=== PATIENT | female | born 1955 | race Caucasian/White ===

== ENCOUNTER 2017-01-31 17:52 | Observation (INO) | payer MEDICARE ==
[2017-01-31 18:57] LABS: #Eosinphils 0.3 thou/uL (0.0-0.7); #Monocytes 0.4 thou/uL (0.11-0.59); #Neutrophils 5.3 thou/uL (1.40-6.50); %Basophils 0.6 % (0.0-1.0); %Eosinophils 4.3 % (0.0-10.0); %Lymphocytes 14.5 % (21.0-51.0); %Monocytes 5.2 % (0.0-10.0); Hematocrit 44.4 % (36.0-47.0); Mean Platelet Volume 8.3 fL (7.4-10.4); Red Blood Cell (RBC) Count 5.09 mill/uL (4.20-5.40)
[2017-01-31 19:26] LABS: ALT (SGPT) 9 U/L (8-55); AST (SGOT) 22 U/L (5-34); Alkaline Phosphatase 181 U/L (40-150); Anion Gap 13 mmol/L (10-20); BUN (Urea Nitrogen) 16 mg/dL (9.8-20.1); Bilirubin, Total 0.7 mg/dL (0.2-1.2); Calc. Creatinine Clearance 0 mL/min (70-130); Calcium 9.6 mg/dL (7.8-10.44); Carbon Dioxide 25 mmol/L (23-31); Chloride 109 mmol/L (98-107); Estimated GFR-MDRD 80; Globulin 3.3 g/dL (2.4-3.5); Protein, Total 6.9 g/dL (6.0-8.3)
--- NOTE | 2017-01-31 20:18 | RAD ---
TWO VIEWS RIGHT FEMUR: Date: 01-31-17 History: Follow up fracture. Weakness. Comparison: Intraoperative fluoroscopic images, 12-26-16. FINDINGS: A lateral plate and multiple screws transfix the comminuted fracture or the distal right femoral met adiaphysis. Alignment is similar to intraoperative fluoroscopic images. Post-surgical change related to right total knee prosthesis are also again seen. No hardware complication is seen. There is no a cute fracture or dislocation identified. IMPRESSION: Internal fixation of comminuted fracture distal right femoral metadiaphysis. POS: NGA
[2017-01-31] MEDS ORDERED: Naproxen 500 MG TAB ONE (20:31)
[2017-01-31 21:19] LABS: Bilirubin Negative (Negative); Blood, Urine Negative (Negative); Glucose, Urine (Dipstick) Negative (Negative); Ketone, Urine Negative (Negative); Nitrite Negative (Negative); Protein, Urine (Dipstick) 100 mg/dL (Neg-Trace)
[2017-01-31 21:21] LABS: Bacteria/HPF None Seen HPF (None Seen); Hyaline Casts/LPF 0-3 HYALINE CAST LPF (0-3 Hyaline); Squamous Epithelial 0-3 HPF (0-3)
[2017-01-31] MEDS ORDERED: Ketorolac Tromethamine 30 MG/ML VIAL ONE (22:58)
[2017-02-01] MEDS ORDERED: Ondansetron HCl/PF 4 MG/2 ML Vial IVP PRN (01:26)
[2017-02-01] MEDS ORDERED: Acetaminophen 325 MG TAB PO PRN (01:26)
[2017-02-01] MEDS ORDERED: Ondansetron ODT 4 MG TAB SL PRN (01:26)
[2017-02-01] MEDS ORDERED: Naproxen 500 MG TAB PO PRN (01:28)
[2017-02-01] MEDS ORDERED: HYDROcodone/Acetaminophen 5/325 mg Tablet PO PRN (01:42)
[2017-02-01] MEDS: HYDROcodone/Acetaminophen 5/325 mg Tablet PO PRN ×2 (01:49→06:17)
[2017-02-01] MEDS: Ketorolac Tromethamine 30 MG/ML VIAL IM SCH ×2 (06:19→16:27)
[2017-02-01] MEDS ORDERED: FLU VACC QS2017-18 36 mo. & older 0.5 ML SYRINGE IM ONE (09:00)
[2017-02-01] MEDS ORDERED: oxyCODONE 5 MG TAB PO PRN (10:10)
[2017-02-01] MEDS: Enoxaparin Sodium 40 MG/0.4 ML SYRINGE SC SCH (10:31)
[2017-02-01] MEDS: oxyCODONE 5 MG TAB PO PRN ×3 (10:34→22:43)
--- NOTE | 2017-02-01 12:33 | HP ---
DATE OF ADMISSION: 02/01/2017 TIME OF VISIT: 07. CHIEF COMPLAINT: Generalized weakness. HISTORY OF PRESENT ILLNESS: Ms. Adrian is a 61-year-old female who has had multiple recent admission s. She was initially admitted 12/20/2016 for chest pain, rule out ME. She was discharged home on 0 12/23/2016 status post stress test and negative biomarkers. She was subsequently readmitted from 12/26/2016 to 12/31/2016 after falling and fracturing her dista l right femur. She was discharged to [facility] for 21 days for rehabilitation and was subsequentl y discharged home with [facility] for continuing physical therapy. Per the patient, physical therapy, still has not come and finally called her the last couple of days to schedule an admission time this coming up , 2 days from now. The patient was unable to complete her act ivities of daily living, so decided to come to the emergency department for evaluation. Last night during her evaluation, we contacted [facility] who informed the ER physician that she on ly had 3 days of benefits left and thus, for some unforeseen reason admitted to our service for furt her disposition and workup. She denies any chest pain or shortness of breath, no nausea or vomiting, diarrhea, constipation. Sh e is nonweightbearing to her right leg, status post open reduction internal fixation. She has a lef t AKA with prosthetic leg that she uses to get around. She denies using any alcohol prior to this visit. She denies any other current complaints. PAST MEDICAL HISTORY: 1. Hypertension. 2. Hyperlipidemia. 3. Osteoarthritis. 4. Chronic low back pain. 5. Left BKA. 6. History of chronic alcohol abuse. 7. Hypothyroidism. 8. COPD. PAST SURGICAL HISTORY: 1. Total hip arthroplasty. 2. Lumbar laminectomy in the past. 3. Right shoulder repair. 4. Left shoulder repair in need of revision. 5. Left BKA. 6. Right distal femur ORIF in 12/[address] Dunbar. HOME MEDICATIONS: 1. Trazodone 100 mg p.o. at bedtime. 2. Thiamine 100 mg daily. 3. Senna plus b.i.d. 4. MiraLax 17 grams p.o. daily. 5. Protonix 40 mg daily. 6. Zofran ODT 4 mg p.o. q.6 h. p.r.n. 7. Ativan 0.5 mg p.o. q.8 h. p.r.n. anxiety. 8. Levothyroxine 75 mcg daily. 9. DuoNeb q.4 hours p.r.n. 10. She is on oxycodone 5-10 mg every 6 hours as needed for moderate to severe pain. 11. Iron sulfate 325 mg p.o. b.i.d. 12. Lexapro 10 mg daily. ALLERGIES: ASPIRIN, CEFEPIME, IBUPROFEN/NSAIDs and PENICILLIN. FAMILY HISTORY: Negative for clotting or bleeding disorder, no immune dysfunction. SOCIAL HISTORY: Significant for past alcohol abuse for many years. She has been dry for some time, but states she did have a relapse about 2 months ago when her divorce was final. She does have a h istory of opioid abuse and sees pain management, Dr. East in [place]. She denies using any tobacco except when she drinks. REVIEW OF SYSTEMS: A 10-point review of systems was performed and negative for all other systems ex cept as per HPI. PHYSICAL EXAMINATION: VITAL SIGNS: Temperature 99.9, pulse 80, blood pressure 146/58, respiratory rate 20, O2 sat 97% on 2 liters nasal cannula. GENERAL: She is awake. She is alert. She is oriented x3. She is a well-developed, well-nourished white female who appears to be in no distress. HEENT: Normocephalic, atraumatic. Pupils equal, reactive bilaterally, mucosa moist, with no visibl e lesions and no thrush. CHEST: Lungs are clear. She has a symmetric chest movement and good air exchange. She has no whee zes, rales or rhonchi. CARDIOVASCULAR: Normal S1, S2, no S3 or S4. No audible murmurs. ABDOMEN: Soft, nontender, nondistended, no mass or organomegaly. EXTREMITIES: She had no cyanosis of upper extremities. She has a left BKA, stump is intact. Her l eft leg, knee brace was not removed. She has no edema of the right lower extremity. 1+ peripheral pulse, dorsalis pedis and posterior tibial. SKIN: Otherwise warm, moist and well perfused. She has no other identified rashes or lesions. MUSCULOSKELETAL: Shows shoulders and hips to be uninflamed without any palpable effusions. Right k nee is in a brace. Left knee appears to be intact. Stump is without erythema. NEUROLOGIC: Cranial nerves II-XII are grossly intact. No focal neurologic deficits. LABORATORY DATA: CMP is completely within normal limits. Urinalysis showed no bacteria, but 7-10 w raul blood cells. CBC is normal with a white count of 7, hemoglobin 13.6, and platelets 231,000. Femur x-ray showed distal right femur fracture, status post open reduction internal fixation with britton rdware in good alignment. No evidence of fracture or dislocation. ASSESSMENT AND PLAN: 1. Generalized weakness. The patient was placed in observation status. I am seeing the patient th is morning. We will wait caseworker protective services to see her and work on placement either home with home health care versus back at [facility]. The patient is refusing retirement facility. 2. Essential hypertension. The patient is current not on any medications. We will watch. 3. Hyperlipidemia: Not on medications. 4. Gastroesophageal reflux disease, on Protonix. We will continue. 5. Chronic pain. We will continue her home dose of oxycodone. 6. Hypothyroidism on levothyroxine. We will continue. 7. History of chronic obstructive pulmonary disease on DuoNebs p.r.n. We will continue.
[2017-02-01] MEDS: Famotidine 20 MG TAB PO SCH (20:44)
[2017-02-01] MEDS ORDERED: traZODone HCl 50 MG TAB PO SCH (21:00)
[2017-02-02] MEDS: oxyCODONE 5 MG TAB PO PRN ×3 (06:27→16:56)
[2017-02-02] MEDS: Famotidine 20 MG TAB PO SCH (08:12)
[2017-02-02] MEDS: Enoxaparin Sodium 40 MG/0.4 ML SYRINGE SC SCH (08:13)
[2017-02-02] MEDS ORDERED: traMADol HCl 50 MG TAB PO PRN ×2 (10:36)
[2017-02-02] MEDS ORDERED: Acetaminophen/Codeine 30-300mg Tablet PO PRN ×2 (10:37)
--- NOTE | 2017-02-02 11:44 | DIS ---
PRIMARY CARE PHYSICIAN: None. ORTHOPEDIST: Dr. Jose Dunbar DATE OF ADMISSION: 02/01/2017 DATE OF DISCHARGE: 02/02/2017 DISCHARGE DIAGNOSES: 1. Physical deconditioning. 2. Status post recent open reduction and internal fixation of left distal femur fracture. 3. Fall from same level without injury. 4. Hypertension. 5. Hyperlipidemia. 6. Gastroesophageal reflux disease. 7. Hypothyroidism. 8. History of chronic pain syndrome. 9. History of chronic obstructive pulmonary disease without acute exacerbation. CONSULTATIONS: Orthopedics, Dr. Dunbar and his team. PROCEDURES: None. HISTORY OF PRESENT ILLNESS: Ms. Adrian is a 59-year-old female status post a fall with right distal femur fracture about 5 weeks ago. She subsequently was admitted, had her distal femur fracture fixe d and is currently nonweightbearing for 6-8 weeks. She was discharged from the hospital to [facility] for rehabilitation. She was there for about 3 weeks and discharged home with home health care. Apparently home health care never started services. She became weaker and weaker and finally prese nted in the emergency department for treatment for admission for further placement. HOSPITAL COURSE: The patient was admitted plumbing engineer, I saw her later that morning on the floor. She had no acute complaints. No events. Orthopedics came by and saw her and noted that she had no further evidence of acute fracture on her repaired site. email manager was consulted for placement. The patient had difficulty on 02/01/2017 selecting a care plan, she refused to go to longterm facility and had no days left at [facility]. She subsequently was deciding on home health care wi th or without secondary home care acute service. She was watched overnight 02/01/2017 to 02/02/2017, and this morning she had decided on [facility] t o provide care at home on a private pay basis. Arrangements were made and a choice letter for regul ar services to [facility] was sent and the patient was discharged home for further rehabilitation. PHYSICAL EXAMINATION: The patient was seen on the day of discharge. Discharged plan and dispositio n were discussed with the patient face to face at the bedside. DISCHARGE MEDICATIONS: 1. Tylenol #3 300/30 one to two q.4 hours p.r.n. per Orthopedics. 2. Amlodipine 5 mg daily. 3. Biotin 2500 mcg p.o. daily. 4. Lexapro 10 mg daily. Prescription sent for 30 tablets with no refills. 5. Levothyroxine 75 mcg daily. 6. Ativan 0.5 mg p.o. q.8 h, no refill prescription was given. 7. Oxycodone 10-20 mg p.o. q.4 h. p.r.n., per patient history, refill was not given. 8. Tramadol 50-100 mg p.o. q.4 h. p.r.n. Prescription given by Orthopedics. 9. Trazodone 100 mg p.o. at bedtime., a prescription for 30 days given with no refill. DISPOSITION: 1. The patient will be discharged home with [facility] and [facility]. Followup appointment is with Dr Dunbar as previously scheduled. 2. She is to establish with a PCP here locally. 3. Follow up with the pain management doctor who is currently in [place] or settle with a new one he re locally. DISCHARGE CONDITION: Stable.
[2017-02-02 16:10] VITALS: BP 134/51; TEMP 97.8
== END 2017-02-02 17:20 | disposition home health service (06) ==
LOC: ERS 17:52 → SURG B 02-01 00:27
PROVIDERS: ADMIT Internal Medicine; ATTEND Internal Medicine
DX: R53.81 Other malaise (principal); I10 Essential (primary) hypertension; E78.5 Hyperlipidemia, unspecified; K21.9 Gastro-esophageal reflux disease without esophagitis; E03.9 Hypothyroidism, unspecified; G89.4 Chronic pain syndrome; J44.9 Chronic obstructive pulmonary disease, unspecified; S72.401A Unspecified fracture of lower end of right femur, initial encounter for closed fracture; M19.90 Unspecified osteoarthritis, unspecified site; F17.200 Nicotine dependence, unspecified, uncomplicated; Z79.899 Other long term (current) drug therapy; Z88.6 Allergy status to analgesic agent; Z88.1 Allergy status to other antibiotic agents; Z88.0 Allergy status to penicillin; Z97.14 Presence of artificial left leg (complete) (partial); Z96.649 Presence of unspecified artificial hip joint; Z89.512 Acquired absence of left leg below knee; Z98.890 Other specified postprocedural states; Z91.81 History of falling; Z86.59 Personal history of other mental and behavioral disorders
CPT/HCPCS: 73552; 80053; 85025; 90732; 96372 ×3; 99285; G0009; G0378; 36415; 81003; 81015; 90471; J1650; J1885

== ENCOUNTER 2017-04-11 13:51 | Outpatient (CLI) | payer MEDICARE ==
--- NOTE | 2017-04-11 17:19 | ULT ---
RIGHT LOWER EXTREMITY VENOUS ULTRASOUND: Date: 04/11/17 HISTORY: Pain. Swelling. Fracture. COMPARISON: 01/10/17. TECHNIQUE: Villarreal scale, color flow, Doppler imaging, and spectral waveform analysis performed of the right lower extremity deep venous system. FINDINGS: There is compressibility, presence of flow, and augmentation in the common femoral, femoral vein, and popliteal vein. There is flow in the greater saphenous vein, profunda vein, and posterior tibial vei n. IMPRESSION: No evidence of thrombus in right lower extremity deep venous system. POS: NGA
== END 2017-04-11 13:52 | disposition home or self-care (01) ==
LOC: ULT 13:51
PROVIDERS: ATTEND Orthopaedic Surgery
DX: M79.89 Other specified soft tissue disorders (principal); M79.661 Pain in right lower leg

== ENCOUNTER 2017-05-09 11:50 | Emergency (ER) | payer MEDICARE ==
[2017-05-09] MEDS ORDERED: traMADol HCl 50 MG TAB ONE (13:16)
== END 2017-05-09 14:09 | disposition home or self-care (01) ==
LOC: ERS 11:50
DX: M25.561 Pain in right knee (principal); E78.5 Hyperlipidemia, unspecified; F41.9 Anxiety disorder, unspecified; F17.210 Nicotine dependence, cigarettes, uncomplicated; I10 Essential (primary) hypertension; M19.90 Unspecified osteoarthritis, unspecified site
CPT/HCPCS: 99406

== ENCOUNTER 2017-05-12 10:37 | Outpatient (CLI) | payer MEDICARE ==
--- NOTE | 2017-05-12 15:34 | NM ---
THREE PHASE BONE SCAN: HISTORY: Evaluate for loosening of the femoral component of the knee arthroplasty. COMPARISON: Knee radiographs 01/31/17. TECHNIQUE: Immediate blood pool and delayed images were obtained of the right knee after the intravenous adminis tration of 30.6 mCi Technetium 99m MDP. FINDINGS: Increased blood flow, blood pool, and delayed activity of the distal femur at the callus healing frac ture. No abnormal uptake at the femoral portion of the knee arthroplasty. No abnormal tibial uptake . IMPRESSION: Healing fracture. No evidence of loosening of hardware. POS: NGA
== END 2017-05-12 10:38 | disposition home or self-care (01) ==
LOC: NM 10:37
PROVIDERS: ATTEND Orthopaedic Surgery
DX: M97.11XD Periprosthetic fracture around internal prosthetic right knee joint, subsequent encounter (principal)
CPT/HCPCS: 78315; A9503

== ENCOUNTER 2017-07-05 00:11 | Emergency (ER) | payer MEDICARE ==
--- NOTE | 2017-07-05 08:07 | RAD ---
AP CHEST: History: 61-year-old female with dyspnea. Date: 07-05-17 Comparison: 12-26-16 FINDINGS: AP chest demonstrates a left shoulder arthroplasty again seen. Mild cardiomegaly is seen. Pulmonary vascular congestion is seen. There is blunting of the right costophrenic angle compatible with small right sided pleural effusion. No other significant interval changes or abnormalities seen. IMPRESSION: Blunting of the right costophrenic angle compatible with small right sided pleural effusion. This is slightly more prominent than on the previous comparison exam. POS: NGA
--- NOTE | 2017-08-18 15:03 | EKG ---
Test Reason : Blood Pressure : / mmHG Vent. Rate : 070 BPM Atrial Rate : 070 BPM P-R Int : 182 ms QRS Dur : 098 ms QT Int : 458 ms P-R-T Axes : 046 042 035 degrees QTc Int : 494 ms Sinus rhythm with Premature atrial complexes Prolonged QT Abnormal ECG Confirmed by GUILLERMO OJEDA ([id number]), visual effects editor EAV RUELAS ([id number]) on 08/18/2017 3:03:20 PM Referred By: Confirmed By:GUILLERMO OJEDA
== END 2017-07-05 06:05 | disposition home or self-care (01) ==
LOC: ERS 00:11
DX: F10.129 Alcohol abuse with intoxication, unspecified (principal); E78.5 Hyperlipidemia, unspecified; I10 Essential (primary) hypertension; M19.90 Unspecified osteoarthritis, unspecified site; K74.60 Unspecified cirrhosis of liver; F41.9 Anxiety disorder, unspecified; F17.210 Nicotine dependence, cigarettes, uncomplicated; E78.1 Pure hyperglyceridemia; F41.0 Panic disorder [episodic paroxysmal anxiety]; Z79.01 Long term (current) use of anticoagulants; Z79.899 Other long term (current) drug therapy; Y90.7 Blood alcohol level of 200-239 mg/100 ml
CPT/HCPCS: 36415; 71045; 80307; 93005; 99406

== ENCOUNTER 2017-07-10 10:32 | Emergency (ER) | payer MEDICARE ==
[2017-07-10] MEDS ORDERED: Promethazine HCl 25 MG/ML VIAL ONE ×2 (11:43→15:24)
[2017-07-10] MEDS ORDERED: Lidocaine Viscous Sol 2% 15 ml UD Cup ONE (11:43)
[2017-07-10] MEDS ORDERED: Mag-Al 1200 mg/1200 mg/30 ML UDCUP ONE (11:43)
[2017-07-10 11:46] LABS: Band 1 % (5-11); Eosinophils 1 % (0-10); Hemoglobin 13.1 g/dL (12.0-16.0); Lymphocytes 25 % (21-51); MDiff Complete? YES; Mean Corpuscular HGB CONC 31.5 g/dL (32.0-36.0); Mean Corpuscular Hemoglobin 25.8 pg (27.0-31.0); Mean Platelet Volume 8.2 fL (7.4-10.4); Monocytes 1 % (0-10); Neutrophil 70 % (42-75); Platelet Count 219 thou/uL (130-400); RBC Distribution Width 14.6 % (11.5-14.5); Red Blood Cell (RBC) Count 5.09 mill/uL (4.20-5.40); White Blood Cell (WBC) Count 4.3 thou/uL (4.8-10.8)
[2017-07-10 11:49] LABS: ALT (SGPT) 25 U/L (8-55); AST (SGOT) 44 U/L (5-34); Albumin 3.6 g/dL (3.4-4.8); Alkaline Phosphatase 200 U/L (40-150); Anion Gap 15 mmol/L (10-20); BUN (Urea Nitrogen) 8 mg/dL (9.8-20.1); Calc. Creatinine Clearance 0 mL/min (70-130); Carbon Dioxide 20 mmol/L (23-31); Chloride 109 mmol/L (98-107); Estimated GFR-MDRD 86; Globulin 2.9 g/dL (2.4-3.5); Glucose 112 mg/dL (80-115); Lipase 52 U/L (8-78); Potassium 3.4 mmol/L (3.5-5.1); Protein, Total 6.5 g/dL (6.0-8.3); Sodium 141 mmol/L (136-145)
[2017-07-10] MEDS ORDERED: Morphine 4 MG/ML VIAL ONE ×2 (13:20→15:55)
[2017-07-10] MEDS ORDERED: Acetaminophen 500 MG TAB ONE (13:20)
[2017-07-10 14:50] LABS: Base Excess-Venous -0.7 mmol/L (0 (+/- 2.5)); Bicarbonate (HCO3v) 21.3 mmol/L (1.0-85.0); CO2 Tension (PvCO2) 26.6 mmHg (41.0-51.0); Calcium, Ionized 0.88 mmol/L (1.12-1.32); Hemoglobin - Calc 11.1 g/dL (12.0-18.0); O2 Tension (PvO2) 197.8 mmHg (35.0-45.0); Potassium 3.6 mmol/L (3.4-4.7); T. Carbon Dioxide 22.1 mmol/L (1.0-85.0); pH (Venous) 7.511 (7.35-7.45); vO2 Saturation-calc 99.8 % (94-98)
[2017-07-10 15:00] LABS: Lactate 1.51 mmol/L (0.50-2.20)
--- NOTE | 2017-07-10 15:15 | CT ---
ABDOMEN AND PELVIS CT WITH IV CONTRAST: History: 61-year-old female with history of fever, nausea, and vomiting and diarrhea. FINDINGS: Post contrast CT examination of the abdomen and pelvis was performed. There is some minimal pleural thickening changes and some pleural based linear and parenchymal change s in both lung bases, worse on the right side, having the appearance of chronic change. Patient appea rs to be status post TIPS procedure. Within the spleen, up to 0.8 cm. Multiple small bilateral renal cysts are noted. No evidence of gallstones. Mild dilatation of the pancreatic duct and common bile du ct. No bowel obstruction. No abscess, adenopathy or abnormal fluid collection within the abdomen or p summer. Normal appearing appendix. No renal calculus or acute obstruction. Minimally dilated spleni c vein as well as some varices in the perigastric region and portahepatis region. No significant asci ejss. Muscle volume loss involving the left gluteal muscles. IMPRESSION: Some chronic pleural and parenchymal changes, primarily in the right lung base. Status post TIPS proc edure, with some associated perigastric and portahepatis varices. Multiple low attenuation foci, nons pecific, in the spleen, measuring up to approximately 0.8 cm. Multiple bilateral renal cysts without renal calculus or obstruction. Unremarkable appearing gallbladder. Mildly dilated common bile duct and pancreatic duct but no significant intrahepatic ductal dilatation. Normal appearing appendix. No significant ascites. Other findings as above. POS: [facility]
== END 2017-07-10 16:36 | disposition home or self-care (01) ==
LOC: ERS 10:32
DX: R11.2 Nausea with vomiting, unspecified (principal); E78.1 Pure hyperglyceridemia; I10 Essential (primary) hypertension; M19.90 Unspecified osteoarthritis, unspecified site; K74.60 Unspecified cirrhosis of liver; F41.0 Panic disorder [episodic paroxysmal anxiety]; F17.210 Nicotine dependence, cigarettes, uncomplicated
CPT/HCPCS: 36415; 74177; 80053; 82330; 82803; 83605; 83690; 85025; 87804; 96361; 96372; 96374; 96375; 96376; J2270; J2550

== ENCOUNTER 2017-07-12 12:38 | Emergency (ER) | payer MEDICARE ==
[2017-07-12 15:40] LABS: Bilirubin Negative (Negative); Blood, Urine Negative (Negative); Clarity CLEAR (Clear); Glucose, Urine (Dipstick) Negative (Negative); Leukocyte Negative (Negative); Nitrite Negative (Negative); Protein, Urine (Dipstick) 100 mg/dL (Neg-Trace); pH, Urine 7.5 (5.0-9.0)
[2017-07-12 15:45] LABS: Bacteria/HPF None Seen HPF (None Seen); Hyaline Casts/LPF 0-3 HYALINE CAST LPF (0-3 Hyaline); Pathc Cast-AUWi Flag 0.13 (0-2.49); RBC/HPF 0-3 HPF (0-3); Squamous Epithelial 0-3 HPF (0-3); WBC/HPF 0-3 HPF (0-3)
[2017-07-12 16:30] LABS: #Basophils 0.1 thou/uL (0.0-0.2); #Eosinphils 0.2 thou/uL (0.0-0.7); #Lymphocytes 1.4 thou/uL (1.20-3.40); #Monocytes 0.4 thou/uL (0.11-0.59); #Neutrophils 4.4 thou/uL (1.40-6.50); %Eosinophils 2.8 % (0.0-10.0); %Lymphocytes 21.6 % (21.0-51.0); %Monocytes 6.7 % (0.0-10.0); %Neutrophils 67.9 % (42.0-75.0); Hemoglobin 11.2 g/dL (12.0-16.0); Mean Corpuscular HGB CONC 31.6 g/dL (32.0-36.0); Mean Corpuscular Hemoglobin 26.2 pg (27.0-31.0); Mean Corpuscular Volume 82.9 fl (81.0-99.0); Mean Platelet Volume 8.1 fL (7.4-10.4); Platelet Count 210 thou/uL (130-400); RBC Distribution Width 15.4 % (11.5-14.5); Red Blood Cell (RBC) Count 4.26 mill/uL (4.20-5.40); White Blood Cell (WBC) Count 6.4 thou/uL (4.8-10.8)
[2017-07-12 16:48] LABS: BHCG - Serum Negative (NEGATIVE); Pregs Control Background? CLEAR/WHITE (CLR/WHITE); Pregs Control Bar Appear? YES (CONTROL BAR)
[2017-07-12 16:52] LABS: ALT (SGPT) 18 U/L (8-55); AST (SGOT) 26 U/L (5-34); Albumin 3.2 g/dL (3.4-4.8); Alkaline Phosphatase 163 U/L (40-150); Anion Gap 12 mmol/L (10-20); BUN (Urea Nitrogen) 10 mg/dL (9.8-20.1); Bilirubin, Total 0.8 mg/dL (0.2-1.2); Calc. Creatinine Clearance 0 mL/min (70-130); Calcium 8.5 mg/dL (7.8-10.44); Carbon Dioxide 21 mmol/L (23-31); Chloride 115 mmol/L (98-107); Estimated GFR-MDRD Greater than 90; Globulin 2.4 g/dL (2.4-3.5); Glucose 86 mg/dL (80-115); Potassium 3.5 mmol/L (3.5-5.1); Protein, Total 5.6 g/dL (6.0-8.3); Sodium 144 mmol/L (136-145)
[2017-07-12] MEDS ORDERED: traMADol HCl 50 MG TAB ONE (18:09)
[2017-07-12] MEDS ORDERED: Promethazine 25 MG TAB ONE (18:53)
[2017-07-12] MEDS ORDERED: Gabapentin 300 MG CAP PO SCH (19:00)
== END 2017-07-12 22:36 ==
LOC: ERS 12:38
DX: R19.7 Diarrhea, unspecified (principal); R11.2 Nausea with vomiting, unspecified; E78.2 Mixed hyperlipidemia; I10 Essential (primary) hypertension; M19.90 Unspecified osteoarthritis, unspecified site; K74.60 Unspecified cirrhosis of liver; F41.9 Anxiety disorder, unspecified; F17.210 Nicotine dependence, cigarettes, uncomplicated; Z89.612 Acquired absence of left leg above knee; Z71.6 Tobacco abuse counseling
CPT/HCPCS: 36415; 51701; 80053; 81003; 81015; 84703; 85025; 99406; A4353

== ENCOUNTER 2017-11-26 07:29 | Inpatient (IN) | payer MEDICARE ==
[2017-11-26 09:14] LABS: #Basophils 0.1 thou/uL (0.0-0.2); #Eosinphils 0.1 thou/uL (0.0-0.7); #Lymphocytes 1.2 thou/uL (1.20-3.40); #Monocytes 0.3 thou/uL (0.11-0.59); %Basophils 0.9 % (0.0-1.0); %Eosinophils 1.8 % (0.0-10.0); %Lymphocytes 17.8 % (21.0-51.0); %Monocytes 3.8 % (0.0-10.0); %Neutrophils 75.7 % (42.0-75.0); Hemoglobin 12.2 g/dL (12.0-16.0); Mean Corpuscular HGB CONC 32.4 g/dL (32.0-36.0); Mean Corpuscular Hemoglobin 26.2 pg (27.0-31.0); Mean Corpuscular Volume 80.9 fL (78.0-98.0); Mean Platelet Volume 9.5 fL (7.4-10.4); Platelet Count 170 thou/uL (130-400); RBC Distribution Width 18.4 % (11.5-14.5); Red Blood Cell (RBC) Count 4.66 mill/uL (4.20-5.40); White Blood Cell (WBC) Count 6.6 thou/uL (4.8-10.8)
[2017-11-26 09:43] LABS: ALT (SGPT) 9 U/L (8-55); AST (SGOT) 28 U/L (5-34); Albumin 3.7 g/dL (3.4-4.8); Alkaline Phosphatase 166 U/L (40-150); Anion Gap 21 mmol/L (10-20); BUN (Urea Nitrogen) 7 mg/dL (9.8-20.1); Bilirubin, Total 0.8 mg/dL (0.2-1.2); CK (CPK) 134 U/L (29-168); Calc. Creatinine Clearance 0 mL/min (70-130); Calcium 8.7 mg/dL (7.8-10.44); Carbon Dioxide 15 mmol/L (23-31); Chloride 116 mmol/L (98-107); Estimated GFR-MDRD 85; Globulin 2.8 g/dL (2.4-3.5); Glucose 109 mg/dL (80-115); Potassium 3.5 mmol/L (3.5-5.1); Protein, Total 6.5 g/dL (6.0-8.3); Sodium 148 mmol/L (136-145)
[2017-11-26 09:45] LABS: Troponin I 0.022 ng/mL (< 0.028)
[2017-11-26 09:57] LABS: Bilirubin Negative (Negative); Blood, Urine Small (Negative); Clarity CLEAR (Clear); Glucose, Urine (Dipstick) Negative (Negative); Leukocyte Negative (Negative); Nitrite Negative (Negative); Protein, Urine (Dipstick) 300 mg/dL (Neg-Trace); Specific Gravity, Urine 1.004 (1.002-1.036); Urobilinogen 0.2 mg/dL (0.2-1.0); pH, Urine 6.5 (5.0-9.0)
[2017-11-26 09:59] LABS: Pathc Cast-AUWi Flag 0.14 (0-2.49)
[2017-11-26 10:07] LABS: Bacteria/HPF None Seen HPF (None Seen); RBC/HPF 0-3 HPF (0-3); Squamous Epithelial 0-3 HPF (0-3); WBC/HPF None Seen HPF (0-3)
[2017-11-26 10:08] LABS: Hyaline Casts/LPF NONE SEEN LPF (0-3 Hyaline)
--- NOTE | 2017-11-26 10:45 | CT ---
CT BRAIN WITHOUT CONTRAST: Date: 11/26/17 HISTORY: Trauma. Left arm numbness. COMPARISON: CT brain dated 12/26/16. FINDINGS: No hemorrhage or infarct. No midline shift or mass effect. Ventricular size and extra-axial CSF space s are normal for age. Globes are normal. Calvarium is intact. Paranasal sinuses and mastoids are maritza r. IMPRESSION: No acute intracranial abnormality. POS: [facility]
--- NOTE | 2017-11-26 11:04 | CT ---
CT CERVICAL SPINE WITHOUT CONTRAST: Date: 11/26/17 HISTORY: Trauma. Fall. COMPARISON: CT cervical spine from 2017. FINDINGS: The odontoid process is intact. The occipital condyles are intact. Severe degenerative disease of the C1-2 articulation. There is fusion of the C2 and C3 posterior elements bilaterally. Severe facet art hrosis C3-4 and C4-5 on the left, and moderate on the right. There is osseous fusion of the posterior elements bilaterally at C6-7. Osseous fusion of C6-7 vertebral bodies. Severe degenerative disease at C7-T1 with large circumferent ial disc osteophyte complex. Previous laminectomy change at C3 and C4. Visualized ribs are unremarkable. Layering right pleural effusion with apical capping. Thyroid appears to be unremarkable. No paraspinal muscle hematoma. IMPRESSION: Severe degenerative changes. No acute fracture or malalignment. POS: [facility]
[2017-11-26 12:40] LABS: Amphetamine Not Detected (NotDetected); Barbiturates Screen Not Detected (NotDetected); Benzodiazepine Screen Not Detected (NotDetected); Cocaine Metabolite Screen Not Detected (NotDetected); Medtox Control Line Valid? VALID (VALID); Medtox Reader # READER 4; Methadone Not Detected (NotDetected); Methamphetamine Not Detected (NotDetected); Opiate Screen Detected (NotDetected); Oxycodone Screen Not Detected (NotDetected); Phencyclidine (PCP) Not Detected (NotDetected); THC/Cannabinoid Screen Not Detected (NotDetected); Tricyclic Screen Not Detected (NotDetected)
[2017-11-26 12:44] LABS: Acetaminophen Less than 6.0 mcg/mL (10.0-30.0); Alcohol 307 mg/dL (Less than 10); Salicylate Less than 8.0 mg/dL (15.0-30.0)
[2017-11-26] MEDS ORDERED: Lorazepam 2 MG/ML VIAL ONE (15:41)
[2017-11-26] MEDS ORDERED: Senokot 8.6 MG TAB PO PRN (15:56)
[2017-11-26] MEDS ORDERED: Nitroglycerin 0.4 MG TAB (25 Tab Bottle) SL PRN (15:56)
[2017-11-26] MEDS ORDERED: Mag-Al 1200 mg/1200 mg/30 ML UDCUP PO PRN (15:56)
[2017-11-26] MEDS ORDERED: Acetaminophen 325 MG TAB PO PRN (15:56)
[2017-11-26] MEDS ORDERED: Ondansetron PF 4 MG/2 ML Vial IVP PRN (15:56)
[2017-11-26] MEDS ORDERED: Benzonatate 100 MG CAP PO PRN (15:56)
[2017-11-26] MEDS ORDERED: hydrALAZINE 20 MG/ML VIAL SLOW IVP PRN (15:56)
[2017-11-26] MEDS ORDERED: Bisacodyl 5 MG TAB PO PRN (15:56)
[2017-11-26] MEDS ORDERED: Calcium Carbonate 500 MG ChewTAB PO PRN (15:56)
[2017-11-26] MEDS ORDERED: Diabetic Tussin 200 MG/10 ML UDCUP PO PRN (15:56)
[2017-11-26] MEDS ORDERED: traMADol HCl 50 MG TAB PO PRN (15:56)
--- NOTE | 2017-11-26 17:50 | HP ---
DATE OF ADMISSION: 11/26/2017 PRIMARY CARE PHYSICIAN: Zulay. CHIEF COMPLAINT: Left shoulder pain. HISTORY OF PRESENT ILLNESS: Ms. Adrian is a 62-year-old female with known history of drug and alcohol abuse as well as dyslipidemia, chronic pain, hypertension, and multiple admissions in the past rehab because of chronic pain and inability to take care of herself, who presented to the ER with the abov e-mentioned complaint. History is mainly obtained by the patient herself who is a rather poor histor rehan as she is acutely intoxicated with alcohol at this time. [facility] and electronic medical records have been reviewed. It seems like that the patient was admitted to rehabilitation at [facility] in June of this year with failure to perf orm ADLs and IADLs. She is still living alone and some of the reason for this admission is placement . Ms. Adrian presented to the ER with complaints of left-sided shoulder pain and all over pain. She is status post BKA on the left side and complains of pain in the right leg and left shoulder. She repor ts that she fell 5 days ago. Other than that, not much history is obtainable from her. In the emerg ency room, she underwent a CT scan of the brain as well as a CT scan of the cervical spine, which was unremarkable. The most exciting finding in her labs today is an alcohol level of 293-307. She was found to be acutely intoxicated. I was called to admit this patient for possible placement as well a s for withdrawal symptoms and acute alcoholic intoxication. The nursing staff in the emergency room updated me that they have been talking with family including her son, Segundo, and her brother Aftab forrest o also wanted the patient to be placed either in a rehab or skilled rehab or a correction as she britton s multiple hospitalizations and rehab stays and is not able to take care of herself at home and lives alone. PAST MEDICAL HISTORY: 1. History of narcotic abuse. 2. History of chronic pain and hypertension. 3. Dyslipidemia. 4. Osteoarthritis. 5. Left BKA. 6. Chronic alcohol abuse. 7. Hypothyroidism. 8. Chronic obstructive pulmonary disease. PAST SURGICAL HISTORY: 1. Total hip arthroplasty. 2. Lumbar laminectomy in the past. 3. Right shoulder repair. 4. Left shoulder repair. 5. Left BKA. 6. Right distal femur ORIF in 12/2016. ALLERGIES: ASPIRIN, CEFEPIME, IBUPROFEN, PENICILLIN. FAMILY HISTORY: No bleeding or clotting disorder. No premature coronary artery disease. HOME MEDICATIONS: Needs to be updated. As per the ER record, she takes amlodipine 5 mg daily, levot hyroxine 75 mcg daily, trazodone 100 mg daily, Lexapro 10 mg daily, [place] as needed. SOCIAL HISTORY: She reports that she has been sober for the last 3 months or so, but she has been dr inking nonstop for last 3 days. Her family reports that she has been drinking almost on a daily basi s. She used to be addicted to pain medications and was able to get off of it, but recently she went to either an urgent care or some place or Orthopedics [facility] and she was put on some pain medications for her shoulder or leg pain or something and since then she is hooked again. She has used 120 pill s of [place] in about a week or so. REVIEW OF SYSTEMS: Difficult to obtain as the patient is exhibiting very tangential thinking due to acute alcoholic intoxication. She just continues to complain about various aches and pains in almost every joint. LABORATORY DATA AND IMAGING DATA: CBC unremarkable. Serum chemistry shows sodium of 148, chloride 1 16, bicarbonate 15, anion gap 21. Renal function normal. Alkaline phosphatase is elevated to 166. Cardiac enzymes normal. TSH normal. Urinalysis shows some protein and blood. Urine drug screen pos itive for opioids. Alcohol level 307. CT scan of the brain by my review has no evidence to suggest hemorrhage or acute infarction. CT scan of the cervical spine unremarkable without any fractures. PHYSICAL EXAMINATION: VITAL SIGNS: Blood pressure 161/60, pulse of 79, respirations 16, saturating 94% on room air, temper ature 98.4. GENERAL: No acute distress, awake, alert, oriented x3. She appears very disheveled, distracted and pale, in no acute distress. She follows simple commands. HEENT: Mucous membrane is dry and she does have some redness to her tongue. No oropharyngeal exudat e or erythema. Head is normocephalic and atraumatic. Pupils are equal, reactive to light and accomm odation. She has some bruises and scabs on her forehead. NECK: Supple without any lymphadenopathy, JVD or bruit. CHEST: Clear to auscultation without any wheezing, rales or rhonchi. Rate and rhythm is regular. S he has a loud 2/6 systolic murmur best heard at the second intercostal space. ABDOMEN: Soft, nontender, nondistended, positive bowel sounds. EXTREMITIES: Free of any cyanosis, clubbing, or edema. NEUROLOGIC: No focal deficits found. She does appear to exhibit some tangential thinking, but follo w simple commands and is awake, alert, oriented x3. SKIN: Free of any rashes or bruises. Feel warm and dry to touch. EXTREMITIES: Free of any cyanosis, clubbing, or edema. PSYCHIATRIC: Normal affect. IMPRESSION AND PLAN: 1. Acute alcoholic intoxication. The patient will be admitted to telemetry unit to monitor for alco hol withdrawal symptoms. We will start on ASE protocol and Librium t.i.d. to combat the withdrawal s ymptoms. 2. Hypernatremia, likely secondary to dehydration. We will start her on D5 half normal saline. Rep eat the levels in the morning. 3. Multiple falls and failure to thrive. The patient will be evaluated by rehab or correction facility based on the availability by her insurance. 4. Fall and aspiration precautions. 5. Hypertension. Restart her home medications once confirmed. 6. Code status: FULL CODE. Discussed with the patient. 7. Alcohol and drug abuse. The patient has failed rehab multiple times. She will be best served by putting in a correction, but I am not sure how her insurance would cover for it or not. 8. Deep venous thrombosis and gastrointestinal prophylaxis. 9. P.r.n. medication order. DISPOSITION: Ms. Adrian is going to be admitted under observation status for acute alcoholic intoxica tion and possible withdrawal symptoms as well as need for placement for failure to thrive and failure to perform ADLs and IADLs. Further management will depend upon her clinical course.
[2017-11-26] MEDS: Dextrose 5 %-0.45 % NaCl 1,000 ML IV SCH (18:20)
[2017-11-26] MEDS: Famotidine 20 MG TAB PO SCH (21:55)
[2017-11-26] MEDS: chlordiazePOXIDE HCl 25 MG CAP PO SCH (21:55)
[2017-11-26 22:09] VITALS: BMI 20.3
[2017-11-27] MEDS: Lorazepam 2 MG/ML VIAL SLOW IVP PRN (03:47)
[2017-11-27 05:48] LABS: #Eosinphils 0.1 thou/uL (0.0-0.7); #Lymphocytes 1.5 thou/uL (1.20-3.40); #Monocytes 0.4 thou/uL (0.11-0.59); #Neutrophils 4.4 thou/uL (1.40-6.50); %Basophils 0.6 % (0.0-1.0); %Eosinophils 1.5 % (0.0-10.0); %Lymphocytes 23.3 % (21.0-51.0); %Neutrophils 68.6 % (42.0-75.0); Mean Corpuscular HGB CONC 32.7 g/dL (32.0-36.0); Mean Corpuscular Volume 82.6 fL (78.0-98.0); Mean Platelet Volume 8.7 fL (7.4-10.4); Platelet Count 160 thou/uL (130-400); RBC Distribution Width 18.1 % (11.5-14.5); Red Blood Cell (RBC) Count 4.43 mill/uL (4.20-5.40); White Blood Cell (WBC) Count 6.5 thou/uL (4.8-10.8)
[2017-11-27] MEDS: Dextrose 5 %-0.45 % NaCl 1,000 ML IV SCH ×2 (06:09→15:11)
[2017-11-27 06:19] LABS: Anion Gap 14 mmol/L (10-20); BUN (Urea Nitrogen) 7 mg/dL (9.8-20.1); Calc. Creatinine Clearance 80 mL/min (70-130); Calcium 8.2 mg/dL (7.8-10.44); Carbon Dioxide 17 mmol/L (23-31); Chloride 116 mmol/L (98-107); Estimated GFR-MDRD Greater than 90; Glucose 95 mg/dL (80-115); Potassium 3.4 mmol/L (3.5-5.1); Sodium 144 mmol/L (136-145)
[2017-11-27] MEDS: Escitalopram Oxalate 10 mg Tablet PO SCH (08:28)
[2017-11-27] MEDS: Amlodipine 5 MG TAB PO SCH (08:28)
[2017-11-27] MEDS: Enoxaparin Sodium 40 MG/0.4 ML SYRINGE SC SCH (08:29)
[2017-11-27] MEDS: chlordiazePOXIDE HCl 25 MG CAP PO SCH (08:29)
[2017-11-27] MEDS: Famotidine 20 MG TAB PO SCH ×2 (08:29→21:29)
[2017-11-27] MEDS ORDERED: Potassium Chloride 20 MEQ TAB PO SCH (08:45)
[2017-11-27] MEDS ORDERED: Levothyroxine Sodium 75 MCG TAB PO SCH (09:00)
[2017-11-27] MEDS ORDERED: BIOTIN 2500 MCG PO SCH (09:00)
[2017-11-27] MEDS: Lorazepam 1 MG TAB PO PRN ×3 (09:44→21:30)
[2017-11-27] MEDS: HYDROcodone/Acetaminophen 10/325 mg Tablet PO PRN ×3 (11:21→22:41)
[2017-11-27] MEDS ORDERED: Pregabalin 25 MG CAP PO SCH (11:30)
--- NOTE | 2017-11-27 13:45 | PDOC.PN ---
- Subjective Encounter Start Date: 11/27/17 Encounter Start Time: 13:43 Subjective: feels better but wants Mclean for Shoulder pain -: no SOB/CP/palpitations - Objective Resuscitation Status: Resuscitation Status FULL:Full Resuscitation MAR Reviewed: Yes Vital Signs & Weight: Vital Signs (12 hours) Temp Pulse Resp BP BP Pulse Ox 11/27/17 11:00 100.6 F H 105 H 19 178/79 H 178/79 H 96 11/27/17 08:28 100 199/88 H 11/27/17 07:30 99.7 F H 100 17 199/88 H 199/88 H 100 11/27/17 03:40 99.2 F 94 18 93 L Weight Weight 126 lb Result Diagrams: 11/27/17 05:33 11/27/17 05:33 Additional Labs: Laboratory Tests 11/26/17 11/26/17 09:01 09:01 Troponin I 0.022 TSH 3rd Generation 0.9434 labs reviewed Phys Exam - Physical Examination Constitutional: NAD HEENT: PERRLA, moist MMs, sclera anicteric, oral pharynx no lesions Neck: no nodes, no JVD, supple, full ROM Respiratory: no wheezing, no rales, no rhonchi, wheezing present, clear to auscultation bilateral Cardiovascular: RRR, no significant murmur, no rub, irregular Gastrointestinal: soft, non-tender, no distention, positive bowel sounds Musculoskeletal: no edema, pulses present L BKA Neurological: non-focal, normal sensation, moves all 4 limbs Psychiatric: normal affect, A&O x 3 Skin: no rash Dx/Plan (1) Alcohol withdrawal Code(s): F10.239 - ALCOHOL DEPENDENCE WITH WITHDRAWAL, UNSPECIFIED Status: Acute (2) Alcohol withdrawal delirium Code(s): F10.231 - ALCOHOL DEPENDENCE WITH WITHDRAWAL DELIRIUM Status: Acute (3) Hypernatremia Code(s): E87.0 - HYPEROSMOLALITY AND HYPERNATREMIA Status: Acute (4) Hypokalemia Code(s): E87.6 - HYPOKALEMIA Status: Acute (5) Metabolic acidosis Code(s): E87.2 - ACIDOSIS Status: Acute (6) Chronic pain Code(s): G89.29 - OTHER CHRONIC PAIN Status: Chronic (7) Narcotic dependence, episodic use Code(s): F11.20 - OPIOID DEPENDENCE, UNCOMPLICATED Status: Chronic - Plan PT/OT, DVT proph w/SCDs add Lyrica for phantom limb pain.DC Librium -: Rehab eval -: low grade fever today-likley d/t ETOH withdrawl w tachycardia & HTN -: restart amlodipine as BP high.monitor -: am labs. * . replace and recheck Potassium cont D5 1/2 NS for high sodium.better today.monitor Review of Systems - Review of Systems Constitutional: weakness, malaise. negative: fever, chills, sweats, other ENT: negative: Ear Pain, Ear Discharge, Nose Pain, Nose Discharge, Nose Congestion, Mouth Pain, Mouth Swelling, Throat Pain, Throat Swelling, Other Respiratory: negative: Cough, Dry, Shortness of Breath, Hemoptysis, SOB with Excertion, Pleuritic Pain, Sputum, Wheezing Cardiovascular: negative: chest pain, palpitations, orthopnea, paroxysmal nocturnal dyspnea, edema, light headedness, other Gastrointestinal: negative: Nausea, Vomiting, Abdominal Pain, Diarrhea, Constipation, Melena, Hematochezia, Other Genitourinary: negative: Dysuria, Frequency, Incontinence, Hematuria, Retention , Other Musculoskeletal: Shoulder Pain. negative: Neck Pain, Arm Pain, Back Pain, Hand Pain, Leg Pain, Foot Pain, Other Skin: negative: Rash, Lesions, Chapo, Bruising, Other Neurological: negative: Weakness, Numbness, Incoordination, Change in Speech, Confusion, Seizures, Other - Medications/Allergies Allergies/Adverse Reactions: Allergies Allergy/AdvReac Type Severity Reaction Status Date / Time aspirin Allergy Severe Verified 11/26/17 22:19 cefepime Allergy Severe Rash Verified 11/26/17 22:19 ibuprofen Allergy Severe Verified 11/26/17 22:19 NSAIDS (Non-Steroidal Allergy Severe Verified 11/26/17 22:19 Anti-Inflamma Penicillins Allergy Unknown Verified 11/26/17 22:19 Medications: Current Medications Acetaminophen (Tylenol) 650 mg PO Q4H PRN PRN Reason: Headache/Fever or Pain Last Admin: 11/27/17 08:28 Dose: 650 mg Hydrocodone Bitart/Acetaminophen ([place] 10/325) 2 tab PO Q4HR PRN PRN Reason: Severe Pain (7-10) Last Admin: 08/05/18 11:21 Dose: 2 tab Al Hydroxide/Mg Hydroxide (Maalox) 30 ml PO Q6H PRN PRN Reason: Heartburn or Indigestion Amlodipine Besylate (Norvasc) 5 mg PO DAILY [facility] Last Admin: 11/27/17 08:28 Dose: 5 mg Benzonatate (Tessalon) 100 mg PO Q4H PRN PRN Reason: Cough Bisacodyl (Dulcolax) 10 mg PO DAILYPRN PRN PRN Reason: Constipation Calcium Carbonate (Tums) 1,000 mg PO Q4H PRN PRN Reason: Heartburn or Indigestion Clonidine (Catapres) 0.1 mg PO Q4H PRN PRN Reason: Systolic BP > 160 Enoxaparin Sodium (Lovenox) 40 mg SC 0900 [facility] Last Admin: 11/27/17 08:29 Dose: 40 mg Escitalopram Oxalate (Lexapro) 10 mg PO DAILY [facility] Last Admin: 11/27/17 08:28 Dose: 10 mg Famotidine (Pepcid) 20 mg PO BID [facility] Last Admin: 11/27/17 08:29 Dose: 20 mg Guaifenesin (Robitussin Sf) 200 mg PO Q4H PRN PRN Reason: Cough Hydralazine HCl (Apresoline) 10 mg SLOW IVP Q4H PRN PRN Reason: Systolic BP > 170 Dextrose/Sodium Chloride (D5 1/2 Ns) 1,000 mls @ 75 mls/hr IV .[id number] [facility] Last Admin: 11/27/17 06:09 Dose: 1,000 mls Lactulose (Lactulose) 20 gm PO DAILYPRN PRN PRN Reason: Constipation Levothyroxine Sodium (Synthroid) 75 mcg PO 0600 [facility] Lorazepam (Ativan) 1 mg SLOW IVP Q2H PRN PRN Reason: Anxiety/Agitation Last Admin: 11/27/17 03:47 Dose: 1 mg Lorazepam (Ativan) 1 mg PO Q4H PRN PRN Reason: Anxiety/Agitation Last Admin: 11/27/17 09:44 Dose: 1 mg Nitroglycerin (Nitrostat) 0.4 mg SL Q5MIN PRN PRN Reason: Chest Pain Ondansetron HCl (Zofran) 4 mg IVP Q6H PRN PRN Reason: Nausea/Vomiting Biotin [Hard Nails] (2,500 Mcg) 0 each PO DAILY [facility] Pregabalin (Lyrica) 25 mg PO BID [facility] Senna (Senokot) 2 tab PO HSPRN PRN PRN Reason: Constipation Tramadol HCl (Ultram) 50 mg PO Q4H PRN PRN Reason: Moderate Pain (4-6) Trazodone HCl (Desyrel) 100 mg PO HS PRN PRN Reason: Restlessness
--- NOTE | 2017-11-27 14:34 | RAD ---
RADIOGRAPH CHEST 1 VIEW: Date: 11/27/17 Time: 1354 hours HISTORY: 62-year-old female status post aspiration. COMPARISON: 07/05/17. FINDINGS: Blunting of the right lateral costophrenic angle, and mild haziness of the adjacent right lung base, has a similar appearance to the previous study. Indistinctness of right hemidiaphragm. Left lateral c ostophrenic angle is sharp. Borderline cardiomegaly without pulmonary venous engorgement. No pulmonar y edema. Right upper lobe and all visualized portions of left lung are clear. No pneumothorax. Metall ic left humeral head prosthesis. No interval change overall. IMPRESSION: 1. Small right pleural effusion versus pleural thickening. 2. No consolidation. 3. Borderline cardiomegaly without congestive heart failure. 4. No significant interval change compared to 07/05/17. NAVDEEP [] POS: NGA
[2017-11-27] MEDS: cloNIDine 0.1 MG TAB PO PRN (15:11)
[2017-11-27] MEDS: Pregabalin 25 MG CAP PO SCH (21:29)
[2017-11-28] MEDS: HYDROcodone/Acetaminophen 10/325 mg Tablet PO PRN ×4 (06:22→20:02)
[2017-11-28] MEDS: Lorazepam 1 MG TAB PO PRN (06:22)
[2017-11-28] MEDS: Levothyroxine Sodium 75 MCG TAB PO SCH (06:22)
[2017-11-28] MEDS: Famotidine 20 MG TAB PO SCH ×2 (08:36→20:02)
[2017-11-28] MEDS: Amlodipine 5 MG TAB PO SCH (08:36)
[2017-11-28] MEDS: Escitalopram Oxalate 10 mg Tablet PO SCH (08:36)
[2017-11-28] MEDS: Enoxaparin Sodium 40 MG/0.4 ML SYRINGE SC SCH (08:38)
[2017-11-28 08:45] LABS: Anion Gap 13 mmol/L (10-20); BUN (Urea Nitrogen) 9 mg/dL (9.8-20.1); Calc. Creatinine Clearance 80 mL/min (70-130); Calcium 7.7 mg/dL (7.8-10.44); Carbon Dioxide 19 mmol/L (23-31); Chloride 111 mmol/L (98-107); Estimated GFR-MDRD Greater than 90; Glucose 70 mg/dL (80-115); Potassium 3.6 mmol/L (3.5-5.1); Sodium 139 mmol/L (136-145)
[2017-11-28 08:57] LABS: #Eosinphils 0.3 thou/uL (0.0-0.7); #Lymphocytes 1.4 thou/uL (1.20-3.40); #Monocytes 0.3 thou/uL (0.11-0.59); #Neutrophils 1.7 thou/uL (1.40-6.50); %Basophils 0.6 % (0.0-1.0); %Lymphocytes 38.2 % (21.0-51.0); %Monocytes 7.3 % (0.0-10.0); %Neutrophils 45.9 % (42.0-75.0); Elliptocytes SLIGHT = 2-5 cells (100X) (0-1/hpf); Hemoglobin 10.6 g/dL (12.0-16.0); Hypochromia SLIGHT = 6-15 cells (100X) (0-5/hpf); MDiff Complete? YES; Mean Corpuscular HGB CONC 31.1 g/dL (32.0-36.0); Mean Corpuscular Hemoglobin 26.2 pg (27.0-31.0); Mean Corpuscular Volume 84.3 fL (78.0-98.0); Mean Platelet Volume 9.8 fL (7.4-10.4); PLT Morphology Comment Appears Decreased; Platelet Count 118 thou/uL (130-400); Polychromasia SLIGHT = 2-3 cells (100X) (0-2/hpf); RBC Distribution Width 17.7 % (11.5-14.5); Red Blood Cell (RBC) Count 4.05 mill/uL (4.20-5.40); White Blood Cell (WBC) Count 3.6 thou/uL (4.8-10.8)
[2017-11-28] MEDS: Pregabalin 25 MG CAP PO SCH ×2 (09:57→20:00)
[2017-11-28] MEDS: Dextrose 5 %-0.45 % NaCl 1,000 ML IV SCH ×2 (09:58→23:41)
[2017-11-28] MEDS: Lorazepam 2 MG/ML VIAL SLOW IVP PRN ×2 (13:13→20:03)
[2017-11-28] MEDS ORDERED: Promethazine HCl 25 MG/ML VIAL IM/IV PRN (18:38)
--- NOTE | 2017-11-28 18:39 | PDOC.PN ---
- Subjective Encounter Start Date: 11/28/17 Encounter Start Time: 10:20 Pt seen for followup re: alcohol withdrawal. Denies chest pain, shortness of breath, fevers or chills. c/o L shoulder pain. - Objective MAR Reviewed: Yes Vital Signs & Weight: Vital Signs (12 hours) Temp Pulse Pulse Pulse Resp BP BP 11/28/17 12:00 97.1 F L 68 18 168/68 H 11/28/17 10:02 65 67 154/66 H 11/28/17 08:36 65 144/64 H 11/28/17 08:00 97.1 F L 68 18 144/64 H BP BP Pulse Ox 11/28/17 12:00 126/58 L 11/28/17 10:02 160/100 H 11/28/17 08:36 11/28/17 08:00 97 Weight Admit Weight 126 lb Weight 126 lb I&O: 11/27/17 11/28/17 11/29/17 06:59 06:59 06:59 Intake Total 1860 Balance 1860 Result Diagrams: 11/28/17 08:14 11/29/17 04:30 EKG Reviewed by me: Yes (Tele: NSR) Phys Exam - Physical Examination Constitutional: NAD HEENT: moist MMs, sclera anicteric, oral pharynx no lesions, 2+ tonsils Neck: no nodes, no JVD, supple, full ROM Respiratory: no wheezing, no rales, no rhonchi, clear to auscultation bilateral Cardiovascular: RRR, no rub S1, S2 Gastrointestinal: soft, non-tender, no distention, positive bowel sounds Neurological: moves all 4 limbs Psychiatric: normal affect, A&O x 3 Dx/Plan (1) Alcohol withdrawal Code(s): F10.239 - ALCOHOL DEPENDENCE WITH WITHDRAWAL, UNSPECIFIED Status: Acute Comment: continue ASE protocol (2) Nausea Code(s): R11.0 - NAUSEA Status: Acute Comment: start low-dose phenergan, has worked in past, monitor on telemetry (3) Chronic pain Code(s): G89.29 - OTHER CHRONIC PAIN Status: Chronic Comment: continue pain medications (4) Hypernatremia Code(s): E87.0 - HYPEROSMOLALITY AND HYPERNATREMIA Status: Resolved - Plan * . Review of Systems - Review of Systems Constitutional: negative: fever, chills, sweats, weakness, malaise Respiratory: negative: Cough, Shortness of Breath, SOB with Excertion, Pleuritic Pain, Sputum, Wheezing Cardiovascular: negative: chest pain, palpitations, orthopnea, paroxysmal nocturnal dyspnea, edema, light headedness Gastrointestinal: Nausea. negative: Vomiting, Abdominal Pain, Diarrhea, Constipation, Melena, Hematochezia Genitourinary: negative: Dysuria, Frequency, Incontinence, Hematuria, Retention Musculoskeletal: Shoulder Pain. negative: Neck Pain, Arm Pain, Back Pain, Hand Pain, Leg Pain, Foot Pain - Medications/Allergies Allergies/Adverse Reactions: Allergies Allergy/AdvReac Type Severity Reaction Status Date / Time aspirin Allergy Severe Verified 11/26/17 22:19 cefepime Allergy Severe Rash Verified 11/26/17 22:19 ibuprofen Allergy Severe Verified 11/26/17 22:19 NSAIDS (Non-Steroidal Allergy Severe Verified 11/26/17 22:19 Anti-Inflamma Penicillins Allergy Unknown Verified 11/26/17 22:19 Medications: Current Medications Acetaminophen (Tylenol) 650 mg PO Q4H PRN PRN Reason: Headache/Fever or Pain Last Admin: 11/27/17 08:28 Dose: 650 mg Hydrocodone Bitart/Acetaminophen ([place] 10/325) 2 tab PO Q4HR PRN PRN Reason: Severe Pain (7-10) Last Admin: 11/28/17 15:29 Dose: 2 tab Al Hydroxide/Mg Hydroxide (Maalox) 30 ml PO Q6H PRN PRN Reason: Heartburn or Indigestion Amlodipine Besylate (Norvasc) 5 mg PO DAILY [facility] Last Admin: 11/28/17 08:36 Dose: 5 mg Benzonatate (Tessalon) 100 mg PO Q4H PRN PRN Reason: Cough Bisacodyl (Dulcolax) 10 mg PO DAILYPRN PRN PRN Reason: Constipation Calcium Carbonate (Tums) 1,000 mg PO Q4H PRN PRN Reason: Heartburn or Indigestion Clonidine (Catapres) 0.1 mg PO Q4H PRN PRN Reason: Systolic BP > 160 Last Admin: 11/27/17 15:11 Dose: 0.1 mg Enoxaparin Sodium (Lovenox) 40 mg SC 0900 [facility] Last Admin: 11/28/17 08:38 Dose: 40 mg Escitalopram Oxalate (Lexapro) 10 mg PO DAILY [facility] Last Admin: 11/28/17 08:36 Dose: 10 mg Famotidine (Pepcid) 20 mg PO BID [facility] Last Admin: 11/28/17 08:36 Dose: 20 mg Guaifenesin (Robitussin Sf) 200 mg PO Q4H PRN PRN Reason: Cough Hydralazine HCl (Apresoline) 10 mg SLOW IVP Q4H PRN PRN Reason: Systolic BP > 170 Dextrose/Sodium Chloride (D5 1/2 Ns) 1,000 mls @ 75 mls/hr IV .[id number] [facility] Last Admin: 11/28/17 09:58 Dose: 1,000 mls Lactulose (Lactulose) 20 gm PO DAILYPRN PRN PRN Reason: Constipation Levothyroxine Sodium (Synthroid) 75 mcg PO 0600 [facility] Last Admin: 11/28/17 06:22 Dose: 75 mcg Lorazepam (Ativan) 1 mg SLOW IVP Q2H PRN PRN Reason: Anxiety/Agitation Last Admin: 11/28/17 13:13 Dose: 1 mg Lorazepam (Ativan) 1 mg PO Q4H PRN PRN Reason: Anxiety/Agitation Last Admin: 11/28/17 06:22 Dose: 1 mg Nitroglycerin (Nitrostat) 0.4 mg SL Q5MIN PRN PRN Reason: Chest Pain Ondansetron HCl (Zofran) 4 mg IVP Q6H PRN PRN Reason: Nausea/Vomiting Pregabalin (Lyrica) 25 mg PO BID [facility] Last Admin: 11/28/17 09:57 Dose: 25 mg Promethazine HCl (Phenergan) 12.5 mg IM/IV Q6H PRN PRN Reason: Nausea/Vomiting Senna (Senokot) 2 tab PO HSPRN PRN PRN Reason: Constipation Tramadol HCl (Ultram) 50 mg PO Q4H PRN PRN Reason: Moderate Pain (4-6) Trazodone HCl (Desyrel) 100 mg PO HS PRN PRN Reason: Restlessness
[2017-11-29] MEDS: HYDROcodone/Acetaminophen 10/325 mg Tablet PO PRN ×5 (00:48→20:52)
[2017-11-29] MEDS: Lorazepam 2 MG/ML VIAL SLOW IVP PRN (03:51)
[2017-11-29] MEDS: Levothyroxine Sodium 75 MCG TAB PO SCH (05:08)
[2017-11-29 05:25] LABS: Anion Gap 13 mmol/L (10-20); BUN (Urea Nitrogen) 9 mg/dL (9.8-20.1); Calc. Creatinine Clearance 81 mL/min (70-130); Calcium 8.3 mg/dL (7.8-10.44); Carbon Dioxide 20 mmol/L (23-31); Chloride 109 mmol/L (98-107); Estimated GFR-MDRD Greater than 90; Glucose 86 mg/dL (80-115); Potassium 4.2 mmol/L (3.5-5.1); Sodium 138 mmol/L (136-145)
[2017-11-29] MEDS: Enoxaparin Sodium 40 MG/0.4 ML SYRINGE SC SCH (08:37)
[2017-11-29] MEDS: Amlodipine 5 MG TAB PO SCH (08:38)
[2017-11-29] MEDS: Escitalopram Oxalate 10 mg Tablet PO SCH (08:38)
[2017-11-29] MEDS: Famotidine 20 MG TAB PO SCH ×2 (08:38→20:51)
[2017-11-29] MEDS: Pregabalin 25 MG CAP PO SCH ×2 (09:08→20:50)
[2017-11-29] MEDS: Dextrose 5 %-0.45 % NaCl 1,000 ML IV SCH ×2 (11:44→23:30)
--- NOTE | 2017-11-29 13:47 | PDOC.PN ---
- Subjective Encounter Start Date: 11/29/17 Encounter Start Time: 08:20 Pt seen for followup re: alcohol withdrawal. Feels better, still has left shoulder pain. - Objective MAR Reviewed: Yes Vital Signs & Weight: Vital Signs (12 hours) Temp Pulse Resp BP BP BP Pulse Ox 11/29/17 12:00 98.7 F 84 16 186/74 H 93 L 11/29/17 08:38 70 11/29/17 08:00 99.2 F 70 18 167/68 H 96 11/29/17 04:05 98.7 F 69 20 160/71 H 160/71 H 97 Weight Admit Weight 126 lb Weight 130 lb 8 oz I&O: 11/28/17 11/29/17 11/30/17 06:59 06:59 06:59 Intake Total 1860 1808 Output Total 5 Balance 1860 1803 Result Diagrams: 11/28/17 08:14 11/29/17 04:30 EKG Reviewed by me: Yes (Tele: NSR) Phys Exam - Physical Examination Constitutional: NAD HEENT: moist MMs Neck: supple Respiratory: clear to auscultation bilateral Cardiovascular: RRR Gastrointestinal: soft Decreased ROM L shoulder Neurological: moves all 4 limbs Psychiatric: normal affect Dx/Plan (1) Alcohol withdrawal Code(s): F10.239 - ALCOHOL DEPENDENCE WITH WITHDRAWAL, UNSPECIFIED Status: Acute Comment: on ASE protocol (2) Nausea Code(s): R11.0 - NAUSEA Status: Acute Comment: improved, on low-dose phenergan (3) Chronic pain Code(s): G89.29 - OTHER CHRONIC PAIN Status: Chronic Comment: continue pain medications (4) Shoulder pain Code(s): M25.519 - PAIN IN UNSPECIFIED SHOULDER Status: Chronic Comment: chest x-rays - Plan * . Review of Systems - Review of Systems Cardiovascular: negative: chest pain, palpitations, orthopnea, paroxysmal nocturnal dyspnea, edema, light headedness Musculoskeletal: Shoulder Pain. negative: Neck Pain, Arm Pain, Back Pain, Hand Pain, Leg Pain, Foot Pain - Medications/Allergies Allergies/Adverse Reactions: Allergies Allergy/AdvReac Type Severity Reaction Status Date / Time aspirin Allergy Severe Verified 11/26/17 22:19 cefepime Allergy Severe Rash Verified 11/26/17 22:19 ibuprofen Allergy Severe Verified 11/26/17 22:19 NSAIDS (Non-Steroidal Allergy Severe Verified 11/26/17 22:19 Anti-Inflamma Penicillins Allergy Unknown Verified 11/26/17 22:19 Medications: Current Medications Acetaminophen (Tylenol) 650 mg PO Q4H PRN PRN Reason: Headache/Fever or Pain Last Admin: 11/27/17 08:28 Dose: 650 mg Hydrocodone Bitart/Acetaminophen ([place] 10/325) 2 tab PO Q4HR PRN PRN Reason: Severe Pain (7-10) Last Admin: 11/29/17 11:07 Dose: 2 tab Al Hydroxide/Mg Hydroxide (Maalox) 30 ml PO Q6H PRN PRN Reason: Heartburn or Indigestion Amlodipine Besylate (Norvasc) 5 mg PO DAILY [facility] Last Admin: 11/29/17 08:38 Dose: 5 mg Benzonatate (Tessalon) 100 mg PO Q4H PRN PRN Reason: Cough Bisacodyl (Dulcolax) 10 mg PO DAILYPRN PRN PRN Reason: Constipation Calcium Carbonate (Tums) 1,000 mg PO Q4H PRN PRN Reason: Heartburn or Indigestion Clonidine (Catapres) 0.1 mg PO Q4H PRN PRN Reason: Systolic BP > 160 Last Admin: 11/27/17 15:11 Dose: 0.1 mg Enoxaparin Sodium (Lovenox) 40 mg SC 0900 [facility] Last Admin: 11/29/17 08:37 Dose: 40 mg Escitalopram Oxalate (Lexapro) 10 mg PO DAILY [facility] Last Admin: 11/29/17 08:38 Dose: 10 mg Famotidine (Pepcid) 20 mg PO BID [facility] Last Admin: 11/29/17 08:38 Dose: 20 mg Guaifenesin (Robitussin Sf) 200 mg PO Q4H PRN PRN Reason: Cough Hydralazine HCl (Apresoline) 10 mg SLOW IVP Q4H PRN PRN Reason: Systolic BP > 170 Dextrose/Sodium Chloride (D5 1/2 Ns) 1,000 mls @ 75 mls/hr IV .[id number] [facility] Last Admin: 11/29/17 11:44 Dose: 1,000 mls Lactulose (Lactulose) 20 gm PO DAILYPRN PRN PRN Reason: Constipation Levothyroxine Sodium (Synthroid) 75 mcg PO 0600 [facility] Last Admin: 11/29/17 05:08 Dose: 75 mcg Lorazepam (Ativan) 1 mg SLOW IVP Q2H PRN PRN Reason: Anxiety/Agitation Last Admin: 11/29/17 03:51 Dose: 1 mg Lorazepam (Ativan) 1 mg PO Q4H PRN PRN Reason: Anxiety/Agitation Last Admin: 11/28/17 06:22 Dose: 1 mg Nitroglycerin (Nitrostat) 0.4 mg SL Q5MIN PRN PRN Reason: Chest Pain Ondansetron HCl (Zofran) 4 mg IVP Q6H PRN PRN Reason: Nausea/Vomiting Pregabalin (Lyrica) 25 mg PO BID [facility] Last Admin: 11/29/17 09:08 Dose: 25 mg Promethazine HCl (Phenergan) 12.5 mg IM/IV Q6H PRN PRN Reason: Nausea/Vomiting Senna (Senokot) 2 tab PO HSPRN PRN PRN Reason: Constipation Tramadol HCl (Ultram) 50 mg PO Q4H PRN PRN Reason: Moderate Pain (4-6) Trazodone HCl (Desyrel) 100 mg PO HS PRN PRN Reason: Restlessness
[2017-11-29] MEDS: cloNIDine 0.1 MG TAB PO PRN (17:11)
[2017-11-29] MEDS: traZODone HCl 50 MG TAB PO PRN (23:30)
[2017-11-30] MEDS: HYDROcodone/Acetaminophen 10/325 mg Tablet PO PRN ×4 (05:25→22:42)
[2017-11-30] MEDS: Levothyroxine Sodium 75 MCG TAB PO SCH (05:25)
[2017-11-30] MEDS: Amlodipine 5 MG TAB PO SCH (08:54)
[2017-11-30] MEDS: Famotidine 20 MG TAB PO SCH ×2 (08:55→20:54)
[2017-11-30] MEDS: Escitalopram Oxalate 10 mg Tablet PO SCH (08:55)
[2017-11-30] MEDS: Pregabalin 25 MG CAP PO SCH ×2 (08:55→20:55)
[2017-11-30] MEDS: Enoxaparin Sodium 40 MG/0.4 ML SYRINGE SC SCH (08:59)
--- NOTE | 2017-11-30 09:36 | PQF ---
CLINICAL DOCUMENTATION IMPROVEMENT CLARIFICATION FORM: ICD-10 Updated PLEASE DO AN ADDENDUM TO THE PROGRESS NOTE WITH ANY DOCUMENTATION UPDATES OR ADDITIONS AND CARRY THROUGH TO DC SUMMARY. THANK YOU. Date: 11/30 ATTN: DR. ADILENE GUTHRIE Please exercise your independent, professional judgment in responding to the clarification form. Clinical indicators are provided on the bottom of this form for your review. Please check appropriate box(s): [ ] Protein Calorie Malnutrition: [ ] Mild [ ] Moderate [ ] Severe [ ] Other Malnutrition (please specify) __ [ ] Underweight without malnutrition [ ] Cachexia [ ] Other diagnosis [ ] Unable to determine CLINICAL INDICATORS - SIGNS / SYMPTOMS / LABS BMI: 20.8 PHYSICIAN H&P 11/26: ASSESSMENT/PLAN: 3) MULTIPLE FALLS & FAILURE TO THRIVE; DISPOSITION: PT MAY NEED PLACEMENT FOR FAILURE TO THRIVE NUTRITION ASSESSMENT FOR ALCOHOL ABUSE & FTT 11/28: PT STATES SHE HAS NOT BEEN EATING WELL FOR THE LAST 2 DAYS D/T NAUSEA & THEN STATES IT HAS ACTUALLY BEEN GOING ON FOR 5 MONTHS. HAS EXPERIENCED 3% WEIGHT LOSS FROM UBW OF 130 LBS RISK FACTORS: ALCOHOL ABUSE W/ACUTE ALCOHOL INTOXICATION (H&P 11/26) ON-GOING NAUSEA WITH 3% WEIGHT LOSS (NUTRITION ASSESSMENT 11/28) TREATMENT: LASER/ELECTRO OPTICS TECHNICIAN ASSESSMENT (11/28) NUTRITION SUPPLEMENT (ENSURE ENLIVE BID 11/28 -PRESENT) Moderate Malnutrition (in acute illness) Energy Intake: <75% of estimated energy requirement for > 7 days Weight Loss: 1-2%/1 week; 5%/ 1 month; 7.5%/3 months Other: mild body fat loss; mild muscle mass loss; mild fluid accumulation; Severe Malnutrition (in acute illness) Energy Intake: < 50% of estimated energy requirement for > 5 days Weight Loss: >1-2%/1 week; >5%/1 month; >7.5%/3 months Other: moderate body fat loss; moderate muscle mass loss; moderate- severe fluid accumulation; measurably reduced apprentice plant attendant strength Moderate Malnutrition (in chronic illness) Energy Intake: <75% of estimated energy requirement for >1 month Weight Loss: 5%/1 month; 7.5%/3 months; 10%/6 months; 20%/1 year Other: mild body fat loss; mild muscle mass loss; mild fluid accumulation Severe Malnutrition (in chronic illness) Energy Intake: <75% of estimated energy requirement for >1 month Weight Loss: >5%/1 month; >7.5%/3 months; >10%/6 months; >20%/1 year Other: severe body fat loss; severe muscle mass loss; severe fluid accumulation; measurably reduced apprentice plant attendant strength THANK YOU! Gabriela (This form is maintained as a part of the permanent medical record) 2014 [employer]. All Rights Reserved Gabriela Mace RN, BSN [email or web address] Office: [phone] [facility] H[facility]PITALRenee
--- NOTE | 2017-11-30 11:12 | RAD ---
LEFT SHOULDER TWO VIEWS: HISTORY: Shoulder pain. FINDINGS: These two views have the shoulder in internal rotation. A humeral prosthesis is in place, which, on these views, appears to be in fairly good position. I do not see any signs of loosening of the prost hesis. IMPRESSION: Left humeral prosthesis in place. POS: TPC
--- NOTE | 2017-11-30 15:28 | PDOC.PN ---
- Subjective Encounter Start Date: 11/30/17 Encounter Start Time: 09:00 Pt seen for followup re: alcohol withdrawal. Denies chest pain, reports ongoing left shoulder pain. - Objective Resuscitation Status: Resuscitation Status FULL:Full Resuscitation MAR Reviewed: Yes Vital Signs & Weight: Vital Signs (12 hours) Temp Pulse Resp BP BP Pulse Ox 11/30/17 12:00 98.4 F 64 18 165/66 H 94 L 11/30/17 08:00 98 F 58 L 18 145/63 H 93 L 11/30/17 04:00 98.4 F 62 18 157/71 H 95 Weight Admit Weight 126 lb Weight 128 lb 12.8 oz I&O: 11/29/17 11/30/17 12/01/17 06:59 06:59 06:59 Intake Total 1808 3137 Output Total 5 Balance 1803 3137 Result Diagrams: 11/28/17 08:14 11/29/17 04:30 EKG Reviewed by me: Yes (Tele: NSR) Phys Exam - Physical Examination Constitutional: NAD HEENT: moist MMs Neck: supple Respiratory: clear to auscultation bilateral Cardiovascular: RRR Gastrointestinal: soft Decreased ROM L shoulder Psychiatric: normal affect Dx/Plan (1) Alcohol withdrawal Code(s): F10.239 - ALCOHOL DEPENDENCE WITH WITHDRAWAL, UNSPECIFIED Status: Acute Comment: continue ASE protocol (2) Nausea Code(s): R11.0 - NAUSEA Status: Acute Comment: improved (3) Chronic pain Code(s): G89.29 - OTHER CHRONIC PAIN Status: Chronic Comment: continue pain medications (4) Shoulder pain Code(s): M25.519 - PAIN IN UNSPECIFIED SHOULDER Status: Chronic Comment: pt refused x-rays yesterday, reports she had them at [facility] prior to admission, will consult orthopedics (5) Moderate protein-calorie malnutrition Code(s): E44.0 - MODERATE PROTEIN-CALORIE MALNUTRITION Status: Chronic Comment: appreciate dietitian input - Plan * . Review of Systems - Review of Systems Cardiovascular: negative: chest pain, palpitations, orthopnea, paroxysmal nocturnal dyspnea, edema, light headedness Musculoskeletal: Shoulder Pain. negative: Neck Pain, Arm Pain, Back Pain, Hand Pain, Leg Pain, Foot Pain Skin: negative: Rash, Lesions, Chapo, Bruising - Medications/Allergies Allergies/Adverse Reactions: Allergies Allergy/AdvReac Type Severity Reaction Status Date / Time aspirin Allergy Severe Verified 11/26/17 22:19 cefepime Allergy Severe Rash Verified 11/26/17 22:19 ibuprofen Allergy Severe Verified 11/26/17 22:19 NSAIDS (Non-Steroidal Allergy Severe Verified 11/26/17 22:19 Anti-Inflamma Penicillins Allergy Unknown Verified 11/26/17 22:19 Medications: Current Medications Acetaminophen (Tylenol) 650 mg PO Q4H PRN PRN Reason: Headache/Fever or Pain Last Admin: 11/27/17 08:28 Dose: 650 mg Hydrocodone Bitart/Acetaminophen ([place] 10/325) 2 tab PO Q4HR PRN PRN Reason: Severe Pain (7-10) Last Admin: 11/30/17 12:14 Dose: 2 tab Al Hydroxide/Mg Hydroxide (Maalox) 30 ml PO Q6H PRN PRN Reason: Heartburn or Indigestion Amlodipine Besylate (Norvasc) 5 mg PO DAILY [facility] Last Admin: 11/30/17 08:54 Dose: 5 mg Benzonatate (Tessalon) 100 mg PO Q4H PRN PRN Reason: Cough Bisacodyl (Dulcolax) 10 mg PO DAILYPRN PRN PRN Reason: Constipation Calcium Carbonate (Tums) 1,000 mg PO Q4H PRN PRN Reason: Heartburn or Indigestion Clonidine (Catapres) 0.1 mg PO Q4H PRN PRN Reason: Systolic BP > 160 Last Admin: 11/29/17 17:11 Dose: 0.1 mg Enoxaparin Sodium (Lovenox) 40 mg SC 0900 [facility] Last Admin: 11/30/17 08:59 Dose: 40 mg Escitalopram Oxalate (Lexapro) 10 mg PO DAILY [facility] Last Admin: 11/30/17 08:55 Dose: 10 mg Famotidine (Pepcid) 20 mg PO BID [facility] Last Admin: 11/30/17 08:55 Dose: 20 mg Guaifenesin (Robitussin Sf) 200 mg PO Q4H PRN PRN Reason: Cough Hydralazine HCl (Apresoline) 10 mg SLOW IVP Q4H PRN PRN Reason: Systolic BP > 170 Dextrose/Sodium Chloride (D5 1/2 Ns) 1,000 mls @ 75 mls/hr IV .[id number] [facility] Last Admin: 11/29/17 23:30 Dose: 1,000 mls Lactulose (Lactulose) 20 gm PO DAILYPRN PRN PRN Reason: Constipation Levothyroxine Sodium (Synthroid) 75 mcg PO 0600 [facility] Last Admin: 11/30/17 05:25 Dose: 75 mcg Lorazepam (Ativan) 1 mg SLOW IVP Q2H PRN PRN Reason: Anxiety/Agitation Last Admin: 11/29/17 03:51 Dose: 1 mg Lorazepam (Ativan) 1 mg PO Q4H PRN PRN Reason: Anxiety/Agitation Last Admin: 11/28/17 06:22 Dose: 1 mg Nitroglycerin (Nitrostat) 0.4 mg SL Q5MIN PRN PRN Reason: Chest Pain Ondansetron HCl (Zofran) 4 mg IVP Q6H PRN PRN Reason: Nausea/Vomiting Pregabalin (Lyrica) 25 mg PO BID [facility] Last Admin: 11/30/17 08:55 Dose: 25 mg Promethazine HCl (Phenergan) 12.5 mg IM/IV Q6H PRN PRN Reason: Nausea/Vomiting Senna (Senokot) 2 tab PO HSPRN PRN PRN Reason: Constipation Tramadol HCl (Ultram) 50 mg PO Q4H PRN PRN Reason: Moderate Pain (4-6) Trazodone HCl (Desyrel) 100 mg PO HS PRN PRN Reason: Restlessness Last Admin: 11/29/17 23:30 Dose: 100 mg
[2017-11-30] MEDS: Dextrose 5 %-0.45 % NaCl 1,000 ML IV SCH (15:39)
[2017-11-30] MEDS: traZODone HCl 50 MG TAB PO PRN (20:59)
[2017-12-01] MEDS: HYDROcodone/Acetaminophen 10/325 mg Tablet PO PRN ×2 (03:56→08:17)
[2017-12-01] MEDS: Levothyroxine Sodium 75 MCG TAB PO SCH (05:17)
[2017-12-01] MEDS: Famotidine 20 MG TAB PO SCH (08:16)
[2017-12-01] MEDS: Amlodipine 5 MG TAB PO SCH (08:16)
[2017-12-01] MEDS: Escitalopram Oxalate 10 mg Tablet PO SCH (08:16)
[2017-12-01] MEDS: Enoxaparin Sodium 40 MG/0.4 ML SYRINGE SC SCH (08:17)
[2017-12-01] MEDS: Pregabalin 25 MG CAP PO SCH (08:34)
[2017-12-01 09:06] LABS: #Eosinphils 0.3 thou/uL (0.0-0.7); #Lymphocytes 1.1 thou/uL (1.20-3.40); #Monocytes 0.3 thou/uL (0.11-0.59); #Neutrophils 1.5 thou/uL (1.40-6.50); %Basophils 0.4 % (0.0-1.0); %Lymphocytes 33.2 % (21.0-51.0); %Monocytes 8.9 % (0.0-10.0); %Neutrophils 47.5 % (42.0-75.0); Hemoglobin 11.7 g/dL (12.0-16.0); Mean Corpuscular HGB CONC 30.6 g/dL (32.0-36.0); Mean Corpuscular Hemoglobin 25.9 pg (27.0-31.0); Mean Corpuscular Volume 84.4 fL (78.0-98.0); Mean Platelet Volume 9.3 fL (7.4-10.4); Platelet Count 131 thou/uL (130-400); RBC Distribution Width 18.2 % (11.5-14.5); Red Blood Cell (RBC) Count 4.53 mill/uL (4.20-5.40); White Blood Cell (WBC) Count 3.3 thou/uL (4.8-10.8)
[2017-12-01 09:45] LABS: Anion Gap 16 mmol/L (10-20); Calcium 8.7 mg/dL (7.8-10.44); Carbon Dioxide 19 mmol/L (23-31); Chloride 109 mmol/L (98-107); Sodium 140 mmol/L (136-145)
[2017-12-01 10:27] LABS: Glucose 124 mg/dL (80-115)
[2017-12-01 10:31] LABS: BUN (Urea Nitrogen) 14 mg/dL (9.8-20.1); Calc. Creatinine Clearance 75 mL/min (70-130); Estimated GFR-MDRD 81
[2017-12-01] MEDS ORDERED: Acetaminophen/Codeine 30-300mg Tablet PO PRN (10:33)
--- NOTE | 2017-12-01 12:35 | CON ---
DATE OF CONSULTATION: 11/30/2017 ORTHOPEDIC CONSULTATION NOTE PRINCIPAL DIAGNOSIS: Chronic left shoulder pain. BRIEF HISTORY OF PRESENT ILLNESS: Ms. Adrian 62-year-old lady with a known history of both drug and a lcohol abuse as well as chronic pain and hypertension. Patient now admitted for acute alcohol intoxi cation. During the course of her admission, patient was complaining of left shoulder pain and as suc h, orthopedic consultation requested. The patient is now examined with her in her hospital bed at [facility] in [place]. Patient does have a history of left shoulder pain and is status post hem iarthroplasty of the left shoulder some years ago in [place]. She now complains of inability to forw jessica, elevate or abduct the shoulder, inability to perform activities of normal daily living with this arm. PAST MEDICAL HISTORY: Remarkable for history of narcotic abuse, history of alcohol abuse, chronic pa in, hypothyroidism, COPD, history of left below knee amputation. PAST SURGICAL HISTORY: Includes total hip arthroplasty, lumbar laminectomy, previous left shoulder h emiarthroplasty, right shoulder surgery and a distal femur fracture on the right side treated in 12/25 017. ALLERGIES: ASPIRIN, CEFEPIME, IBUPROFEN, PENICILLIN HOME MEDICATION LIST: Refer to the history and physical. FAMILY HISTORY: Noncontributory. SOCIAL HISTORY: Denies recent fevers, chills or sweats. REVIEW OF SYSTEMS: She does have a history of chronic chest pain. At this time, does not have short ness of breath. PHYSICAL EXAMINATION: GENERAL: Patient is found to be afebrile with stable vital signs. She is examined in her hospital b ed. HEENT: Atraumatic, normocephalic. HEART: Shows regular rate and rhythm. LUNGS: Clear to auscultation bilaterally. EXTREMITIES: Remarkable for a left upper extremity with well healed deltopectoral skin incision from prior hemiarthroplasty. Today, she is unable to forward elevate the shoulder beyond 45 degrees or a bduct beyond 30 degrees. With this motion, she does complain of pain at the anterior shoulder. Pass ively, I am able to forward elevate to approximately 110 degrees, but with pain over this entire rang e of motion, I am able to abduct her to about 90 degrees again with pain. She has intact sensation i n the radial, median, and ulnar distributions distally. She has significant muscle atrophy of both i nfraspinatus and supraspinatus fossa as well as the deltoid. IMAGING DATA: Two-view shoulder x-ray obtained earlier on the day of examination is remarkable for h emiarthroplasty with acceptable alignment. I do not have a true AP view of the shoulder to really co mment on the glenohumeral articulation. ASSESSMENT: Patient with history of left shoulder pain, now status post hemiarthroplasty with probab le deficiency of rotator cuff. PLAN: Today, I had a discussion with patient regarding treatment options. I do not feel that we can really proceed with any treatment option while here in the hospital. However, I have given her the name for referral to one of my partners to discuss whether perhaps conversion to reverse shoulder art hroplasty to provide more function. She appears comfortable with this discussion and plan and we mio l sign off for now and then put on her name to my partner for further evaluation.
[2017-12-01 13:26] VITALS: TEMP 98.2
--- NOTE | 2017-12-01 14:13 | DIS ---
DATE OF ADMISSION: 11/27/2017 DATE OF DISCHARGE: 12/01/2017 PRIMARY CARE PROVIDER: Dr. Iqra Little. DISCHARGE DIAGNOSES: 1. Alcohol withdrawal. 2. Nausea and vomiting. 3. Left shoulder pain. 4. Moderate protein calorie malnutrition. CONDITION OF PATIENT ON THE DAY OF DISCHARGE: Stable. I assessed Ms. Adrian on the day of discharge. She reports that the left shoulder pain is better. Vital signs are stable. S1 and S2 are heard, r egular. Lungs are clear to auscultation bilaterally. DISCHARGE MEDICATIONS: I am giving her a prescription for Tylenol #3 one tablet 3 times a day as nee ded, prescription for 10 doses. Her Brookesmith has been discontinued. Otherwise, her home medications re main the same as dictated by Dr. Salas on history and physical note dated 11/26/2017. CONSULTATIONS DURING THIS HOSPITALIZATION: Orthopedics, Dr. Dunbar. HOSPITAL COURSE: Ms. Adrian is a pleasant 62-year-old lady who was admitted to [facility] on 11/26/2017 for acute alcohol intoxication, hypernatremia, dehydration, and multiple fa lls. Please refer to Dr. Salas's history and physical note dated 11/26/2017 for further details. She was monitored for alcohol withdrawal. She was also seen by Orthopedic Surgery service for left s houlder pain. She is advised to follow up with Dr. Chase in 1-2 week time. She continued to progressively improve and is being discharged home with home health for physical the rapy. On the day of discharge, white count is 3300, hemoglobin 11.7, platelet count 131,000, normal sodium, normal potassium, and normal creatinine. Her TSH during this hospitalization was normal. She had shoulder x-rays on 11/30/2017, which showed left humeral prosthesis in place. Many thanks for allowing me to participate in your patient's care. Please feel free to contact me wi th any questions or concerns. DISCHARGE DESTINATION: Home. TOTAL AMOUNT OF TIME SPENT COORDINATING THIS DISCHARGE: 33 minutes.
[2017-12-01] MEDS: cloNIDine 0.1 MG TAB PO PRN (16:37)
[2017-12-01 17:11] VITALS: BP 180/70
--- NOTE | 2017-12-10 12:02 | EKG ---
Test Reason : Blood Pressure : / mmHG Vent. Rate : 081 BPM Atrial Rate : 081 BPM P-R Int : 178 ms QRS Dur : 100 ms QT Int : 442 ms P-R-T Axes : 067 021 026 degrees QTc Int : 513 ms Normal sinus rhythm Possible Lateral infarct , age undetermined Prolonged QT Abnormal ECG Confirmed by SHAVON PEREZ ([id number]), web content editor AYAD POWER ([id number]) on 12/10/2017 12:02:22 PM Referred By: Confirmed By:SHAVON PEREZ
== END 2017-12-01 17:11 | disposition home or self-care (01) | DRG 897 ==
LOC: ERS 07:29 → 2NO 15:56 → OBSVTOIN 11-27 13:43
PROVIDERS: ADMIT Internal Medicine; ATTEND Internal Medicine
DX: F10.229 Alcohol dependence with intoxication, unspecified (principal); E87.0 Hyperosmolality and hypernatremia; E44.0 Moderate protein-calorie malnutrition; F10.239 Alcohol dependence with withdrawal, unspecified; E78.5 Hyperlipidemia, unspecified; G89.29 Other chronic pain; I10 Essential (primary) hypertension; E03.9 Hypothyroidism, unspecified; J44.9 Chronic obstructive pulmonary disease, unspecified; E86.0 Dehydration; R62.7 Adult failure to thrive; F19.10 Other psychoactive substance abuse, uncomplicated; Z68.21 Body mass index [BMI] 21.0-21.9, adult; Z88.6 Allergy status to analgesic agent; Z88.0 Allergy status to penicillin; Z88.8 Allergy status to other drugs, medicaments and biological substances; Z91.81 History of falling; Z96.649 Presence of unspecified artificial hip joint; Z89.512 Acquired absence of left leg below knee
CPT/HCPCS: 36415; 51701; 70450; 71045; 72125; 80048; 80053; 80306; 80307; 81003; 81015; 82550; 82553; 84443; 84484; 85025; 87086; 93005; 96361; 96374; A4353; G8978-GP-CL; G8979-GP-CJ; G8987-GO-CL; G8988-GO-CJ; J1650; J2060; J2405; J7042

== ENCOUNTER 2017-12-03 15:16 | Inpatient (IN) | payer MEDICARE ==
[2017-12-03] MEDS ORDERED: Pantoprazole 40 MG VIAL ONE (15:55)
[2017-12-03 16:07] LABS: #Lymphocytes 0.8 thou/uL (1.20-3.40); #Monocytes 0.4 thou/uL (0.11-0.59); #Neutrophils 4.7 thou/uL (1.40-6.50); %Basophils 0.1 % (0.0-1.0); %Eosinophils 0.1 % (0.0-10.0); %Lymphocytes 13.1 % (21.0-51.0); %Monocytes 6.6 % (0.0-10.0); %Neutrophils 80.1 % (42.0-75.0); Hemoglobin 11.4 g/dL (12.0-16.0); Mean Corpuscular HGB CONC 33.3 g/dL (32.0-36.0); Mean Corpuscular Hemoglobin 27.7 pg (27.0-31.0); Mean Corpuscular Volume 83.3 fL (78.0-98.0); Mean Platelet Volume 8.6 fL (7.4-10.4); Platelet Count 173 thou/uL (130-400); RBC Distribution Width 18.2 % (11.5-14.5); Red Blood Cell (RBC) Count 4.12 mill/uL (4.20-5.40); White Blood Cell (WBC) Count 5.9 thou/uL (4.8-10.8)
[2017-12-03 16:29] LABS: ALT (SGPT) 12 U/L (8-55); AST (SGOT) 41 U/L (5-34); Albumin 3.7 g/dL (3.4-4.8); Alkaline Phosphatase 149 U/L (40-150); Anion Gap 14 mmol/L (10-20); BUN (Urea Nitrogen) 18 mg/dL (9.8-20.1); Bilirubin, Total 1.1 mg/dL (0.2-1.2); Calc. Creatinine Clearance 0 mL/min (70-130); Carbon Dioxide 26 mmol/L (23-31); Chloride 103 mmol/L (98-107); Estimated GFR-MDRD 82; Globulin 2.9 g/dL (2.4-3.5); Glucose 131 mg/dL (80-115); Lipase 44 U/L (8-78); Potassium 3.7 mmol/L (3.5-5.1); Protein, Total 6.6 g/dL (6.0-8.3); Sodium 139 mmol/L (136-145)
[2017-12-03] MEDS ORDERED: Morphine 4 MG/ML VIAL ONE (16:52)
[2017-12-03] MEDS ORDERED: Octreotide Acetate 1,250 MCG in Sodium Chloride 0.9% 250 ML 250 ML IVPB SCH ×2 (17:15→19:05)
[2017-12-03 18:35] LABS: Bilirubin Negative (Negative); Blood, Urine Moderate (Negative); Clarity CLEAR (Clear); Glucose, Urine (Dipstick) Negative (Negative); Leukocyte Negative (Negative); Nitrite Negative (Negative); Protein, Urine (Dipstick) > or equal to 300 mg/dL (Neg-Trace); Specific Gravity, Urine 1.018 (1.002-1.036); Urobilinogen 0.2 mg/dL (0.2-1.0); pH, Urine 6.5 (5.0-9.0)
[2017-12-03 18:36] LABS: Bacteria/HPF None Seen HPF (None Seen); Hyaline Casts/LPF 0-3 HYALINE CAST LPF (0-3 Hyaline); Pathc Cast-AUWi Flag 0.29 (0-2.49); Squamous Epithelial 0-3 HPF (0-3); WBC/HPF 0-3 HPF (0-3)
[2017-12-03 19:02] VITALS: BMI 22.2
[2017-12-03] MEDS ORDERED: Lorazepam 2 MG/ML VIAL SLOW IVP PRN (19:05)
[2017-12-03] MEDS ORDERED: hydrALAZINE 20 MG/ML VIAL SLOW IVP PRN (19:05)
[2017-12-03 20:12] LABS: Hemoglobin 10.3 g/dL (12.0-16.0); Platelet Count 139 thou/uL (130-400)
[2017-12-03] MEDS: Pantoprazole 80 MG, Admixture Fee 1 EACH in Sodium Chloride 0.9% 100 ML IVP SCH (20:20)
[2017-12-03 20:31] LABS: Lactic Acid 1.1 mmol/L (0.5-2.2)
--- NOTE | 2017-12-03 20:47 | HP ---
PRIMARY CARE PHYSICIAN: Dr. Iqra Little. CHIEF COMPLAINT: Abdominal pain and vomiting blood. HISTORY OF PRESENT ILLNESS: Ms. Adrian is a pleasant 62-year-old female who has a history of chronic pain, alcohol abuse, narcotic abuse, hypertension and hypothyroidism. She was in her usual state of health until a couple of days ago. She says that she has not been able to eat anything because every time she eats she will throw up and then on midnight the night before admission, she began vomiting blood. She was also having some dark stools. She says that it was maroon colored blood as well and this morning she started having the gradual onset of abdominal pain until it got extremely bad, start ing around 6:00 a.m. in the morning. She says it feels like labor pains. It is band-like across her abdomen. It comes and goes, but does not radiate anywhere. She was also feeling extremely weak and as a result of the symptoms, she came to the ER for evaluation. In the ER, she was found to have gu aiac positive stools and she is slightly anemic and she is being admitted for further evaluation and treatment. The patient says she has had peptic ulcer disease before with bleeding and ulcer requirin g surgery and says it feels somewhat like that. She also has a history of esophageal varices, but sh bren says this was 30 years ago and she is not sure whether or not she has cirrhosis. She says that she used to drink heavily, but quit, but then restarted drinking in the last year or so. REVIEW OF SYSTEMS: All systems were reviewed and negative except for that mentioned in the history o f present illness. PAST MEDICAL HISTORY: Significant for narcotic abuse, chronic pain, peptic ulcer disease, hypertensi on, hyperlipidemia, osteoarthritis, alcohol abuse, hypothyroidism, COPD, esophageal varices, question able cirrhosis. PAST SURGICAL HISTORY: She had a left total hip replacement, lumbar laminectomy, right shoulder surg uriah, left shoulder repair, left [id number] amputation. This was a result of an infected prosthet ic knee joint and right distal femur fracture. ALLERGIES: CEFEPIME, ASPIRIN, IBUPROFEN and PENICILLIN. SOCIAL HISTORY: She is . She has 4 children. She drinks alcohol, but she is very vague on her drinking history. She lives alone. FAMILY HISTORY: Significant for her father of a heart attack. Sister, brother and son have hyp ertension. CURRENT MEDICATIONS: Include amlodipine 5 mg daily, levothyroxine 75 mcg daily, trazodone, and Lexap ro 10 mg daily. PHYSICAL EXAMINATION: GENERAL: She is alert and oriented. She appears to be in no acute distress. She is well-developed and well-nourished. VITAL SIGNS: Blood pressure was 154/70, heart rate 114, respiratory rate of 18, temperature was 99.1 . HEENT: Pupils are equal, round, and reactive. Extraocular muscles are intact. Her sclerae are anic teric. Throat, the mucous membranes are slightly dry. NECK: There is no adenopathy, no bruits. LUNGS: Clear to auscultation. There is no wheezing or rales. CARDIOVASCULAR: She has a normal S1, S2. She has a fairly loud grade 3/6 systolic murmur heard thro ughout the entire precordium. ABDOMEN: Obese, it is soft. She has got some diffuse mid abdominal tenderness. There is no rebound , no guarding. EXTREMITIES: There is mild nonpitting edema. She does have some mild discoloration of her legs and chronic venous stasis changes. NEUROLOGIC: The exam is nonfocal. LABORATORY DATA: White blood cell count 5.9, hemoglobin 11.4, hematocrit is 34.3, platelet count is 173. Sodium 139, potassium 3.7, chloride is 103, CO2 is 26, BUN of 18, creatinine 0.72, glucose is 1 31. ASSESSMENT AND PLAN: 1. This is a pleasant 62-year-old female who presents to the emergency room with hematemesis as well as hematochezia with a history of peptic ulcer disease as well as history of alcohol abuse. She mio l be admitted to the [facility]. She will be placed on a Protonix drip as well as a Sandostatin drip. We will leave her n.p.o. and consult Gastroenterology. We will also monitor her H&Hs, place her on some fluid resuscitation. We will also have IV Ativan available given her history of alcohol abuse in event that she suffers symptoms consistent for DTs. Also, have DuoNebs available given her history of chronic obstructive pulmonary disease. 2. Hypertension. Since she will be n.p.o., we will place her on IV medications for hypertension. 3. Hypothyroidism. She is on Synthroid. This can be held for now unless she is n.p.o. for an exten ded period of time, then this can be given IV at 2/3 of the usual dose.
[2017-12-03] MEDS: Acetaminophen 325 MG TAB PO PRN (21:51)
[2017-12-04] MEDS: Ondansetron HCl/PF 4 MG/2 ML Vial IVP PRN ×2 (00:35→08:43)
[2017-12-04 00:52] LABS: Hemoglobin 9.8 g/dL (12.0-16.0); Platelet Count 148 thou/uL (130-400)
[2017-12-04 01:40] LABS: Anion Gap 18 mmol/L (10-20); BUN (Urea Nitrogen) 19 mg/dL (9.8-20.1); Calc. Creatinine Clearance 85 mL/min (70-130); Calcium 8.4 mg/dL (7.8-10.44); Carbon Dioxide 21 mmol/L (23-31); Chloride 105 mmol/L (98-107); Estimated GFR-MDRD 89; Glucose 115 mg/dL (80-115); Potassium 3.9 mmol/L (3.5-5.1); Sodium 140 mmol/L (136-145)
[2017-12-04 04:52] LABS: #Eosinphils 0.1 thou/uL (0.0-0.7); #Lymphocytes 1.7 thou/uL (1.20-3.40); #Monocytes 0.6 thou/uL (0.11-0.59); #Neutrophils 2.4 thou/uL (1.40-6.50); %Basophils 0.2 % (0.0-1.0); %Eosinophils 2.7 % (0.0-10.0); %Lymphocytes 35.8 % (21.0-51.0); %Monocytes 12.1 % (0.0-10.0); %Neutrophils 49.2 % (42.0-75.0); Hemoglobin 9.6 g/dL (12.0-16.0); Mean Corpuscular HGB CONC 32.6 g/dL (32.0-36.0); Mean Corpuscular Hemoglobin 27.4 pg (27.0-31.0); Mean Corpuscular Volume 83.9 fL (78.0-98.0); Mean Platelet Volume 8.2 fL (7.4-10.4); Platelet Count 149 thou/uL (130-400); RBC Distribution Width 18.1 % (11.5-14.5); White Blood Cell (WBC) Count 4.8 thou/uL (4.8-10.8)
[2017-12-04] MEDS: Pantoprazole 80 MG, Admixture Fee 1 EACH in Sodium Chloride 0.9% 100 ML IVP SCH ×2 (07:00→18:00)
--- NOTE | 2017-12-04 13:01 | CON ---
DATE OF SERVICE: 12/04/2017 GI INPATIENT CONSULTATION NOTE REQUESTING PHYSICIAN: Dr. Pennington. REASON FOR CONSULTATION: Abdominal pain and hematemesis. HISTORY OF PRESENT ILLNESS: Massiel Adrian is a 62-year-old woman who was admitted to the [facility] with complaints of abdominal pain, hematemesis and melena. 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 She says that about 30 years ago at [facility] in [place], she had bleeding from esophageal varices. She is unsure what treatment she underwen t there. When asked about TIPS procedure, she said maybe so. I asked that she was diagnosed with ci rrhosis and she was not sure. She had been drinking heavily at that time. At any rate, she does not really carry a diagnosis of cirrhosis and has had no manifestations of liver disease since that time . She will have long periods of abstinence from alcohol and then relapse into drinking. She has bee n drinking this amount of alcohol recently, but she does not characterize it as a lot. She did drink some this past week. The night before last, she said she was feeling in her normal state of health, but then suddenly became acutely nauseated. She says she vomited up a large amount of dark red bloo d. She then started having bowel movements that were very dark and reddish. This happened several t imes and continued throughout the day yesterday. She started having a lot of epigastric abdominal pa in which comes and goes. She did not experience any presyncope. She says this feels like what refugio campa 1-2 years ago when she was evidently hospitalized in [place] with peptic ulcer disease. She says that she had to have emergency surgery for peptic ulcer disease at that time. She is not on any acid suppression though. She denies any NSAID use. She will take Tylenol sparingly as needed. She has been hemodynamically stable since admission. She was put on Protonix and octreotide drips. Her hemo globin did decline from 11.4-9.6 with some hydration. Note, her BUN is only 19. REVIEW OF SYSTEMS: Full review of systems including constitutional, head, eyes, ears, nose, throat, GI, , cardiovascular, respiratory, musculoskeletal, and neurologic systems is negative except as no myrna in the HPI. PAST MEDICAL HISTORY: 1. Questionable cirrhosis, probable TIPS procedure, she says 30 years ago at [facility]. 2. Reported history of esophageal varices 30 years ago. 3. Reported history of peptic ulcer disease with surgery in [place] 1-2 years ago. 4. Narcotic abuse. 5. Chronic pain. 6. Hypertension. 7. Hyperlipidemia. 8. Osteoarthritis. 9. Alcohol abuse. 10. Hypothyroidism. 11. COPD. PAST SURGICAL HISTORY: Left total hip replacement, lumbar laminectomy, right shoulder surgery, left shoulder repair, left [id number] amputation. ALLERGIES: CEFEPIME, ASPIRIN, IBUPROFEN, PENICILLIN. SOCIAL HISTORY: She is . She drinks alcohol, but says has not been very heavy recently. FAMILY HISTORY: Father of a heart attack. OUTPATIENT MEDICATIONS: Amlodipine, levothyroxine, trazodone, Lexapro. INPATIENT MEDICATIONS: Octreotide drip, Protonix drip, Tylenol p.r.n., morphine p.r.n., Ativan p.r.n . PHYSICAL EXAMINATION: VITAL SIGNS: Temperature 97.0, though note temperature overnight we got up to 100.4, blood pressure is 121/49, pulse 77, 99% oxygen saturation on room air. GENERAL: A 62-year-old woman lying in bed comfortably, appearing nontoxic. MENTAL: She is alert and oriented. She is able to answer questions appropriately, but is very vague on her history. SKIN: No jaundice, no rash visible or palpable. EYES: No scleral icterus. Extraocular movements intact. ENT: Mucous membranes moist, no oral lesions. LYMPH: No submandibular, supraclavicular lymphadenopathy. THYROID: Nontender to palpation. HEART: Regular rate and rhythm. LUNGS: Clear to auscultation bilaterally. ABDOMEN: Nondistended. Bowel sounds present, soft, tender to palpation in the epigastrium. No guar ding, rebound tenderness. EXTREMITIES: No peripheral edema. VESSELS: Radial pulses 2+ bilaterally. NEUROLOGICAL: Cranial nerves II-XII intact bilaterally, no asterixis. LABORATORY STUDIES: Initial hemoglobin was 11.4, this trended down to 9.6. Platelets are normal at 149. WBC normal at 4.8. Sodium 140, potassium 3.9, BUN 19, creatinine 0.67, calcium 8.4. Lactic ac id was initially 2.8, trended down to 1.1. Total bilirubin 1.1, alkaline phosphatase 149, AST 41, AL T 12, lipase 44. IMAGING STUDIES: No imaging done so far this admission. I do see she had a CT of the abdomen and pe lvis in 06/2017 and this indeed demonstrated what appeared to be TIPS within the liver. There were s ome perigastric varices, also mention of mild dilation of the common bile duct and pancreatic duct. ASSESSMENT AND PLAN: 1. Hematemesis. 2. Melena. 3. Upper abdominal pain. 4. Reported history of peptic ulcer disease with surgery 1-2 years ago. 5. Reported history of esophageal varices, with a TIPS placement reported about 30 years ago. The patient does appear to have a compelling history of both esophageal varices and severe peptic ulc er disease and is not taking any acid suppression. Note that if her TIPS is functioning properly, phil correia really should not have any further bleeding from esophageal varices. Clinically, this does not stephanie ear to be a variceal bleed given her hemodynamic stability. However, further investigation is certai nly warranted. We will plan for EGD later today. I agree with the Protonix and octreotide drips for now. Further recommendations following endoscopy. Thank you for the consultation. Please call any time with questions or concerns.
[2017-12-04] MEDS ORDERED: Lidocaine 1% PF 5 ML VIAL ONE (13:32)
[2017-12-04] MEDS ORDERED: PROPOFOL 200 MG/20 ML VIAL ONE (13:32)
--- NOTE | 2017-12-04 15:21 | OP ---
DATE OF PROCEDURE: 12/04/2017 GI ENDOSCOPY NOTE SURGEON: Shane Ly M.D. MIXING TUMBLER OPERATOR SURGEON: None. PROCEDURE: Esophagogastroduodenoscopy with biopsies. INDICATION: 1. Hematemesis. 2. Melena. 3. Upper abdominal pain. 4. History of peptic ulcer disease with reported surgery for this in the recent past. 5. Probable history of cirrhosis, with reported history of esophageal varices and TIPS placement in the past. MEDICATIONS: See Anesthesia record. FINDINGS: After discussion of the risks, benefits and alternatives of the procedure, informed consen t was obtained and witnessed. Pre-endoscopic cardiopulmonary examination was satisfactory. Timeout was performed before sedation was achieved. Sedation was achieved with Anesthesia assistance in the endoscopy unit. A Pentax adult upper endoscope was placed into the oropharynx and passed through the cricopharyngeus under direct visualization. The esophageal mucosa appeared normal in the proximal, mid and distal esophagus, but at the GE junction, there is LA grade C erosive esophagitis with a few shallow erosions near circumferential in this area. There is no evidence of any esophageal varices. There is no active bleeding from this. The endoscope was advanced forward into the stomach. Forwar d and retroflexed views of the entire gastric mucosa were obtained. There is some diffuse erythema t hroughout the gastric antrum, body and fundus, particularly in the gastric fundus. There is no evide nce of any old blood or active bleeding in the stomach. There appears to be a network of small gastr ic varices along the lesser curvature of the stomach, but on close inspection of this area, there rose s not appear to be any stigmata of bleeding or recent bleeding. I did obtain biopsies from the gastr ic antrum and body to rule out H. pylori infection. The endoscope was advanced through the pylorus. There is a single small pyloric channel ulcer. This is friable, but there is no active bleeding fro m this site. The endoscope was advanced into the first and second portions of the duodenum. Around the duodenal sweep, there is some suture material consistent with a reported history of surgery for p rior peptic ulcer disease. I do not see any old blood or active bleeding in this area. I do not see any new ulcer, though the area is somewhat friable. The upper endoscope was completely withdrawn an d the patient allowed to recover. The patient tolerated the procedure well. There were no immediate post-procedure complications. IMPRESSION: 1. Erosive esophagitis at the gastroesophageal junction. 2. Small gastric varices in the gastric fundus, but with no stigmata of bleeding. 3. No esophageal varices. 4. Diffuse gastritis, biopsied to rule out Helicobacter pylori. 5. Pyloric channel ulcer with no bleeding. 6. Postoperative deformity and suture material at the apex of the duodenal bulb, consistent with ansley or surgery. RECOMMENDATIONS: 1. The patient needs to be on twice daily PPI. 2. Octreotide can be discontinued. 3. Follow up results of the gastric biopsies. 4. The patient will need outpatient followup in the GI/liver clinic for further workup of what appea rs to be chronic liver disease. Note that LFTs are essentially normal as well as normal platelets, n ormal albumin. 5. Advance diet as tolerated. 6. The patient needs to avoid all alcohol.
--- NOTE | 2017-12-04 15:57 | PDOC.PN ---
- Subjective Encounter Start Date: 12/04/17 Encounter Start Time: 15:56 Subjective: Sleepy after EGD - Objective Resuscitation Status: Resuscitation Status FULL:Full Resuscitation MAR Reviewed: Yes Vital Signs & Weight: Vital Signs (12 hours) Temp Pulse Resp BP Pulse Ox 12/04/17 15:46 98.0 F 79 13 139/61 100 12/04/17 12:01 97.9 F 75 18 132/75 100 12/04/17 07:39 97.0 F L 77 15 99 12/04/17 07:34 97.0 F L 77 15 121/49 L 99 Weight Weight 137 lb 11.2 oz I&O: 12/03/17 12/04/17 12/05/17 06:59 06:59 06:59 Intake Total 340 288 Balance 340 288 Result Diagrams: 12/04/17 04:04 12/04/17 00:44 Phys Exam - Physical Examination HEENT: PERRLA, moist MMs, sclera anicteric, TM's clear, oral pharynx no lesions , 2+ tonsils Neck: no nodes, no JVD, supple, full ROM Respiratory: no wheezing, no rales, no rhonchi, wheezing present, clear to auscultation bilateral Cardiovascular: RRR, no significant murmur, no rub, gallop, irregular Gastrointestinal: soft, non-tender, no distention, positive bowel sounds Musculoskeletal: no edema, pulses present, edema present Neurological: non-focal, normal sensation, moves all 4 limbs Psychiatric: normal affect, A&O x 3 Skin: no rash, normal turgor, cap refill <2 seconds Dx/Plan (1) Hematemesis Code(s): K92.0 - HEMATEMESIS Status: Acute (2) Abnormal LFTs Code(s): R79.89 - OTHER SPECIFIED ABNORMAL FINDINGS OF BLOOD CHEMISTRY Status : Acute (3) Cirrhosis Code(s): K74.60 - UNSPECIFIED CIRRHOSIS OF LIVER Status: Acute (4) Acute blood loss anemia Code(s): D62 - ACUTE POSTHEMORRHAGIC ANEMIA Status: Acute (5) Hematochezia Code(s): K92.1 - MELENA Status: Acute - Plan GI Bleed History of PUD: S/P EGD today: showing esophagitis, gastritis, ulcer, no source of bleeding. Stop octreotide, continue PPI bid, follow up with Hb levels Acute blood loss anemia Slight drop in Hb. Strat iromn supplements Elevated LFT, History of cirrhosis: Follow up with liver clinic Alcohol abuse: Advised to stop alcohol * .
[2017-12-04] MEDS ORDERED: HYDROcodone/Acetaminophen 5/325 mg Tablet PO PRN ×2 (17:42→19:48)
[2017-12-04] MEDS: Pregabalin 75 MG CAP PO PRN (20:19)
[2017-12-04] MEDS: traZODone HCl 50 MG TAB PO SCH (20:20)
[2017-12-04] MEDS: Acetaminophen 325 MG TAB PO PRN (20:29)
[2017-12-04] MEDS: HYDROcodone/Acetaminophen 5/325 mg Tablet PO PRN (23:52)
[2017-12-05 04:09] LABS: #Eosinphils 0.2 thou/uL (0.0-0.7); #Monocytes 0.3 thou/uL (0.11-0.59); #Neutrophils 2.1 thou/uL (1.40-6.50); %Basophils 1.3 % (0.0-1.0); %Eosinophils 6.4 % (0.0-10.0); %Lymphocytes 27.2 % (21.0-51.0); %Monocytes 8.2 % (0.0-10.0); Hemoglobin 9.8 g/dL (12.0-16.0); Mean Corpuscular HGB CONC 32.8 g/dL (32.0-36.0); Mean Corpuscular Hemoglobin 27.9 pg (27.0-31.0); Mean Corpuscular Volume 85.1 fL (78.0-98.0); Mean Platelet Volume 8.3 fL (7.4-10.4); Platelet Count 126 thou/uL (130-400); RBC Distribution Width 17.4 % (11.5-14.5); Red Blood Cell (RBC) Count 3.51 mill/uL (4.20-5.40); White Blood Cell (WBC) Count 3.7 thou/uL (4.8-10.8)
[2017-12-05] MEDS: HYDROcodone/Acetaminophen 5/325 mg Tablet PO PRN ×3 (07:06→19:13)
[2017-12-05] MEDS: Pantoprazole 80 MG, Admixture Fee 1 EACH in Sodium Chloride 0.9% 100 ML IVP SCH (07:07)
--- NOTE | 2017-12-05 09:01 | PRG ---
DATE OF SERVICE: 12/05/2017 GI INPATIENT DAILY PROGRESS NOTE SUBJECTIVE: Mrs. Adrian has had no further melena, no vomiting. She does complain of ongoing epigast mario pain. She is trying to slowly advance her diet. She says she feels weak. Hemoglobin is stable. PHYSICAL EXAMINATION: VITAL SIGNS: Temperature 98.7, pulse 62, blood pressure 146/47, 100% oxygen saturation on room air. GENERAL: No acute distress. HEART: Regular rate and rhythm. LUNGS: Clear to auscultation bilaterally. ABDOMEN: Soft, bowel sounds present. Tender to palpation in the epigastrium. EXTREMITIES: No peripheral edema. LABORATORY STUDIES: Hemoglobin stable at 9.8, WBC 3.7 and platelets 126. ASSESSMENT AND PLAN: 1. Pyloric channel ulcer. 2. Gastritis. 3. Erosive esophagitis. 4. Upper gastrointestinal bleeding, resolved. 5. Epigastric pain, likely multifactorial secondary to gastritis, peptic ulcer disease and decreased pain tolerance. ASSESSMENT AND PLAN: 1. Objectively, the patient seems to be doing well. There is no further evidence of overt gastroint estinal bleeding. She should be at low risk for rebleeding with appropriate therapy. Recommend Prot jose to be continued twice daily dosing for the next 2 months. Switched to oral upon hospital discha rge. We will plan to see her back in the GI Clinic in a few weeks. 2. Portal hypertension, with remote history of TIPS. We discussed it is a bit unusual for patient t o have TIPS placed so long ago and yet have apparently no significant progression of chronic liver di sease since that time. She certainly needs to avoid all alcohol.
[2017-12-05] MEDS: Pregabalin 75 MG CAP PO PRN (09:10)
[2017-12-05] MEDS: Ondansetron HCl/PF 4 MG/2 ML Vial IVP PRN ×3 (09:10→20:55)
--- NOTE | 2017-12-05 09:30 | PDOC.PN ---
- Subjective Encounter Start Date: 12/05/17 (f/u GI bleed) Encounter Start Time: 09:28 Subjective: Pt c/o chronic pain - was seeing pain management until 6 months ago -: stopped norco at that time. 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 -: taking po, denies any new complaints - Objective Resuscitation Status: Resuscitation Status FULL:Full Resuscitation Vital Signs & Weight: Vital Signs (12 hours) Temp Pulse Resp BP Pulse Ox 12/05/17 07:52 98.7 F 62 14 100 12/05/17 07:30 98.4 F 72 14 146/47 H 93 L 12/05/17 03:52 94 L 12/05/17 03:45 98.7 F 62 14 109/44 L 92 L 12/05/17 00:12 99.0 F 73 17 126/42 L 98 Weight Weight 137 lb 11.2 oz I&O: 12/04/17 12/05/17 12/06/17 06:59 06:59 06:59 Intake Total 340 1626.4 Balance 340 1626.4 Result Diagrams: 12/05/17 03:48 12/04/17 00:44 EKG Reviewed by me: Yes (tele sinus 60-70's) Phys Exam - Physical Examination Constitutional: NAD Respiratory: no wheezing, no rales, no rhonchi decreased breath sounds on right side Cardiovascular: 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) Gastrointestinal: soft, non-tender, no distention, positive bowel sounds Musculoskeletal: no edema, pulses present Neurological: non-focal Psychiatric: normal affect Deviation from normal: tearful with discussing relationship with one son Skin: no rash Dx/Plan (1) Acute blood loss anemia Code(s): D62 - ACUTE POSTHEMORRHAGIC ANEMIA Status: Acute (2) GI bleed Code(s): K92.2 - GASTROINTESTINAL HEMORRHAGE, UNSPECIFIED Status: Acute Qualifiers: GI bleed type/associated pathology: unspecified peptic ulcer Qualified Code (s): K27.4 - Chronic or unspecified peptic ulcer, site unspecified, with hemorrhage (3) Hypertension Code(s): I10 - ESSENTIAL (PRIMARY) HYPERTENSION Status: Chronic Qualifiers: Hypertension type: essential hypertension Qualified Code(s): I10 - Essential (primary) hypertension (4) Dyslipidemia Code(s): E78.5 - HYPERLIPIDEMIA, UNSPECIFIED Status: Chronic (5) Hypothyroid Code(s): E03.9 - HYPOTHYROIDISM, UNSPECIFIED Status: Chronic Qualifiers: Hypothyroidism type: unspecified Qualified Code(s): E03.9 - Hypothyroidism , unspecified (6) Chronic pain Code(s): G89.29 - OTHER CHRONIC PAIN Status: Chronic Qualifiers: Chronic pain type: other chronic pain Qualified Code(s): G89.29 - Other chronic pain - Plan * change PPI to bid PO * schedule lyrica per home routine * resume levothyroxine and lexapro * pt/ot consults for weakness * pt c/o pain - discussed with her that we need to use what she will have access to at home. She does not have a pain specialist and she reports PCP does not prescribe pain meds - recommend she contact PCP for referral to pain specialist. Pt advised that will treat with norco here, but will only be able to prescribe pain meds at discharge for 1-2 days at most. So there needs to be a plan in place to manage chronic pain. * hold home amlodipine as bp's normal * * dvt prophy - scd's * code status full * reviewed plan of care with patient, no questions or further needs at end of eval.
[2017-12-05] MEDS: traZODone HCl 50 MG TAB PO SCH (20:54)
[2017-12-05] MEDS: Pregabalin 75 MG CAP PO SCH (20:54)
[2017-12-06] MEDS: HYDROcodone/Acetaminophen 5/325 mg Tablet PO PRN ×4 (01:14→22:59)
[2017-12-06 04:52] LABS: #Eosinphils 0.2 thou/uL (0.0-0.7); #Lymphocytes 0.8 thou/uL (1.20-3.40); #Monocytes 0.4 thou/uL (0.11-0.59); #Neutrophils 1.3 thou/uL (1.40-6.50); %Basophils 0.6 % (0.0-1.0); %Eosinophils 8.9 % (0.0-10.0); %Lymphocytes 28.3 % (21.0-51.0); %Monocytes 13.8 % (0.0-10.0); %Neutrophils 48.3 % (42.0-75.0); Hemoglobin 9.5 g/dL (12.0-16.0); Mean Corpuscular HGB CONC 32.7 g/dL (32.0-36.0); Mean Corpuscular Hemoglobin 27.9 pg (27.0-31.0); Mean Corpuscular Volume 85.4 fL (78.0-98.0); Mean Platelet Volume 8.8 fL (7.4-10.4); Platelet Count 111 thou/uL (130-400); RBC Distribution Width 17.5 % (11.5-14.5); Red Blood Cell (RBC) Count 3.39 mill/uL (4.20-5.40); White Blood Cell (WBC) Count 2.7 thou/uL (4.8-10.8)
[2017-12-06 04:53] LABS: Anion Gap 7 mmol/L (10-20); BUN (Urea Nitrogen) 17 mg/dL (9.8-20.1); Calc. Creatinine Clearance 69 mL/min (70-130); Calcium 7.9 mg/dL (7.8-10.44); Carbon Dioxide 29 mmol/L (23-31); Chloride 108 mmol/L (98-107); Estimated GFR-MDRD 70; Glucose 127 mg/dL (80-115); Potassium 3.4 mmol/L (3.5-5.1); Sodium 141 mmol/L (136-145)
[2017-12-06] MEDS: Ondansetron HCl/PF 4 MG/2 ML Vial IVP PRN ×2 (06:09→12:56)
[2017-12-06] MEDS: Pregabalin 75 MG CAP PO SCH ×2 (08:28→20:10)
[2017-12-06] MEDS: Escitalopram Oxalate 10 mg Tablet PO SCH (08:28)
[2017-12-06] MEDS: Levothyroxine Sodium 75 MCG TAB PO SCH (08:28)
[2017-12-06] MEDS ORDERED: Potassium Chloride 20 MEQ TAB PO SCH (12:45)
--- NOTE | 2017-12-06 12:45 | PDOC.PN ---
- Subjective Encounter Start Date: 12/06/17 (f/u weakness) Encounter Start Time: 12:43 Subjective: pt c/o persistent pain - thinks it is better but requiring zofran -: and norco every 6 hours. Is willing/desires rehab. Able to stand -: briefly today with PT and transfer. - Objective Resuscitation Status: Resuscitation Status FULL:Full Resuscitation Vital Signs & Weight: Vital Signs (12 hours) Temp Pulse Resp BP BP Pulse Ox 12/06/17 08:00 98.5 F 77 16 127/55 L 97 12/06/17 04:00 98.3 F 63 20 116/47 L 92 L Weight Weight 137 lb 11.2 oz I&O: 12/05/17 12/06/17 12/07/17 06:59 06:59 06:59 Intake Total 1626.4 970 180 Balance 1626.4 970 180 Result Diagrams: 12/06/17 04:25 12/06/17 04:25 Phys Exam - Physical Examination Constitutional: NAD Respiratory: no wheezing, no rales, no rhonchi, clear to auscultation bilateral Cardiovascular: RRR, no significant murmur Gastrointestinal: soft, no distention, positive bowel sounds ttp throughout, no rebound or guarding Musculoskeletal: no edema left AKA Neurological: non-focal Psychiatric: normal affect Skin: no rash Dx/Plan (1) Acute blood loss anemia Code(s): D62 - ACUTE POSTHEMORRHAGIC ANEMIA Status: Acute (2) GI bleed Code(s): K92.2 - GASTROINTESTINAL HEMORRHAGE, UNSPECIFIED Status: Resolved Qualifiers: GI bleed type/associated pathology: unspecified peptic ulcer Qualified Code (s): K27.4 - Chronic or unspecified peptic ulcer, site unspecified, with hemorrhage (3) Hypertension Code(s): I10 - ESSENTIAL (PRIMARY) HYPERTENSION Status: Chronic Qualifiers: Hypertension type: essential hypertension Qualified Code(s): I10 - Essential (primary) hypertension (4) Dyslipidemia Code(s): E78.5 - HYPERLIPIDEMIA, UNSPECIFIED Status: Chronic (5) Hypothyroid Code(s): E03.9 - HYPOTHYROIDISM, UNSPECIFIED Status: Chronic Qualifiers: Hypothyroidism type: unspecified Qualified Code(s): E03.9 - Hypothyroidism , unspecified (6) Chronic pain Code(s): G89.29 - OTHER CHRONIC PAIN Status: Chronic Qualifiers: Chronic pain type: other chronic pain Qualified Code(s): G89.29 - Other chronic pain - Plan * * continue PPI BID - reviewed Dr. Ly's note from yesterday with instructions. CBC stable * * pancytopenia new - uncertain etiology, hx of liver dysfunction. Check in AM, consider Hematology consult for eval. * * continue all home pain medications * * pt/ot consults for weakness - rehab screening and case management consult * * persistent pain with benign abd exam and chronic pain - no change to this plan outlined yesterday. Discussed with her that we need to use what she will have access to at home. She does not have a pain specialist and she reports PCP does not prescribe pain meds - recommend she contact PCP for referral to pain specialist. Pt advised that will treat with norco here, but will only be able to prescribe pain meds at discharge for 1-2 days at most. So there needs to be a plan in place to manage chronic pain. * replace potassium * * * dvt prophy - scd's * code status full * reviewed plan of care with patient, no questions or further needs at end of eval. * disposition pending plan for SNF or rehab
[2017-12-06] MEDS: traZODone HCl 50 MG TAB PO SCH (21:09)
[2017-12-07] MEDS: HYDROcodone/Acetaminophen 5/325 mg Tablet PO PRN ×3 (05:21→18:21)
[2017-12-07] MEDS: Ondansetron HCl/PF 4 MG/2 ML Vial IVP PRN ×3 (05:23→18:21)
[2017-12-07 05:52] LABS: Anion Gap 10 mmol/L (10-20); BUN (Urea Nitrogen) 15 mg/dL (9.8-20.1); Calc. Creatinine Clearance 74 mL/min (70-130); Calcium 7.9 mg/dL (7.8-10.44); Carbon Dioxide 25 mmol/L (23-31); Chloride 109 mmol/L (98-107); Estimated GFR-MDRD 76; Glucose 79 mg/dL (80-115); Potassium 4.3 mmol/L (3.5-5.1); Sodium 140 mmol/L (136-145)
[2017-12-07 06:08] LABS: Eosinophils 9 % (0-10); Hemoglobin 9.6 g/dL (12.0-16.0); Lymphocytes 44 % (21-51); MDiff Complete? YES; Mean Corpuscular HGB CONC 32.4 g/dL (32.0-36.0); Mean Corpuscular Volume 86.4 fL (78.0-98.0); Mean Platelet Volume 8.9 fL (7.4-10.4); Monocytes 9 % (0-10); Neutrophil 38 % (42-75); PLT Morphology Comment Appears Decreased; Platelet Count 119 thou/uL (130-400); RBC Distribution Width 17.8 % (11.5-14.5); Red Blood Cell (RBC) Count 3.42 mill/uL (4.20-5.40); White Blood Cell (WBC) Count 2.6 thou/uL (4.8-10.8)
[2017-12-07] MEDS: Levothyroxine Sodium 75 MCG TAB PO SCH (07:43)
[2017-12-07] MEDS: Escitalopram Oxalate 10 mg Tablet PO SCH (08:38)
[2017-12-07] MEDS: Pregabalin 75 MG CAP PO SCH ×2 (08:39→20:19)
[2017-12-07] MEDS: Lorazepam 0.5 MG TAB PO PRN (08:45)
[2017-12-07] MEDS: traZODone HCl 50 MG TAB PO SCH (20:19)
--- NOTE | 2017-12-07 22:24 | PDOC.PN ---
- Objective Resuscitation Status: Resuscitation Status FULL:Full Resuscitation Vital Signs & Weight: Vital Signs (12 hours) Temp Pulse Resp BP Pulse Ox 12/07/17 20:00 98.8 F 73 20 135/58 L 99 12/07/17 19:37 98.4 F 73 20 Weight Weight 137 lb 11.2 oz I&O: 12/06/17 12/07/17 12/08/17 06:59 06:59 06:59 Intake Total 970 1460 1240 Output Total 600 Balance 970 1460 640 Result Diagrams: 12/07/17 04:26 12/07/17 04:26 Dx/Plan - Plan * .
[2017-12-08] MEDS: HYDROcodone/Acetaminophen 5/325 mg Tablet PO PRN ×3 (08:26→21:00)
[2017-12-08] MEDS: Escitalopram Oxalate 10 mg Tablet PO SCH (08:27)
[2017-12-08] MEDS: Levothyroxine Sodium 75 MCG TAB PO SCH (08:27)
[2017-12-08] MEDS: Pregabalin 75 MG CAP PO SCH ×2 (08:27→20:58)
[2017-12-08] MEDS: Lorazepam 0.5 MG TAB PO PRN (11:52)
[2017-12-08] MEDS: traZODone HCl 50 MG TAB PO SCH (20:59)
[2017-12-09] MEDS: Pregabalin 75 MG CAP PO SCH (09:37)
[2017-12-09] MEDS: Levothyroxine Sodium 75 MCG TAB PO SCH (09:37)
[2017-12-09] MEDS: Escitalopram Oxalate 10 mg Tablet PO SCH (09:37)
[2017-12-09] MEDS: HYDROcodone/Acetaminophen 5/325 mg Tablet PO PRN (09:38)
[2017-12-09 17:33] VITALS: BP 172/63; TEMP 99.1
== END 2017-12-09 16:24 | disposition home or self-care (01) | DRG 378 ==
LOC: ERS 15:16 → IMCU/EMU 18:44 → T4-B 12-05 14:40
PROVIDERS: ADMIT Internal Medicine; ATTEND Internal Medicine
PROC: 0DB68ZX Excision of Stomach, Via Natural or Artificial Opening Endoscopic, Diagnostic (ICD-10-PCS; principal; 2017-12-03)
DX: K25.4 Chronic or unspecified gastric ulcer with hemorrhage (principal); D62 Acute posthemorrhagic anemia; K76.6 Portal hypertension; D61.818 Other pancytopenia; K29.51 Unspecified chronic gastritis with bleeding; K20.8 Other esophagitis; I86.4 Gastric varices; Z98.890 Other specified postprocedural states; G89.29 Other chronic pain; I10 Essential (primary) hypertension; R79.89 Other specified abnormal findings of blood chemistry; E03.9 Hypothyroidism, unspecified; F10.10 Alcohol abuse, uncomplicated; E78.5 Hyperlipidemia, unspecified; M19.90 Unspecified osteoarthritis, unspecified site; J44.9 Chronic obstructive pulmonary disease, unspecified; Z88.0 Allergy status to penicillin; Z88.8 Allergy status to other drugs, medicaments and biological substances
CPT/HCPCS: 36415; 51701; 80048; 80053; 81003; 81015; 83605; 83690; 85014; 85018; 85025; 85049; 86900; 86901; 88305; 88312; 88342; 93005; 93010; 96365; 96374; 96375; A4216; A4353; C9113; G8978-GP-CK; G8979-GP-CI; G8987-GO-CJ; G8988-GO-CI; J2001; J2270; J2354; J2405; J2704; J7050

== ENCOUNTER 2017-12-22 12:04 | Inpatient (IN) | payer MEDICARE ==
--- NOTE | 2017-12-22 12:56 | RAD ---
PORTABLE CHEST: History: Fever and cough. Comparison: 11-27-17 FINDINGS: Heart size is enlarged. There has been increase in the opacification of the right base which appears to be related to moderate effusion with associated atelectasis versus infiltrate. IMPRESSION: 1. Cardiomegaly. 2. Development of moderate right sided pleural effusion with associated atelectatic type change. POS: [facility]
[2017-12-22 14:02] LABS: #Eosinphils 0.1 thou/uL (0.0-0.7); #Lymphocytes 0.8 thou/uL (1.20-3.40); #Monocytes 0.2 thou/uL (0.11-0.59); #Neutrophils 2.3 thou/uL (1.40-6.50); %Basophils 0.8 % (0.0-1.0); %Eosinophils 2.7 % (0.0-10.0); %Lymphocytes 22.1 % (21.0-51.0); %Monocytes 6.9 % (0.0-10.0); %Neutrophils 67.5 % (42.0-75.0); Hemoglobin 8.6 g/dL (12.0-16.0); Mean Corpuscular HGB CONC 32.4 g/dL (32.0-36.0); Mean Corpuscular Hemoglobin 26.5 pg (27.0-31.0); Mean Corpuscular Volume 81.7 fL (78.0-98.0); Mean Platelet Volume 9.3 fL (7.4-10.4); Platelet Count 154 thou/uL (130-400); RBC Distribution Width 17.2 % (11.5-14.5); Red Blood Cell (RBC) Count 3.24 mill/uL (4.20-5.40); White Blood Cell (WBC) Count 3.4 thou/uL (4.8-10.8)
[2017-12-22 14:12] LABS: ALT (SGPT) 7 U/L (8-55); AST (SGOT) 14 U/L (5-34); Albumin 2.9 g/dL (3.4-4.8); Alkaline Phosphatase 125 U/L (40-150); Anion Gap 9 mmol/L (10-20); BUN (Urea Nitrogen) 12 mg/dL (9.8-20.1); Bilirubin, Total 0.8 mg/dL (0.2-1.2); Calc. Creatinine Clearance 0 mL/min (70-130); Calcium 8.2 mg/dL (7.8-10.44); Carbon Dioxide 22 mmol/L (23-31); Chloride 117 mmol/L (98-107); Estimated GFR-MDRD 72; Globulin 2.5 g/dL (2.4-3.5); Glucose 99 mg/dL (80-115); Potassium 3.8 mmol/L (3.5-5.1); Protein, Total 5.4 g/dL (6.0-8.3); Sodium 144 mmol/L (136-145)
[2017-12-22 15:32] LABS: Bilirubin Negative (Negative); Blood, Urine Negative (Negative); Clarity CLEAR (Clear); Glucose, Urine (Dipstick) Negative (Negative); Leukocyte Small (Negative); Nitrite Negative (Negative); Protein, Urine (Dipstick) 30 mg/dL (Neg-Trace); Specific Gravity, Urine 1.026 (1.002-1.036); pH, Urine 7.5 (5.0-9.0)
[2017-12-22 15:38] LABS: Bacteria/HPF None Seen HPF (None Seen); Hyaline Casts/LPF 0-3 HYALINE CAST LPF (0-3 Hyaline); Pathc Cast-AUWi Flag 0.29 (0-2.49); Squamous Epithelial 0-3 HPF (0-3)
[2017-12-22 15:53] LABS: Renal Epithelial None Seen HPF (0-3); Transitional Epithelial NONE SEEN HPF (0-3)
[2017-12-22] MEDS ORDERED: hydrALAZINE 20 MG/ML VIAL SLOW IVP PRN (17:16)
[2017-12-22] MEDS ORDERED: Acetaminophen 325 MG TAB PO PRN (17:18)
[2017-12-22] MEDS ORDERED: Senokot 8.6 MG TAB PO PRN (17:18)
[2017-12-22] MEDS ORDERED: Calcium Carbonate 500 MG ChewTAB PO PRN (17:18)
[2017-12-22 17:28] VITALS: BMI 19.2
[2017-12-22] MEDS ORDERED: Sodium Chloride 0.9% 1,000 ML IV SCH (17:30)
[2017-12-22] MEDS: HYDROcodone/Acetaminophen 5/325 mg Tablet PO PRN ×2 (17:57→21:49)
[2017-12-22] MEDS: Lidocaine 5% Patch TD PRN (18:05)
[2017-12-22] MEDS: traZODone HCl 50 MG TAB PO SCH (20:16)
[2017-12-22] MEDS: Doxycycline 100 MG CAP PO SCH (20:16)
[2017-12-22] MEDS: Pregabalin 75 MG CAP PO SCH (20:17)
[2017-12-22] MEDS: Nystatin Powder 15 GM BOT TOP SCH (20:19)
[2017-12-22] MEDS ORDERED: Heparin 5,000 UNITS/ML VIAL SC SCH (21:00)
--- NOTE | 2017-12-22 22:02 | HP ---
DATE OF ADMISSION: 12/22/2017 PRIMARY CARE PHYSICIAN: Dr. Iqra Little. REASON FOR COMPLAINT: Generalized weakness with cough, shortness of breath, and fever of 1-week duration. HISTORY OF PRESENT ILLNESS: Patient is a 62-year-old female with chronic pain syndrome with recent GI bleeding presented to the emergency room with above complaints. Over the last 1 week or so, the patient developed gradual worsening cough that was productive of thick-whitish phlegm. She was short of breath on [id number] exertion. She also had fever with a maximum temperature of 100.6. She denies any sick contacts. No chest pain, shortness of breath, palpitations reported. She has been feeling generally weak and fatigued. She has a history of chronic pain syndrome and is followed by a physician in [place]. She was unable to see her physician this month. She is out of hydrocodone for approximately 10 days. She denies any swallowing difficulty. PAST MEDICAL HISTORY: 1. Recent GI bleeding secondary to peptic ulcer disease. 2. Chronic pain syndrome. 3. Anxiety. 4. Hypertension. 5. Hyperlipidemia. 6. History of alcohol abuse. 7. Hypothyroidism. 8. Chronic obstructive pulmonary disease. 9. Alcoholic Cirrhosis. PAST SURGICAL HISTORY: 1. Recent EGD. 2. Left total hip replacement. 3. Lumbar laminectomy. 4. Right shoulder surgery. 5. Left shoulder rotator cuff repair. 6. 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 7. TIPs procedure. ALLERGIES: Patient is allergic to CEFEPIME, PENICILLIN, ASPIRIN, and IBUPROFEN. CURRENT HOME MEDICATIONS: Patient is unable to recall all of her medications. Family to get the accurate list of medication. SOCIAL HISTORY: She is . She has 4 children. She quit drinking. She currently lives alone. Has home health care. FAMILY HISTORY: Positive for heart disease. Brother with hypertension. REVIEW OF SYSTEMS: The following complete review of systems was negative, unless otherwise mentioned in the HPI or below: Constitutional: Weight loss or gain, ability to conduct usual activities. Skin: Rash, itching. Eyes: Double vision, pain. ENT/Mouth: Nose bleeding, neck stiffness, pain, tenderness. Cardiovascular: Palpitations, dyspnea on exertion, orthopnea. Respiratory: Shortness of breath, wheezing, cough, hemoptysis, fever, or night sweats. Gastrointestinal: Poor appetite, abdominal pain, heartburn, nausea, vomiting, constipation, or diarrhea. Genitourinary: Urgency, frequency, dysuria, nocturia. Musculoskeletal: Pain, swelling. Neurologic/Psychiatric: Anxiety, depression. Allergy/Immunologic: Skin rash, bleeding tendency. PHYSICAL EXAMINATION: VITAL SIGNS: Temperature 99.6, respiration 18, pulse rate of 71, blood pressure 146/51 with O2 saturation 95% on room air. GENERAL: A 62-year-old female, ill appearing with generalized weakness. HEENT: Atraumatic, normocephalic. Sclerae anicteric. Dry mucous membrane, no oral lesion. NECK: Supple, no JVD appreciated. No carotid bruit. LUNGS: Showed diminished air entry at right base with right basilar rales. Lungs are symmetrical. There was scattered rhonchi on the right. No wheezing appreciated. HEART: S1, S2 present. Regular rate and rhythm. No rubs or gallops appreciated. ABDOMEN: Soft, nontender, bowel sounds present. EXTREMITIES: No edema or calf tenderness. Patient has left AKA. NEUROLOGIC: Grossly nonfocal, moves all four extremities. PSYCHIATRY: Alert, awake, oriented x3. SKIN: Warm and dry. LYMPH NODES: No palpable lymph nodes in the neck. PERIPHERAL VASCULAR: Radial pulses palpable bilaterally. MUSCULOSKELETAL: No joint swelling or tenderness. LABORATORY FINDINGS: CBC showed WBC 3.4 with hemoglobin 8.6, hematocrit 26.4, platelet 154. Chemistry showed sodium 144, potassium 3.8, chloride 117, bicarbonate 22, BUN 12, creatinine 0.8. Urinalysis showed 4-6 wbc's without any bacteria. Alcohol level was negative. Telemetry monitoring by my review showed sinus rhythm. Chest x-ray by my review showed moderate right-sided pleural effusion with questionable infiltrate. IMPRESSION: 1. Sepsis secondary to healthcare-associated pneumonia, rule out aspiration. 2. Chronic pain syndrome. Patient is out of [place] for last 10 days. Patient used to take 10/325 [place] every 4-6 hourly. 3. Hypertension. 4. Hypothyroidism. 5. Recent gastrointestinal bleeding secondary to peptic ulcer disease, status post 1 unit transfusion. 6. Chronic kidney disease, stage 2. 7. Chronic anemia. 8. Anxiety. PLAN: Patient will be monitored on the medical floor. She will require 2-3 days for stabilization. We will start her on Levaquin with doxycycline. Please note, patient is allergic to PENICILLIN and CEFEPIME. We will consult Dr. Sorenson in a.m. for pleural effusion. We will get chest x-ray PA and lateral in a.m. We will repeat labs in a.m. We will confirm her home medications and start accordingly. Vital signs q.4 hourly. Resume inhibitors. Plan of care was discussed with the patient. She stated understanding. MTDD
[2017-12-22] MEDS: Ondansetron HCl/PF 4 MG/2 ML Vial IVP PRN (22:19)
[2017-12-23] MEDS: HYDROcodone/Acetaminophen 5/325 mg Tablet PO PRN ×5 (03:50→22:02)
[2017-12-23] MEDS: Levothyroxine Sodium 75 MCG TAB PO SCH (03:51)
[2017-12-23 05:22] LABS: #Eosinphils 0.3 thou/uL (0.0-0.7); #Lymphocytes 1.3 thou/uL (1.20-3.40); #Monocytes 0.3 thou/uL (0.11-0.59); #Neutrophils 2.1 thou/uL (1.40-6.50); %Basophils 0.4 % (0.0-1.0); %Eosinophils 6.8 % (0.0-10.0); %Lymphocytes 31.9 % (21.0-51.0); %Monocytes 7.9 % (0.0-10.0); Hemoglobin 7.8 g/dL (12.0-16.0); Mean Corpuscular HGB CONC 32.1 g/dL (32.0-36.0); Mean Corpuscular Hemoglobin 26.4 pg (27.0-31.0); Mean Corpuscular Volume 82.2 fL (78.0-98.0); Mean Platelet Volume 9.7 fL (7.4-10.4); Platelet Count 133 thou/uL (130-400); RBC Distribution Width 17.3 % (11.5-14.5); Red Blood Cell (RBC) Count 2.94 mill/uL (4.20-5.40)
[2017-12-23 05:36] LABS: Anion Gap 8 mmol/L (10-20); BUN (Urea Nitrogen) 12 mg/dL (9.8-20.1); Calc. Creatinine Clearance 70 mL/min (70-130); Calcium 7.7 mg/dL (7.8-10.44); Carbon Dioxide 21 mmol/L (23-31); Chloride 117 mmol/L (98-107); Estimated GFR-MDRD 76; Glucose 83 mg/dL (80-115); Magnesium 1.5 mg/dL (1.6-2.6); Potassium 3.8 mmol/L (3.5-5.1); Sodium 142 mmol/L (136-145)
[2017-12-23] MEDS: Doxycycline 100 MG CAP PO SCH ×2 (08:10→20:09)
[2017-12-23] MEDS: Nystatin Powder 15 GM BOT TOP SCH ×2 (08:10→20:12)
[2017-12-23] MEDS: Pregabalin 75 MG CAP PO SCH ×2 (08:10→20:08)
[2017-12-23] MEDS: Escitalopram Oxalate 10 mg Tablet PO SCH (08:11)
[2017-12-23] MEDS ORDERED: Amlodipine 5 MG TAB PO SCH (09:00)
[2017-12-23] MEDS ORDERED: Magnesium 2 GM/NS 0.9% 100 ML 2 GM in Premix Bag 1 BAG IVPB SCH (09:30)
--- NOTE | 2017-12-23 10:00 | RAD ---
PA AND LATERAL CHEST: Date: 12/23/17 INDICATION: Shortness of breath and pneumonia. COMPARISON: Prior study dated 12/22/08. FINDINGS: Moderate right pleural effusion. Cardiomegaly persists. There is a tiny left pleural effusion. Pulmon evangelina vascular congestion is similar appearing. Hazy air space opacity involving the right lung which m ay reflect left segmental volume loss. Pneumonia within the right lung cannot be excluded. Left total shoulder replacement unchanged. No pneumothorax is evident. IMPRESSION: Cardiomegaly, pulmonary vascular congestion, and bilateral pleural effusions, suspicious for CHF. Haz y opacity within the right lower lobe may reflect atelectasis or pneumonia. Recommend correlation and continued follow-up. POS: [facility]
[2017-12-23] MEDS: Furosemide 20 MG/2 ML VIAL SLOW IVP SCH (11:52)
[2017-12-23] MEDS: Lorazepam 0.5 MG TAB PO PRN ×2 (11:59→17:44)
[2017-12-23 12:27] LABS: Reticulocyte Count 2.8 % (0.5-1.5)
[2017-12-23 12:44] LABS: Iron 18 ug/dL (50-170); Iron Binding Capacity, Total 325 mcg/dL (265-497)
[2017-12-23] MEDS ORDERED: Iron Sucrose Complex 200 MG in Sodium Chloride 0.9% 250 ML 250 ML IVPB SCH (13:15)
--- NOTE | 2017-12-23 13:40 | CON ---
DATE OF CONSULTATION: 12/23/2017 HISTORY OF PRESENT ILLNESS: Ms. Adrian is a pleasant 62-year-old female with history of alcoholic liver disease. She has had a TIPS procedure in the past. She recently was admitted twice in November with gastrointestinal bleeding. She underwent endoscopy. The first admission was 11/27/2017 to 12/01/2017. She had alcohol withdrawal that admission. She came back with GI bleeding 2 days later and underwent endoscopy. No varices were seen. Erosive esophagitis, small gastric varices and diffuse gastritis was seen. Pyloric channel ulcer was also seen. She is now admitted with weakness. She says she wanted to go into rehab last admission because she needs at least 3 hours of exercise a day. Apparently she was discharged home and says she just stayed on the couch watching TV the whole time and became progressively weaker. She says she had a fever of 101 at home, called her nurse practitioner who thought she might have pneumonia. She has had only a mild cough. She has had no recurrent fever since she has been here. She did not require blood when she was in the hospital, but did receive IV fluids. Unfortunately, looking back through records, there is really no intake and output record. In reviewing weights find that the weights have to be inaccurate based on the wide swings from day to day of her weights. I was consulted because of a right effusion. PAST MEDICAL HISTORY: 1. Remarkable for alcoholic liver disease with cirrhosis. 2. Status post TIPS procedure in the past. 3. History of narcotic abuse for "pain". 4. History of hypertension. 5. Lipid disorder. 6. Reported history of obstructive lung disease. 7. Chronic hypothyroidism. 8. History of total hip replacement. 9. History of a laminectomy in her low back. 10. History of right shoulder and left shoulder surgery. 11. History of a left pttuz-zsa-[id number] amputation after she developed septic arthritis after a knee replacement. SOCIAL HISTORY: She apparently has 4 children. She is still a drinker, as mentioned recently had alcohol withdrawal. ALLERGIES: She reports for CEFEPIME, ASPIRIN, IBUPROFEN and PENICILLIN intolerance. FAMILY HISTORY: Positive for vascular disease and hypertension. REVIEW OF SYSTEMS: Ten point system review completed; otherwise negative. She says other than feeling weak she feels fine now. She denies shortness of breath , orthopnea, paroxysmal nocturnal dyspnea or chest pain. PHYSICAL EXAMINATION: GENERAL: She is afebrile since admission. VITALS: heart rate 61, respiratory rate is 18, oximetry is 94%, blood pressure 102/56. HEENT: Pupils are equal. Sclerae is anicteric. She appears older than her age. NECK: Supple. LUNGS: Remarkable for decreased breath sounds at her right base. HEART: Regular rhythm, no S3. ABDOMEN: Soft and nontender. EXTREMITIES: Without clubbing, cyanosis, or edema. LABORATORY DATA: White count 4, hemoglobin 7.8, platelets 133,000. Sodium 142, potassium 3.8, chloride 117, bicarbonate 21, BUN 12, creatinine 0.7. IMPRESSION: Fever, once. I am not convinced she has pneumonia. I have recommended a CT without contrast of her chest. Given that she had 2 admissions associated with alcohol withdrawal and GI bleeding that were treated with IV hydration, her effusion simply could be an effusion associated with her liver disease and low oncotic pressure. I will be happy to follow with the other physicians caring for her. This is a 50 minute consult with greater than 50% of the time was spent coordinating care on the unit. CARROLL
[2017-12-23] MEDS: Sodium Ferric Gluconate 250 MG in Sodium Chloride 0.9% 100 ML IVPB SCH (14:16)
[2017-12-23] MEDS: Ondansetron ODT 4 MG TAB PO PRN (14:23)
--- NOTE | 2017-12-23 15:34 | CT ---
CT CHEST WITHOUT CONTRAST: Date: 12/23/17 HISTORY: Pneumonia versus hepatic related effusion. COMPARISON: Chest radiograph same date. FINDINGS: Large right-sided layering pleural effusion. TIPS catheter is in place. No significant left-sided effusion. Round atelectasis left lung base. No evidence for pneumonia. No p neumothorax. Moderate vascular calcification of aorta. Pulmonary arteries and main pulmonary trunk is mildly dilat ed. Small pericardial effusion. Spleen mildly enlarged. The hepatic contour is nodular. No acute displaced rib fracture. IMPRESSION: Large right and small left pleural effusion without evidence of pneumonia. POS: [facility]
[2017-12-23] MEDS: Ondansetron HCl/PF 4 MG/2 ML Vial IVP PRN (20:09)
[2017-12-23] MEDS: traZODone HCl 50 MG TAB PO SCH ×2 (20:13→23:28)
--- NOTE | 2017-12-23 21:02 | PDOC.PN ---
- Subjective Encounter Start Date: 12/23/17 Encounter Start Time: 12:00 Patient seen and examined for Sepsis. Feels gen weak. Had Panic attacks - takes Ativan at home. No new complaints. No overnight events - Objective Resuscitation Status: Resuscitation Status FULL:Full Resuscitation MAR Reviewed: Yes Vital Signs & Weight: Vital Signs (12 hours) Temp Pulse Pulse Resp BP BP Pulse Ox 12/23/17 20:00 98.1 F 66 16 107/57 L 94 L 12/23/17 16:13 98.5 F 60 18 102/60 94 L 12/23/17 11:13 98.2 F 61 18 106/60 94 L 12/23/17 09:40 62 102/56 L Pulse Ox 12/23/17 20:00 12/23/17 16:13 12/23/17 11:13 12/23/17 09:40 93 L Weight Weight 130 lb I&O: 12/22/17 12/23/17 12/24/17 06:59 06:59 06:59 Intake Total 2100 Balance 2100 Result Diagrams: 12/23/17 03:43 12/23/17 03:43 Radiology Reviewed by me: Yes (CXR - Pleural eff ?Pneumonia) Phys Exam - Physical Examination Constitutional: NAD Respiratory: no wheezing, no rhonchi Dec AE at bases with scat rales, No accessory muscle use Cardiovascular: RRR, no rub No heaves/pulsations Gastrointestinal: soft, non-tender, no distention, positive bowel sounds Musculoskeletal: no edema, pulses present Neurological: non-focal, moves all 4 limbs Psychiatric: normal affect, A&O x 3 Dx/Plan - Plan DVT proph w/SCDs IMPRESSION: 1. Sepsis secondary to healthcare-associated pneumonia 2. Rt Pleural effusion 2. Chronic pain syndrome. 3. Hypertension. 4. Hypothyroidism. 5. Recent gastrointestinal bleeding secondary to peptic ulcer disease, status post 1 unit transfusion. 6. Chronic kidney disease, stage 2. 7. Chronic anemia/Anxiety/Cirrhosis / Normal EF 2016 PLAN: Cont Levaquin Check iron profile/ stool of occult blood / reti count / BNP AM labs Add Ativan for Anxiety (takes at home) Await blood cultures Cont to monitor Review of Systems - Review of Systems Constitutional: negative: fever, chills, sweats, weakness, malaise, other Gastrointestinal: negative: Nausea, Vomiting, Abdominal Pain, Diarrhea, Constipation, Melena, Hematochezia, Other - Medications/Allergies Allergies/Adverse Reactions: Allergies Allergy/AdvReac Type Severity Reaction Status Date / Time aspirin Allergy Severe Verified 12/22/17 17:26 cefepime Allergy Severe Rash Verified 12/22/17 17:26 ibuprofen Allergy Severe Verified 12/22/17 17:26 NSAIDS (Non-Steroidal Allergy Severe Verified 12/22/17 17:26 Anti-Inflamma Penicillins Allergy Unknown Verified 12/22/17 17:26 Medications: Current Medications Acetaminophen (Tylenol) 650 mg PO Q4H PRN PRN Reason: Headache/Fever or Pain Hydrocodone Bitart/Acetaminophen ([place] 5/325) 1 tab PO Q4H PRN PRN Reason: Moderate Pain (4-6) Last Admin: 12/23/17 16:12 Dose: 1 tab Amlodipine Besylate (Norvasc) 2.5 mg PO DAILY [facility] Calcium Carbonate (Tums) 1,000 mg PO Q4H PRN PRN Reason: Heartburn or Indigestion Escitalopram Oxalate (Lexapro) 10 mg PO DAILY [facility] Last Admin: 12/23/17 08:11 Dose: 10 mg Hydralazine HCl (Apresoline) 10 mg SLOW IVP Q4H PRN PRN Reason: SBP Greater Than 180 Levofloxacin 750 mg/ Device 150 mls @ 100 mls/hr IVPB Q24HR [facility] Last Admin: 12/23/17 17:44 Dose: 150 mls Ferric Sodium Gluconate Complex 250 mg/ Sodium Chloride 120 mls @ 60 mls/hr IVPB Q24HR@1400 [facility] Stop: 12/24/17 15:59 Last Admin: 12/23/17 14:16 Dose: 120 mls Levothyroxine Sodium (Synthroid) 75 mcg PO 0600 [facility] Last Admin: 12/23/17 03:51 Dose: 75 mcg Lidocaine (Lidoderm 5% Patch) 1 patch TD DAILY PRN PRN Reason: pain Last Admin: 12/22/17 18:05 Dose: 1 patch Lorazepam (Ativan) 0.5 mg PO Q6H PRN PRN Reason: Anxiety Last Admin: 12/23/17 17:44 Dose: 0.5 mg Nystatin (Mycostatin Powder) 0 gm TOP BID [facility] Last Admin: 12/23/17 20:12 Dose: 1 applic Ondansetron HCl (Zofran Odt) 4 mg PO Q6H PRN PRN Reason: Nausea/Vomiting Last Admin: 12/23/17 14:23 Dose: 4 mg Ondansetron HCl (Zofran) 4 mg IVP Q6H PRN PRN Reason: Nausea/Vomiting Last Admin: 12/23/17 20:09 Dose: 4 mg Pantoprazole Sodium (Protonix) 40 mg PO DAILY [facility] Last Admin: 12/23/17 08:12 Dose: 40 mg Pregabalin (Lyrica) 75 mg PO BID [facility] Last Admin: 12/23/17 20:08 Dose: 75 mg Senna (Senokot) 2 tab PO HSPRN PRN PRN Reason: Constipation Trazodone HCl (Desyrel) 100 mg PO [facility] Last Admin: 12/22/17 20:16 Dose: 100 mg
[2017-12-24] MEDS: Lorazepam 0.5 MG TAB PO PRN ×4 (00:41→22:13)
[2017-12-24] MEDS: HYDROcodone/Acetaminophen 5/325 mg Tablet PO PRN ×5 (04:10→20:01)
[2017-12-24 04:28] LABS: #Eosinphils 0.4 thou/uL (0.0-0.7); #Lymphocytes 0.8 thou/uL (1.20-3.40); #Monocytes 0.3 thou/uL (0.11-0.59); #Neutrophils 2.3 thou/uL (1.40-6.50); %Basophils 1.3 % (0.0-1.0); %Eosinophils 9.6 % (0.0-10.0); %Lymphocytes 21.5 % (21.0-51.0); %Monocytes 8.6 % (0.0-10.0); Hemoglobin 7.8 g/dL (12.0-16.0); Mean Corpuscular HGB CONC 32.2 g/dL (32.0-36.0); Mean Corpuscular Hemoglobin 26.6 pg (27.0-31.0); Mean Corpuscular Volume 82.7 fL (78.0-98.0); Mean Platelet Volume 9.9 fL (7.4-10.4); Platelet Count 120 thou/uL (130-400); RBC Distribution Width 17.4 % (11.5-14.5); Red Blood Cell (RBC) Count 2.95 mill/uL (4.20-5.40); White Blood Cell (WBC) Count 3.8 thou/uL (4.8-10.8)
[2017-12-24 04:47] LABS: Anion Gap 12 mmol/L (10-20); BUN (Urea Nitrogen) 14 mg/dL (9.8-20.1); Calc. Creatinine Clearance 64 mL/min (70-130); Carbon Dioxide 18 mmol/L (23-31); Chloride 114 mmol/L (98-107); Estimated GFR-MDRD 68; Glucose 105 mg/dL (80-115); Magnesium 1.6 mg/dL (1.6-2.6); Sodium 140 mmol/L (136-145)
[2017-12-24] MEDS: Levothyroxine Sodium 75 MCG TAB PO SCH (06:10)
[2017-12-24 07:55] LABS: INR-International Normal Ratio 1.2; PTT 34.3 SEC (22.9-36.1); Prothrombin Time 15.1 SEC (12.0-14.7)
[2017-12-24] MEDS: Pregabalin 75 MG CAP PO SCH ×2 (07:57→20:50)
[2017-12-24] MEDS: Escitalopram Oxalate 10 mg Tablet PO SCH (07:58)
[2017-12-24] MEDS: Amlodipine 5 MG TAB PO SCH (07:59)
[2017-12-24] MEDS: Nystatin Powder 15 GM BOT TOP SCH ×2 (08:01→20:03)
[2017-12-24] MEDS ORDERED: Furosemide 40 MG/4 ML VIAL SLOW IVP SCH (11:00)
[2017-12-24] MEDS: Vancomycin HCl 1 GM in Premix Bag 1 BAG IVPB SCH ×2 (11:30→23:24)
[2017-12-24] MEDS: Lidocaine 5% Patch TD PRN (14:11)
[2017-12-24] MEDS: Sodium Ferric Gluconate 250 MG in Sodium Chloride 0.9% 100 ML IVPB SCH (14:11)
[2017-12-24] MEDS: Ondansetron HCl/PF 4 MG/2 ML Vial IVP PRN ×2 (15:59→22:19)
[2017-12-24] MEDS: traZODone HCl 50 MG TAB PO SCH (20:02)
--- NOTE | 2017-12-24 22:48 | PDOC.PN ---
- Subjective Encounter Start Date: 12/24/17 Encounter Start Time: 12:00 Patient seen and examined for Pneumonia. SOB improving. No new complaints. No overnight events - Objective Resuscitation Status: Resuscitation Status FULL:Full Resuscitation MAR Reviewed: Yes Vital Signs & Weight: Vital Signs (12 hours) Temp Pulse Resp BP BP Pulse Ox 12/24/17 19:11 99.2 F 69 20 116/66 95 12/24/17 16:03 98.2 F 71 20 124/68 94 L 12/24/17 11:25 98 F 93 20 113/63 100 Weight Weight 130 lb I&O: 12/23/17 12/24/17 12/25/17 06:59 06:59 06:59 Intake Total 2100 900 Balance 2100 900 Result Diagrams: 12/24/17 03:53 12/24/17 03:53 Phys Exam - Physical Examination Constitutional: NAD Respiratory: no wheezing, no rhonchi Dec AE at Rt bases Cardiovascular: RRR, no rub Gastrointestinal: soft, non-tender Neurological: moves all 4 limbs Dx/Plan - Plan DVT proph w/SCDs IMPRESSION: 1. Sepsis secondary to healthcare-associated pneumonia 2. Rt Pleural effusion 2. Chronic pain syndrome. 3. Hypertension. 4. Iron def anemia s/p Venofer 5. Recent gastrointestinal bleeding secondary to peptic ulcer disease, status post 1 unit transfusion - on PPI 6. Chronic kidney disease, stage 2. 7. Hypothyroidism/Anxiety/Cirrhosis PLAN: Cont Levaquin Vancomycin started AM labs Cont to monitor Patient refusing heart health diet Awit Echo Microbiology 12/22/17 15:50 Venous blood - Neck Blood Culture - Preliminary Presumptive Enterococcus sp. 12/22/17 15:47 Venous blood - Right Hand Blood Culture - Preliminary Presumptiv Micrococcus/Kocuria Review of Systems - Review of Systems Constitutional: negative: fever, chills, sweats, weakness, malaise, other Cardiovascular: negative: chest pain, palpitations, orthopnea, paroxysmal nocturnal dyspnea, edema, light headedness, other - Medications/Allergies Allergies/Adverse Reactions: Allergies Allergy/AdvReac Type Severity Reaction Status Date / Time aspirin Allergy Severe Verified 12/22/17 17:26 cefepime Allergy Severe Rash Verified 12/22/17 17:26 ibuprofen Allergy Severe Verified 12/22/17 17:26 NSAIDS (Non-Steroidal Allergy Severe Verified 12/22/17 17:26 Anti-Inflamma Penicillins Allergy Unknown Verified 12/22/17 17:26 Medications: Current Medications Acetaminophen (Tylenol) 650 mg PO Q4H PRN PRN Reason: Headache/Fever or Pain Hydrocodone Bitart/Acetaminophen ([place] 5/325) 1 tab PO Q4H PRN PRN Reason: Moderate Pain (4-6) Last Admin: 12/24/17 20:01 Dose: 1 tab Amlodipine Besylate (Norvasc) 2.5 mg PO DAILY [facility] Last Admin: 12/24/17 07:59 Dose: 2.5 mg Calcium Carbonate (Tums) 1,000 mg PO Q4H PRN PRN Reason: Heartburn or Indigestion Escitalopram Oxalate (Lexapro) 10 mg PO DAILY [facility] Last Admin: 12/24/17 07:58 Dose: 10 mg Hydralazine HCl (Apresoline) 10 mg SLOW IVP Q4H PRN PRN Reason: SBP Greater Than 180 Vancomycin HCl 1 gm/ Device 200 mls @ 200 mls/hr IVPB 1200,2359 [facility] Last Admin: 12/24/17 11:30 Dose: 200 mls Levofloxacin (Levaquin) 500 mg PO 0600 [facility] Levothyroxine Sodium (Synthroid) 75 mcg PO 0600 [facility] Last Admin: 12/24/17 06:10 Dose: 75 mcg Lidocaine (Lidoderm 5% Patch) 1 patch TD DAILY PRN PRN Reason: pain Last Admin: 12/24/17 14:11 Dose: 1 patch Lorazepam (Ativan) 0.5 mg PO Q6H PRN PRN Reason: Anxiety Last Admin: 12/24/17 22:13 Dose: 0.5 mg Miscellaneous Medication (Pharmacy To Dose) 1 each IVPB PRN PRN PRN Reason: Pharmacy to dose Nystatin (Mycostatin Powder) 0 gm TOP BID [facility] Last Admin: 12/24/17 20:03 Dose: 1 applic Ondansetron HCl (Zofran Odt) 4 mg PO Q6H PRN PRN Reason: Nausea/Vomiting Last Admin: 12/23/17 14:23 Dose: 4 mg Ondansetron HCl (Zofran) 4 mg IVP Q6H PRN PRN Reason: Nausea/Vomiting Last Admin: 12/24/17 22:19 Dose: 4 mg Pantoprazole Sodium (Protonix) 40 mg PO DAILY [facility] Last Admin: 12/24/17 07:59 Dose: 40 mg Pregabalin (Lyrica) 75 mg PO BID [facility] Last Admin: 12/24/17 20:50 Dose: 75 mg Senna (Senokot) 2 tab PO HSPRN PRN PRN Reason: Constipation Trazodone HCl (Desyrel) 100 mg PO [facility] Last Admin: 12/24/17 20:02 Dose: 100 mg
--- NOTE | 2017-12-24 22:50 | PRG ---
DATE OF SERVICE: 12/24/2017 SUBJECTIVE: Massiel judd is in no distress. She denies dyspnea. She has gotten out of the bed muc h, she is quite weak. She really wants to go to rehabilitation at [facility] for 3 hours of physica l therapy today. OBJECTIVE: VITAL SIGNS: She is afebrile, heart rate 69, respiratory rate is 20, oximetry is 95, blood pressure 116/66. LUNGS: Remarkable for decreased breath sounds at the right base. HEART: Regular rate and rhythm. ABDOMEN: Soft. A 2100 mL in's yesterday. There is no output recorded. We will give her Lasix. She really needs to have intake and output recorded. She is fairly opposed to the idea of a thoracentesis at this time. I suspect this is all related to hypoalbuminemia. An echocardiogram has been ordered to sort through this. We will see if she will reconsider about thoracentesis in the morning. I doubt, she has an infected pleural space and it is extremely unlikely that she has a malignancy in there. likely related to volume resuscitation last admission combined with low oncotic pressure. We discussed her alcohol use. She had her TIPS procedure done 30 years ago and has had two slips rega rding several days of alcohol use and she moved to [place], but prior to that she had 30 years of sobri ety, which is pretty impressive. It is pretty impressive that she is 30 years out from a TIPS procedure. We will continue to follow w ith the other physicians caring for her. I saw nothing on her chest CT that would lead me to believe that she has pneumonia. She has Enterococcus growing from one blood culture and micrococcus groin for another blood culture, which would more likely to be a contaminant. We will wait for sensitivities. I will start her on vancomycin until we have the Enterococcus sensit ivities. Unfortunately, we do not have a urine culture. She did not have overly active urine sediment when e was admitted, 2 days ago.
[2017-12-25] MEDS: HYDROcodone/Acetaminophen 5/325 mg Tablet PO PRN ×6 (00:25→21:14)
[2017-12-25] MEDS: Levothyroxine Sodium 75 MCG TAB PO SCH (05:45)
[2017-12-25] MEDS: Lorazepam 0.5 MG TAB PO PRN ×4 (06:00→23:59)
[2017-12-25] MEDS: Nystatin Powder 15 GM BOT TOP SCH ×2 (08:16→20:25)
[2017-12-25] MEDS: Pregabalin 75 MG CAP PO SCH ×2 (08:16→20:24)
[2017-12-25] MEDS: Escitalopram Oxalate 10 mg Tablet PO SCH (08:16)
[2017-12-25] MEDS: Amlodipine 5 MG TAB PO SCH (08:17)
[2017-12-25] MEDS: Lidocaine 5% Patch TD PRN (08:17)
[2017-12-25] MEDS: Senokot S 8.6-50 MG TAB PO SCH ×2 (10:03→20:24)
[2017-12-25] MEDS: Polyethylene Glycol 3350 17 GM Packet PO SCH (10:04)
[2017-12-25] MEDS: Vancomycin HCl 1 GM in Premix Bag 1 BAG IVPB SCH ×2 (11:45→23:59)
--- NOTE | 2017-12-25 13:40 | PDOC.PN ---
- Subjective Encounter Start Date: 12/25/17 Encounter Start Time: 10:30 Patient seen and examined for Pleural eff. No new complaints. No overnight events - Objective Resuscitation Status: Resuscitation Status FULL:Full Resuscitation MAR Reviewed: Yes Vital Signs & Weight: Vital Signs (12 hours) Temp Pulse Resp BP BP BP Pulse Ox 12/25/17 08:17 70 157/63 H 12/25/17 08:00 98.1 F 70 16 12/25/17 07:33 98.1 F 70 16 157/63 H 100 12/25/17 04:00 98.0 F 65 20 127/54 L 96 Weight Weight 130 lb I&O: 12/24/17 12/25/17 12/26/17 06:59 06:59 06:59 Intake Total 2100 1850 240 Output Total 400 Balance 2100 1450 240 Result Diagrams: 12/24/17 03:53 12/24/17 03:53 Phys Exam - Physical Examination Constitutional: NAD Respiratory: no wheezing, no rhonchi Dec AE at Rt base Cardiovascular: RRR, no rub Gastrointestinal: soft, non-tender, positive bowel sounds Musculoskeletal: no edema Dx/Plan - Plan DVT proph w/heparin, DVT proph w/SCDs IMPRESSION: 1. Sepsis secondary to ?healthcare-associated pneumonia 2. Rt Pleural effusion 2. Chronic pain syndrome. 3. Hypertension. 4. Iron def anemia s/p Venofer 5. Recent gastrointestinal bleeding secondary to peptic ulcer disease, status post 1 unit transfusion - on PPI 6. Chronic kidney disease, stage 2. 7. Hypothyroidism/Anxiety/Cirrhosis PLAN: Cont Atbx Echo - normal EF with diastolic dys. No Heparin due to Anemia with recent GI bleed AM labs Cont current meds as below Cont Amlodipine Microbiology 12/22/17 15:47 Venous blood - Right Hand Blood Culture - Final Presumptiv Micrococcus/Kocuria 12/22/17 15:50 Venous blood - Neck Blood Culture - Preliminary Enterococcus casseliflavus Review of Systems - Review of Systems Constitutional: negative: fever, chills, sweats, weakness, malaise, other Respiratory: SOB with Excertion. negative: Cough, Dry, Shortness of Breath, Hemoptysis, Pleuritic Pain, Sputum, Wheezing Gastrointestinal: negative: Nausea, Vomiting, Abdominal Pain, Diarrhea, Constipation, Melena, Hematochezia, Other - Medications/Allergies Allergies/Adverse Reactions: Allergies Allergy/AdvReac Type Severity Reaction Status Date / Time aspirin Allergy Severe Verified 12/22/17 17:26 cefepime Allergy Severe Rash Verified 12/22/17 17:26 ibuprofen Allergy Severe Verified 12/22/17 17:26 NSAIDS (Non-Steroidal Allergy Severe Verified 12/22/17 17:26 Anti-Inflamma Penicillins Allergy Unknown Verified 12/22/17 17:26 Medications: Current Medications Acetaminophen (Tylenol) 650 mg PO Q4H PRN PRN Reason: Headache/Fever or Pain Hydrocodone Bitart/Acetaminophen ([place] 5/325) 1 tab PO Q4H PRN PRN Reason: Moderate Pain (4-6) Last Admin: 12/25/17 11:50 Dose: 1 tab Amlodipine Besylate (Norvasc) 2.5 mg PO DAILY [facility] Last Admin: 12/25/17 08:17 Dose: 2.5 mg Calcium Carbonate (Tums) 1,000 mg PO Q4H PRN PRN Reason: Heartburn or Indigestion Escitalopram Oxalate (Lexapro) 10 mg PO DAILY [facility] Last Admin: 12/25/17 08:16 Dose: 10 mg Hydralazine HCl (Apresoline) 10 mg SLOW IVP Q4H PRN PRN Reason: SBP Greater Than 180 Vancomycin HCl 1 gm/ Device 200 mls @ 200 mls/hr IVPB 1200,2359 [facility] Last Admin: 12/25/17 11:45 Dose: 200 mls Levofloxacin (Levaquin) 500 mg PO 0600 [facility] Last Admin: 12/25/17 05:45 Dose: 500 mg Levothyroxine Sodium (Synthroid) 75 mcg PO 0600 [facility] Last Admin: 12/25/17 05:45 Dose: 75 mcg Lidocaine (Lidoderm 5% Patch) 1 patch TD DAILY PRN PRN Reason: pain Last Admin: 12/25/17 08:17 Dose: 1 patch Lorazepam (Ativan) 0.5 mg PO Q6H PRN PRN Reason: Anxiety Last Admin: 12/25/17 11:45 Dose: 0.5 mg Miscellaneous Medication (Pharmacy To Dose) 1 each IVPB PRN PRN PRN Reason: Pharmacy to dose Nystatin (Mycostatin Powder) 0 gm TOP BID [facility] Last Admin: 12/25/17 08:16 Dose: 1 applic Ondansetron HCl (Zofran Odt) 4 mg PO Q6H PRN PRN Reason: Nausea/Vomiting Last Admin: 12/23/17 14:23 Dose: 4 mg Ondansetron HCl (Zofran) 4 mg IVP Q6H PRN PRN Reason: Nausea/Vomiting Last Admin: 12/24/17 22:19 Dose: 4 mg Pantoprazole Sodium (Protonix) 40 mg PO DAILY [facility] Last Admin: 12/25/17 08:16 Dose: 40 mg Polyethylene Glycol (Miralax) 17 gm PO DAILY [facility] Last Admin: 12/25/17 10:04 Dose: 17 gm Pregabalin (Lyrica) 75 mg PO BID [facility] Last Admin: 12/25/17 08:16 Dose: 75 mg Senna (Senokot) 2 tab PO HSPRN PRN PRN Reason: Constipation Senna/Docusate Sodium (Senokot S) 1 tab PO BID [facility] Last Admin: 12/25/17 10:03 Dose: 1 tab Trazodone HCl (Desyrel) 100 mg PO [facility] Last Admin: 12/24/17 20:02 Dose: 100 mg
--- NOTE | 2017-12-25 16:04 | PRG ---
DATE OF SERVICE: 12/25/2017 SUBJECTIVE: Ms. Adrian says she is feeling better. She is really anxious to get to rehabilitation. OBJECTIVE: GENERAL: She is in no distress. VITAL SIGNS: She has had no fever, has not been febrile since she has been here. Heart rate 70, blo od pressure 157/63. LUNGS: Remarkable for decreased breath sounds at her right base. HEART: Regular rhythm. ABDOMEN: Soft. She still declines thoracentesis unless I can completely sedate her. I have explained to her that is not an option. IMPRESSION AND PLAN: Right greater than left pleural effusion. Echocardiogram shows grade III/III diastolic dysfunction. I suspect her low oncotic pressure from he r cirrhosis and her volume resuscitation with a recent GI bleed combined with diastolic dysfunction h as led to these effusions. I doubt she has an infected pleural space. She does have an Enterococcus isolated from one blood culture and a micrococcus isolated from another blood culture. The significance of this is unclear. There are no vegetations on the valves on her echo. Infectious Disease input should be considered. There is no sensitivity back on the Enterococcus, so the vancomycin will be continued for now. I do not feel she has pneumonia. I do not feel she has an infected pleural space. She came in mainly because of weakness and wanting to get in to [facility]. Had 1 temperature at home, it was 100.5 by her report, which of could have been simply a temperature elevation associated with atelectasis or whatever the sources of the Enter ococcus. She did not have an exam finding suggestive of an abdominal process at this time. We will continue to follow.
[2017-12-25] MEDS: Ondansetron HCl/PF 4 MG/2 ML Vial IVP PRN (19:44)
[2017-12-25] MEDS: traZODone HCl 50 MG TAB PO SCH (20:25)
[2017-12-25 23:07] LABS: #Eosinphils 0.3 thou/uL (0.0-0.7); #Lymphocytes 0.9 thou/uL (1.20-3.40); #Monocytes 0.3 thou/uL (0.11-0.59); #Neutrophils 3.1 thou/uL (1.40-6.50); %Basophils 0.7 % (0.0-1.0); %Lymphocytes 18.2 % (21.0-51.0); %Monocytes 7.3 % (0.0-10.0); %Neutrophils 66.9 % (42.0-75.0); Hemoglobin 7.8 g/dL (12.0-16.0); Mean Corpuscular HGB CONC 31.9 g/dL (32.0-36.0); Mean Corpuscular Hemoglobin 26.5 pg (27.0-31.0); Mean Corpuscular Volume 82.9 fL (78.0-98.0); Mean Platelet Volume 10.4 fL (7.4-10.4); Platelet Count 104 thou/uL (130-400); RBC Distribution Width 17.4 % (11.5-14.5); Red Blood Cell (RBC) Count 2.96 mill/uL (4.20-5.40); White Blood Cell (WBC) Count 4.7 thou/uL (4.8-10.8)
[2017-12-25 23:19] LABS: Anion Gap 11 mmol/L (10-20); BUN (Urea Nitrogen) 16 mg/dL (9.8-20.1); Calc. Creatinine Clearance 65 mL/min (70-130); Carbon Dioxide 20 mmol/L (23-31); Chloride 112 mmol/L (98-107); Estimated GFR-MDRD 69; Glucose 107 mg/dL (80-115); Potassium 4.1 mmol/L (3.5-5.1); Sodium 139 mmol/L (136-145)
[2017-12-25 23:20] LABS: Vancomycin, Trough 18.5 ug/mL
[2017-12-26] MEDS: HYDROcodone/Acetaminophen 5/325 mg Tablet PO PRN ×5 (01:32→20:51)
[2017-12-26] MEDS: Levothyroxine Sodium 75 MCG TAB PO SCH (06:12)
[2017-12-26] MEDS: Lorazepam 0.5 MG TAB PO PRN ×4 (06:12→23:15)
[2017-12-26] MEDS: Polyethylene Glycol 3350 17 GM Packet PO SCH (08:07)
[2017-12-26] MEDS: Senokot S 8.6-50 MG TAB PO SCH ×2 (08:07→20:50)
[2017-12-26] MEDS: Escitalopram Oxalate 10 mg Tablet PO SCH (08:07)
[2017-12-26] MEDS: Amlodipine 5 MG TAB PO SCH (08:08)
[2017-12-26] MEDS: Nystatin Powder 15 GM BOT TOP SCH ×2 (08:08→20:50)
[2017-12-26] MEDS: Pregabalin 75 MG CAP PO SCH ×2 (08:08→20:49)
[2017-12-26] MEDS: Lidocaine 5% Patch TD PRN (08:14)
[2017-12-26] MEDS: Vancomycin HCl 1 GM in Premix Bag 1 BAG IVPB SCH (12:04)
[2017-12-26] MEDS: Ondansetron HCl/PF 4 MG/2 ML Vial IVP PRN (12:13)
--- NOTE | 2017-12-26 14:05 | CON ---
DATE OF CONSULTATION: 12/26/2017 REASON FOR CONSULTATION: Bacteremia. HISTORY OF PRESENT ILLNESS: A 62-year-old patient who has a history of alcoholism and liver disease with portal hypertension, esophageal varices with prior GI bleeds and portal systemic shunt procedure done in [facility] in [place] the , followed by a TIPS procedure there as well. The nadja ent had been in remission from her alcoholism, but after a divorce she resumed drinking a few years a go. She recently moved to town to be with her sons, she is living by herself in an apartment and has home health visits. She also has had a history of a prior AKA, left side following complications re lated to the left knee replacement. This time she developed what she describes as a sensation of gen eral weakness, malaise, chills, cough. She has started developing worsening dyspnea. She denied any headaches, no visual symptoms, sore throat, odynophagia or dysphagia, no nasal or ear pain. She has chronic low back pain which has not changed. She denied abdominal pain. She never had diagnosed asc ites of a significant nature, never had any requirement for drainage procedures done in the past. PAST MEDICAL HISTORY: Liver cirrhosis secondary to alcoholism. Prior GI bleeds from portal hyperten aiad, esophageal varices, portal systemic shunt done at [facility] in [place] in the , TIP S procedure done there as well in the late , COPD, hypothyroidism, hypertension. PAST SURGICAL HISTORY: Recent gastrointestinal bleed with esophagogastroduodenoscopy with gastric ul cers, a left total hip replacement, left knee replacement which led to an infection and eventually en ded up with an above knee amputation, left lower extremity, lumbar laminectomy. ALLERGIES: CEFEPIME, PENICILLIN, ASPIRIN and IBUPROFEN. MEDICATIONS: Currently, she is on [place], Norvasc, Tums, Lexapro, Apresoline, levofloxacin, Synthroid , Ativan, Mycostatin, vancomycin. They reported allergy to PENICILLIN was a rash when she was a child and has not taken PENICILLIN sinc e. It was mostly knowledge that she acquired from her mother. FAMILY HISTORY: Noncontributory. SOCIAL HISTORY: . History of alcoholism with previous relapse and then back into abstinence and a history of smoking as well. PHYSICAL EXAMINATION: VITAL SIGNS: Chronically ill appearing, but in no acute distress. She has been afebrile in the hosp ital stay. Blood pressure 118/53, pulse 61, respirations 18, O2 sat 93%. SKIN: With areas of onycholysis on the clinical dystrophy, right foot and some dried scabs with hype rkeratosis in the skin of the toes of right foot. The left AKA stump appears normal. She has an int ertriginous eruption in the groin area, perianal area. No lymphadenopathy. HEENT: Ocular movements conjugate. Oral cavity with absent lower teeth and upper plates are present . Oral cavity otherwise normal. NECK: Supple, no jugular vein distention. LUNGS: With diminished breath sounds in the right side up to 2/3 of the right hemithorax. No crackl es or wheezing. HEART: S1, S2 with a loud systolic, diastolic murmur at the aortic area. ABDOMEN: Not distended, soft, not tender. No ascites. No bladder distention noted. No organomegal y noted either. EXTREMITIES: Pulses are 1+ in popliteal and dorsalis pedis right side. NEUROLOGIC: Nonfocal. No evidence of asterixis. She is oriented, follows commands, pleasant. LABORATORY DATA: White cell count 3.4, now 4.7, hemoglobin 7.8, MCV 82, platelets 104,000. INR 1.2. Sodium 139, creatinine 0.83. Liver profile normal. Albumin 0.8. BNP 436, albumin 2.9. Urinalysi s with 4-6 WBC's. IMAGING STUDIES: There is an echocardiogram with EF 60-65%, diastolic dysfunction, concentric left v entricular hypertrophy, moderate mitral regurgitation, moderate aortic regurgitation, large pleural e ffusion. The patient had a CT of abdomen and pelvis in June this year which showed chronic pleural and parenchymal changes right lung base, the TIPS procedure perigastric and marco hepatis varices, lo w attenuation foci in the spleen, mildly dilated common bile duct and pancreatic duct. Chest CT this admission with a large right-sided layering pleural effusion, mild enlargement of spleen. ASSESSMENT: Alcoholism with liver cirrhosis, portal hypertension, previous episodes of upper GI blee d, eventual portal systemic shunt done at [facility] in the , followed by TIPS procedure and now wi th a large right pleural effusion associated with dyspnea and Enterococcus casseliflavus bacteremia, 1 out of 2 sets. DISCUSSION: Differential diagnosis includes hepatic hydrothorax associated with failure of TIPS proc edure versus superimposed infection of the hydrothorax by Enterococcus casseliflavus. The origin of the Enterococcus bacteremia is usually the gastrointestinal, biliary tract sometimes involved as well . Enterococcus casseliflavus is usually less pathogenic and is intrinsically vancomycin resistant an d should be treated with beta lactam agents. In her case, will switch her to penicillin based therap y since the history of allergy is poorly documented and past experience has shown that the vast major ity of those patient was doing well upon rechallenge. Regarding management of her hepatic hydrothora x, this is a difficult problem and typically associated with ascites, in her case it seems to be isol ated or maybe with a lesser ascitic component. This may be due to the higher absorptive properties o f the peritoneal membrane compared with pleural membranes. We will assess her abdomen and pelvis CT and ultrasound. Recheck the biliary tree and other intraabdominal inflammatory processes that might be associated with bacteremia.
--- NOTE | 2017-12-26 14:10 | PRG ---
DATE OF SERVICE: 12/26/2017 SUBJECTIVE: The patient complains of dyspnea at rest OBJECTIVE: VITAL SIGNS: On exam, temperature is 98.5, pulse 81, blood pressure 118/53, O2 sat 93% on 3 liters. HEENT: Unremarkable. NECK: No adenopathy or JVD. LUNGS: She has diminished breath sounds in both bases. CARDIAC: S1 and S2, regular, without murmur. ABDOMEN: Soft and protuberant. EXTREMITIES: No edema. IMAGING: A CT from 12/23/2017, she has got a hsdox-ry-hodaqtdh-sized effusion on the right, some com pression atelectasis, has a smaller effusion on the left. ASSESSMENT: 1. Bilateral effusions, likely leading to shortness of breath. 2. Enterococcal sepsis. RECOMMENDATIONS: The patient is currently on broad-spectrum IV antibiotics for the Enterococcus. At some point, she may have to have the effusion tapped. Currently, is stable on supplemental oxygen.
[2017-12-26] MEDS: Ampicillin 2 GM in Sodium Chloride 0.9% 100 ML IVPB SCH ×2 (17:26→23:15)
--- NOTE | 2017-12-26 18:54 | CT ---
CT ABDOMEN WITH CONTRAST CT PELVIS WITH CONTRAST: DATE: 12/26/2017 TIME: 6:10 p.m. HISTORY: A 62-year-old female with fever, nausea, emesis, and diarrhea. COMPARISON: 07/10/2017 TECHNIQUE: IV injection of iodinated contrast media: Isovue-370 85 mL. Oral contrast media: Readi-Cat. FINDINGS: There is a new moderate sized right pleural effusion with associated new atelectasis of the right low er lobe. There is a thin, plate-like region of subsegmental atelectasis abutting the left posterior lung base. Again noted are the metallic stents, in tandem, from the suprahepatic portion of the infe rior vena cava, through the entire main portal vein, with the inferior portion in the proximal portio n of the superior mesenteric vein. Nodular hepatic margins, consistent with cirrhosis. Mildly heter ogeneous attenuation of the liver. Dilated veins connecting the spleen to the left renal vein, repre senting a splenorenal shunt. Multiple hypodense lesions in the bilateral renal parenchyma, at least most of which represent numerous small renal cysts. No hydronephrosis. No abdominal aortic aneurysm . No splenomegaly. Oral contrast material is present throughout multiple nondilated small bowel loo ps and has reached the mid transverse colon. No evidence of overt colonic diverticulitis. No acute pancreatitis or pancreatic mass. Left total hip replacement metallic hardware causes severe streak a rtifact, obscuring large portions of the pelvic cavity. Visualized portions of the urinary bladder d emonstrate no thickening of the anterior wall. Diffuse anasarca in the superficial subcutaneous fat, circumferentially around the abdomen and pelvis. Mild amount of edema in the perirectal, presacral space. Cardiomegaly. Again noted are the multiple varices at the marco hepatis, along the gastrohep atic ligament, and posterior to the descending thoracic aorta and upper abdominal aorta. The gallbla dder is currently contracted. The appendix is normal. IMPRESSION: 1. Moderate sized right pleural effusion and underlying significant right lower lobe atelectasis. 2. Status post transjugular intrahepatic portosystemic shunt (TIPSS). 3. Cirrhosis. 4. Varices and splenorenal shunt. 5. Anasarca, worse than on previous CT. 6. Perirectal edema is slightly worse than on the previous CT, but there has been no other significa nt interval change in the intraabdominal and intrapelvic contents since the prior CT. 7. Cardiomegaly. NAVDEEP Pierre POS: NGA
[2017-12-26] MEDS: traZODone HCl 50 MG TAB PO SCH (20:50)
--- NOTE | 2017-12-26 22:50 | PDOC.PN ---
- Subjective Encounter Start Date: 12/26/17 Encounter Start Time: 10:30 Patient seen and examined for Pleural eff/bacteremia. No new complaints. No overnight events - Objective Resuscitation Status: Resuscitation Status FULL:Full Resuscitation MAR Reviewed: Yes Vital Signs & Weight: Vital Signs (12 hours) Temp Pulse Resp BP Pulse Ox Pulse Ox Pulse Ox 12/26/17 19:53 99.4 F 71 16 134/71 95 12/26/17 13:47 96 95 Weight Weight 130 lb I&O: 12/25/17 12/26/17 12/27/17 06:59 06:59 06:59 Intake Total 1850 2350 1560 Output Total 400 400 Balance 1450 1950 1560 Result Diagrams: 12/25/17 22:53 12/25/17 22:53 Phys Exam - Physical Examination Constitutional: NAD Respiratory: no wheezing, no rhonchi Dec AE at Rt bases Cardiovascular: RRR, no rub Gastrointestinal: soft, non-tender, positive bowel sounds Musculoskeletal: no edema Dx/Plan - Plan DVT proph w/SCDs IMPRESSION: 1. Sepsis secondary to ?healthcare-associated pneumonia 2. Rt Pleural effusion ? Hydrothorax 2. Chronic pain syndrome. 3. Hypertension. 4. Iron def anemia s/p Venofer 5. Recent gastrointestinal bleeding secondary to peptic ulcer disease, status post 1 unit transfusion - on PPI 6. Chronic kidney disease, stage 2. 7. Hypothyroidism/Anxiety/Cirrhosis with TIPS/Chronic diastolic heart failure PLAN: Cont Atbx Cont Amlodipine AM labs No Heparin due to Anemia with recent GI bleed Cont current meds as below Await ID input Review of Systems - Review of Systems Respiratory: negative: Cough, Dry, Shortness of Breath, Hemoptysis, SOB with Excertion, Pleuritic Pain, Sputum, Wheezing Cardiovascular: negative: chest pain, palpitations, orthopnea, paroxysmal nocturnal dyspnea, edema, light headedness, other - Medications/Allergies Allergies/Adverse Reactions: Allergies Allergy/AdvReac Type Severity Reaction Status Date / Time aspirin Allergy Severe Verified 12/22/17 17:26 cefepime Allergy Severe Rash Verified 12/22/17 17:26 ibuprofen Allergy Severe Verified 12/22/17 17:26 NSAIDS (Non-Steroidal Allergy Severe Verified 12/22/17 17:26 Anti-Inflamma Penicillins Allergy Unknown Verified 12/22/17 17:26 Medications: Current Medications Acetaminophen (Tylenol) 650 mg PO Q4H PRN PRN Reason: Headache/Fever or Pain Hydrocodone Bitart/Acetaminophen ([place] 5/325) 1 tab PO Q4H PRN PRN Reason: Moderate Pain (4-6) Last Admin: 12/26/17 20:51 Dose: 1 tab Amlodipine Besylate (Norvasc) 2.5 mg PO DAILY [facility] Last Admin: 12/26/17 08:08 Dose: 2.5 mg Calcium Carbonate (Tums) 1,000 mg PO Q4H PRN PRN Reason: Heartburn or Indigestion Escitalopram Oxalate (Lexapro) 10 mg PO DAILY [facility] Last Admin: 12/26/17 08:07 Dose: 10 mg Fluconazole (Diflucan) 100 mg PO DAILY [facility] Hydralazine HCl (Apresoline) 10 mg SLOW IVP Q4H PRN PRN Reason: SBP Greater Than 180 Ampicillin Sodium 2 gm/ Sodium (Chloride) 100 mls @ 200 mls/hr IVPB Q6HR [facility] Last Admin: 12/26/17 17:26 Dose: 100 mls Levofloxacin (Levaquin) 500 mg PO 0600 [facility] Last Admin: 12/26/17 06:12 Dose: 500 mg Levothyroxine Sodium (Synthroid) 75 mcg PO 0600 [facility] Last Admin: 12/26/17 06:12 Dose: 75 mcg Lidocaine (Lidoderm 5% Patch) 1 patch TD DAILY PRN PRN Reason: pain Last Admin: 12/26/17 08:14 Dose: 1 patch Lorazepam (Ativan) 0.5 mg PO Q6H PRN PRN Reason: Anxiety Last Admin: 12/26/17 17:29 Dose: 0.5 mg Miscellaneous Medication (Pharmacy To Dose) 1 each IVPB PRN PRN PRN Reason: Pharmacy to dose Nystatin (Mycostatin Powder) 0 gm TOP BID [facility] Last Admin: 12/26/17 20:50 Dose: 1 applic Ondansetron HCl (Zofran Odt) 4 mg PO Q6H PRN PRN Reason: Nausea/Vomiting Last Admin: 12/23/17 14:23 Dose: 4 mg Ondansetron HCl (Zofran) 4 mg IVP Q6H PRN PRN Reason: Nausea/Vomiting Last Admin: 12/26/17 12:13 Dose: 4 mg Pantoprazole Sodium (Protonix) 40 mg PO DAILY [facility] Last Admin: 12/26/17 08:07 Dose: 40 mg Polyethylene Glycol (Miralax) 17 gm PO DAILY [facility] Last Admin: 12/26/17 08:07 Dose: 17 gm Pregabalin (Lyrica) 75 mg PO BID [facility] Last Admin: 12/26/17 20:49 Dose: 75 mg Senna (Senokot) 2 tab PO HSPRN PRN PRN Reason: Constipation Senna/Docusate Sodium (Senokot S) 1 tab PO BID [facility] Last Admin: 12/26/17 20:50 Dose: Not Given Trazodone HCl (Desyrel) 100 mg PO HS [facility] Last Admin: 12/26/17 20:50 Dose: 100 mg
[2017-12-27] MEDS: HYDROcodone/Acetaminophen 5/325 mg Tablet PO PRN ×6 (01:07→22:28)
[2017-12-27 05:12] LABS: #Eosinphils 0.3 thou/uL (0.0-0.7); #Lymphocytes 0.9 thou/uL (1.20-3.40); #Monocytes 0.4 thou/uL (0.11-0.59); #Neutrophils 2.5 thou/uL (1.40-6.50); %Basophils 0.5 % (0.0-1.0); %Eosinophils 8.1 % (0.0-10.0); %Lymphocytes 20.6 % (21.0-51.0); %Monocytes 9.8 % (0.0-10.0); Mean Corpuscular HGB CONC 32.1 g/dL (32.0-36.0); Mean Corpuscular Hemoglobin 26.5 pg (27.0-31.0); Mean Corpuscular Volume 82.6 fL (78.0-98.0); Mean Platelet Volume 10.1 fL (7.4-10.4); Platelet Count 105 thou/uL (130-400); RBC Distribution Width 18.3 % (11.5-14.5); White Blood Cell (WBC) Count 4.2 thou/uL (4.8-10.8)
[2017-12-27] MEDS: Ampicillin 2 GM in Sodium Chloride 0.9% 100 ML IVPB SCH ×3 (05:15→18:15)
[2017-12-27] MEDS: Levothyroxine Sodium 75 MCG TAB PO SCH (05:16)
[2017-12-27 05:33] LABS: Anion Gap 11 mmol/L (10-20); BUN (Urea Nitrogen) 14 mg/dL (9.8-20.1); Calc. Creatinine Clearance 69 mL/min (70-130); Calcium 8.2 mg/dL (7.8-10.44); Carbon Dioxide 21 mmol/L (23-31); Chloride 112 mmol/L (98-107); Estimated GFR-MDRD 75; Glucose 90 mg/dL (80-115); Magnesium 1.7 mg/dL (1.6-2.6); Potassium 4.1 mmol/L (3.5-5.1); Sodium 140 mmol/L (136-145)
[2017-12-27] MEDS: Fluconazole 100 MG TAB PO SCH (08:05)
[2017-12-27] MEDS: Amlodipine 5 MG TAB PO SCH (08:05)
[2017-12-27] MEDS: Escitalopram Oxalate 10 mg Tablet PO SCH (08:05)
[2017-12-27] MEDS: Nystatin Powder 15 GM BOT TOP SCH ×2 (08:06→21:38)
[2017-12-27] MEDS: Polyethylene Glycol 3350 17 GM Packet PO SCH (08:07)
[2017-12-27] MEDS: Lorazepam 0.5 MG TAB PO PRN ×3 (08:07→21:38)
[2017-12-27] MEDS: Pregabalin 75 MG CAP PO SCH ×2 (08:07→21:37)
[2017-12-27] MEDS: Senokot S 8.6-50 MG TAB PO SCH ×2 (08:07→21:39)
[2017-12-27] MEDS: Lidocaine 5% Patch TD PRN (08:09)
[2017-12-27] MEDS ORDERED: Furosemide 100 MG/10 ML VIAL SLOW IVP SCH (15:00)
--- NOTE | 2017-12-27 17:04 | PRG ---
DATE OF SERVICE: 12/27/2017 SUBJECTIVE: Massiel Adrian has no new complaints. She wants to go to [facility] for rehabilitation. Apparently, they have declined or twice in the recent past. LABORATORY DATA: White count 4.2, hemoglobin is 8, platelets 105,000. Electrolytes are unremarkable . PHYSICAL EXAMINATION: Exam is unchanged. Still has decreased breath sounds at her right base. Unfortunately, she is taking in a tremendous amount of p.o. liquids. She really needs to be fluid restricted for now. The Enterococcus was resistant to vancomycin, but sensitive to ampicillin surprisingly. I do not feel she has an Enterococcus anaerobic empyema and she has declined thoracentesis unless I " knock her out." My index of suspicion is low enough or I am not going to push this issue at this poi nt. She does have severe diastolic dysfunction on top of cirrhosis. We would recommend fluid restri ction since she has taken in over 2 liters a day by mouth.
--- NOTE | 2017-12-27 17:41 | PRG ---
DATE OF SERVICE: 12/31/2017 SUBJECTIVE: The patient is about at her baseline. Subjectively, she has no specific concerns. Her primary concern right now is her ability to get into rehabilitation. She reports she continues to britton ve severe pain in her left shoulder chronically due to some rotator cuff injury and some pain in her right lower extremity and weakness following a prior femoral fracture. OBJECTIVE: VITAL SIGNS: Temperature is 98.1, pulse 74, BP 133/62, respirations 16, O2 sat 96% on 3 liters. GENERAL: Age appropriate female. She is in no distress, awake and alert. HEART: Regular with a rumbling 2/6 murmur heard best at the pulmonic position with the head being he jessica throughout the entire precordium. LUNGS: Have significantly diminished breath sounds at the right base with some rales at the left bas e. ABDOMEN: Soft, nontender. Possible small amount of fluid. EXTREMITIES: Warm and dry without significant edema. LABORATORY DATA: White count 4.2, hemoglobin 8.0, platelets 105. Chemistry is CO2 is 21. Blood cul ture is growing the Enterococcus casseliflavus with reported sensitivity to ampicillin with the growi ng presumptive micrococcus. IMPRESSION AND PLAN: 1. Sepsis secondary possible pneumonia. It is unclear whether the patient truly had sepsis at this point. She does have a positive blood culture, but appears to have more of an effusion at this time than a true significant infiltrate. I believed to be more of hydrothorax. This is likely related to her chronic liver disease. 2. Large right pleural effusion. The patient is receiving IV Lasix and being placed on fluid restri ction now. 3. Positive blood culture with Enterococcus casseliflavus. The patient is on ampicillin and Levaqui n and followed by ID. We will continue to await any further recommendations from there. 4. Chronic pain syndrome, stable. 5. History of iron deficiency anemia. Continue with iron supplementation. 6. Recent GI bleed with peptic ulcer disease requiring a unit of blood transfusion. Continue with P PI. 7. Chronic kidney disease stage II, stable. 8. History of cirrhosis, status post TIPS secondary to chronic alcohol use in remission. Stable lik li resulting in some of her pleural effusion. 9. History of hypothyroidism, stable. 10. History of anxiety, stable. 11. History of chronic diastolic heart failure. Again, the patient is receiving Lasix and fluid res triction now. DISPOSITION: The patient is in need of rehabilitation for sure. Discussing with case management.
--- NOTE | 2017-12-27 17:42 | PRG ---
DATE OF SERVICE: 12/27/2017 Ms. Adrian is still not feeling better, but think that what bothers her the most is dyspnea, started on diuretics. She denies any abdominal pain. No diarrhea. PHYSICAL EXAMINATION: VITAL SIGNS: T-max 98.9, blood pressure 130/60, pulse 74, respirations 16, O2 sat 96%. GENERAL: Awake, chronically ill appearing. LUNGS: With diminished breath sounds in the right side as noted before. HEART: S1, S2, regular rate. ABDOMEN: Soft, not distended. LABORATORY DATA: White cell count 4.2, hemoglobin, platelets 105, sodium 140, creatinine 0.78. Microbiology with Enterococcus casseliflavus. Abdomen and pelvis CT completed that showed moderate sized right pleural effusion with right lower lobe atelectases prior TIPS, cirrhosis, varices and splenorenal shunt, anasarca, perirectal edema, but no other changes of significance in intra-abdominal area. 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 The Enterococcus casseliflavus is unfortunately a sick pathogen in this kind of situation. We do not have a clear cut inflammatory process at this time. The right pleural fluid could potentially be infected by this bacteria, but it is more likely to just represent a hepatic hydrothorax. Continue current regimen. MTDD
[2017-12-27] MEDS: traZODone HCl 50 MG TAB PO SCH (21:39)
[2017-12-27] MEDS: Ondansetron HCl/PF 4 MG/2 ML Vial IVP PRN (21:47)
[2017-12-28] MEDS: Ampicillin 2 GM in Sodium Chloride 0.9% 100 ML IVPB SCH ×5 (00:23→23:56)
[2017-12-28] MEDS: Levothyroxine Sodium 75 MCG TAB PO SCH (05:02)
[2017-12-28] MEDS: HYDROcodone/Acetaminophen 5/325 mg Tablet PO PRN ×5 (05:06→22:12)
[2017-12-28 05:08] LABS: Anion Gap 10 mmol/L (10-20); BUN (Urea Nitrogen) 17 mg/dL (9.8-20.1); Calc. Creatinine Clearance 69 mL/min (70-130); Calcium 8.2 mg/dL (7.8-10.44); Carbon Dioxide 26 mmol/L (23-31); Chloride 111 mmol/L (98-107); Estimated GFR-MDRD 75; Glucose 93 mg/dL (80-115); Potassium 3.8 mmol/L (3.5-5.1); Sodium 143 mmol/L (136-145)
[2017-12-28] MEDS: Lorazepam 0.5 MG TAB PO PRN ×2 (05:08→13:53)
[2017-12-28 05:28] LABS: #Eosinphils 0.4 thou/uL (0.0-0.7); #Lymphocytes 0.8 thou/uL (1.20-3.40); #Monocytes 0.4 thou/uL (0.11-0.59); #Neutrophils 1.9 thou/uL (1.40-6.50); %Basophils 0.8 % (0.0-1.0); %Eosinophils 10.7 % (0.0-10.0); %Lymphocytes 23.2 % (21.0-51.0); %Monocytes 10.6 % (0.0-10.0); %Neutrophils 54.8 % (42.0-75.0); Hemoglobin 8.2 g/dL (12.0-16.0); Mean Corpuscular HGB CONC 31.3 g/dL (32.0-36.0); Mean Corpuscular Hemoglobin 26.6 pg (27.0-31.0); Mean Platelet Volume 11.5 fL (7.4-10.4); Platelet Count 114 thou/uL (130-400); RBC Distribution Width 19.1 % (11.5-14.5); Red Blood Cell (RBC) Count 3.07 mill/uL (4.20-5.40); White Blood Cell (WBC) Count 3.4 thou/uL (4.8-10.8)
[2017-12-28] MEDS: Pregabalin 75 MG CAP PO SCH ×2 (08:03→20:49)
[2017-12-28] MEDS: Polyethylene Glycol 3350 17 GM Packet PO SCH (08:03)
[2017-12-28] MEDS: Senokot S 8.6-50 MG TAB PO SCH ×2 (08:03→20:54)
[2017-12-28] MEDS: Fluconazole 100 MG TAB PO SCH (08:03)
[2017-12-28] MEDS: Amlodipine 5 MG TAB PO SCH (08:04)
[2017-12-28] MEDS: Escitalopram Oxalate 10 mg Tablet PO SCH (08:04)
[2017-12-28] MEDS: Nystatin Powder 15 GM BOT TOP SCH ×2 (08:05→20:49)
[2017-12-28] MEDS: Lidocaine 5% Patch TD PRN (09:10)
[2017-12-28] MEDS ORDERED: Furosemide 40 MG/4 ML VIAL SLOW IVP SCH (13:15)
[2017-12-28] MEDS ORDERED: Furosemide 100 MG/10 ML VIAL SLOW IVP SCH (13:15)
--- NOTE | 2017-12-28 13:40 | PRG ---
DATE OF SERVICE: 12/28/2017 SUBJECTIVE: The patient states she is ready to have her son bring her leg prosthesis up here so she can get up and moving. She has now reconsidered and is willing to go ahead and get the thoracentesis done if that is required so that she can do what she needs to do to try to start feeling better. OBJECTIVE: VITAL SIGNS: Temperature 98.1, pulse 60, BP 137/64, respirations 16, O2 sat 93% on 3 liters nasal ca nnula. GENERAL: Age appropriate female in no distress. She is awake, alert, oriented, in no distress. HEART: The heart has a loud 2/6 murmur throughout the precordium. LUNGS: Lungs have decreased breath sounds at the right base and some rales at the left base. ABDOMEN: Soft, nontender, nondistended. EXTREMITIES: Left lower extremity amputation, right with no edema. LABORATORY DATA: White count 3.4, hemoglobin 8.2, platelets 114. IMPRESSION AND PLAN: 1. Status post sepsis with apparent pneumonia. The patient has had a large right pleural effusion a nd is willing at this point to have a thoracentesis performed. Discussed with Pulmonary. We will gi ve her some more diuresis today and repeat the chest x-ray in the morning. If there is still signifi cant effusion he will perform a diagnostic tap at that time. It is possible this is simply hydrothor ax from her liver disease. 2. Positive blood culture with Enterococcus casseliflavus. She is on ampicillin and Levaquin follow ed by ID. Need to determine what the long-term plan is going to be for that. The patient has periph eral access presently. She has been afebrile. White count is actually low. 3. Chronic pain syndrome, stable. 4. Chronic iron deficiency anemia. Continue with iron supplements. 5. Recent GI bleed with peptic ulcer disease. Continue proton pump inhibitor. 6. Chronic kidney disease stage 2. 7. Chronic cirrhosis, status post TIPS, which has likely failed. She has a history of chronic alcoh ol abuse. 8. History of hypothyroidism, stable. 9. History of anxiety. The patient is requiring Ativan throughout the day, but states it significa ntly helps her situation. 10. History of chronic diastolic heart failure. The patient is on fluid restriction. We will may nue to diurese.
[2017-12-28] MEDS ORDERED: Lorazepam 0.5 MG TAB PO SCH (17:00)
[2017-12-28] MEDS: traZODone HCl 50 MG TAB PO SCH (20:50)
--- NOTE | 2017-12-28 23:52 | PRG ---
DATE OF SERVICE: 12/28/2017 She might consider thoracentesis. She still has decreased breath sounds at her right base, although she is in absolutely no distress, s ays she feels much better than when she was admitted, still doubt she has an infected pleural space. I have ordered a chest radiograph in the morning. I did request intake and output, but unfortunately no output has been recorded and her bed scales are notoriously inactive. I also inquired as to why she did not have her artificial leg up, so she coul d cooperate with physical therapy. She had no explanation for this. She certainly probably cannot g et in to [facility] for 3 hours of rehabilitation a day if she does not have the leg with that she i s walking on. I explained this to her as well. We will how the chest x-ray looks like in the [place]
[2017-12-29] MEDS: HYDROcodone/Acetaminophen 5/325 mg Tablet PO PRN ×4 (02:13→17:15)
[2017-12-29] MEDS: Lorazepam 0.5 MG TAB PO PRN ×4 (02:15→20:59)
[2017-12-29 04:29] LABS: #Eosinphils 0.3 thou/uL (0.0-0.7); #Lymphocytes 0.7 thou/uL (1.20-3.40); #Monocytes 0.3 thou/uL (0.11-0.59); #Neutrophils 1.5 thou/uL (1.40-6.50); %Basophils 1.1 % (0.0-1.0); %Eosinophils 10.3 % (0.0-10.0); %Lymphocytes 25.9 % (21.0-51.0); %Monocytes 11.2 % (0.0-10.0); %Neutrophils 51.4 % (42.0-75.0); Hemoglobin 7.9 g/dL (12.0-16.0); Mean Corpuscular HGB CONC 31.6 g/dL (32.0-36.0); Mean Corpuscular Hemoglobin 26.9 pg (27.0-31.0); Mean Corpuscular Volume 85.4 fL (78.0-98.0); Mean Platelet Volume 11.4 fL (7.4-10.4); Platelet Count 107 thou/uL (130-400); RBC Distribution Width 19.2 % (11.5-14.5); Red Blood Cell (RBC) Count 2.92 mill/uL (4.20-5.40); White Blood Cell (WBC) Count 2.8 thou/uL (4.8-10.8)
[2017-12-29 04:35] LABS: Anion Gap 10 mmol/L (10-20); BUN (Urea Nitrogen) 17 mg/dL (9.8-20.1); Calc. Creatinine Clearance 68 mL/min (70-130); Carbon Dioxide 27 mmol/L (23-31); Chloride 108 mmol/L (98-107); Estimated GFR-MDRD 74; Glucose 99 mg/dL (80-115); Potassium 3.6 mmol/L (3.5-5.1); Sodium 141 mmol/L (136-145)
[2017-12-29] MEDS: Levothyroxine Sodium 75 MCG TAB PO SCH (05:26)
[2017-12-29] MEDS: Ampicillin 2 GM in Sodium Chloride 0.9% 100 ML IVPB SCH ×4 (05:26→23:24)
[2017-12-29] MEDS: Senokot S 8.6-50 MG TAB PO SCH ×2 (08:02→20:53)
[2017-12-29] MEDS: Escitalopram Oxalate 10 mg Tablet PO SCH (08:02)
[2017-12-29] MEDS: Amlodipine 5 MG TAB PO SCH (08:04)
[2017-12-29] MEDS: Fluconazole 100 MG TAB PO SCH (08:05)
[2017-12-29] MEDS: Pregabalin 75 MG CAP PO SCH ×4 (08:05→20:59)
[2017-12-29] MEDS: Nystatin Powder 15 GM BOT TOP SCH ×2 (08:06→20:52)
[2017-12-29] MEDS: Polyethylene Glycol 3350 17 GM Packet PO SCH (08:06)
--- NOTE | 2017-12-29 08:26 | PDOC.PN ---
- Subjective Encounter Start Date: 12/29/17 Encounter Start Time: 08:00 Doing better with sitting up in a chair and using her IS. Still does not have her prosthesis for the LLE so she is not ambulating. Still having some anxiety/ SOB at times. - Objective Resuscitation Status: Resuscitation Status FULL:Full Resuscitation Vital Signs & Weight: Vital Signs (12 hours) Temp Pulse Resp BP Pulse Ox 12/29/17 08:04 57 L 12/29/17 07:24 98.2 F 57 L 14 119/49 L 96 12/29/17 04:00 98.3 F 58 L 16 113/49 L 94 L 12/29/17 01:25 98.1 F 59 L 16 115/47 L 94 L 12/28/17 20:45 98.4 F 67 16 95 Weight Weight 130 lb I&O: 12/28/17 12/29/17 12/30/17 06:59 06:59 06:59 Intake Total 1740 1690 Balance 1740 1690 Result Diagrams: 12/29/17 03:45 12/29/17 03:45 Phys Exam - Physical Examination Constitutional: NAD Left basilar rales, decreased BS at right lower lung field. II/ Murmur Gastrointestinal: soft, non-tender, no distention, positive bowel sounds Musculoskeletal: no edema L AKA Neurological: non-focal Psychiatric: normal affect Dx/Plan (1) Bacteremia due to Enterococcus Code(s): R78.81 - BACTEREMIA; B95.2 - ENTEROCOCCUS THE CAUSE OF DISEASES CLASSIFIED ELSEWHERE Status: Acute Comment: Source not identified. Does have some yana-rectal edema on CT abd/pelvis on 12/26, but not other specific pathology noted. Followed by ID. On Amp. (2) Pleural effusion Code(s): J90 - PLEURAL EFFUSION, NOT ELSEWHERE CLASSIFIED Status: Acute Comment: Like secondary to liver disease. Discussed with Pulmonology. Not likely infected. Will likely perform thoracentesis today. Diagnostic v. diagnostic and therapeutic. Has underlying atelectasis and still on oxygen. (3) Abnormal LFTs Code(s): R79.89 - OTHER SPECIFIED ABNORMAL FINDINGS OF BLOOD CHEMISTRY Status : Acute (4) Cirrhosis Code(s): K74.60 - UNSPECIFIED CIRRHOSIS OF LIVER Status: Acute (5) Alcoholism Code(s): F10.20 - ALCOHOL DEPENDENCE, UNCOMPLICATED Status: Acute - Plan * Continue abx and await specific treatment plan from ID. Likely thoracentesis today given the persistence of the effusion on CXR. Has not significantly responded to the diuresis, but she had pretty good output per nurse's verbal report.
--- NOTE | 2017-12-29 09:34 | RAD ---
CHEST 1 VIEW UPRIGHT PORTABLE: Date: 12/29/17 HISTORY: 62-year-old female with history of pleural effusion. COMPARISON: 12/23/17. FINDINGS: Bilateral pleural effusions, greater on the right side. There is some bilateral vascular congestion. Postop changes left shoulder with humeral head replacement. Status post TIPS. IMPRESSION: Stable to slightly improving bilateral pleural effusions, larger on the right side. Bilateral vascula r congestion, slightly improved. No significant new process. POS: OFF
[2017-12-29] MEDS ORDERED: Lidocaine 1% w/Epinephrine 1:100K 20 ML VIAL ONE (13:37)
[2017-12-29] MEDS ORDERED: Lidocaine 1% (PF) 30 ML VIAL ONE (13:38)
[2017-12-29 15:18] LABS: BF Color Yellow; BF RBC Count - Manual 51 /cumm; BF WBC/Nonhematics Ct. - Manua 221 /cumm; Body Fluid Source PLEURAL FLUID; Clarity Hazy (Clear); Tube # EDTA
[2017-12-29 15:55] LABS: BF Segmented Neutrophils 6 %; Cell Count Non Hematic 22 %; Eosinophils 7 %; Lymphocytes 65 %
--- NOTE | 2017-12-29 16:14 | PRG ---
DATE OF SERVICE: 12/29/2017 SUBJECTIVE: The patient is feeling better, sitting up. No abdominal pain. A little bit of dyspnea. OBJECTIVE: VITAL SIGNS: Temperature has been normal throughout, O2 sat 95%. LUNGS: Diminished breath sounds right side. HEART: S1, S2, regular rate. ABDOMEN: Soft and not distended. EXTREMITIES: Moves all extremities equally. LABORATORY DATA: White cell count 2.8, hemoglobin 7.9, platelets 107. Sodium 141, creatinine 0.79. Microbiology: The same as before. 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 Enterococcus casseliflavu s probably opportunistic pathogen in this situation She is on IV therapy which should be short term in view of the negative CT scan. She did have a little bit of perirectal edema that is probably from the portal hypertension. Enterococcus casseliflavus is not very virulent pathogen and it should be able to be handled by a short course of antimicrobial therapy. I do not see there is evidence to yanes ggest endocarditis at this point in time. She may have a thoracentesis according to Dr. Sorenson.
--- NOTE | 2017-12-29 19:38 | PRG ---
DATE OF SERVICE: 12/29/2017 Ms. Adrian did well overnight, says she did not feel as well today. She did consent to a thoracentesi s surprisingly risks of bleeding, infection, lung collapse were explained. The right posterior hemit horax was prepped with chlorhexidine. A 10 mL of 1% lidocaine was brought to the bedside and only 5 mL was used to anesthetize the skin and the pleura. An 8-Portuguese [id number] catheter was inserte d into the pleural space without difficulty. One liter of clear yellow pleural fluid was evacuated. No air was evacuated. She tolerated the procedure well. There were no immediate complications. Preliminary studies are pending. The protein was 1.3, LDH 54. Glucose is 100, amylase less than 30 and there are only 221 white cells, 51 red cells. This diagnostic of a transudative effusion. Cultu res were sent and are pending obviously. No further workup of the effusion is indicated.
[2017-12-29] MEDS: traZODone HCl 50 MG TAB PO SCH (20:53)
[2017-12-30 04:22] LABS: #Eosinphils 0.3 thou/uL (0.0-0.7); #Lymphocytes 0.9 thou/uL (1.20-3.40); #Monocytes 0.3 thou/uL (0.11-0.59); #Neutrophils 1.9 thou/uL (1.40-6.50); %Basophils 1.1 % (0.0-1.0); %Eosinophils 9.9 % (0.0-10.0); %Lymphocytes 24.9 % (21.0-51.0); %Monocytes 9.2 % (0.0-10.0); Hemoglobin 8.3 g/dL (12.0-16.0); Mean Corpuscular HGB CONC 31.7 g/dL (32.0-36.0); Mean Corpuscular Hemoglobin 27.1 pg (27.0-31.0); Mean Corpuscular Volume 85.6 fL (78.0-98.0); Mean Platelet Volume 10.4 fL (7.4-10.4); Platelet Count 135 thou/uL (130-400); RBC Distribution Width 19.3 % (11.5-14.5); Red Blood Cell (RBC) Count 3.08 mill/uL (4.20-5.40); White Blood Cell (WBC) Count 3.5 thou/uL (4.8-10.8)
[2017-12-30 04:37] LABS: Anion Gap 9 mmol/L (10-20); BUN (Urea Nitrogen) 15 mg/dL (9.8-20.1); Calc. Creatinine Clearance 74 mL/min (70-130); Calcium 8.1 mg/dL (7.8-10.44); Carbon Dioxide 28 mmol/L (23-31); Chloride 110 mmol/L (98-107); Estimated GFR-MDRD 82; Glucose 103 mg/dL (80-115); Sodium 143 mmol/L (136-145)
[2017-12-30] MEDS: Levothyroxine Sodium 75 MCG TAB PO SCH (05:53)
[2017-12-30] MEDS: HYDROcodone/Acetaminophen 5/325 mg Tablet PO PRN ×3 (05:53→20:59)
[2017-12-30] MEDS: Ampicillin 2 GM in Sodium Chloride 0.9% 100 ML IVPB SCH ×3 (05:55→18:08)
[2017-12-30] MEDS: Amlodipine 5 MG TAB PO SCH (07:58)
[2017-12-30] MEDS: Fluconazole 100 MG TAB PO SCH (07:58)
[2017-12-30] MEDS: Senokot S 8.6-50 MG TAB PO SCH ×2 (07:58→20:55)
[2017-12-30] MEDS: Pregabalin 75 MG CAP PO SCH ×2 (08:00→20:55)
[2017-12-30] MEDS: Escitalopram Oxalate 10 mg Tablet PO SCH (08:01)
[2017-12-30] MEDS: Nystatin Powder 15 GM BOT TOP SCH ×2 (08:02→21:10)
[2017-12-30] MEDS: Polyethylene Glycol 3350 17 GM Packet PO SCH (08:02)
--- NOTE | 2017-12-30 13:38 | PDOC.PN ---
- Subjective Encounter Start Date: 12/30/17 Encounter Start Time: 11:00 Tolerated the thoracentesis well. Still does not feel her breathing is at baseline. Has her LE prosthesis now. - Objective Resuscitation Status: Resuscitation Status FULL:Full Resuscitation Vital Signs & Weight: Vital Signs (12 hours) Temp Pulse Resp BP BP Pulse Ox 12/30/17 08:00 98.6 F 60 20 94 L 12/30/17 07:58 60 12/30/17 07:18 98.6 F 60 20 147/68 H 94 L 12/30/17 04:00 98.4 F 63 20 114/66 98 Weight Weight 130 lb I&O: 12/29/17 12/30/17 12/31/17 06:59 06:59 06:59 Intake Total 1690 2920 480 Balance 1690 2920 480 Result Diagrams: 12/30/17 04:11 12/30/17 04:11 Phys Exam - Physical Examination Constitutional: NAD Respiratory: no wheezing Improved air exchange right base, but mild rales. Cardiovascular: RRR II/ murmur Gastrointestinal: soft, non-tender, no distention, positive bowel sounds Musculoskeletal: no edema Left AKA Psychiatric: normal affect Dx/Plan (1) Bacteremia due to Enterococcus Code(s): R78.81 - BACTEREMIA; B95.2 - ENTEROCOCCUS THE CAUSE OF DISEASES CLASSIFIED ELSEWHERE Status: Acute Comment: Source not identified. Does have some yana-rectal edema on CT abd/pelvis on 12/26, but not other specific pathology noted. Followed by ID. On Amp. Short course recommended. Will continue IV until discharge and then DC with no oral abx. (2) Pleural effusion Code(s): J90 - PLEURAL EFFUSION, NOT ELSEWHERE CLASSIFIED Status: Acute Comment: Like secondary to liver disease. Thoracentesis yesterday without signif evidence of infection. Persistent RLL atelectasis. Encouraged IS and activity. (3) Abnormal LFTs Code(s): R79.89 - OTHER SPECIFIED ABNORMAL FINDINGS OF BLOOD CHEMISTRY Status : Acute (4) Cirrhosis Code(s): K74.60 - UNSPECIFIED CIRRHOSIS OF LIVER Status: Acute (5) Alcoholism Code(s): F10.20 - ALCOHOL DEPENDENCE, UNCOMPLICATED Status: Acute - Plan * .
[2017-12-30] MEDS: Lorazepam 0.5 MG TAB PO PRN ×2 (13:54→20:59)
[2017-12-30] MEDS: traZODone HCl 50 MG TAB PO SCH (20:55)
[2017-12-31] MEDS: Ampicillin 2 GM in Sodium Chloride 0.9% 100 ML IVPB SCH ×5 (01:02→23:21)
[2017-12-31] MEDS: Levothyroxine Sodium 75 MCG TAB PO SCH (06:27)
[2017-12-31] MEDS: HYDROcodone/Acetaminophen 5/325 mg Tablet PO PRN ×4 (06:31→21:56)
[2017-12-31] MEDS: Senokot S 8.6-50 MG TAB PO SCH ×2 (08:33→20:19)
[2017-12-31] MEDS: Pregabalin 75 MG CAP PO SCH ×2 (08:33→20:17)
[2017-12-31] MEDS: Amlodipine 5 MG TAB PO SCH (08:34)
[2017-12-31] MEDS: Fluconazole 100 MG TAB PO SCH (08:34)
[2017-12-31] MEDS: Lorazepam 0.5 MG TAB PO PRN ×3 (08:34→20:18)
[2017-12-31] MEDS: Escitalopram Oxalate 10 mg Tablet PO SCH (08:34)
[2017-12-31] MEDS: Nystatin Powder 15 GM BOT TOP SCH ×2 (08:34→20:35)
[2017-12-31] MEDS: Polyethylene Glycol 3350 17 GM Packet PO SCH (08:35)
--- NOTE | 2017-12-31 12:49 | PDOC.PN ---
- Subjective Encounter Start Date: 12/31/17 Encounter Start Time: 11:10 Still feels like she is having some trouble breathing. She is using the IS and getting up to go to the BR. Gets very SOB with just getting up. - Objective Resuscitation Status: Resuscitation Status FULL:Full Resuscitation Vital Signs & Weight: Vital Signs (12 hours) Temp Pulse Resp BP Pulse Ox 12/31/17 11:57 97.8 F 65 18 131/61 96 12/31/17 08:34 70 12/31/17 08:00 98.2 F 70 18 100 12/31/17 07:47 98.2 F 70 18 150/65 H 100 Weight Weight 130 lb I&O: 12/30/17 12/31/17 01/01/18 06:59 06:59 06:59 Intake Total 2920 1720 Balance 2920 1720 Result Diagrams: 12/30/17 04:11 12/30/17 04:11 Phys Exam - Physical Examination Constitutional: NAD Left basilar rales, decreased BS and dullness at right base. Cardiovascular: RRR, no significant murmur, no rub Gastrointestinal: soft, non-tender, no distention, positive bowel sounds Musculoskeletal: no edema Psychiatric: normal affect Dx/Plan (1) Bacteremia due to Enterococcus Code(s): R78.81 - BACTEREMIA; B95.2 - ENTEROCOCCUS THE CAUSE OF DISEASES CLASSIFIED ELSEWHERE Status: Acute Comment: Source not identified. Does have some yana-rectal edema on CT abd/pelvis on 12/26, but not other specific pathology noted. Followed by ID. On Amp. Short course recommended. Will continue IV until discharge and then DC with no oral abx. (2) Pleural effusion Code(s): J90 - PLEURAL EFFUSION, NOT ELSEWHERE CLASSIFIED Status: Acute Comment: Like secondary to liver disease. Also has grade III diastolic dysfunction. S/P thoracentesis without signif evidence of infection. Persistent RLL atelectasis. Encouraged IS and activity. Now with possible recurrence of effusion based on exam. Repeat CXR. (3) Abnormal LFTs Code(s): R79.89 - OTHER SPECIFIED ABNORMAL FINDINGS OF BLOOD CHEMISTRY Status : Acute Comment: Hx of chronic liver disease secondary to EtOH. (4) Cirrhosis Code(s): K74.60 - UNSPECIFIED CIRRHOSIS OF LIVER Status: Acute (5) Alcoholism Code(s): F10.20 - ALCOHOL DEPENDENCE, UNCOMPLICATED Status: Acute (6) Diastolic dysfunction Code(s): I51.9 - HEART DISEASE, UNSPECIFIED Status: Acute Comment: Confirmed on echo. Had some pulm hypertension, but had effusion at the time. - Plan * Repeat CXR and lasix today. * Working on placement at [place] for swing bed.
[2017-12-31] MEDS ORDERED: Furosemide 40 MG TAB PO SCH (13:00)
--- NOTE | 2017-12-31 15:00 | RAD ---
CHEST 1 VIEW PORTABLE: HISTORY: A 62-year-old female with a history of followup right pleural effusion. COMPARISON: 12/29/17. FINDINGS: Persistent moderate-sized right pleural effusion with cardiomegaly and bilateral vascular congestion with probable small left pleural effusion. Little change from prior exam. IMPRESSION: Stable cardiomegaly with right pleural effusion and probable small left pleural effusion and mild vas cular congestion. Stable from prior study. No new process. POS: NGA
[2017-12-31] MEDS: traZODone HCl 50 MG TAB PO SCH (20:18)
[2018-01-01] MEDS: Ampicillin 2 GM in Sodium Chloride 0.9% 100 ML IVPB SCH ×2 (05:23→13:00)
[2018-01-01] MEDS: Levothyroxine Sodium 75 MCG TAB PO SCH (05:23)
[2018-01-01] MEDS: HYDROcodone/Acetaminophen 5/325 mg Tablet PO PRN ×4 (06:31→21:16)
[2018-01-01] MEDS: Polyethylene Glycol 3350 17 GM Packet PO SCH (07:15)
[2018-01-01] MEDS: Senokot S 8.6-50 MG TAB PO SCH ×2 (07:15→19:51)
[2018-01-01] MEDS: Lorazepam 0.5 MG TAB PO PRN ×3 (08:58→19:41)
[2018-01-01] MEDS: Pregabalin 75 MG CAP PO SCH ×2 (08:58→19:39)
[2018-01-01] MEDS: Amlodipine 5 MG TAB PO SCH (08:59)
[2018-01-01] MEDS: Escitalopram Oxalate 10 mg Tablet PO SCH (09:00)
[2018-01-01] MEDS: Fluconazole 100 MG TAB PO SCH (09:00)
[2018-01-01] MEDS: Nystatin Powder 15 GM BOT TOP SCH ×2 (10:46→19:50)
--- NOTE | 2018-01-01 13:24 | PRG ---
DATE OF SERVICE: 01/01/2018 SUBJECTIVE: Still having some dyspnea. No chest pain, no abdominal pain or diarrhea. OBJECTIVE: VITAL SIGNS: T-max 98.1, pulse 64, respirations 16, O2 sat 94%-98% room air, BP 120/64. SKIN: No significant findings. Rectal perianal erythema has improved. LUNGS: With diminished breath sounds in the right hemithorax. HEART: S1, S2, regular rate. ABDOMEN: Soft, mild distention. NEUROLOGIC: Oriented, follows commands. LABORATORY DATA: The white cell count 3.5, hemoglobin 8.3, platelets 135, 55% neutrophils. Creatini ne 0.72. The patient had thoracentesis with only 221 WBCs, predominance of lymphocytes. The pleural total protein was only 1.3, configuring a transudate. Serum albumin was 2.9. The fluid cultures ar e negative. ASSESSMENT AND DISCUSSION: Alcoholism, liver cirrhosis, portal hypertension, prior splenorenal shunt and TIPS and now with hepatic hydrothorax status post thoracentesis as well as Enterococcus casselif lavus bacteremia transient, probably secondary to immunosuppression and dysfunction of the reticuloen dothelial system associated with liver cirrhosis. The patient continues to have a significant amount of functional impairment due to dyspnea diastolic dysfunction.
--- NOTE | 2018-01-01 13:32 | PDOC.PN ---
- Subjective Encounter Start Date: 01/01/18 Encounter Start Time: 11:50 Still SOB. Did feel better after she got up with PT although it made her very SOB. - Objective Resuscitation Status: Resuscitation Status FULL:Full Resuscitation Vital Signs & Weight: Vital Signs (12 hours) Temp Pulse Resp BP Pulse Ox 01/01/18 11:16 98.1 F 64 16 128/64 95 01/01/18 08:59 60 01/01/18 08:00 98.1 F 60 18 01/01/18 07:14 98.1 F 60 16 133/64 94 L 01/01/18 04:00 97.9 F 60 16 129/64 98 Weight Weight 130 lb I&O: 12/31/17 01/01/18 01/02/18 06:59 06:59 06:59 Intake Total 1720 1540 Output Total 200 Balance 1720 1340 Result Diagrams: 12/30/17 04:11 12/30/17 04:11 Phys Exam - Physical Examination Constitutional: NAD decreased BS at right base, but some air exchange. Better than yesterday. Mild bibasilar rales. Cardiovascular: RRR Gastrointestinal: soft, non-tender, no distention Musculoskeletal: no edema Left AKA Neurological: non-focal Deviation from normal: Tearful when I discussed all of her medical issues. Dx/Plan (1) Bacteremia due to Enterococcus Code(s): R78.81 - BACTEREMIA; B95.2 - ENTEROCOCCUS THE CAUSE OF DISEASES CLASSIFIED ELSEWHERE Status: Acute Comment: Source not identified. Does have some yana-rectal edema on CT abd/pelvis on 12/26, but not other specific pathology noted. Followed by ID. On Amp. Short course recommended. Discussed with ID. Will change to po. (2) Pleural effusion Code(s): J90 - PLEURAL EFFUSION, NOT ELSEWHERE CLASSIFIED Status: Acute Comment: Like secondary to liver disease. Also has grade III diastolic dysfunction. S/P thoracentesis without signif evidence of infection. Persistent RLL atelectasis. Encouraged IS and activity. Now with possible recurrence of effusion based on exam and repeat CXR. (3) Abnormal LFTs Code(s): R79.89 - OTHER SPECIFIED ABNORMAL FINDINGS OF BLOOD CHEMISTRY Status : Acute Comment: Hx of chronic liver disease secondary to EtOH. (4) Cirrhosis Code(s): K74.60 - UNSPECIFIED CIRRHOSIS OF LIVER Status: Acute Comment: History of remote TIPS procedure. (5) Alcoholism Code(s): F10.20 - ALCOHOL DEPENDENCE, UNCOMPLICATED Status: Acute Comment: Remote (6) Diastolic dysfunction Code(s): I51.9 - HEART DISEASE, UNSPECIFIED Status: Acute Comment: Will stop the amlodipine and start Coreg. Diuresis. - Plan * Long discussion with patient. Her dyspnea may be related to the effusion. It appears to have some reaccumulation, but is not as bad as it was before the tap. May not be impacting her COLLINS a great deal. She is very deconditioned and she needs to get the therapy to help her improve. The effusion is likely related to the liver disease and the diastolic dysfunction.
[2018-01-01] MEDS: AMOXicillin 250 MG CAP PO SCH ×2 (14:34→19:39)
[2018-01-01] MEDS: Saccharomyces boulardii 250 MG CAP PO SCH (19:41)
[2018-01-01] MEDS: traZODone HCl 50 MG TAB PO SCH (19:41)
[2018-01-02] MEDS: Levothyroxine Sodium 75 MCG TAB PO SCH (05:09)
[2018-01-02] MEDS: HYDROcodone/Acetaminophen 5/325 mg Tablet PO PRN ×4 (05:10→21:36)
[2018-01-02] MEDS: Furosemide 40 MG TAB PO SCH (08:42)
[2018-01-02] MEDS: Amlodipine 5 MG TAB PO SCH (08:43)
[2018-01-02] MEDS: Escitalopram Oxalate 10 mg Tablet PO SCH (08:44)
[2018-01-02] MEDS: Fluconazole 100 MG TAB PO SCH (08:44)
[2018-01-02] MEDS: AMOXicillin 250 MG CAP PO SCH ×3 (08:44→20:33)
[2018-01-02] MEDS: Pregabalin 75 MG CAP PO SCH ×2 (08:45→20:32)
[2018-01-02] MEDS: Saccharomyces boulardii 250 MG CAP PO SCH ×2 (08:46→20:33)
[2018-01-02] MEDS: Polyethylene Glycol 3350 17 GM Packet PO SCH (08:46)
[2018-01-02] MEDS: Senokot S 8.6-50 MG TAB PO SCH ×2 (08:46→20:33)
[2018-01-02] MEDS: Nystatin Powder 15 GM BOT TOP SCH ×2 (08:47→20:33)
[2018-01-02] MEDS: Lorazepam 0.5 MG TAB PO PRN ×3 (08:48→21:36)
[2018-01-02 10:51] LABS: #Basophils 0.1 thou/uL (0.0-0.2); #Eosinphils 0.4 thou/uL (0.0-0.7); #Lymphocytes 0.9 thou/uL (1.20-3.40); #Monocytes 0.4 thou/uL (0.11-0.59); #Neutrophils 2.1 thou/uL (1.40-6.50); %Basophils 1.3 % (0.0-1.0); %Eosinophils 9.3 % (0.0-10.0); %Lymphocytes 24.4 % (21.0-51.0); %Monocytes 9.4 % (0.0-10.0); %Neutrophils 55.7 % (42.0-75.0); Hemoglobin 8.6 g/dL (12.0-16.0); Mean Corpuscular Hemoglobin 26.5 pg (27.0-31.0); Mean Corpuscular Volume 85.6 fL (78.0-98.0); Mean Platelet Volume 9.7 fL (7.4-10.4); Platelet Count 173 thou/uL (130-400); RBC Distribution Width 19.7 % (11.5-14.5); Red Blood Cell (RBC) Count 3.23 mill/uL (4.20-5.40); White Blood Cell (WBC) Count 3.8 thou/uL (4.8-10.8)
[2018-01-02 11:11] LABS: Anion Gap 12 mmol/L (10-20); BUN (Urea Nitrogen) 14 mg/dL (9.8-20.1); Calc. Creatinine Clearance 71 mL/min (70-130); Calcium 8.4 mg/dL (7.8-10.44); Carbon Dioxide 25 mmol/L (23-31); Chloride 109 mmol/L (98-107); Estimated GFR-MDRD 78; Glucose 104 mg/dL (80-115); Sodium 142 mmol/L (136-145)
--- NOTE | 2018-01-02 16:22 | PDOC.PN ---
- Subjective Encounter Start Date: 01/02/18 Encounter Start Time: 14:45 Subjective: pt up in bed has mild sob - Objective Resuscitation Status: Resuscitation Status FULL:Full Resuscitation Vital Signs & Weight: Vital Signs (12 hours) Temp Pulse Resp BP BP Pulse Ox 01/02/18 11:20 98.7 F 61 18 114/57 L 91 L 01/02/18 08:43 67 143/58 H 01/02/18 08:00 98.5 F 67 18 94 L 01/02/18 07:24 98.5 F 67 18 143/58 H 94 L Weight Weight 130 lb I&O: 01/01/18 01/02/18 01/03/18 06:59 06:59 06:59 Intake Total 1540 1550 Output Total 200 Balance 1340 1550 Result Diagrams: 01/02/18 10:29 01/02/18 10:29 Phys Exam - Physical Examination Neck: no nodes, no JVD, supple, full ROM Respiratory: no wheezing, no rales, no rhonchi, wheezing present, clear to auscultation bilateral Cardiovascular: RRR, no significant murmur, no rub, gallop, irregular Gastrointestinal: soft, non-tender, no distention, positive bowel sounds Dx/Plan (1) Bacteremia due to Enterococcus Code(s): R78.81 - BACTEREMIA; B95.2 - ENTEROCOCCUS THE CAUSE OF DISEASES CLASSIFIED ELSEWHERE Status: Acute Comment: Source not identified. Does have some yana-rectal edema on CT abd/pelvis on 12/26, but not other specific pathology noted. Followed by ID. On Amp. Short course recommended. Discussed with ID. Will change to po. (2) Pleural effusion Code(s): J90 - PLEURAL EFFUSION, NOT ELSEWHERE CLASSIFIED Status: Acute Comment: Like secondary to liver disease. Also has grade III diastolic dysfunction. S/P thoracentesis without signif evidence of infection. Persistent RLL atelectasis. Encouraged IS and activity. Now with possible recurrence of effusion based on exam and repeat CXR. (3) Cirrhosis Code(s): K74.60 - UNSPECIFIED CIRRHOSIS OF LIVER Status: Acute Comment: History of remote TIPS procedure. (4) Hypertension Code(s): I10 - ESSENTIAL (PRIMARY) HYPERTENSION Status: Chronic Qualifiers: Hypertension type: essential hypertension Qualified Code(s): I10 - Essential (primary) hypertension - Plan pt is s/p throacentesis -: pt medically stable to go to rehab -: hh is low stable -: continue abx for 10 days * . Review of Systems - Review of Systems Respiratory: negative: Cough, Dry, Shortness of Breath, Hemoptysis, SOB with Excertion, Pleuritic Pain, Sputum, Wheezing Cardiovascular: negative: chest pain, palpitations, orthopnea, paroxysmal nocturnal dyspnea, edema, light headedness, other Gastrointestinal: negative: Nausea, Vomiting, Abdominal Pain, Diarrhea, Constipation, Melena, Hematochezia, Other - Medications/Allergies Allergies/Adverse Reactions: Allergies Allergy/AdvReac Type Severity Reaction Status Date / Time aspirin Allergy Severe Verified 12/22/17 17:26 cefepime Allergy Severe Rash Verified 12/22/17 17:26 ibuprofen Allergy Severe Verified 12/22/17 17:26 NSAIDS (Non-Steroidal Allergy Severe Verified 12/22/17 17:26 Anti-Inflamma Penicillins Allergy Unknown Verified 12/22/17 17:26 Medications: Current Medications Hydrocodone Bitart/Acetaminophen ([place] 5/325) 1 tab PO Q4H PRN PRN Reason: Moderate Pain (4-6) Last Admin: 01/02/18 10:58 Dose: 1 tab Albuterol/Ipratropium (Duoneb) 3 ml NEB Q6H PRN PRN Reason: SOB &/or Wheezing Last Admin: 01/01/18 16:03 Dose: 3 ml Amlodipine Besylate (Norvasc) 2.5 mg PO DAILY [facility] Last Admin: 01/02/18 08:43 Dose: 2.5 mg Amoxicillin (Amoxil) 250 mg PO TID [facility] Last Admin: 01/02/18 15:17 Dose: 250 mg Calcium Carbonate (Tums) 1,000 mg PO Q4H PRN PRN Reason: Heartburn or Indigestion Escitalopram Oxalate (Lexapro) 10 mg PO DAILY [facility] Last Admin: 01/02/18 08:44 Dose: 10 mg Fluconazole (Diflucan) 100 mg PO DAILY [facility] Last Admin: 01/02/18 08:44 Dose: 100 mg Furosemide (Lasix) 40 mg PO DAILY-AC [facility] Last Admin: 01/02/18 08:42 Dose: 40 mg Hydralazine HCl (Apresoline) 10 mg SLOW IVP Q4H PRN PRN Reason: SBP Greater Than 180 Levothyroxine Sodium (Synthroid) 75 mcg PO 0600 [facility] Last Admin: 01/02/18 05:09 Dose: 75 mcg Lidocaine (Lidoderm 5% Patch) 1 patch TD DAILY PRN PRN Reason: pain Last Admin: 12/28/17 09:10 Dose: 1 patch Lorazepam (Ativan) 0.5 mg PO Q6H PRN PRN Reason: Anxiety Last Admin: 01/02/18 15:18 Dose: 0.5 mg Miscellaneous Medication (Pharmacy To Dose) 1 each IVPB PRN PRN PRN Reason: Pharmacy to dose Nystatin (Mycostatin Powder) 0 gm TOP BID [facility] Last Admin: 01/02/18 08:47 Dose: 1 applic Ondansetron HCl (Zofran Odt) 4 mg PO Q6H PRN PRN Reason: Nausea/Vomiting Last Admin: 12/23/17 14:23 Dose: 4 mg Ondansetron HCl (Zofran) 4 mg IVP Q6H PRN PRN Reason: Nausea/Vomiting Last Admin: 12/27/17 21:47 Dose: 4 mg Pantoprazole Sodium (Protonix) 40 mg PO DAILY [facility] Last Admin: 01/02/18 08:45 Dose: 40 mg Polyethylene Glycol (Miralax) 17 gm PO DAILY [facility] Last Admin: 01/02/18 08:46 Dose: Not Given Potassium Chloride (Klor-Con) 20 meq PO QAM-WM [facility] Last Admin: 01/02/18 08:43 Dose: 20 meq Pregabalin (Lyrica) 75 mg PO BID [facility] Last Admin: 01/02/18 08:45 Dose: 75 mg Saccharomyces Boulardii (Florastor) 250 mg PO BID [facility] Last Admin: 01/02/18 08:46 Dose: 250 mg Senna (Senokot) 2 tab PO HSPRN PRN PRN Reason: Constipation Senna/Docusate Sodium (Senokot S) 1 tab PO BID [facility] Last Admin: 01/02/18 08:46 Dose: Not Given Sodium Chloride (Flush - Normal Saline) 10 ml IVF Q12HR [facility] Last Admin: 01/02/18 08:46 Dose: 10 ml Sodium Chloride (Flush - Normal Saline) 10 ml IVF PRN PRN PRN Reason: Saline Flush Trazodone HCl (Desyrel) 100 mg PO [facility] Last Admin: 01/01/18 19:41 Dose: 100 mg
--- NOTE | 2018-01-02 17:02 | EKG ---
Test Reason : Blood Pressure : / mmHG Vent. Rate : 079 BPM Atrial Rate : 079 BPM P-R Int : 164 ms QRS Dur : 092 ms QT Int : 430 ms P-R-T Axes : 046 071 040 degrees QTc Int : 493 ms Normal sinus rhythm with sinus arrhythmia Cannot rule out Inferior infarct , age undetermined Possible Anterolateral infarct , age undetermined NST wave change Abnormal ECG When compared with ECG of 03-DEC-2017 22:08, (Unconfirmed) Premature atrial complexes are no longer Present T wave inversion no longer evident in Anterior leads Confirmed by DR. Jaspreet MARIANO ([id number]) on 01/02/2018 5:01:48 PM Referred By: ERI Confirmed By:DR. Jaspreet MARIANO
[2018-01-02] MEDS: traZODone HCl 50 MG TAB PO SCH (20:33)
[2018-01-03] MEDS: Levothyroxine Sodium 75 MCG TAB PO SCH (05:19)
[2018-01-03] MEDS: HYDROcodone/Acetaminophen 5/325 mg Tablet PO PRN ×3 (05:20→14:36)
[2018-01-03] MEDS: Lorazepam 0.5 MG TAB PO PRN ×3 (05:24→17:56)
[2018-01-03] MEDS: Furosemide 40 MG TAB PO SCH (09:00)
[2018-01-03] MEDS: Escitalopram Oxalate 10 mg Tablet PO SCH (09:00)
[2018-01-03] MEDS: AMOXicillin 250 MG CAP PO SCH ×3 (09:00→20:46)
[2018-01-03] MEDS: Saccharomyces boulardii 250 MG CAP PO SCH ×2 (09:00→20:46)
[2018-01-03] MEDS: Polyethylene Glycol 3350 17 GM Packet PO SCH (09:00)
[2018-01-03] MEDS: Pregabalin 75 MG CAP PO SCH ×2 (09:00→20:46)
[2018-01-03] MEDS: Fluconazole 100 MG TAB PO SCH (09:00)
[2018-01-03] MEDS ORDERED: Furosemide 40 MG/4 ML VIAL ONE (10:12)
[2018-01-03] MEDS ORDERED: Furosemide 40 MG/4 ML VIAL SLOW IVP SCH (11:00)
[2018-01-03] MEDS: Ondansetron ODT 4 MG TAB PO PRN (11:43)
[2018-01-03] MEDS: Amlodipine 5 MG TAB PO SCH (11:46)
[2018-01-03] MEDS: Senokot S 8.6-50 MG TAB PO SCH ×2 (11:47→20:47)
[2018-01-03] MEDS: Nystatin Powder 15 GM BOT TOP SCH ×2 (11:52→20:47)
[2018-01-03] MEDS: traZODone HCl 50 MG TAB PO SCH (20:47)
[2018-01-04] MEDS: Levothyroxine Sodium 75 MCG TAB PO SCH (05:04)
[2018-01-04] MEDS: HYDROcodone/Acetaminophen 5/325 mg Tablet PO PRN ×3 (06:28→17:19)
[2018-01-04] MEDS: Fluconazole 100 MG TAB PO SCH (09:08)
[2018-01-04] MEDS: Pregabalin 75 MG CAP PO SCH ×2 (09:08→20:01)
[2018-01-04] MEDS: Saccharomyces boulardii 250 MG CAP PO SCH ×2 (09:10→20:01)
[2018-01-04] MEDS: Senokot S 8.6-50 MG TAB PO SCH ×2 (09:10→20:01)
[2018-01-04] MEDS: Escitalopram Oxalate 10 mg Tablet PO SCH (09:11)
[2018-01-04] MEDS: Amlodipine 5 MG TAB PO SCH (09:11)
[2018-01-04] MEDS: Lorazepam 0.5 MG TAB PO PRN ×3 (09:11→21:47)
[2018-01-04] MEDS: AMOXicillin 250 MG CAP PO SCH ×3 (09:13→20:00)
[2018-01-04] MEDS: Polyethylene Glycol 3350 17 GM Packet PO SCH (09:14)
[2018-01-04] MEDS: Nystatin Powder 15 GM BOT TOP SCH ×2 (09:14→20:00)
[2018-01-04] MEDS: Lidocaine 5% Patch TD PRN (09:20)
[2018-01-04] MEDS ORDERED: Furosemide 40 MG/4 ML VIAL SLOW IVP SCH (12:00)
--- NOTE | 2018-01-04 13:28 | RAD ---
PORTABLE AP CHEST RADIOGRAPH: Date: 01-04-18 History: Shortness of breath. Comparison: 12-31-17 FINDINGS: Pleural and parenchymal changes are again seen at the right lung base and right midlung zone, likely related to moderate pleural effusion and associated atelectasis. There is suboptimal evaluation of th e left lung base. The right cardiac border is obscured. Pulmonary vasculature is within normal limits . There is partial visualization of a stent overlying the right upper quadrant, likely related to ansley or placement of portosystemic shunt. Probable small left pleural effusion and atelectasis. Left gleno humeral prosthesis is noted. IMPRESSION: 1. Moderately large right pleural effusion and atelectasis with small left pleural effusion and atele ctasis. 2. Probable enlargement of the cardiac silhouette but the right cardiac border is not well seen. POS: NGA
[2018-01-04] MEDS: traZODone HCl 50 MG TAB PO SCH (20:01)
[2018-01-05] MEDS: Levothyroxine Sodium 75 MCG TAB PO SCH (05:05)
[2018-01-05] MEDS: HYDROcodone/Acetaminophen 5/325 mg Tablet PO PRN ×4 (05:05→20:20)
[2018-01-05] MEDS: Fluconazole 100 MG TAB PO SCH (08:38)
[2018-01-05] MEDS: Saccharomyces boulardii 250 MG CAP PO SCH ×2 (08:38→20:19)
[2018-01-05] MEDS: Pregabalin 75 MG CAP PO SCH ×2 (08:38→20:20)
[2018-01-05] MEDS: Escitalopram Oxalate 10 mg Tablet PO SCH (08:39)
[2018-01-05] MEDS: Amlodipine 5 MG TAB PO SCH (08:40)
[2018-01-05] MEDS: AMOXicillin 250 MG CAP PO SCH ×3 (08:41→20:19)
[2018-01-05] MEDS: Lorazepam 0.5 MG TAB PO PRN ×3 (08:41→22:05)
[2018-01-05] MEDS: Senokot S 8.6-50 MG TAB PO SCH ×2 (08:42→20:21)
[2018-01-05] MEDS: Nystatin Powder 15 GM BOT TOP SCH ×2 (08:43→20:20)
[2018-01-05] MEDS: Polyethylene Glycol 3350 17 GM Packet PO SCH (08:43)
--- NOTE | 2018-01-05 15:53 | PDOC.PN ---
- Subjective Encounter Start Date: 01/05/18 Encounter Start Time: 10:30 Subjective: pt up in bed complains of sob - Objective Resuscitation Status: Resuscitation Status FULL:Full Resuscitation Vital Signs & Weight: Vital Signs (12 hours) Temp Pulse Resp BP BP Pulse Ox Pulse Ox 01/05/18 11:00 98.8 F 70 20 161/55 H 90 L 01/05/18 09:00 90 L 01/05/18 08:40 72 151/67 H 01/05/18 08:00 99.0 F 72 18 151/67 H 91 L Pulse Ox Pulse Ox 01/05/18 11:00 01/05/18 09:00 93 L 94 L 01/05/18 08:40 01/05/18 08:00 Weight Admit Weight 130 lb Weight 130 lb I&O: 01/04/18 01/05/18 01/06/18 06:59 06:59 06:59 Intake Total 960 700 Balance 960 700 Result Diagrams: 01/02/18 10:29 01/02/18 10:29 Phys Exam - Physical Examination Neck: no nodes, no JVD, supple, full ROM decreased breath sound to right lower lung Cardiovascular: RRR, no significant murmur, no rub, gallop, irregular Gastrointestinal: soft, non-tender, no distention, positive bowel sounds Musculoskeletal: no edema, pulses present, edema present Dx/Plan (1) Bacteremia due to Enterococcus Code(s): R78.81 - BACTEREMIA; B95.2 - ENTEROCOCCUS THE CAUSE OF DISEASES CLASSIFIED ELSEWHERE Status: Acute Comment: Source not identified. Does have some yana-rectal edema on CT abd/pelvis on 12/26, but not other specific pathology noted. Followed by ID. On Amp. Short course recommended. Discussed with ID. Will change to po. (2) Pleural effusion Code(s): J90 - PLEURAL EFFUSION, NOT ELSEWHERE CLASSIFIED Status: Acute Comment: Like secondary to liver disease. Also has grade III diastolic dysfunction. S/P thoracentesis without signif evidence of infection. Persistent RLL atelectasis. Encouraged IS and activity. Now with possible recurrence of effusion based on exam and repeat CXR. (3) Cirrhosis Code(s): K74.60 - UNSPECIFIED CIRRHOSIS OF LIVER Status: Acute Comment: History of remote TIPS procedure. (4) Hypertension Code(s): I10 - ESSENTIAL (PRIMARY) HYPERTENSION Status: Chronic Qualifiers: Hypertension type: essential hypertension Qualified Code(s): I10 - Essential (primary) hypertension - Plan Decreased breath sound to right lower lung -: cxr moderate effusion -: waiting on placement on pt. pt does not want to go to snf * . Review of Systems - Review of Systems Respiratory: Shortness of Breath, SOB with Excertion Cardiovascular: negative: chest pain, palpitations, orthopnea, paroxysmal nocturnal dyspnea, edema, light headedness, other Gastrointestinal: negative: Nausea, Vomiting, Abdominal Pain, Diarrhea, Constipation, Melena, Hematochezia, Other Genitourinary: negative: Dysuria, Frequency, Incontinence, Hematuria, Retention , Other - Medications/Allergies Allergies/Adverse Reactions: Allergies Allergy/AdvReac Type Severity Reaction Status Date / Time aspirin Allergy Severe Verified 12/22/17 17:26 cefepime Allergy Severe Rash Verified 12/22/17 17:26 ibuprofen Allergy Severe Verified 12/22/17 17:26 NSAIDS (Non-Steroidal Allergy Severe Verified 12/22/17 17:26 Anti-Inflamma Penicillins Allergy Unknown Verified 12/22/17 17:26 Medications: Current Medications Hydrocodone Bitart/Acetaminophen ([place] 5/325) 1 tab PO Q4H PRN PRN Reason: Moderate Pain (4-6) Last Admin: 01/05/18 14:46 Dose: 1 tab Albuterol/Ipratropium (Duoneb) 3 ml NEB Q6H PRN PRN Reason: SOB &/or Wheezing Last Admin: 01/01/18 16:03 Dose: 3 ml Amlodipine Besylate (Norvasc) 2.5 mg PO DAILY [facility] Last Admin: 01/05/18 08:40 Dose: 2.5 mg Amoxicillin (Amoxil) 250 mg PO TID [facility] Last Admin: 01/05/18 14:46 Dose: 250 mg Calcium Carbonate (Tums) 1,000 mg PO Q4H PRN PRN Reason: Heartburn or Indigestion Escitalopram Oxalate (Lexapro) 10 mg PO DAILY [facility] Last Admin: 01/05/18 08:39 Dose: 10 mg Fluconazole (Diflucan) 100 mg PO DAILY [facility] Last Admin: 01/05/18 08:38 Dose: 100 mg Hydralazine HCl (Apresoline) 10 mg SLOW IVP Q4H PRN PRN Reason: SBP Greater Than 180 Levothyroxine Sodium (Synthroid) 75 mcg PO 0600 [facility] Last Admin: 01/05/18 05:05 Dose: 75 mcg Lidocaine (Lidoderm 5% Patch) 1 patch TD DAILY PRN PRN Reason: pain Last Admin: 01/04/18 09:20 Dose: 1 patch Lorazepam (Ativan) 0.5 mg PO Q6H PRN PRN Reason: Anxiety Last Admin: 01/05/18 14:47 Dose: 0.5 mg Miscellaneous Medication (Pharmacy To Dose) 1 each IVPB PRN PRN PRN Reason: Pharmacy to dose Nystatin (Mycostatin Powder) 0 gm TOP BID [facility] Last Admin: 01/05/18 08:43 Dose: 1 applic Ondansetron HCl (Zofran Odt) 4 mg PO Q6H PRN PRN Reason: Nausea/Vomiting Last Admin: 01/03/18 11:43 Dose: 4 mg Ondansetron HCl (Zofran) 4 mg IVP Q6H PRN PRN Reason: Nausea/Vomiting Last Admin: 12/27/17 21:47 Dose: 4 mg Pantoprazole Sodium (Protonix) 40 mg PO DAILY [facility] Last Admin: 01/05/18 08:38 Dose: 40 mg Polyethylene Glycol (Miralax) 17 gm PO DAILY [facility] Last Admin: 01/05/18 08:43 Dose: Not Given Potassium Chloride (Klor-Con) 20 meq PO QAM-WM [facility] Last Admin: 01/05/18 08:48 Dose: 20 meq Pregabalin (Lyrica) 75 mg PO BID [facility] Last Admin: 01/05/18 08:38 Dose: 75 mg Saccharomyces Boulardii (Florastor) 250 mg PO BID [facility] Last Admin: 01/05/18 08:38 Dose: 250 mg Senna (Senokot) 2 tab PO HSPRN PRN PRN Reason: Constipation Senna/Docusate Sodium (Senokot S) 1 tab PO BID [facility] Last Admin: 01/05/18 08:42 Dose: Not Given Sodium Chloride (Flush - Normal Saline) 10 ml IVF Q12HR [facility] Last Admin: 01/05/18 08:42 Dose: 10 ml Sodium Chloride (Flush - Normal Saline) 10 ml IVF PRN PRN PRN Reason: Saline Flush Trazodone HCl (Desyrel) 100 mg PO [facility] Last Admin: 01/04/18 20:01 Dose: 100 mg
--- NOTE | 2018-01-05 15:56 | PDOC.PN ---
- Subjective Encounter Start Date: 01/05/18 Encounter Start Time: 12:30 Subjective: pt up in bed feels better today - Objective Resuscitation Status: Resuscitation Status FULL:Full Resuscitation Vital Signs & Weight: Vital Signs (12 hours) Temp Pulse Resp BP BP Pulse Ox Pulse Ox 01/05/18 11:00 98.8 F 70 20 161/55 H 90 L 01/05/18 09:00 90 L 01/05/18 08:40 72 151/67 H 01/05/18 08:00 99.0 F 72 18 151/67 H 91 L Pulse Ox Pulse Ox 01/05/18 11:00 01/05/18 09:00 93 L 94 L 01/05/18 08:40 01/05/18 08:00 Weight Admit Weight 130 lb Weight 130 lb I&O: 01/04/18 01/05/18 01/06/18 06:59 06:59 06:59 Intake Total 960 700 Balance 960 700 Result Diagrams: 01/02/18 10:29 01/02/18 10:29 Phys Exam - Physical Examination Neck: no nodes, no JVD, supple, full ROM decreased breath sound to right lower lung area Cardiovascular: RRR, no significant murmur, no rub, gallop, irregular Gastrointestinal: soft, non-tender, no distention, positive bowel sounds Dx/Plan (1) Bacteremia due to Enterococcus Code(s): R78.81 - BACTEREMIA; B95.2 - ENTEROCOCCUS THE CAUSE OF DISEASES CLASSIFIED ELSEWHERE Status: Acute Comment: Source not identified. Does have some yana-rectal edema on CT abd/pelvis on 12/26, but not other specific pathology noted. Followed by ID. On Amp. Short course recommended. Discussed with ID. Will change to po. (2) Pleural effusion Code(s): J90 - PLEURAL EFFUSION, NOT ELSEWHERE CLASSIFIED Status: Acute Comment: Like secondary to liver disease. Also has grade III diastolic dysfunction. S/P thoracentesis without signif evidence of infection. Persistent RLL atelectasis. Encouraged IS and activity. Now with possible recurrence of effusion based on exam and repeat CXR. (3) Cirrhosis Code(s): K74.60 - UNSPECIFIED CIRRHOSIS OF LIVER Status: Acute Comment: History of remote TIPS procedure. (4) Hypertension Code(s): I10 - ESSENTIAL (PRIMARY) HYPERTENSION Status: Chronic Qualifiers: Hypertension type: essential hypertension Qualified Code(s): I10 - Essential (primary) hypertension - Plan pt now is ok to go to snf since her swing bed was denied -: will continue iv lasix for now since he still has some swelling to his -: stump area. * . Review of Systems - Review of Systems Respiratory: Shortness of Breath Cardiovascular: negative: chest pain, palpitations, orthopnea, paroxysmal nocturnal dyspnea, edema, light headedness, other Gastrointestinal: negative: Nausea, Vomiting, Abdominal Pain, Diarrhea, Constipation, Melena, Hematochezia, Other Genitourinary: negative: Dysuria, Frequency, Incontinence, Hematuria, Retention , Other - Medications/Allergies Allergies/Adverse Reactions: Allergies Allergy/AdvReac Type Severity Reaction Status Date / Time aspirin Allergy Severe Verified 12/22/17 17:26 cefepime Allergy Severe Rash Verified 12/22/17 17:26 ibuprofen Allergy Severe Verified 12/22/17 17:26 NSAIDS (Non-Steroidal Allergy Severe Verified 12/22/17 17:26 Anti-Inflamma Penicillins Allergy Unknown Verified 12/22/17 17:26 Medications: Current Medications Hydrocodone Bitart/Acetaminophen ([place] 5/325) 1 tab PO Q4H PRN PRN Reason: Moderate Pain (4-6) Last Admin: 01/05/18 14:46 Dose: 1 tab Albuterol/Ipratropium (Duoneb) 3 ml NEB Q6H PRN PRN Reason: SOB &/or Wheezing Last Admin: 01/01/18 16:03 Dose: 3 ml Amlodipine Besylate (Norvasc) 2.5 mg PO DAILY [facility] Last Admin: 01/05/18 08:40 Dose: 2.5 mg Amoxicillin (Amoxil) 250 mg PO TID [facility] Last Admin: 01/05/18 14:46 Dose: 250 mg Calcium Carbonate (Tums) 1,000 mg PO Q4H PRN PRN Reason: Heartburn or Indigestion Escitalopram Oxalate (Lexapro) 10 mg PO DAILY [facility] Last Admin: 01/05/18 08:39 Dose: 10 mg Fluconazole (Diflucan) 100 mg PO DAILY [facility] Last Admin: 01/05/18 08:38 Dose: 100 mg Hydralazine HCl (Apresoline) 10 mg SLOW IVP Q4H PRN PRN Reason: SBP Greater Than 180 Levothyroxine Sodium (Synthroid) 75 mcg PO 0600 [facility] Last Admin: 01/05/18 05:05 Dose: 75 mcg Lidocaine (Lidoderm 5% Patch) 1 patch TD DAILY PRN PRN Reason: pain Last Admin: 01/04/18 09:20 Dose: 1 patch Lorazepam (Ativan) 0.5 mg PO Q6H PRN PRN Reason: Anxiety Last Admin: 01/05/18 14:47 Dose: 0.5 mg Miscellaneous Medication (Pharmacy To Dose) 1 each IVPB PRN PRN PRN Reason: Pharmacy to dose Nystatin (Mycostatin Powder) 0 gm TOP BID [facility] Last Admin: 01/05/18 08:43 Dose: 1 applic Ondansetron HCl (Zofran Odt) 4 mg PO Q6H PRN PRN Reason: Nausea/Vomiting Last Admin: 01/03/18 11:43 Dose: 4 mg Ondansetron HCl (Zofran) 4 mg IVP Q6H PRN PRN Reason: Nausea/Vomiting Last Admin: 12/27/17 21:47 Dose: 4 mg Pantoprazole Sodium (Protonix) 40 mg PO DAILY [facility] Last Admin: 01/05/18 08:38 Dose: 40 mg Polyethylene Glycol (Miralax) 17 gm PO DAILY [facility] Last Admin: 01/05/18 08:43 Dose: Not Given Potassium Chloride (Klor-Con) 20 meq PO QAM-WM [facility] Last Admin: 01/05/18 08:48 Dose: 20 meq Pregabalin (Lyrica) 75 mg PO BID [facility] Last Admin: 01/05/18 08:38 Dose: 75 mg Saccharomyces Boulardii (Florastor) 250 mg PO BID [facility] Last Admin: 01/05/18 08:38 Dose: 250 mg Senna (Senokot) 2 tab PO HSPRN PRN PRN Reason: Constipation Senna/Docusate Sodium (Senokot S) 1 tab PO BID [facility] Last Admin: 01/05/18 08:42 Dose: Not Given Sodium Chloride (Flush - Normal Saline) 10 ml IVF Q12HR [facility] Last Admin: 01/05/18 08:42 Dose: 10 ml Sodium Chloride (Flush - Normal Saline) 10 ml IVF PRN PRN PRN Reason: Saline Flush Trazodone HCl (Desyrel) 100 mg PO HS [facility] Last Admin: 01/04/18 20:01 Dose: 100 mg
[2018-01-05] MEDS: traZODone HCl 50 MG TAB PO SCH (20:20)
[2018-01-05] MEDS: Lidocaine 5% Patch TD PRN (22:05)
[2018-01-06] MEDS: HYDROcodone/Acetaminophen 5/325 mg Tablet PO PRN ×5 (03:05→20:09)
[2018-01-06] MEDS: Levothyroxine Sodium 75 MCG TAB PO SCH (06:42)
[2018-01-06] MEDS: Saccharomyces boulardii 250 MG CAP PO SCH ×2 (08:12→20:07)
[2018-01-06] MEDS: Escitalopram Oxalate 10 mg Tablet PO SCH (08:12)
[2018-01-06] MEDS: Fluconazole 100 MG TAB PO SCH (08:12)
[2018-01-06] MEDS: Pregabalin 75 MG CAP PO SCH ×2 (08:13→20:08)
[2018-01-06] MEDS: Polyethylene Glycol 3350 17 GM Packet PO SCH (08:13)
[2018-01-06] MEDS: Nystatin Powder 15 GM BOT TOP SCH ×2 (08:15→20:09)
[2018-01-06] MEDS: Amlodipine 5 MG TAB PO SCH (08:15)
[2018-01-06] MEDS: Senokot S 8.6-50 MG TAB PO SCH ×2 (08:16→19:08)
[2018-01-06] MEDS: AMOXicillin 250 MG CAP PO SCH ×3 (08:16→20:07)
[2018-01-06] MEDS: Lorazepam 0.5 MG TAB PO PRN ×3 (08:25→20:10)
[2018-01-06] MEDS ORDERED: Furosemide 40 MG/4 ML VIAL SLOW IVP SCH (12:15)
--- NOTE | 2018-01-06 13:54 | PDOC.PN ---
- Subjective Encounter Start Date: 01/06/18 Encounter Start Time: 11:30 Subjective: pt up in bed complains of sob - Objective Resuscitation Status: Resuscitation Status FULL:Full Resuscitation Vital Signs & Weight: Vital Signs (12 hours) Temp Pulse Resp BP BP Pulse Ox 01/06/18 11:10 98.1 F 59 L 16 116/62 93 L 01/06/18 10:53 95 01/06/18 08:15 59 L 151/54 H 01/06/18 07:13 98.3 F 59 L 18 151/54 H 88 L Weight Admit Weight 130 lb Weight 130 lb I&O: 01/05/18 01/06/18 01/07/18 06:59 06:59 06:59 Intake Total 700 840 Balance 700 840 Result Diagrams: 01/02/18 10:29 01/02/18 10:29 Phys Exam - Physical Examination decreased breath sound to bases Cardiovascular: RRR, no significant murmur, no rub, gallop, irregular Gastrointestinal: soft, non-tender, no distention, positive bowel sounds Musculoskeletal: no edema, pulses present, edema present Dx/Plan (1) Bacteremia due to Enterococcus Code(s): R78.81 - BACTEREMIA; B95.2 - ENTEROCOCCUS THE CAUSE OF DISEASES CLASSIFIED ELSEWHERE Status: Acute Comment: Source not identified. Does have some yana-rectal edema on CT abd/pelvis on 12/26, but not other specific pathology noted. Followed by ID. On Amp. Short course recommended. Discussed with ID. Will change to po. (2) Pleural effusion Code(s): J90 - PLEURAL EFFUSION, NOT ELSEWHERE CLASSIFIED Status: Acute Comment: Like secondary to liver disease. Also has grade III diastolic dysfunction. S/P thoracentesis without signif evidence of infection. Persistent RLL atelectasis. Encouraged IS and activity. Now with possible recurrence of effusion based on exam and repeat CXR. (3) Cirrhosis Code(s): K74.60 - UNSPECIFIED CIRRHOSIS OF LIVER Status: Acute Comment: History of remote TIPS procedure. (4) Hypertension Code(s): I10 - ESSENTIAL (PRIMARY) HYPERTENSION Status: Chronic Qualifiers: Hypertension type: essential hypertension Qualified Code(s): I10 - Essential (primary) hypertension - Plan waiting on snf bed -: will give pt iv lasix once today -: abx to be continued for total of 10 days starting 01/02-01/12 * . Review of Systems - Review of Systems Respiratory: Shortness of Breath Cardiovascular: negative: chest pain, palpitations, orthopnea, paroxysmal nocturnal dyspnea, edema, light headedness, other Gastrointestinal: negative: Nausea, Vomiting, Abdominal Pain, Diarrhea, Constipation, Melena, Hematochezia, Other - Medications/Allergies Allergies/Adverse Reactions: Allergies Allergy/AdvReac Type Severity Reaction Status Date / Time aspirin Allergy Severe Verified 12/22/17 17:26 cefepime Allergy Severe Rash Verified 12/22/17 17:26 ibuprofen Allergy Severe Verified 12/22/17 17:26 NSAIDS (Non-Steroidal Allergy Severe Verified 12/22/17 17:26 Anti-Inflamma Penicillins Allergy Unknown Verified 12/22/17 17:26 Medications: Current Medications Hydrocodone Bitart/Acetaminophen ([place] 5/325) 1 tab PO Q4H PRN PRN Reason: Moderate Pain (4-6) Last Admin: 01/06/18 12:21 Dose: 1 tab Albuterol/Ipratropium (Duoneb) 3 ml NEB Q6H PRN PRN Reason: SOB &/or Wheezing Last Admin: 01/01/18 16:03 Dose: 3 ml Amlodipine Besylate (Norvasc) 2.5 mg PO DAILY [facility] Last Admin: 01/06/18 08:15 Dose: 2.5 mg Amoxicillin (Amoxil) 250 mg PO TID [facility] Last Admin: 01/06/18 08:16 Dose: 250 mg Calcium Carbonate (Tums) 1,000 mg PO Q4H PRN PRN Reason: Heartburn or Indigestion Escitalopram Oxalate (Lexapro) 10 mg PO DAILY [facility] Last Admin: 01/06/18 08:12 Dose: 10 mg Furosemide (Lasix) 40 mg SLOW IVP NOW [facility] Stop: 01/06/18 14:15 Last Admin: 01/06/18 12:21 Dose: 40 mg Hydralazine HCl (Apresoline) 10 mg SLOW IVP Q4H PRN PRN Reason: SBP Greater Than 180 Levothyroxine Sodium (Synthroid) 75 mcg PO 0600 [facility] Last Admin: 01/06/18 06:42 Dose: 75 mcg Lidocaine (Lidoderm 5% Patch) 1 patch TD DAILY PRN PRN Reason: pain Last Admin: 01/05/18 22:05 Dose: 1 patch Lorazepam (Ativan) 0.5 mg PO Q6H PRN PRN Reason: Anxiety Last Admin: 01/06/18 08:25 Dose: 0.5 mg Miscellaneous Medication (Pharmacy To Dose) 1 each IVPB PRN PRN PRN Reason: Pharmacy to dose Nystatin (Mycostatin Powder) 0 gm TOP BID [facility] Last Admin: 01/06/18 08:15 Dose: 1 applic Ondansetron HCl (Zofran Odt) 4 mg PO Q6H PRN PRN Reason: Nausea/Vomiting Last Admin: 01/03/18 11:43 Dose: 4 mg Ondansetron HCl (Zofran) 4 mg IVP Q6H PRN PRN Reason: Nausea/Vomiting Last Admin: 12/27/17 21:47 Dose: 4 mg Pantoprazole Sodium (Protonix) 40 mg PO DAILY [facility] Last Admin: 01/06/18 08:13 Dose: 40 mg Polyethylene Glycol (Miralax) 17 gm PO DAILY [facility] Last Admin: 01/06/18 08:13 Dose: Not Given Potassium Chloride (Klor-Con) 20 meq PO QAM-WM [facility] Last Admin: 01/06/18 08:12 Dose: 20 meq Pregabalin (Lyrica) 75 mg PO BID [facility] Last Admin: 01/06/18 08:13 Dose: 75 mg Saccharomyces Boulardii (Florastor) 250 mg PO BID [facility] Last Admin: 01/06/18 08:12 Dose: 250 mg Senna (Senokot) 2 tab PO HSPRN PRN PRN Reason: Constipation Senna/Docusate Sodium (Senokot S) 1 tab PO BID [facility] Last Admin: 01/06/18 08:16 Dose: Not Given Sodium Chloride (Flush - Normal Saline) 10 ml IVF Q12HR [facility] Last Admin: 01/06/18 08:16 Dose: 10 ml Sodium Chloride (Flush - Normal Saline) 10 ml IVF PRN PRN PRN Reason: Saline Flush Trazodone HCl (Desyrel) 100 mg PO HS [facility] Last Admin: 01/05/18 20:20 Dose: 100 mg
[2018-01-06] MEDS: traZODone HCl 50 MG TAB PO SCH (20:07)
[2018-01-07] MEDS: HYDROcodone/Acetaminophen 5/325 mg Tablet PO PRN ×5 (02:19→20:12)
[2018-01-07] MEDS: Lorazepam 0.5 MG TAB PO PRN ×4 (02:22→20:12)
[2018-01-07] MEDS: Levothyroxine Sodium 75 MCG TAB PO SCH (06:06)
[2018-01-07] MEDS: Amlodipine 5 MG TAB PO SCH (08:18)
[2018-01-07] MEDS: Pregabalin 75 MG CAP PO SCH ×2 (08:18→20:12)
[2018-01-07] MEDS: Saccharomyces boulardii 250 MG CAP PO SCH ×2 (08:18→20:12)
[2018-01-07] MEDS: Polyethylene Glycol 3350 17 GM Packet PO SCH (08:19)
[2018-01-07] MEDS: Escitalopram Oxalate 10 mg Tablet PO SCH (08:19)
[2018-01-07] MEDS: Furosemide 40 MG TAB PO SCH (08:19)
[2018-01-07] MEDS: Senokot S 8.6-50 MG TAB PO SCH ×2 (08:19→19:53)
[2018-01-07] MEDS: Nystatin Powder 15 GM BOT TOP SCH ×2 (08:20→20:13)
[2018-01-07] MEDS: AMOXicillin 250 MG CAP PO SCH ×3 (08:20→20:11)
[2018-01-07] MEDS: Lidocaine 5% Patch TD PRN (08:34)
--- NOTE | 2018-01-07 14:36 | PDOC.PN ---
- Subjective Encounter Start Date: 01/07/18 Encounter Start Time: 09:20 Pt seen for followup re: bacteremia. Denies chest pain. Reports shortness of breath with exertion. No nausea, vomiting or diarrhea. - Objective Resuscitation Status: Resuscitation Status FULL:Full Resuscitation MAR Reviewed: Yes Vital Signs & Weight: Vital Signs (12 hours) Temp Pulse Resp BP Pulse Ox 01/07/18 11:10 98.4 F 61 18 123/65 90 L 01/07/18 08:18 63 Weight Admit Weight 130 lb Weight 130 lb I&O: 01/06/18 01/07/18 01/08/18 06:59 06:59 06:59 Intake Total 840 1154 Balance 840 1154 Result Diagrams: 01/02/18 10:29 01/02/18 10:29 Additional Labs: labs reviewed by me Phys Exam - Physical Examination Constitutional: NAD HEENT: moist MMs Neck: supple Diminished air entry marc bases Cardiovascular: RRR Gastrointestinal: soft Neurological: moves all 4 limbs Psychiatric: normal affect Dx/Plan (1) Bacteremia due to Enterococcus Code(s): R78.81 - BACTEREMIA; B95.2 - ENTEROCOCCUS THE CAUSE OF DISEASES CLASSIFIED ELSEWHERE Status: Acute Comment: continue amoxicillin (2) Hypertension Code(s): I10 - ESSENTIAL (PRIMARY) HYPERTENSION Status: Chronic Qualifiers: Hypertension type: essential hypertension Qualified Code(s): I10 - Essential (primary) hypertension Comment: controlled and at goal (3) Hypothyroid Code(s): E03.9 - HYPOTHYROIDISM, UNSPECIFIED Status: Chronic Qualifiers: Hypothyroidism type: unspecified Qualified Code(s): E03.9 - Hypothyroidism , unspecified Comment: continue synthroid (4) Moderate protein-calorie malnutrition Code(s): E44.0 - MODERATE PROTEIN-CALORIE MALNUTRITION Status: Chronic Comment: appreciate dietitian input - Plan * . Review of Systems - Review of Systems Respiratory: SOB with Excertion. negative: Cough, Shortness of Breath, Pleuritic Pain, Wheezing Cardiovascular: negative: chest pain, palpitations, orthopnea, paroxysmal nocturnal dyspnea, edema, light headedness Musculoskeletal: Shoulder Pain - Medications/Allergies Allergies/Adverse Reactions: Allergies Allergy/AdvReac Type Severity Reaction Status Date / Time aspirin Allergy Severe Verified 12/22/17 17:26 cefepime Allergy Severe Rash Verified 12/22/17 17:26 ibuprofen Allergy Severe Verified 12/22/17 17:26 NSAIDS (Non-Steroidal Allergy Severe Verified 12/22/17 17:26 Anti-Inflamma Penicillins Allergy Unknown Verified 12/22/17 17:26 Medications: Current Medications Hydrocodone Bitart/Acetaminophen ([place] 5/325) 1 tab PO Q4H PRN PRN Reason: Moderate Pain (4-6) Last Admin: 01/07/18 10:32 Dose: 1 tab Albuterol/Ipratropium (Duoneb) 3 ml NEB Q6H PRN PRN Reason: SOB &/or Wheezing Last Admin: 01/01/18 16:03 Dose: 3 ml Amlodipine Besylate (Norvasc) 2.5 mg PO DAILY [facility] Last Admin: 01/07/18 08:18 Dose: 2.5 mg Amoxicillin (Amoxil) 250 mg PO TID [facility] Last Admin: 01/07/18 08:20 Dose: 250 mg Calcium Carbonate (Tums) 1,000 mg PO Q4H PRN PRN Reason: Heartburn or Indigestion Escitalopram Oxalate (Lexapro) 10 mg PO DAILY [facility] Last Admin: 01/07/18 08:19 Dose: 10 mg Furosemide (Lasix) 40 mg PO DAILY-AC [facility] Last Admin: 01/07/18 08:19 Dose: 40 mg Hydralazine HCl (Apresoline) 10 mg SLOW IVP Q4H PRN PRN Reason: SBP Greater Than 180 Levothyroxine Sodium (Synthroid) 75 mcg PO 0600 [facility] Last Admin: 01/07/18 06:06 Dose: 75 mcg Lidocaine (Lidoderm 5% Patch) 1 patch TD DAILY PRN PRN Reason: pain Last Admin: 01/07/18 08:34 Dose: 1 patch Lorazepam (Ativan) 0.5 mg PO Q6H PRN PRN Reason: Anxiety Last Admin: 01/07/18 08:26 Dose: 0.5 mg Miscellaneous Medication (Pharmacy To Dose) 1 each IVPB PRN PRN PRN Reason: Pharmacy to dose Nystatin (Mycostatin Powder) 0 gm TOP BID [facility] Last Admin: 01/07/18 08:20 Dose: 1 applic Ondansetron HCl (Zofran Odt) 4 mg PO Q6H PRN PRN Reason: Nausea/Vomiting Last Admin: 01/03/18 11:43 Dose: 4 mg Ondansetron HCl (Zofran) 4 mg IVP Q6H PRN PRN Reason: Nausea/Vomiting Last Admin: 12/27/17 21:47 Dose: 4 mg Pantoprazole Sodium (Protonix) 40 mg PO DAILY [facility] Last Admin: 01/07/18 08:18 Dose: 40 mg Polyethylene Glycol (Miralax) 17 gm PO DAILY [facility] Last Admin: 01/07/18 08:19 Dose: Not Given Potassium Chloride (Klor-Con) 20 meq PO QAM-WM [facility] Last Admin: 01/07/18 08:18 Dose: 20 meq Pregabalin (Lyrica) 75 mg PO BID [facility] Last Admin: 01/07/18 08:18 Dose: 75 mg Saccharomyces Boulardii (Florastor) 250 mg PO BID [facility] Last Admin: 01/07/18 08:18 Dose: 250 mg Senna (Senokot) 2 tab PO HSPRN PRN PRN Reason: Constipation Senna/Docusate Sodium (Senokot S) 1 tab PO BID [facility] Last Admin: 01/07/18 08:19 Dose: Not Given Sodium Chloride (Flush - Normal Saline) 10 ml IVF Q12HR [facility] Last Admin: 01/07/18 08:20 Dose: 10 ml Sodium Chloride (Flush - Normal Saline) 10 ml IVF PRN PRN PRN Reason: Saline Flush Trazodone HCl (Desyrel) 100 mg PO HS [facility] Last Admin: 01/06/18 20:07 Dose: 100 mg
[2018-01-07] MEDS: traZODone HCl 50 MG TAB PO SCH (20:11)
[2018-01-08] MEDS: HYDROcodone/Acetaminophen 5/325 mg Tablet PO PRN ×5 (02:38→20:37)
[2018-01-08] MEDS: Lorazepam 0.5 MG TAB PO PRN ×3 (04:17→20:38)
[2018-01-08] MEDS: Levothyroxine Sodium 75 MCG TAB PO SCH (04:17)
[2018-01-08] MEDS: Amlodipine 5 MG TAB PO SCH (08:18)
[2018-01-08] MEDS: Pregabalin 75 MG CAP PO SCH ×2 (08:20→20:38)
[2018-01-08] MEDS: Furosemide 40 MG TAB PO SCH (08:21)
[2018-01-08] MEDS: Saccharomyces boulardii 250 MG CAP PO SCH ×2 (08:21→20:37)
[2018-01-08] MEDS: Escitalopram Oxalate 10 mg Tablet PO SCH (08:21)
[2018-01-08] MEDS: AMOXicillin 250 MG CAP PO SCH ×3 (08:21→20:37)
[2018-01-08] MEDS: Nystatin Powder 15 GM BOT TOP SCH ×2 (08:22→20:37)
[2018-01-08] MEDS: Polyethylene Glycol 3350 17 GM Packet PO SCH (08:26)
[2018-01-08] MEDS: Senokot S 8.6-50 MG TAB PO SCH ×2 (08:30→19:28)
--- NOTE | 2018-01-08 17:06 | PDOC.PN ---
- Subjective Encounter Start Date: 01/08/18 Encounter Start Time: 09:40 Pt seen for followup re: bacteremia. Feels slightly better. - Objective Resuscitation Status: Resuscitation Status FULL:Full Resuscitation MAR Reviewed: Yes Vital Signs & Weight: Vital Signs (12 hours) Temp Pulse Resp BP BP Pulse Ox 01/08/18 16:00 98.2 F 56 L 18 125/67 92 L 01/08/18 11:00 98.3 F 61 20 124/61 90 L 01/08/18 08:18 65 152/61 H 01/08/18 07:48 98.3 F 65 18 152/61 H 94 L Weight Admit Weight 130 lb Weight 130 lb I&O: 01/07/18 01/08/18 01/09/18 06:59 06:59 06:59 Intake Total 1154 1070 480 Balance 1154 1070 480 Result Diagrams: 01/02/18 10:29 01/02/18 10:29 Additional Labs: Labs reviewed by me Phys Exam - Physical Examination Constitutional: NAD HEENT: moist MMs Neck: supple Respiratory: clear to auscultation bilateral Cardiovascular: RRR Gastrointestinal: soft Neurological: moves all 4 limbs Psychiatric: normal affect Dx/Plan (1) Bacteremia due to Enterococcus Code(s): R78.81 - BACTEREMIA; B95.2 - ENTEROCOCCUS THE CAUSE OF DISEASES CLASSIFIED ELSEWHERE Status: Acute Comment: will continue amoxicillin, pt waiting for SNU bed (2) Hypertension Code(s): I10 - ESSENTIAL (PRIMARY) HYPERTENSION Status: Chronic Qualifiers: Hypertension type: essential hypertension Qualified Code(s): I10 - Essential (primary) hypertension Comment: controlled (3) Hypothyroid Code(s): E03.9 - HYPOTHYROIDISM, UNSPECIFIED Status: Chronic Qualifiers: Hypothyroidism type: unspecified Qualified Code(s): E03.9 - Hypothyroidism , unspecified Comment: on synthroid (4) Moderate protein-calorie malnutrition Code(s): E44.0 - MODERATE PROTEIN-CALORIE MALNUTRITION Status: Chronic - Plan * . Review of Systems - Review of Systems Constitutional: weakness Respiratory: SOB with Excertion Cardiovascular: other. negative: chest pain, palpitations, orthopnea, paroxysmal nocturnal dyspnea, edema, light headedness Gastrointestinal: negative: Nausea, Vomiting, Abdominal Pain, Diarrhea, Constipation, Melena, Hematochezia - Medications/Allergies Allergies/Adverse Reactions: Allergies Allergy/AdvReac Type Severity Reaction Status Date / Time aspirin Allergy Severe Verified 12/22/17 17:26 cefepime Allergy Severe Rash Verified 12/22/17 17:26 ibuprofen Allergy Severe Verified 12/22/17 17:26 NSAIDS (Non-Steroidal Allergy Severe Verified 12/22/17 17:26 Anti-Inflamma Penicillins Allergy Unknown Verified 12/22/17 17:26 Medications: Current Medications Hydrocodone Bitart/Acetaminophen ([place] 5/325) 1 tab PO Q4H PRN PRN Reason: Moderate Pain (4-6) Last Admin: 01/08/18 16:59 Dose: 1 tab Albuterol/Ipratropium (Duoneb) 3 ml NEB Q6H PRN PRN Reason: SOB &/or Wheezing Last Admin: 01/01/18 16:03 Dose: 3 ml Amlodipine Besylate (Norvasc) 2.5 mg PO DAILY [facility] Last Admin: 01/08/18 08:18 Dose: 2.5 mg Amoxicillin (Amoxil) 250 mg PO TID [facility] Last Admin: 01/08/18 14:53 Dose: 250 mg Calcium Carbonate (Tums) 1,000 mg PO Q4H PRN PRN Reason: Heartburn or Indigestion Escitalopram Oxalate (Lexapro) 10 mg PO DAILY [facility] Last Admin: 01/08/18 08:21 Dose: 10 mg Furosemide (Lasix) 40 mg PO DAILY-AC [facility] Last Admin: 01/08/18 08:21 Dose: 40 mg Hydralazine HCl (Apresoline) 10 mg SLOW IVP Q4H PRN PRN Reason: SBP Greater Than 180 Levothyroxine Sodium (Synthroid) 75 mcg PO 0600 [facility] Last Admin: 01/08/18 04:17 Dose: 75 mcg Lidocaine (Lidoderm 5% Patch) 1 patch TD DAILY PRN PRN Reason: pain Last Admin: 01/07/18 08:34 Dose: 1 patch Lorazepam (Ativan) 0.5 mg PO Q6H PRN PRN Reason: Anxiety Last Admin: 01/08/18 14:51 Dose: 0.5 mg Miscellaneous Medication (Pharmacy To Dose) 1 each IVPB PRN PRN PRN Reason: Pharmacy to dose Nystatin (Mycostatin Powder) 0 gm TOP BID [facility] Last Admin: 01/08/18 08:22 Dose: 1 applic Ondansetron HCl (Zofran Odt) 4 mg PO Q6H PRN PRN Reason: Nausea/Vomiting Last Admin: 01/03/18 11:43 Dose: 4 mg Ondansetron HCl (Zofran) 4 mg IVP Q6H PRN PRN Reason: Nausea/Vomiting Last Admin: 12/27/17 21:47 Dose: 4 mg Pantoprazole Sodium (Protonix) 40 mg PO DAILY [facility] Last Admin: 01/08/18 08:17 Dose: 40 mg Polyethylene Glycol (Miralax) 17 gm PO DAILY [facility] Last Admin: 01/08/18 08:26 Dose: 17 gm Potassium Chloride (Klor-Con) 20 meq PO QAM-WM [facility] Last Admin: 01/08/18 08:17 Dose: 20 meq Pregabalin (Lyrica) 75 mg PO BID [facility] Last Admin: 01/08/18 08:20 Dose: 75 mg Saccharomyces Boulardii (Florastor) 250 mg PO BID [facility] Last Admin: 01/08/18 08:21 Dose: 250 mg Senna (Senokot) 2 tab PO HSPRN PRN PRN Reason: Constipation Senna/Docusate Sodium (Senokot S) 1 tab PO BID [facility] Last Admin: 01/08/18 08:30 Dose: Not Given Sodium Chloride (Flush - Normal Saline) 10 ml IVF Q12HR [facility] Last Admin: 01/08/18 08:22 Dose: Not Given Sodium Chloride (Flush - Normal Saline) 10 ml IVF PRN PRN PRN Reason: Saline Flush Trazodone HCl (Desyrel) 100 mg PO [facility] Last Admin: 01/07/18 20:11 Dose: 100 mg
[2018-01-08] MEDS: traZODone HCl 50 MG TAB PO SCH (20:37)
[2018-01-09] MEDS: Levothyroxine Sodium 75 MCG TAB PO SCH (05:56)
[2018-01-09] MEDS: Pregabalin 75 MG CAP PO SCH (07:53)
[2018-01-09] MEDS: Polyethylene Glycol 3350 17 GM Packet PO SCH (07:53)
[2018-01-09] MEDS: Furosemide 40 MG TAB PO SCH (07:55)
[2018-01-09] MEDS: HYDROcodone/Acetaminophen 5/325 mg Tablet PO PRN ×3 (07:55→16:56)
[2018-01-09] MEDS: Amlodipine 5 MG TAB PO SCH (08:00)
[2018-01-09] MEDS: AMOXicillin 250 MG CAP PO SCH ×2 (08:00→15:23)
[2018-01-09] MEDS: Escitalopram Oxalate 10 mg Tablet PO SCH (08:01)
[2018-01-09] MEDS: Saccharomyces boulardii 250 MG CAP PO SCH (08:01)
[2018-01-09] MEDS: Senokot S 8.6-50 MG TAB PO SCH (08:03)
[2018-01-09] MEDS: Nystatin Powder 15 GM BOT TOP SCH (08:04)
[2018-01-09] MEDS: Lorazepam 0.5 MG TAB PO PRN (10:31)
--- NOTE | 2018-01-09 12:45 | PDOC.EVN ---
Event Note - Event Note Event Note: Pt's resting room air oxygen saturation is 88%. Most likely secondary to pleural effusion. Etiology of pleural effusion secondary to diastolic heart failure (elevated BNPand grade 3/3 diastolic dysfunction) and liver disease. Pt will need home oxygen, arrangements being made.
--- NOTE | 2018-01-09 13:43 | DIS ---
DATE OF ADMISSION: 12/22/2017 DATE OF DISCHARGE: 01/09/2018 PRIMARY CARE PROVIDER: Iqra Little M.D. DISCHARGE DIAGNOSES: 1. Pleural effusion. 2. Sepsis. 3. Chronic pain syndrome. 4. Diastolic congestive heart failure. 5. Bacteremia with Enterococcus casseliflavus and presumptive micrococcus/ [place]. 6. Physical deconditioning. CONSULTATIONS DURING THIS HOSPITALIZATION: Pulmonology, Dr. Sorenson; Infectious Diseases, Dr. Salcedo. CONDITION OF THE PATIENT AT THE TIME OF DISCHARGE: Stable. I assessed Ms. Adrian on the day of discharge. She dienies any chest pain. Vital signs are stable. S1 and S2 are heard, regular. Lung examination reveals a few bibasal crackles. DISCHARGE MEDICATIONS: Synthroid 75 mcg daily, amoxicillin 250 mg every 8 hours for 4 more days, Norvasc 2.5 mg daily, Lexapro 10 mg daily, Lasix 40 mg daily, DuoNeb 3 mL 4 times a day as needed, Lidoderm 5% patch daily as needed, Protonix 40 mg daily, Lyrica 75 mg 2 times a day, Florastor 250 mg 2 times a day for 4 more days, Senokot-S 1 tablet 2 times a day. HOSPITAL COURSE: Ms. Adrian is a pleasant 62-year-old lady, who was admitted to [facility] on 12/22/2017 for sepsis suspected to be secondary to healthcare-associated pneumonia. Please refer to Dr. Crow's history and physical note for further details. The patient was seen by Pulmonology service. She had a right-sided pleural effusion at the time of admission. She received diuretics. She also received antibiotics. She had a 2D echocardiogram, which showed left ventricular ejection fraction of 60% to 65% , grade 3/3 diastolic dysfunction, and severely dilated left atrium. She also had moderate aortic regurgitation and [id number] tricuspid regurgitation. She had tiny pericardial effusion without tamponade. She had blood cultures done at the time of admission. She was found to be bacteremic, with one blood culture growing Enterococcus casseliflavus and second blood culture growing presumptive micrococcus. She was seen by Infectious Diseases service. She also underwent a thoracentesis of the right-sided pleural effusion. Results were consistent with a transudative effusion, likely secondary to congestive heart failure exacerbation as well as liver disease. She also had an elevated BNP during this hospitalization. Adjustments were made to her pain medications. She has been started on Lidoderm patch. [place] is being discontinued and she is receiving a prescription for 10 doses of Tylenol #3, q.8-hour p.r.n. She also became physically deconditioned during this hospitalization. Her insurance declined inpatient rehabilitation. She was also declined by residential facilities. At the time of discharge, she was still waiting to hear from swing bed. However, patient did not want to go anywhere, but home with home health. She was assessed for home oxygen and was found to be saturating 88% on room air at rest. With her history of congestive heart failure, she qualifies for home oxygen. She will also need a nebulizer for delivery of bronchodilator medications for her history of obstructive pulmonary disease. She will also need a bedside commode, because of her physical deconditioning. Many thanks for allowing me to participate in your patient's care. Please feel free to contact me with any questions or concerns DISCHARGE DESTINATION: Home with home health. TOTAL AMOUNT OF TIME SPENT COORDINATING THIS DISCHARGE: 40 minutes. CARROLL
[2018-01-09 17:27] VITALS: BP 152/67; TEMP 98.3
== END 2018-01-09 17:28 | disposition home or self-care (01) | DRG 871 ==
LOC: ERS 12:04 → T4-B 16:59
PROVIDERS: ADMIT Internal Medicine; ATTEND Internal Medicine
DX: A41.9 Sepsis, unspecified organism (principal); J18.9 Pneumonia, unspecified organism; K76.6 Portal hypertension; I13.0 Hypertensive heart and chronic kidney disease with heart failure and stage 1 through stage 4 chronic kidney disease, or unspecified chronic kidney disease; I50.32 Chronic diastolic (congestive) heart failure; J90 Pleural effusion, not elsewhere classified; E44.0 Moderate protein-calorie malnutrition; G89.4 Chronic pain syndrome; Z87.11 Personal history of peptic ulcer disease; F41.9 Anxiety disorder, unspecified; E78.5 Hyperlipidemia, unspecified; F10.11 Alcohol abuse, in remission; E03.9 Hypothyroidism, unspecified; J44.9 Chronic obstructive pulmonary disease, unspecified; K70.30 Alcoholic cirrhosis of liver without ascites; Z96.642 Presence of left artificial hip joint; Z89.512 Acquired absence of left leg below knee; Z88.0 Allergy status to penicillin; N18.2 Chronic kidney disease, stage 2 (mild); D53.9 Nutritional anemia, unspecified
CPT/HCPCS: 36415; 36416; 51701; 71045; 71046; 71250; 74177; 80048; 80053; 80202; 80307; 81003; 81015; 82150; 82274; 82728; 82945; 83540; 83550; 83615; 83735; 83880; 84157; 85025; 85046; 85060; 85610; 85730; 87040; 87070; 87077; 87149; 87186; 87205; 88112; 88305; 89051; 93005; 93010; 93306; 94640; 99285; A4216; A4353; G8978-GP-CM; G8979-GP-CK; G8987-GO-CJ; G8987-GO-CK; G8988-GO-CI; G8996-GN-CI; G8997-GN-CI; J0290; J1644; J1940; J1956; J2001; J2405; J2916; J3370; J3475; J7050; J7620; Q0162

== ENCOUNTER 2018-01-13 13:03 | Inpatient (IN) | payer MEDICARE ==
[~2018-01-13 13:03] MED LIST: ISOVUE-370 76%-LOCM 1 ML ONE
[2018-01-13 14:11] LABS: #Eosinphils 0.3 thou/uL (0.0-0.7); #Lymphocytes 0.8 thou/uL (1.20-3.40); #Monocytes 0.3 thou/uL (0.11-0.59); #Neutrophils 3.4 thou/uL (1.40-6.50); %Basophils 0.7 % (0.0-1.0); %Eosinophils 7.1 % (0.0-10.0); %Lymphocytes 15.3 % (21.0-51.0); %Neutrophils 69.9 % (42.0-75.0); Mean Corpuscular HGB CONC 30.7 g/dL (32.0-36.0); Mean Corpuscular Hemoglobin 25.8 pg (27.0-31.0); Mean Corpuscular Volume 84.1 fL (78.0-98.0); Mean Platelet Volume 9.6 fL (7.4-10.4); Platelet Count 212 thou/uL (130-400); RBC Distribution Width 18.7 % (11.5-14.5); Red Blood Cell (RBC) Count 3.88 mill/uL (4.20-5.40); White Blood Cell (WBC) Count 4.9 thou/uL (4.8-10.8)
[2018-01-13 14:38] LABS: ALT (SGPT) 10 U/L (8-55); AST (SGOT) 17 U/L (5-34); Albumin 3.3 g/dL (3.4-4.8); Alkaline Phosphatase 217 U/L (40-150); Anion Gap 12 mmol/L (10-20); BUN (Urea Nitrogen) 12 mg/dL (9.8-20.1); Bilirubin, Total 0.6 mg/dL (0.2-1.2); CK (CPK) 49 U/L (29-168); CKMB 0.6 ng/mL (0-6.6); Calc. Creatinine Clearance 0 mL/min (70-130); Calcium 8.7 mg/dL (7.8-10.44); Carbon Dioxide 23 mmol/L (23-31); Chloride 112 mmol/L (98-107); Estimated GFR-MDRD 77; Globulin 2.9 g/dL (2.4-3.5); Glucose 100 mg/dL (80-115); Potassium 3.7 mmol/L (3.5-5.1); Protein, Total 6.2 g/dL (6.0-8.3); Sodium 143 mmol/L (136-145); Troponin I Less than 0.010 ng/mL (< 0.028)
--- NOTE | 2018-01-13 15:05 | RAD ---
PORTABLE CHEST ONE VIEW: HISTORY: A 62-year-old female with a history of cough. Recent pneumonia. COMPARISON: 01/04/2018 FINDINGS: Cardiomegaly with left pleural effusion, with minimal vertically oriented, streaky parenchymal change s in the infrahilar regions bilaterally, overall stable. Partially visualized stent overlying the up per abdomen. IMPRESSION: 1. Overall stable cardiomegaly with right pleural effusion and minimal bibasilar linear and parenchy mal changes. 2. Arthrosis changes, right glenohumeral joint and postoperative left shoulder replacement. POS: C
[2018-01-13] MEDS ORDERED: Acetaminophen/Codeine 30-300mg Tablet ONE (15:43)
--- NOTE | 2018-01-13 15:59 | CT ---
CT ANGIOGRAM OF THE CHEST: 01/13/18 COMPARISON: 12/20/16. HISTORY: Chest pain. Fever. TECHNIQUE: CT angiogram of the chest is performed in the axial plane. Three dimensional reformatted images are s ubmitted for interpretation. FINDINGS: Trachea and central bronchi are patent. Moderate right sided pleural effusion. Consolidation of the r ight lower lobe may represent atelectasis or pneumonia. Minimal atelectatic changes in the left lower lobe. Heart is enlarged. Small amount of pericardial fluid. The thoracic aorta and upper abdominal a william have an overall normal caliber. No periaortic fat stranding. Cirrhotic changes to the liver are noted. Stent secondary to TIPS procedure is identified. Evaluation is limited and incomplete. Hepatic artery is noted at the level of the marco hepatis. Evaluation is incomplete. Arterial phase imaging of the visualized upper solid organs is grossly unremarkable. Hypo density in the upper pole of the right kidney is incompletely evaluated, measuring 1.2 cm. Adequate contrast opacification of the pulmonary arterial system to the level of the segmental arteri es. No filling defect to suggest thromboembolism. IMPRESSION: 1. No evidence of pulmonary artery embolism to the level of the segmental arteries. 2. Moderate right sided effusion with adjacent consolidation likely due to atelectasis or pneumo nathen. 3. Findings compatible with cirrhotic change of the liver. Stent secondary to TIPS procedure is identified. POS: NGA
[2018-01-13] MEDS ORDERED: Aztreonam 2 GM in Sodium Chloride 0.9% 100 ML IVPB SCH (16:15)
[2018-01-13 18:01] VITALS: BMI 22.4
[2018-01-13] MEDS ORDERED: Acetaminophen 325 MG TAB PO PRN ×2 (18:02→18:41)
[2018-01-13] MEDS ORDERED: Ondansetron HCl/PF 4 MG/2 ML Vial IVP PRN (18:02)
[2018-01-13] MEDS ORDERED: Ondansetron ODT 4 MG TAB SL PRN (18:02)
[2018-01-13] MEDS ORDERED: Bisacodyl 5 MG TAB PO PRN (18:41)
[2018-01-13] MEDS ORDERED: Acetaminophen 650 MG Suppository PR PRN (18:41)
[2018-01-13] MEDS ORDERED: VANCOMYCIN/ RENALLY ADJUST ANTIBIOTICS IVPB PRN (18:45)
--- NOTE | 2018-01-13 19:15 | HP ---
PRIMARY CARE PROVIDER: Iqra Little M.D. CHIEF COMPLAINT: Fevers. HISTORY OF PRESENT ILLNESS: Mr. Adrian is a pleasant 62-year-old lady who was seen at [facility] on 01/13/2018. I discharged her on 01/09/2018 following lengthy hospitalization f or pleural effusion, sepsis, chronic pain syndrome, diastolic congestive heart failure, bacteremia wi th Enterococcus casseliflavus and presumptive micrococcus/kocuria and physical reconditioning. She w as referred for inpatient rehabilitation at the time of discharge, but her insurance declined. She w as also declined by nursing home facilities. Patient did not want to go to a swing bed and wanted to go home with home health and was accordingly discharged to home with home health as well as home oxygen. She was also discharged on oral antibiotics, which she reports taking at home. She was fine the day when she left the hospital. She reports feeling chills 1 day later. On the day, she reports having a temperature of 100 degrees Fahrenheit. The following day, [facility] her and she reports having cough, nonproductive at that time. Today, she was working wi th the physical therapist at home when she had a temperature of 101.2 degrees Fahrenheit. She was therefore sent to the emergency room. She reports occasional cough. She denies any dysuria. She denies any abdominal pain. REVIEW OF SYSTEMS: All other systems reviewed and found to be negative. PAST MEDICAL HISTORY: Gastrointestinal bleed secondary to peptic ulcer disease, chronic pain syndrom e, anxiety, hypertension, dyslipidemia, alcohol abuse, hypothyroidism, chronic obstructive pulmonary disease, alcoholic cirrhosis, bacteremia. 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 ALLERGIES: CEFEPIME, PENICILLIN, ASPIRIN and IBUPROFEN. CURRENT HOME MEDICATIONS: As dictated in my discharge summary dated 01/09/2018. FAMILY HISTORY: Brother with hypertension. SOCIAL HISTORY: She denies alcohol use, tobacco use or recreational drug use. PHYSICAL EXAMINATION: GENERAL: On examination, Ms. Adrian is awake and alert, not in acute distress. VITAL SIGNS: Blood pressure is 163/63, pulse 76, respiratory rate 18 and oxygen saturation 96% on ro om air. Temperature in the emergency room was 99.1 degrees Fahrenheit. EYES: No scleral icterus. No conjunctival pallor. ENT: Dry mucosal membranes, no oropharyngeal erythema or exudates. NECK: Supple, nontender, trachea is midline. RESPIRATORY: Accessory muscles of breathing are not active. Chest wall movements are symmetric bila terally. LUNGS: Examination reveals diminished breath sounds at the right base. CARDIOVASCULAR: S1 and S2 are heard, regular. Peripheral pulses palpable. No carotid bruit, no per icardial rub. NEUROLOGIC: Cranial nerves II-XII intact. ABDOMEN: Soft, nontender, bowel sounds are heard, no hepatomegaly, no splenomegaly. MUSCULOSKELETAL: Status post left above knee amputation, moves all 4 extremities. SKIN: No rashes or subcutaneous nodules. LYMPHATIC: No cervical lymphadenopathy. PSYCHIATRIC: Normal mood, normal affect, patient is oriented to person, place, and time. IMAGING DATA AND LABORATORY DATA: Ms. Adrian's labs and investigations were reviewed. I reviewed her electrocardiogram, which shows normal sinus rhythm, no ST changes to suggest an acute coronary syndr ome. I also reviewed her chest x-ray, which shows right pleural effusion. She also had CT angiogram of the chest, which did not show any pulmonary embolism. She has moderate right-sided effusion with adjacent consolidation likely due to atelectasis or pneumonia. She has normal white count, normal h emoglobin, normal platelet count, elevated D-dimer of 3.80, elevated alkaline phosphatase of 217, dec reased albumin of 3.3, otherwise unremarkable comprehensive metabolic profile, last known alkaline ph osphatase was normal at 125 on 12/22/2017 and elevated BNP of 386.2, troponin I is normal. ASSESSMENT AND PLAN: Ms. Adrian is a pleasant 62-year-old lady who was seen at [facility] on 01/13/2018. Her problem list includes: 1. Fevers: Etiology unclear, she was recently treated for bacteremia. She will be admitted to the hospital again for treatment with antibiotics, urine studies and urine culture, blood cultures and In fectious Diseases and Pulmonary Service consult. 2. Pleural effusion. We will consult Pulmonology Service for opinion and help with management. 3. Chronic pain syndrome. We will continue home pain medications. 4. Hypertension: We will resume home medications, monitor vital signs and titrate antihypertensives as needed. 5. Hypothyroidism: Continue Synthroid. 6. Chronic obstructive pulmonary disease: We will continue her on p.r.n. DuoNeb Many thanks for allowing me to participate in your patient's care. Please feel free to contact me wi th any questions or concerns. LEVEL OF RISK: High. LEVEL OF COMPLEXITY: High.
[2018-01-13] MEDS: Sodium Chloride 0.9% 1,000 ML IV SCH (20:43)
[2018-01-13] MEDS: Pregabalin 75 MG CAP PO SCH (20:43)
[2018-01-13] MEDS: HYDROcodone/Acetaminophen 5/325 mg Tablet PO PRN (20:44)
[2018-01-13] MEDS: Saccharomyces boulardii 250 MG CAP PO SCH (20:45)
[2018-01-13 21:30] LABS: Bilirubin Negative (Negative); Blood, Urine Negative (Negative); Clarity CLEAR (Clear); Glucose, Urine (Dipstick) Negative (Negative); Leukocyte Negative (Negative); Nitrite Negative (Negative); Protein, Urine (Dipstick) 100 mg/dL (Neg-Trace); Specific Gravity, Urine 1.034 (1.002-1.036); pH, Urine 7.5 (5.0-9.0)
[2018-01-13 21:32] LABS: Bacteria/HPF None Seen HPF (None Seen); Hyaline Casts/LPF 0-3 HYALINE CAST LPF (0-3 Hyaline); Squamous Epithelial 0-3 HPF (0-3)
[2018-01-13 21:44] LABS: RBC/HPF 0-3 HPF (0-3)
[2018-01-13] MEDS: traZODone HCl 50 MG TAB PO PRN (22:24)
[2018-01-13] MEDS: guaiFENesin ER 600 MG TAB PO PRN (22:24)
[2018-01-14] MEDS: HYDROcodone/Acetaminophen 5/325 mg Tablet PO PRN ×5 (00:27→20:54)
[2018-01-14] MEDS: Vancomycin HCl 1 GM in Premix Bag 1 BAG IVPB SCH ×2 (04:03→15:17)
[2018-01-14 04:53] LABS: #Eosinphils 0.6 thou/uL (0.0-0.7); #Lymphocytes 0.8 thou/uL (1.20-3.40); #Monocytes 0.4 thou/uL (0.11-0.59); #Neutrophils 2.4 thou/uL (1.40-6.50); %Basophils 0.5 % (0.0-1.0); %Eosinophils 13.5 % (0.0-10.0); %Lymphocytes 19.8 % (21.0-51.0); %Monocytes 9.3 % (0.0-10.0); Mean Corpuscular Hemoglobin 25.4 pg (27.0-31.0); Mean Corpuscular Volume 84.8 fL (78.0-98.0); Platelet Count 163 thou/uL (130-400); RBC Distribution Width 18.5 % (11.5-14.5); Red Blood Cell (RBC) Count 3.55 mill/uL (4.20-5.40); White Blood Cell (WBC) Count 4.1 thou/uL (4.8-10.8)
[2018-01-14 04:54] LABS: Anion Gap 9 mmol/L (10-20); BUN (Urea Nitrogen) 12 mg/dL (9.8-20.1); Calc. Creatinine Clearance 82 mL/min (70-130); Carbon Dioxide 22 mmol/L (23-31); Chloride 112 mmol/L (98-107); Estimated GFR-MDRD 85; Glucose 114 mg/dL (80-115); Potassium 3.3 mmol/L (3.5-5.1); Sodium 140 mmol/L (136-145)
[2018-01-14] MEDS: Levothyroxine Sodium 75 MCG TAB PO SCH (06:05)
[2018-01-14] MEDS: Enoxaparin Sodium 40 MG/0.4 ML SYRINGE SC SCH (08:28)
[2018-01-14] MEDS: Aztreonam 1 GM in Sodium Chloride 0.9% 100 ML IVPB SCH ×2 (08:28→20:59)
[2018-01-14] MEDS: Escitalopram Oxalate 10 mg Tablet PO SCH (08:29)
[2018-01-14] MEDS: Amlodipine 5 MG TAB PO SCH (08:29)
[2018-01-14] MEDS: Pregabalin 75 MG CAP PO SCH ×2 (08:29→20:57)
[2018-01-14] MEDS: Saccharomyces boulardii 250 MG CAP PO SCH ×2 (08:30→20:53)
[2018-01-14] MEDS: Lidocaine 5% Patch TD SCH (08:30)
--- NOTE | 2018-01-14 12:06 | CON ---
DATE OF CONSULTATION: 01/14/2018 SUBJECTIVE: A 62-year-old female who was readmitted to the hospital with symptoms of chest pain, cou gh, fever, and shortness of breath. She discharged 4 days ago. She said at that time she felt she was not ready to go home. She had bee n seen by Dr. Sorenson at that time and a thoracentesis was apparently performed. This morning, she says she has got a cough. She is feeling weak. Her discharge medications during h er last hospitalization had included Synthroid 75, antibiotic Lasix 40 and nebulizer, Protonix 40, Ly ernie 75, laxatives and Norvasc 2.5, Lexapro 10 mg a day, trazodone 100 mg a day and Ativan p.r.n. Sh e now has been restarted on vancomycin and Azactam. We have been consulted regarding his pleural eff usion. I reviewed Dr. Sorenson's notes last time. He states that the fluid that was drained was a transudate. EXTENSIVE PAST MEDICAL HISTORY: Pertinent for cirrhosis. Previous ascites, none recently, this is f rom alcoholic disease, history of previous hypertension, lipid disorder, chronic pain, hypothyroidism . PAST SURGICAL HISTORY: Total hip laminectomy, both shoulder surgery, left knee surgery. ALLERGIES: Several different medications. ASPIRIN, MAXIPIME, IBUPROFEN and PENICILLIN. SOCIAL HISTORY: Tobacco apparently still smoking and drinking. REVIEW OF SYSTEMS: Ten point negative. PHYSICAL EXAMINATION: VITAL SIGNS: Blood pressure is 144/64, temperature 98, sats 92%, respiration rate 18. CHEST: Decreased breath sounds in the right lobe of one third, left unremarkable. CARDIAC: Normal S1, S2, no gallops. ABDOMEN: Soft. No masses. LABORATORY DATA: White count 4,000, hemoglobin and hematocrit 9 and 30, platelet count 163. Electro lytes are normal. BNP is 386. So far blood culture gram positive cocci. Await final identification . IMPRESSION: Recurrent right pleural effusion transudate, probably from cirrhosis. Febrile illness, previous Enterococcus, sepsis sensitive to gentamicin to which she is now getting Azactam, which shokeith ld be sensitive to. At this stage, no need to do thoracentesis. Continue antibiotics, await final ID. Will follow and notify Dr. Sorenson. Consultation note is 70 minutes, 40% spent in direct patient care.
--- NOTE | 2018-01-14 13:55 | PDOC.PN ---
- Subjective Encounter Start Date: 01/14/18 Encounter Start Time: 08:40 Pt seen for followup re: fevers. Reports dry cough. No chest pain. - Objective Resuscitation Status: Resuscitation Status FULL:Full Resuscitation MAR Reviewed: Yes Vital Signs & Weight: Vital Signs (12 hours) Temp Pulse Resp BP BP Pulse Ox 01/14/18 11:12 98.4 F 69 20 133/69 90 L 01/14/18 10:18 71 18 95 01/14/18 08:29 67 144/64 H 01/14/18 08:00 95 01/14/18 07:13 98.5 F 67 20 144/64 H 91 L 01/14/18 04:00 98.3 F 60 20 132/65 94 L Weight Weight 138 lb 12.8 oz Result Diagrams: 01/14/18 04:09 01/14/18 04:09 Additional Labs: Labs reviewed by me Phys Exam - Physical Examination Constitutional: NAD HEENT: moist MMs, sclera anicteric, oral pharynx no lesions, 2+ tonsils Neck: no nodes, no JVD, supple, full ROM Respiratory: no rales, no rhonchi, wheezing present Diminished air entry R base Cardiovascular: RRR, no rub S1, S2 Gastrointestinal: soft, non-tender, no distention, positive bowel sounds s/p L AKA Neurological: moves all 4 limbs Psychiatric: normal affect Deviation from normal: Oriented to person and place, not to time Dx/Plan (1) Fever Code(s): R50.9 - FEVER, UNSPECIFIED Status: Acute Comment: etiology unclear. Continue empiric antibiotics, await cultures. Check TSH. (2) Hypokalemia Code(s): E87.6 - HYPOKALEMIA Status: Acute Comment: replace potassium (3) Chronic pain Code(s): G89.29 - OTHER CHRONIC PAIN Status: Chronic Comment: continue pain medications (4) Hypertension Code(s): I10 - ESSENTIAL (PRIMARY) HYPERTENSION Status: Chronic Qualifiers: Hypertension type: essential hypertension Qualified Code(s): I10 - Essential (primary) hypertension Comment: controlled (5) Hypothyroid Code(s): E03.9 - HYPOTHYROIDISM, UNSPECIFIED Status: Chronic Qualifiers: Hypothyroidism type: unspecified Qualified Code(s): E03.9 - Hypothyroidism , unspecified Comment: check TSH, continue synthroid (6) Moderate protein-calorie malnutrition Code(s): E44.0 - MODERATE PROTEIN-CALORIE MALNUTRITION Status: Chronic - Plan * . Review of Systems - Review of Systems Respiratory: Cough, Dry, SOB with Excertion. negative: Shortness of Breath, Hemoptysis, Pleuritic Pain, Sputum, Wheezing Cardiovascular: negative: chest pain, palpitations, orthopnea, paroxysmal nocturnal dyspnea, edema, light headedness Gastrointestinal: negative: Nausea, Vomiting, Abdominal Pain, Diarrhea, Constipation, Melena, Hematochezia Genitourinary: negative: Dysuria, Frequency, Incontinence, Hematuria, Retention Musculoskeletal: negative: Neck Pain, Shoulder Pain, Arm Pain, Back Pain, Hand Pain, Leg Pain, Foot Pain - Medications/Allergies Allergies/Adverse Reactions: Allergies Allergy/AdvReac Type Severity Reaction Status Date / Time aspirin Allergy Severe Verified 12/22/17 17:26 cefepime Allergy Severe Rash Verified 12/22/17 17:26 ibuprofen Allergy Severe Verified 12/22/17 17:26 NSAIDS (Non-Steroidal Allergy Severe Verified 12/22/17 17:26 Anti-Inflamma Penicillins Allergy Unknown Verified 12/22/17 17:26 Medications: Current Medications Acetaminophen (Tylenol) 650 mg PO Q4H PRN PRN Reason: Headache/Fever or Pain Acetaminophen (Tylenol) 650 mg [place] Q4H PRN PRN Reason: Headache/Fever or Pain Hydrocodone Bitart/Acetaminophen ([place] 5/325) 1 tab PO Q4H PRN PRN Reason: Moderate Pain (4-6) Last Admin: 01/14/18 11:08 Dose: 1 tab Albuterol/Ipratropium (Duoneb) 3 ml NEB [id number] PRN PRN Reason: SOB &/or Wheezing Albuterol/Ipratropium (Duoneb) 3 ml EZPAP QID [facility] Last Admin: 01/14/18 10:18 Dose: 3 ml Amlodipine Besylate (Norvasc) 5 mg PO DAILY [facility] Last Admin: 01/14/18 08:29 Dose: 5 mg Bisacodyl (Dulcolax) 10 mg PO DAILYPRN PRN PRN Reason: Constipation Enoxaparin Sodium (Lovenox) 40 mg SC 0900 [facility] Last Admin: 01/14/18 08:28 Dose: 40 mg Escitalopram Oxalate (Lexapro) 10 mg PO DAILY [facility] Last Admin: 01/14/18 08:29 Dose: 10 mg Guaifenesin (Mucinex) 1,200 mg PO Q12H PRN PRN Reason: Congestion Last Admin: 01/13/18 22:24 Dose: 1,200 mg Sodium Chloride (Normal Saline 0.9%) 1,000 mls @ 60 mls/hr IV .[id number] [facility] Last Admin: 01/13/18 20:43 Dose: 1,000 mls Vancomycin HCl 1 gm/ Device 200 mls @ 200 mls/hr IVPB 0400,1600 [facility] Last Admin: 01/14/18 04:03 Dose: 200 mls Aztreonam 1 gm/ Sodium (Chloride) 100 mls @ 100 mls/hr IVPB Q12HR [facility] Last Admin: 01/14/18 08:28 Dose: 100 mls Levothyroxine Sodium (Synthroid) 75 mcg PO 0600 [facility] Last Admin: 01/14/18 06:05 Dose: 75 mcg Lidocaine (Lidoderm 5% Patch) 1 patch TD DAILY [facility] Last Admin: 01/14/18 08:30 Dose: 1 patch Miscellaneous Medication (Pharmacy To Dose) 1 each IVPB PRN PRN PRN Reason: Pharmacy to dose Miscellaneous Medication (Lidocaine Patch Removal) 1 each TOP 2100 [facility] Pantoprazole Sodium (Protonix) 40 mg PO DAILY [facility] Last Admin: 01/14/18 08:30 Dose: 40 mg Pregabalin (Lyrica) 75 mg PO BID [facility] Last Admin: 01/14/18 08:29 Dose: 75 mg Saccharomyces Boulardii (Florastor) 250 mg PO BID [facility] Last Admin: 01/14/18 08:30 Dose: 250 mg Sodium Chloride (Flush - Normal Saline) 10 ml IVF Q12HR [facility] Last Admin: 01/14/18 08:32 Dose: Not Given Sodium Chloride (Flush - Normal Saline) 10 ml IVF PRN PRN PRN Reason: Saline Flush Trazodone HCl (Desyrel) 100 mg PO HSPRN PRN PRN Reason: Insomnia Last Admin: 01/13/18 22:24 Dose: 100 mg
[2018-01-14] MEDS ORDERED: Potassium Chloride 20 MEQ TAB PO SCH (14:00)
[2018-01-14] MEDS: Sodium Chloride 0.9% 1,000 ML IV SCH (15:16)
[2018-01-14] MEDS: traZODone HCl 50 MG TAB PO PRN (20:56)
[2018-01-14] MEDS: Lidocaine Patch Removal 1 EACH TOP SCH (21:10)
[2018-01-15 03:43] LABS: Vancomycin, Trough 16.3 ug/mL
[2018-01-15] MEDS: Ondansetron ODT 4 MG TAB PO PRN (04:13)
[2018-01-15] MEDS: Vancomycin HCl 1 GM in Premix Bag 1 BAG IVPB SCH ×2 (04:13→14:52)
[2018-01-15] MEDS: HYDROcodone/Acetaminophen 5/325 mg Tablet PO PRN ×5 (04:30→22:01)
[2018-01-15 05:07] LABS: #Eosinphils 0.5 thou/uL (0.0-0.7); #Lymphocytes 0.8 thou/uL (1.20-3.40); #Monocytes 0.3 thou/uL (0.11-0.59); #Neutrophils 2.1 thou/uL (1.40-6.50); %Basophils 1.1 % (0.0-1.0); %Eosinophils 13.4 % (0.0-10.0); %Lymphocytes 20.5 % (21.0-51.0); %Monocytes 8.1 % (0.0-10.0); %Neutrophils 56.9 % (42.0-75.0); Hemoglobin 9.7 g/dL (12.0-16.0); Mean Corpuscular Hemoglobin 26.3 pg (27.0-31.0); Mean Corpuscular Volume 84.9 fL (78.0-98.0); Platelet Count 148 thou/uL (130-400); RBC Distribution Width 18.1 % (11.5-14.5); Red Blood Cell (RBC) Count 3.67 mill/uL (4.20-5.40); White Blood Cell (WBC) Count 3.7 thou/uL (4.8-10.8)
[2018-01-15 05:22] LABS: Anion Gap 12 mmol/L (10-20); BUN (Urea Nitrogen) 11 mg/dL (9.8-20.1); Calc. Creatinine Clearance 82 mL/min (70-130); Calcium 8.5 mg/dL (7.8-10.44); Carbon Dioxide 19 mmol/L (23-31); Chloride 113 mmol/L (98-107); Estimated GFR-MDRD 85; Glucose 94 mg/dL (80-115); Potassium 4.2 mmol/L (3.5-5.1); Sodium 140 mmol/L (136-145)
[2018-01-15] MEDS: Levothyroxine Sodium 75 MCG TAB PO SCH (05:43)
[2018-01-15] MEDS: Pregabalin 75 MG CAP PO SCH ×2 (09:09→20:32)
[2018-01-15] MEDS: Saccharomyces boulardii 250 MG CAP PO SCH ×2 (09:10→20:33)
[2018-01-15] MEDS: Amlodipine 5 MG TAB PO SCH (09:10)
[2018-01-15] MEDS: Escitalopram Oxalate 10 mg Tablet PO SCH (09:10)
[2018-01-15] MEDS: Enoxaparin Sodium 40 MG/0.4 ML SYRINGE SC SCH (09:11)
[2018-01-15] MEDS: Sodium Chloride 0.9% 1,000 ML IV SCH (09:11)
[2018-01-15] MEDS: Lidocaine 5% Patch TD SCH (09:11)
[2018-01-15] MEDS: Furosemide 40 MG TAB PO SCH (09:11)
[2018-01-15] MEDS: Aztreonam 1 GM in Sodium Chloride 0.9% 100 ML IVPB SCH ×2 (09:13→20:34)
[2018-01-15] MEDS: guaiFENesin ER 600 MG TAB PO PRN (09:13)
[2018-01-15] MEDS ORDERED: Levothyroxine Sodium 75 MCG TAB PO SCH (10:36)
--- NOTE | 2018-01-15 11:26 | PRG ---
DATE OF SERVICE: 01/15/2018 SUBJECTIVE: This morning, she is still coughing, she still short of breath. OBJECTIVE: VITAL SIGNS: Sats 92 on 2 liters, respirations 18, temperature 98, blood pressure 160/57. CHEST: Decreased breath sounds bilaterally without any wheezing. CARDIAC: Normal S1, S2. No gallops. ABDOMEN: No masses. TSH is 11, elevated, suggesting inadequate Synthroid dose. White count is only 3000, H&H 9 and 31, p latelet count is normal. IMPRESSION: 1. Hypothyroidism. 2. Chronic right pleural effusion, transudate. 3. Cirrhosis with all cultures negative. PLAN: I would start deescalating antibiotics. I increased the Synthroid 200 mcg. We will follow.
[2018-01-15] MEDS: Lorazepam 0.5 MG TAB PO PRN ×2 (11:39→20:41)
--- NOTE | 2018-01-15 13:51 | PRG ---
DATE OF CONSULTATION: 01/15/2018 REASON: Recrudescence of fever. HISTORY OF PRESENT ILLNESS: This is a 62-year-old recently seen in this hospital when she presented with a history of alcoholism and liver disease, portal hypertension, esophageal varices with prior GI bleeds, and also portosystemic shunt procedure done at [facility], followed by a TIPS proced ure done there as well. The patient was in remission from her alcoholism, but then resumed drinking a few years ago and recently moved to town to be with her sons and is living by herself. Also, she h ad a history of prior AKA and was admitted on 12/26/2017 with general weakness, chills, cough, worsen ing dyspnea. She had a large right pleural effusion associated with dyspnea and Enterococcus casseli flavus bacteremia, 1 out of 2 sets. The patient had a thoracentesis, and there were only 221 wbc's w ith predominance of lymphocytes. The protein was 1.3. The serum protein was at least twice that ran ge. So, this was clearly a transudative effusion. The patient was discharged on Augmentin, and unfo rtunately, has developed recrudescence of fever, dyspnea, and cough without sputum production. Maybe some headaches. No visual symptoms. No sore throat or vomiting, no bleeding. No chest pain, no ab dominal pain, no dysuria. No diarrhea. Patient has worsening pain in the right knee. No neurologic al symptoms. PAST MEDICAL HISTORY: Liver cirrhosis secondary to alcoholism, prior GI bleeds from portal hypertens ion, esophageal varices, portal systemic shunt at [facility], TIPS procedure in the s, COPD , hypothyroidism, hypertension. PAST SURGICAL HISTORY: Recent GI bleed with EGD and gastric ulcers identified, left total hip replac ement, left knee replacement with infection, and eventual above-knee amputation, right knee replaceme nt. ALLERGIES: CEFEPIME, PENICILLIN, ASPIRIN, IBUPROFEN. MEDICATIONS: Currently on Tylenol, [place], DuoNeb, Norvasc, aztreonam, Dulcolax, Lexapro, Synthroid, pantoprazole, vancomycin. FAMILY HISTORY: Noncontributory. SOCIAL HISTORY: , history of alcoholism with relapse, prior smoking as well, but currently a bstinent. PHYSICAL EXAMINATION: VITAL SIGNS: T-max 98.9, blood pressure 140/60, pulse 76, respirations 18, O2 saturation 98%. SKIN EXAMINATION: No areas of skin breakdown. Peripheral IV access. No Luna catheter. No lymphad enopathy. HEENT: Ocular movements are conjugate. Some temporal wasting noted. Nasal passages patent. Oral c avity moist, with numerous teeth, some gum disease. NECK: Supple. No jugular venous distention. LUNGS: With quite diffuse expiratory wheezing noted. Faint crackles on the right side, better aerat ion than when compared with last visit. CARDIOVASCULAR: S1 and S2, regular rate with a quite harsh systolic murmur at the aortic and pulmoni c areas. No S3. No S4. ABDOMEN: Not distended or tender. No ascites. No bladder distention. EXTREMITIES: She has some pain or moderate pain in the right knee. Range of motion is fairly decent . No erythema, no swelling. No evidence of joint effusion there. The left AKA amputation site appe ars okay. Pulses are 1+ in dorsalis pedis. She is able to move all extremities equally and cognitiv e function appears to be intact. No asterixis. LABORATORY DATA: The latest lab values were WBC 3.7, hemoglobin 9.7, MCV 84, platelets 148. Sodium 140, creatinine 0.7, alkaline phosphatase 217. Transaminases normal, bilirubin 0.6, albumin 3.3. Ur inalysis with 4-6 wbc's. Vancomycin trough 16. Microbiology with 1 out of 2 sets with coagulase-neg ative Staphylococcus, likely a contaminant. CT angio done this time of the chest showed no pulmonary embolism, moderate right-sided effusion, adjacent consolidation, and cirrhosis of the liver. ASSESSMENT: 1. Alcoholism with liver cirrhosis, portal hypertension, prior various procedures for relief of port al hypertension including portosystemic shunting and transjugular intrahepatic portosystemic shunt pr ocedure. 2. Enterococcus casseliflavus bacteremia. 3. Transudative right pleural effusion. 4. Recrudescence of fever with respiratory symptoms. DISCUSSION: Differential diagnosis includes persistence of the Enterococcus bacteremia. An alternat e pathogen, community-acquired possible viral etiology with upper and lower respiratory tract infecti on. Submit respiratory virus PCR. Continue on broad-spectrum coverage. Monitor blood cultures. Tr ansition back to Augmentin depending on the culture results.
--- NOTE | 2018-01-15 17:15 | PDOC.PN ---
- Subjective Encounter Start Date: 01/15/18 Encounter Start Time: 08:20 Pt seen for followup re: fever. Denies chest pain. has SOBOE. Cough+, no sputum - Objective Resuscitation Status: Resuscitation Status FULL:Full Resuscitation MAR Reviewed: Yes Vital Signs & Weight: Vital Signs (12 hours) Temp Pulse Resp BP Pulse Ox 01/15/18 16:00 98.5 F 73 18 131/67 98 01/15/18 12:38 98 01/15/18 12:00 98.2 F 76 18 143/65 H 98 01/15/18 10:49 85 18 93 L 01/15/18 08:00 98.4 F 77 18 165/57 H 01/15/18 07:40 9 L Weight Weight 138 lb 12.8 oz I&O: 01/14/18 01/15/18 01/16/18 06:59 06:59 06:59 Intake Total 1620 2220 Balance 1620 2220 Result Diagrams: 01/15/18 03:17 01/15/18 03:17 Additional Labs: Labs reviewed by me Phys Exam - Physical Examination Constitutional: NAD HEENT: moist MMs Neck: supple Decreased air entry R base Cardiovascular: RRR Gastrointestinal: soft Neurological: moves all 4 limbs Psychiatric: normal affect Dx/Plan (1) Fever Code(s): R50.9 - FEVER, UNSPECIFIED Status: Acute Comment: Continue empiric antibiotics, await cultures. (2) Chronic pain Code(s): G89.29 - OTHER CHRONIC PAIN Status: Chronic Comment: continue pain medications (3) Hypertension Code(s): I10 - ESSENTIAL (PRIMARY) HYPERTENSION Status: Chronic Qualifiers: Hypertension type: essential hypertension Qualified Code(s): I10 - Essential (primary) hypertension Comment: controlled (4) Hypothyroid Code(s): E03.9 - HYPOTHYROIDISM, UNSPECIFIED Status: Chronic Qualifiers: Hypothyroidism type: unspecified Qualified Code(s): E03.9 - Hypothyroidism , unspecified Comment: TSH dose increased (5) Moderate protein-calorie malnutrition Code(s): E44.0 - MODERATE PROTEIN-CALORIE MALNUTRITION Status: Chronic (6) Hypokalemia Code(s): E87.6 - HYPOKALEMIA Status: Resolved - Plan * . Review of Systems - Review of Systems Respiratory: Cough, Dry, SOB with Excertion. negative: Shortness of Breath, Hemoptysis, Pleuritic Pain, Sputum, Wheezing Cardiovascular: negative: chest pain, palpitations, orthopnea, paroxysmal nocturnal dyspnea, edema, light headedness - Medications/Allergies Allergies/Adverse Reactions: Allergies Allergy/AdvReac Type Severity Reaction Status Date / Time aspirin Allergy Severe Verified 12/22/17 17:26 cefepime Allergy Severe Rash Verified 12/22/17 17:26 ibuprofen Allergy Severe Verified 12/22/17 17:26 NSAIDS (Non-Steroidal Allergy Severe Verified 12/22/17 17:26 Anti-Inflamma Penicillins Allergy Unknown Verified 12/22/17 17:26 Medications: Current Medications Acetaminophen (Tylenol) 650 mg PO Q4H PRN PRN Reason: Headache/Fever or Pain Acetaminophen (Tylenol) 650 mg [place] Q4H PRN PRN Reason: Headache/Fever or Pain Hydrocodone Bitart/Acetaminophen ([place] 5/325) 1 tab PO Q4H PRN PRN Reason: Moderate Pain (4-6) Last Admin: 01/15/18 13:19 Dose: 1 tab Albuterol/Ipratropium (Duoneb) 3 ml NEB [id number] PRN PRN Reason: SOB &/or Wheezing Last Admin: 01/15/18 10:49 Dose: 3 ml Albuterol/Ipratropium (Duoneb) 3 ml EZPAP QID [facility] Last Admin: 01/15/18 03:22 Dose: 3 ml Amlodipine Besylate (Norvasc) 5 mg PO DAILY [facility] Last Admin: 01/15/18 09:10 Dose: 5 mg Bisacodyl (Dulcolax) 10 mg PO DAILYPRN PRN PRN Reason: Constipation Enoxaparin Sodium (Lovenox) 40 mg SC 0900 [facility] Last Admin: 01/15/18 09:11 Dose: 40 mg Escitalopram Oxalate (Lexapro) 10 mg PO DAILY [facility] Last Admin: 01/15/18 09:10 Dose: 10 mg Furosemide (Lasix) 40 mg PO DAILY[facility] Last Admin: 01/15/18 09:11 Dose: 40 mg Guaifenesin/Dextromethorphan (Mucinex Dm) 2 tab PO Q12HR [facility] Sodium Chloride (Normal Saline 0.9%) 1,000 mls @ 60 mls/hr IV .[id number] [facility] Last Admin: 01/15/18 09:11 Dose: 1,000 mls Vancomycin HCl 1 gm/ Device 200 mls @ 200 mls/hr IVPB 0400,1600 [facility] Last Admin: 01/15/18 14:52 Dose: 200 mls Aztreonam 1 gm/ Sodium (Chloride) 100 mls @ 100 mls/hr IVPB Q12HR [facility] Last Admin: 01/15/18 09:13 Dose: 100 mls Levothyroxine Sodium (Synthroid) 100 mcg PO 0600 [facility] Lidocaine (Lidoderm 5% Patch) 1 patch TD DAILY [facility] Last Admin: 01/15/18 09:11 Dose: 1 patch Lorazepam (Ativan) 0.25 mg PO TID PRN PRN Reason: Anxiety Last Admin: 01/15/18 11:39 Dose: 0.25 mg Miscellaneous Medication (Pharmacy To Dose) 1 each IVPB PRN PRN PRN Reason: Pharmacy to dose Miscellaneous Medication (Lidocaine Patch Removal) 1 each TOP 2100 [facility] Last Admin: 01/14/18 21:10 Dose: 1 each Ondansetron HCl (Zofran Odt) 4 mg PO Q6H PRN PRN Reason: Nausea/Vomiting Last Admin: 01/15/18 04:13 Dose: 4 mg Pantoprazole Sodium (Protonix) 40 mg PO DAILY [facility] Last Admin: 01/15/18 09:10 Dose: 40 mg Pregabalin (Lyrica) 75 mg PO BID [facility] Last Admin: 01/15/18 09:09 Dose: 75 mg Saccharomyces Boulardii (Florastor) 250 mg PO BID [facility] Last Admin: 01/15/18 09:10 Dose: 250 mg Sodium Chloride (Flush - Normal Saline) 10 ml IVF Q12HR [facility] Last Admin: 01/15/18 09:11 Dose: 10 ml Sodium Chloride (Flush - Normal Saline) 10 ml IVF PRN PRN PRN Reason: Saline Flush Trazodone HCl (Desyrel) 100 mg PO HSPRN PRN PRN Reason: Insomnia Last Admin: 01/14/18 20:56 Dose: 100 mg
[2018-01-15] MEDS: guaiFENesin/DM ER PO SCH (20:33)
[2018-01-15] MEDS: Lidocaine Patch Removal 1 EACH TOP SCH (20:33)
[2018-01-15] MEDS: traZODone HCl 50 MG TAB PO PRN (20:40)
[2018-01-16] MEDS: Sodium Chloride 0.9% 1,000 ML IV SCH ×2 (03:54→09:11)
[2018-01-16] MEDS: Vancomycin HCl 1 GM in Premix Bag 1 BAG IVPB SCH ×2 (03:54→15:21)
[2018-01-16 04:49] LABS: #Eosinphils 0.6 thou/uL (0.0-0.7); #Lymphocytes 0.6 thou/uL (1.20-3.40); #Monocytes 0.2 thou/uL (0.11-0.59); #Neutrophils 1.4 thou/uL (1.40-6.50); %Basophils 0.8 % (0.0-1.0); %Eosinophils 20.3 % (0.0-10.0); %Lymphocytes 21.9 % (21.0-51.0); %Monocytes 8.6 % (0.0-10.0); %Neutrophils 48.5 % (42.0-75.0); Hemoglobin 8.6 g/dL (12.0-16.0); Mean Corpuscular HGB CONC 30.6 g/dL (32.0-36.0); Mean Corpuscular Hemoglobin 26.1 pg (27.0-31.0); Mean Corpuscular Volume 85.4 fL (78.0-98.0); Platelet Count 123 thou/uL (130-400); RBC Distribution Width 18.1 % (11.5-14.5); Red Blood Cell (RBC) Count 3.29 mill/uL (4.20-5.40); White Blood Cell (WBC) Count 2.9 thou/uL (4.8-10.8)
[2018-01-16 05:00] LABS: Anion Gap 9 mmol/L (10-20); BUN (Urea Nitrogen) 14 mg/dL (9.8-20.1); Calc. Creatinine Clearance 79 mL/min (70-130); Calcium 8.3 mg/dL (7.8-10.44); Carbon Dioxide 23 mmol/L (23-31); Chloride 112 mmol/L (98-107); Estimated GFR-MDRD 82; Glucose 81 mg/dL (80-115); Sodium 140 mmol/L (136-145)
[2018-01-16] MEDS: HYDROcodone/Acetaminophen 5/325 mg Tablet PO PRN ×4 (06:00→21:19)
[2018-01-16] MEDS: Levothyroxine Sodium 100 MCG TAB PO SCH (06:01)
[2018-01-16] MEDS: guaiFENesin/DM ER PO SCH ×2 (07:58→21:17)
[2018-01-16] MEDS: Pregabalin 75 MG CAP PO SCH ×2 (07:59→21:18)
[2018-01-16] MEDS: Furosemide 40 MG TAB PO SCH (08:01)
[2018-01-16] MEDS: Saccharomyces boulardii 250 MG CAP PO SCH ×2 (08:01→21:17)
[2018-01-16] MEDS: Amlodipine 5 MG TAB PO SCH (08:01)
[2018-01-16] MEDS: Enoxaparin Sodium 40 MG/0.4 ML SYRINGE SC SCH (08:02)
[2018-01-16] MEDS: Lidocaine 5% Patch TD SCH (08:03)
[2018-01-16] MEDS: Escitalopram Oxalate 10 mg Tablet PO SCH (08:03)
[2018-01-16] MEDS: Aztreonam 1 GM in Sodium Chloride 0.9% 100 ML IVPB SCH ×2 (08:34→21:17)
[2018-01-16] MEDS ORDERED: Lorazepam 0.5 MG TAB PO PRN (09:05)
--- NOTE | 2018-01-16 12:12 | PDOC.PN ---
- Subjective Encounter Start Date: 01/16/18 Encounter Start Time: 08:40 Pt seen for followup re: fever. Feels better today. - Objective Resuscitation Status: Resuscitation Status FULL:Full Resuscitation MAR Reviewed: Yes Vital Signs & Weight: Vital Signs (12 hours) Temp Pulse Resp BP Pulse Ox 01/16/18 12:00 98.9 F 72 18 148/66 H 91 L 01/16/18 10:12 72 20 94 L 01/16/18 08:01 79 01/16/18 07:27 98.4 F 79 18 158/63 H 95 01/16/18 06:13 72 24 H 92 L Weight Weight 138 lb 12.8 oz I&O: 01/15/18 01/16/18 01/17/18 06:59 06:59 06:59 Intake Total 1620 3540 Balance 1620 3540 Result Diagrams: 01/16/18 04:09 01/16/18 04:09 Additional Labs: Labs reviewed by me. Phys Exam - Physical Examination Constitutional: NAD HEENT: moist MMs Neck: supple Respiratory: clear to auscultation bilateral Cardiovascular: RRR Gastrointestinal: soft Neurological: moves all 4 limbs Psychiatric: normal affect Dx/Plan (1) Fever Code(s): R50.9 - FEVER, UNSPECIFIED Status: Acute Comment: 1/2 blood cultures +ve for coag neg staph, likely contaminant. continue linezolid and vanc, switch to augmentin if blood cultures negative. (2) Chronic pain Code(s): G89.29 - OTHER CHRONIC PAIN Status: Chronic Comment: on pain medications (3) Hypertension Code(s): I10 - ESSENTIAL (PRIMARY) HYPERTENSION Status: Chronic Qualifiers: Hypertension type: essential hypertension Qualified Code(s): I10 - Essential (primary) hypertension Comment: controlled (4) Hypothyroid Code(s): E03.9 - HYPOTHYROIDISM, UNSPECIFIED Status: Chronic Qualifiers: Hypothyroidism type: unspecified Qualified Code(s): E03.9 - Hypothyroidism , unspecified Comment: TSH dose increased due to high TSH (5) Moderate protein-calorie malnutrition Code(s): E44.0 - MODERATE PROTEIN-CALORIE MALNUTRITION Status: Chronic - Plan * . Review of Systems - Review of Systems Respiratory: Cough, Dry. negative: Shortness of Breath, Hemoptysis, SOB with Excertion, Pleuritic Pain, Sputum, Wheezing Cardiovascular: negative: chest pain, palpitations, orthopnea, paroxysmal nocturnal dyspnea, edema, light headedness - Medications/Allergies Allergies/Adverse Reactions: Allergies Allergy/AdvReac Type Severity Reaction Status Date / Time aspirin Allergy Severe Verified 12/22/17 17:26 cefepime Allergy Severe Rash Verified 12/22/17 17:26 ibuprofen Allergy Severe Verified 12/22/17 17:26 NSAIDS (Non-Steroidal Allergy Severe Verified 12/22/17 17:26 Anti-Inflamma Penicillins Allergy Unknown Verified 12/22/17 17:26 Medications: Current Medications Acetaminophen (Tylenol) 650 mg PO Q4H PRN PRN Reason: Headache/Fever or Pain Acetaminophen (Tylenol) 650 mg [place] Q4H PRN PRN Reason: Headache/Fever or Pain Hydrocodone Bitart/Acetaminophen ([place] 5/325) 1 tab PO Q4H PRN PRN Reason: Moderate Pain (4-6) Last Admin: 01/16/18 10:33 Dose: 1 tab Albuterol/Ipratropium (Duoneb) 3 ml NEB Q6H PRN PRN Reason: SOB &/or Wheezing Albuterol/Ipratropium (Duoneb) 3 ml EZPAP QID-RT [facility] Last Admin: 01/16/18 10:12 Dose: 3 ml Amlodipine Besylate (Norvasc) 5 mg PO DAILY [facility] Last Admin: 01/16/18 08:01 Dose: 5 mg Bisacodyl (Dulcolax) 10 mg PO DAILYPRN PRN PRN Reason: Constipation Enoxaparin Sodium (Lovenox) 40 mg SC 0900 [facility] Last Admin: 01/16/18 08:02 Dose: 40 mg Escitalopram Oxalate (Lexapro) 10 mg PO DAILY [facility] Last Admin: 01/16/18 08:03 Dose: 10 mg Furosemide (Lasix) 40 mg PO DAILY-AC [facility] Last Admin: 01/16/18 08:01 Dose: 40 mg Guaifenesin/Dextromethorphan (Mucinex Dm) 2 tab PO Q12HR [facility] Last Admin: 01/16/18 07:58 Dose: 2 tab Sodium Chloride (Normal Saline 0.9%) 1,000 mls @ 60 mls/hr IV .[id number] [facility] Last Admin: 01/16/18 09:11 Dose: 1,000 mls Vancomycin HCl 1 gm/ Device 200 mls @ 200 mls/hr IVPB 0400,1600 [facility] Last Admin: 01/16/18 03:54 Dose: 200 mls Aztreonam 1 gm/ Sodium (Chloride) 100 mls @ 100 mls/hr IVPB Q12HR [facility] Last Admin: 01/16/18 08:34 Dose: 100 mls Levothyroxine Sodium (Synthroid) 100 mcg PO 0600 [facility] Last Admin: 01/16/18 06:01 Dose: 100 mcg Lidocaine (Lidoderm 5% Patch) 1 patch TD DAILY [facility] Last Admin: 01/16/18 08:03 Dose: 1 patch Lorazepam (Ativan) 0.5 mg PO BIDPRN PRN PRN Reason: Anxiety Miscellaneous Medication (Pharmacy To Dose) 1 each IVPB PRN PRN PRN Reason: Pharmacy to dose Miscellaneous Medication (Lidocaine Patch Removal) 1 each TOP 2100 [facility] Last Admin: 01/15/18 20:33 Dose: Not Given Ondansetron HCl (Zofran Odt) 4 mg PO Q6H PRN PRN Reason: Nausea/Vomiting Last Admin: 01/15/18 04:13 Dose: 4 mg Pantoprazole Sodium (Protonix) 40 mg PO DAILY [facility] Last Admin: 01/16/18 07:59 Dose: 40 mg Pregabalin (Lyrica) 75 mg PO BID [facility] Last Admin: 01/16/18 07:59 Dose: 75 mg Saccharomyces Boulardii (Florastor) 250 mg PO BID [facility] Last Admin: 01/16/18 08:01 Dose: 250 mg Sodium Chloride (Flush - Normal Saline) 10 ml IVF Q12HR [facility] Last Admin: 01/16/18 08:07 Dose: 10 ml Sodium Chloride (Flush - Normal Saline) 10 ml IVF PRN PRN PRN Reason: Saline Flush Trazodone HCl (Desyrel) 100 mg PO HSPRN PRN PRN Reason: Insomnia Last Admin: 01/15/18 20:40 Dose: 100 mg
[2018-01-16] MEDS: Lorazepam 0.5 MG TAB PO PRN ×2 (12:29→21:35)
[2018-01-16] MEDS: Lidocaine Patch Removal 1 EACH TOP SCH (21:22)
--- NOTE | 2018-01-16 21:36 | CON ---
DATE OF CONSULTATION: 01/16/2018 HISTORY OF PRESENT ILLNESS: Ms. Adrian has returned to the hospital with reported fever at home. Reviewing her temperature curve here. She has been afebrile since she has been here. Heart rate is in the 70s, respiratory rates in the 20s. She is on room air with a sat of 91-94, blood pressure has been unremarkable. She says she has been having continuous chest discomfort and some chest congestion. She is well known to me from recent hospitalization. She had a right pleural effusion that was new. She has had a recent GI bleed. She initially refused thoracentesis and finally consented, this was a clearcut transudate. It was felt that this is a combination of a hepatic hydrothorax and some diastolic dysfunction leading to her effusion. No further workup was entertained or needed. It was noted last admission that she drank copious amounts of liquids and she had to be put on hold fluid restriction. Since admitted this time, oral intake has been excessive. She swears we never told her to watch her fluid intake. She is in no distress. She is conversing in complete sentences. PAST MEDICAL HISTORY: 1. Remarkable for a TIPS procedure many years ago for alcoholic cirrhosis. 2. History of recent gastrointestinal bleed. 3. History of hypertension. 4. 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 5. She did not have a prosthesis appear last admission for the majority of the admission. She is not ambulating at home. She is not felt to be a candidate for inpatient rehabilitation, which she finds very frustrating. Other past medical history includes chronic pain, hypertension, lipid disorder, hypothyroidism, history of multiple orthopedic surgeries and history of multiple organisms isolated from a blood culture last admission. She was seen by Dr. Salcedo last admission. This admission, she is growing one out of two blood cultures for coagulase negative staph. Urine cultures negative. She is in absolutely no distress. Her vital signs have been noted above. She has decreased breath sounds at her right base. PHYSICAL EXAMINATION: HEART: Regular rhythm. ABDOMEN: Soft. EXTREMITIES: Unchanged. NEUROLOGIC: Unchanged. IMPRESSION: Chronic right pleural effusion secondary to cirrhosis plus or minus diastolic dysfunction. No further intervention is necessary. Fluid restriction is recommended. She admitted to me well as in the office that she was not taking her diuretic at home as recommended. She actually declined to take all diuretic pill this morning in the eventually took the second half. I really do not find anything that would require ongoing hospitalization, assuming that this one out of two blood culture is a contaminant. The second culture is negative at 48 hours. This is a different organism from on her last admission. I will see her as needed. She clearly wants to be in the hospital and claimed that we send her home too quickly last admission. There is nothing objectively that we could identify last admission that would lead me to believe she needed hospitalization, even half as long as the last one. She probably would be better off in a fulltime care environment, but I doubt she will consent to this. This is a 50-minute consult, greater than 50% of care was spent in coordinating care. Please call again if needed. Her marginal medical compliance is the biggest tissue at hand. If the second blood culture remains negative the Staph is likely a contaminant. CARROLL
[2018-01-16] MEDS ORDERED: Lorazepam 2 MG/ML VIAL SLOW IVP PRN (22:02)
[2018-01-17] MEDS: HYDROcodone/Acetaminophen 5/325 mg Tablet PO PRN ×4 (03:07→20:48)
[2018-01-17 03:52] LABS: Vancomycin, Trough 22.3 ug/mL
[2018-01-17] MEDS: Levothyroxine Sodium 100 MCG TAB PO SCH (05:37)
[2018-01-17] MEDS: Sodium Chloride 0.9% 1,000 ML IV SCH (05:37)
[2018-01-17] MEDS: Lorazepam 0.5 MG TAB PO PRN ×3 (05:50→20:50)
[2018-01-17] MEDS: Aztreonam 1 GM in Sodium Chloride 0.9% 100 ML IVPB SCH ×2 (09:57→20:53)
[2018-01-17] MEDS: Pregabalin 75 MG CAP PO SCH ×2 (10:00→20:50)
[2018-01-17] MEDS: guaiFENesin/DM ER PO SCH ×2 (10:01→20:48)
[2018-01-17] MEDS: Amlodipine 5 MG TAB PO SCH (10:01)
[2018-01-17] MEDS: Lidocaine 5% Patch TD SCH (10:02)
[2018-01-17] MEDS: Saccharomyces boulardii 250 MG CAP PO SCH ×2 (10:02→20:51)
[2018-01-17] MEDS: Escitalopram Oxalate 10 mg Tablet PO SCH (10:02)
[2018-01-17] MEDS: Enoxaparin Sodium 40 MG/0.4 ML SYRINGE SC SCH (10:03)
[2018-01-17] MEDS: Furosemide 40 MG TAB PO SCH (10:10)
[2018-01-17] MEDS ORDERED: Vancomycin HCl 750 MG in Sodium Chloride 0.9% 250 ML 250 ML IVPB SCH (16:00)
--- NOTE | 2018-01-17 17:44 | PDOC.PN ---
- Subjective Encounter Start Date: 01/17/18 Encounter Start Time: 11:30 Subjective: pt up in bed no complains - Objective Resuscitation Status: Resuscitation Status FULL:Full Resuscitation Vital Signs & Weight: Vital Signs (12 hours) Temp Pulse Resp BP BP Pulse Ox 01/17/18 16:00 99.1 F 82 19 146/61 H 91 L 01/17/18 14:41 76 16 96 01/17/18 12:14 98.8 F 84 20 142/53 H 92 L 01/17/18 10:35 74 18 93 L 01/17/18 10:01 84 172/67 H 01/17/18 07:34 98.4 F 83 22 H 172/67 H 91 L 01/17/18 06:37 78 18 92 L Weight Weight 138 lb 12.8 oz I&O: 01/16/18 01/17/18 01/18/18 06:59 06:59 06:59 Intake Total 3540 3040 Balance 3540 3040 Result Diagrams: 01/16/18 04:09 01/16/18 04:09 Phys Exam - Physical Examination decreased breath sound to right base Cardiovascular: RRR, no significant murmur, no rub, gallop, irregular Gastrointestinal: soft, non-tender, no distention, positive bowel sounds Musculoskeletal: no edema, pulses present, edema present Dx/Plan (1) Fever Code(s): R50.9 - FEVER, UNSPECIFIED Status: Acute Comment: 1/2 blood cultures +ve for coag neg staph, likely contaminant. continue linezolid and vanc, switch to augmentin if blood cultures negative. (2) Bacteremia due to Enterococcus Code(s): R78.81 - BACTEREMIA; B95.2 - ENTEROCOCCUS THE CAUSE OF DISEASES CLASSIFIED ELSEWHERE Status: Acute Comment: will continue amoxicillin, pt waiting for SNU bed - Plan pt's respiratory viral cx is positve for rhinovirus -: blood cx one bottle of coagulase negative staph most likely contaminate -: may stop iv abx in am -: will continue lasix po for now * . Review of Systems - Review of Systems Respiratory: negative: Cough, Dry, Shortness of Breath, Hemoptysis, SOB with Excertion, Pleuritic Pain, Sputum, Wheezing Cardiovascular: negative: chest pain, palpitations, orthopnea, paroxysmal nocturnal dyspnea, edema, light headedness, other Gastrointestinal: negative: Nausea, Vomiting, Abdominal Pain, Diarrhea, Constipation, Melena, Hematochezia, Other Genitourinary: negative: Dysuria, Frequency, Incontinence, Hematuria, Retention , Other - Medications/Allergies Allergies/Adverse Reactions: Allergies Allergy/AdvReac Type Severity Reaction Status Date / Time aspirin Allergy Severe Verified 12/22/17 17:26 cefepime Allergy Severe Rash Verified 12/22/17 17:26 ibuprofen Allergy Severe Verified 12/22/17 17:26 NSAIDS (Non-Steroidal Allergy Severe Verified 12/22/17 17:26 Anti-Inflamma Penicillins Allergy Unknown Verified 12/22/17 17:26 Medications: Current Medications Acetaminophen (Tylenol) 650 mg PO Q4H PRN PRN Reason: Headache/Fever or Pain Acetaminophen (Tylenol) 650 mg [place] Q4H PRN PRN Reason: Headache/Fever or Pain Hydrocodone Bitart/Acetaminophen ([place] 5/325) 1 tab PO Q4H PRN PRN Reason: Moderate Pain (4-6) Last Admin: 01/17/18 14:44 Dose: 1 tab Albuterol/Ipratropium (Duoneb) 3 ml NEB Q6H PRN PRN Reason: SOB &/or Wheezing Last Admin: 01/16/18 23:03 Dose: 3 ml Albuterol/Ipratropium (Duoneb) 3 ml NEB QID-RT [facility] Last Admin: 01/17/18 14:41 Dose: 3 ml Amlodipine Besylate (Norvasc) 5 mg PO DAILY [facility] Last Admin: 01/17/18 10:01 Dose: 5 mg Bisacodyl (Dulcolax) 10 mg PO DAILYPRN PRN PRN Reason: Constipation Enoxaparin Sodium (Lovenox) 40 mg SC 0900 [facility] Last Admin: 01/17/18 10:03 Dose: 40 mg Escitalopram Oxalate (Lexapro) 10 mg PO DAILY [facility] Last Admin: 01/17/18 10:02 Dose: 10 mg Furosemide (Lasix) 40 mg PO DAILY-AC [facility] Last Admin: 01/17/18 10:10 Dose: 40 mg Guaifenesin/Dextromethorphan (Mucinex Dm) 2 tab PO Q12HR [facility] Last Admin: 01/17/18 10:01 Dose: 2 tab Aztreonam 1 gm/ Sodium (Chloride) 100 mls @ 100 mls/hr IVPB Q12HR [facility] Vancomycin HCl 1 gm/ Sodium (Chloride) 250 mls @ 166.67 mls/hr IVPB Q12HR [facility] Levothyroxine Sodium (Synthroid) 100 mcg PO 0600 [facility] Last Admin: 01/17/18 05:37 Dose: 100 mcg Lidocaine (Lidoderm 5% Patch) 1 patch TD DAILY [facility] Last Admin: 01/17/18 10:02 Dose: 1 patch Lorazepam (Ativan) 0.5 mg PO TIDPRN PRN PRN Reason: Anxiety/Agitation Last Admin: 01/17/18 14:44 Dose: 0.5 mg Miscellaneous Medication (Pharmacy To Dose) 1 each IVPB PRN PRN PRN Reason: Pharmacy to dose Miscellaneous Medication (Lidocaine Patch Removal) 1 each TOP 2100 [facility] Last Admin: 01/16/18 21:22 Dose: 1 each Ondansetron HCl (Zofran Odt) 4 mg PO Q6H PRN PRN Reason: Nausea/Vomiting Last Admin: 01/15/18 04:13 Dose: 4 mg Pantoprazole Sodium (Protonix) 40 mg PO DAILY [facility] Last Admin: 01/17/18 10:02 Dose: 40 mg Pregabalin (Lyrica) 75 mg PO BID [facility] Last Admin: 01/17/18 10:00 Dose: 75 mg Saccharomyces Boulardii (Florastor) 250 mg PO BID [facility] Last Admin: 01/17/18 10:02 Dose: 250 mg Sodium Chloride (Flush - Normal Saline) 10 ml IVF Q12HR [facility] Last Admin: 01/17/18 10:11 Dose: Not Given Sodium Chloride (Flush - Normal Saline) 10 ml IVF PRN PRN PRN Reason: Saline Flush Trazodone HCl (Desyrel) 100 mg PO HSPRN PRN PRN Reason: Insomnia Last Admin: 01/15/18 20:40 Dose: 100 mg
[2018-01-17] MEDS: Vancomycin HCl 750 MG in Sodium Chloride 0.9% 250 ML 250 ML IVPB SCH (20:52)
[2018-01-17] MEDS: Lidocaine Patch Removal 1 EACH TOP SCH (20:53)
[2018-01-17] MEDS ORDERED: Vancomycin HCl 1 GM in Sodium Chloride 0.9% 250 ML 250 ML IVPB SCH (21:00)
[2018-01-17] MEDS ORDERED: AMOXicillin 250 MG CAP PO SCH (21:00)
[2018-01-18] MEDS: HYDROcodone/Acetaminophen 5/325 mg Tablet PO PRN ×3 (04:53→19:20)
[2018-01-18] MEDS: Levothyroxine Sodium 100 MCG TAB PO SCH (04:54)
[2018-01-18] MEDS: Enoxaparin Sodium 40 MG/0.4 ML SYRINGE SC SCH (08:59)
[2018-01-18] MEDS: Lidocaine 5% Patch TD SCH (09:00)
[2018-01-18] MEDS: Aztreonam 1 GM in Sodium Chloride 0.9% 100 ML IVPB SCH (09:00)
[2018-01-18] MEDS: Saccharomyces boulardii 250 MG CAP PO SCH ×2 (09:01→20:54)
[2018-01-18] MEDS: Furosemide 40 MG TAB PO SCH (09:01)
[2018-01-18] MEDS: Pregabalin 75 MG CAP PO SCH ×2 (09:01→20:56)
[2018-01-18] MEDS: guaiFENesin/DM ER PO SCH ×2 (09:01→20:55)
[2018-01-18] MEDS: Amlodipine 5 MG TAB PO SCH (09:04)
[2018-01-18] MEDS: Escitalopram Oxalate 10 mg Tablet PO SCH (09:05)
[2018-01-18] MEDS: Vancomycin HCl 750 MG in Sodium Chloride 0.9% 250 ML 250 ML IVPB SCH (09:05)
[2018-01-18] MEDS: Lorazepam 0.5 MG TAB PO PRN ×3 (09:06→20:56)
--- NOTE | 2018-01-18 11:19 | PQF ---
CLINICAL DOCUMENTATION IMPROVEMENT CLARIFICATION FORM: ICD-10 Updated PLEASE DO AN ADDENDUM TO THE PROGRESS NOTE WITH ANY DOCUMENTATION UPDATES OR ADDITIONS AND CARRY THROUGH TO DC SUMMARY. THANK YOU. DATE: 01/18/18 ATTN: Dr. Vines Please exercise your independent, professional judgment in responding to the clarification form. Clinical indicators are provided on the bottom of this form for your review Please check appropriate box(s): [x ] Fever due to respiratory rhinovirus infection [ ] Fever not due to respiratory rhinovirus infection [ ] Other diagnosis [ ] Unable to determine In addition, please specify: Present on Admission (POA): [ x] Yes [ ] No [ ] Unable to determine For continuity of documentation, please document condition throughout progress notes and discharge summary. Thank You. CLINICAL INDICATORS - SIGNS / SYMPTOMS / LABS H&P: TEMP IN ER WAS 99.1 DEGREES F ID CONSULT: RECRUDESCENCE OF FEVER WITH RESPIRATORY SYMPTOMS PN 01/17: FEVER, UNSPECIFIED. PT'S RESPIRATORY VIRAL CX IS POSITIVE FOR RHINOVIRUS RISKS: H&P 01/13: RECENTLY TREATED FOR BACTEREMIA. PLEURAL EFFUSION. HTN. COPD. PN 01/14: MODERATE PROTEIN-CALORIE MALNUTRITION. TREATMENT: ORDER 01/17: DUONEB 3ML NEB QID CPOE 01/17: AZACTAM 1 GM Q 12HR CPOE 01/17: VANCOMYCIN HCL 750 MG IV Thank you, Giovanna (This form is maintained as a part of the permanent medical record) 2015 [employer]. All Rights Reserved Giovanna Burgos RN, BSN [email or web address] Office: [phone] [facility]
[2018-01-18] MEDS ORDERED: guaiFENesin/Codeine Phosphate 200 mg/20 mg 10 ml UD Cup PO PRN (14:16)
--- NOTE | 2018-01-18 14:20 | PDOC.PN ---
- Subjective Encounter Start Date: 01/18/18 Encounter Start Time: 10:15 -: pt up in bed states she had a bad night since she was coughing - Objective Resuscitation Status: Resuscitation Status FULL:Full Resuscitation Vital Signs & Weight: Vital Signs (12 hours) Temp Pulse Resp BP BP BP Pulse Ox 01/18/18 12:00 98.3 F 70 19 153/64 H 93 L 01/18/18 09:04 72 177/63 H 01/18/18 08:00 98.4 F 72 19 177/63 H 91 L 01/18/18 06:17 73 16 95 01/18/18 04:00 98.5 F 69 20 156/79 H 92 L Weight Weight 138 lb 12.8 oz I&O: 01/17/18 01/18/18 01/19/18 06:59 06:59 06:59 Intake Total 3040 2300 Output Total 1800 Balance 3040 2300 -1800 Result Diagrams: 01/16/18 04:09 01/16/18 04:09 Phys Exam - Physical Examination Neck: no nodes, no JVD, supple, full ROM Respiratory: no wheezing, no rales, no rhonchi, wheezing present, clear to auscultation bilateral Cardiovascular: RRR, no significant murmur, no rub, gallop, irregular Gastrointestinal: soft, non-tender, no distention, positive bowel sounds Musculoskeletal: no edema, pulses present, edema present Dx/Plan (1) Fever Code(s): R50.9 - FEVER, UNSPECIFIED Status: Acute Comment: 1/2 blood cultures +ve for coag neg staph, likely contaminant. continue linezolid and vanc, switch to augmentin if blood cultures negative. (2) Bacteremia due to Enterococcus Code(s): R78.81 - BACTEREMIA; B95.2 - ENTEROCOCCUS THE CAUSE OF DISEASES CLASSIFIED ELSEWHERE Status: Acute Comment: will continue amoxicillin, pt waiting for SNU bed (3) Viral pneumonia Code(s): J12.9 - VIRAL PNEUMONIA, UNSPECIFIED Status: Acute (4) Cirrhosis Code(s): K74.60 - UNSPECIFIED CIRRHOSIS OF LIVER Status: Acute - Plan pt's viral cx was positve for rhinovirus -: will discontinue abx and put pt on oral amoxil -: will give pt robitussin with codeine only at night. -: will decrease lasix to 20mg po from 40mg -: pt complaining that she is urinating very much * . Review of Systems - Review of Systems Respiratory: negative: Cough, Dry, Shortness of Breath, Hemoptysis, SOB with Excertion, Pleuritic Pain, Sputum, Wheezing Cardiovascular: negative: chest pain, palpitations, orthopnea, paroxysmal nocturnal dyspnea, edema, light headedness, other Gastrointestinal: negative: Nausea, Vomiting, Abdominal Pain, Diarrhea, Constipation, Melena, Hematochezia, Other Genitourinary: negative: Dysuria, Frequency, Incontinence, Hematuria, Retention , Other - Medications/Allergies Allergies/Adverse Reactions: Allergies Allergy/AdvReac Type Severity Reaction Status Date / Time aspirin Allergy Severe Verified 12/22/17 17:26 cefepime Allergy Severe Rash Verified 12/22/17 17:26 ibuprofen Allergy Severe Verified 12/22/17 17:26 NSAIDS (Non-Steroidal Allergy Severe Verified 12/22/17 17:26 Anti-Inflamma Penicillins Allergy Unknown Verified 12/22/17 17:26 Medications: Current Medications Acetaminophen (Tylenol) 650 mg PO Q4H PRN PRN Reason: Headache/Fever or Pain Acetaminophen (Tylenol) 650 mg [place] Q4H PRN PRN Reason: Headache/Fever or Pain Albuterol/Ipratropium (Duoneb) 3 ml NEB Q6H PRN PRN Reason: SOB &/or Wheezing Last Admin: 01/16/18 23:03 Dose: 3 ml Albuterol/Ipratropium (Duoneb) 3 ml NEB QID-RT [facility] Last Admin: 01/18/18 09:37 Dose: Not Given Amlodipine Besylate (Norvasc) 5 mg PO DAILY [facility] Last Admin: 01/18/18 09:04 Dose: 5 mg Amoxicillin (Amoxil) 250 mg PO TID [facility] Stop: 01/23/18 23:59 Bisacodyl (Dulcolax) 10 mg PO DAILYPRN PRN PRN Reason: Constipation Enoxaparin Sodium (Lovenox) 40 mg SC 0900 [facility] Last Admin: 01/18/18 08:59 Dose: 40 mg Escitalopram Oxalate (Lexapro) 10 mg PO DAILY [facility] Last Admin: 01/18/18 09:05 Dose: 10 mg Furosemide (Lasix) 20 mg PO DAILY-[facility] Guaifenesin/Codeine Phosphate (Robitussin Ac) 10 ml PO HS PRN PRN Reason: Cough Guaifenesin/Dextromethorphan (Mucinex Dm) 2 tab PO Q12HR [facility] Last Admin: 01/18/18 09:01 Dose: 2 tab Levothyroxine Sodium (Synthroid) 100 mcg PO 0600 [facility] Last Admin: 01/18/18 04:54 Dose: 100 mcg Lidocaine (Lidoderm 5% Patch) 1 patch TD DAILY [facility] Last Admin: 01/18/18 09:00 Dose: 1 patch Lorazepam (Ativan) 0.5 mg PO Q6H PRN PRN Reason: Anxiety/Agitation Miscellaneous Medication (Pharmacy To Dose) 1 each IVPB PRN PRN PRN Reason: Pharmacy to dose Miscellaneous Medication (Lidocaine Patch Removal) 1 each TOP 2100 [facility] Last Admin: 01/17/18 20:53 Dose: 1 each Ondansetron HCl (Zofran Odt) 4 mg PO Q6H PRN PRN Reason: Nausea/Vomiting Last Admin: 01/15/18 04:13 Dose: 4 mg Pantoprazole Sodium (Protonix) 40 mg PO DAILY [facility] Last Admin: 01/18/18 09:06 Dose: 40 mg Pregabalin (Lyrica) 75 mg PO BID [facility] Last Admin: 01/18/18 09:01 Dose: 75 mg Saccharomyces Boulardii (Florastor) 250 mg PO BID [facility] Last Admin: 01/18/18 09:01 Dose: 250 mg Sodium Chloride (Flush - Normal Saline) 10 ml IVF Q12HR [facility] Last Admin: 01/18/18 09:06 Dose: 10 ml Sodium Chloride (Flush - Normal Saline) 10 ml IVF PRN PRN PRN Reason: Saline Flush Trazodone HCl (Desyrel) 100 mg PO HSPRN PRN PRN Reason: Insomnia Last Admin: 01/15/18 20:40 Dose: 100 mg
[2018-01-18] MEDS: AMOXicillin 250 MG CAP PO SCH ×2 (16:23→20:55)
[2018-01-18] MEDS: traZODone HCl 50 MG TAB PO PRN (20:55)
[2018-01-18] MEDS: Lidocaine Patch Removal 1 EACH TOP SCH (20:58)
[2018-01-18] MEDS: Benzonatate 100 MG CAP PO PRN (20:59)
[2018-01-19] MEDS: Levothyroxine Sodium 100 MCG TAB PO SCH (05:39)
[2018-01-19] MEDS: HYDROcodone/Acetaminophen 5/325 mg Tablet PO PRN ×4 (05:41→21:48)
[2018-01-19] MEDS: Escitalopram Oxalate 10 mg Tablet PO SCH (08:28)
[2018-01-19] MEDS: guaiFENesin/DM ER PO SCH ×2 (08:28→21:23)
[2018-01-19] MEDS: Amlodipine 5 MG TAB PO SCH (08:28)
[2018-01-19] MEDS: AMOXicillin 250 MG CAP PO SCH ×3 (08:28→21:23)
[2018-01-19] MEDS: Pregabalin 75 MG CAP PO SCH ×2 (08:29→21:23)
[2018-01-19] MEDS: Furosemide 20 MG TAB PO SCH (08:30)
[2018-01-19] MEDS: Saccharomyces boulardii 250 MG CAP PO SCH ×2 (08:31→21:23)
[2018-01-19] MEDS: Enoxaparin Sodium 40 MG/0.4 ML SYRINGE SC SCH (08:31)
[2018-01-19] MEDS: Lidocaine 5% Patch TD SCH (08:31)
[2018-01-19] MEDS: Lorazepam 0.5 MG TAB PO PRN ×3 (08:36→21:48)
[2018-01-19] MEDS: Benzonatate 100 MG CAP PO PRN ×2 (08:36→21:48)
--- NOTE | 2018-01-19 16:51 | PDOC.PN ---
- Subjective Encounter Start Date: 01/19/18 Encounter Start Time: 13:00 Subjective: pt up in bed wants me to increase her pain meds - Objective Resuscitation Status: Resuscitation Status FULL:Full Resuscitation Vital Signs & Weight: Vital Signs (12 hours) Temp Pulse Resp BP BP Pulse Ox 01/19/18 14:05 78 16 95 01/19/18 12:00 98.3 F 78 18 111/55 L 95 01/19/18 10:29 65 16 90 L 01/19/18 08:28 65 146/65 H 01/19/18 07:30 98.0 F 65 20 146/65 H 90 L 01/19/18 06:37 76 14 91 L Weight Weight 138 lb 12.8 oz I&O: 01/18/18 01/19/18 01/20/18 06:59 06:59 06:59 Intake Total 2300 410 Output Total 3800 Balance 2300 -3390 Result Diagrams: 01/16/18 04:09 01/16/18 04:09 Phys Exam - Physical Examination Neck: no nodes, no JVD, supple, full ROM Respiratory: no wheezing, no rales, no rhonchi, wheezing present, clear to auscultation bilateral Cardiovascular: RRR, no significant murmur, no rub, gallop, irregular Gastrointestinal: soft, non-tender, no distention, positive bowel sounds Dx/Plan (1) Fever Code(s): R50.9 - FEVER, UNSPECIFIED Status: Acute Comment: 1/2 blood cultures +ve for coag neg staph, likely contaminant. continue linezolid and vanc, switch to augmentin if blood cultures negative. (2) Bacteremia due to Enterococcus Code(s): R78.81 - BACTEREMIA; B95.2 - ENTEROCOCCUS THE CAUSE OF DISEASES CLASSIFIED ELSEWHERE Status: Acute Comment: will continue amoxicillin, pt waiting for SNU bed (3) Viral pneumonia Code(s): J12.9 - VIRAL PNEUMONIA, UNSPECIFIED Status: Acute (4) Cirrhosis Code(s): K74.60 - UNSPECIFIED CIRRHOSIS OF LIVER Status: Acute - Plan pt clinically improving -: will increase her norco to q4 -: possible discharge in next 24-48h -: continue pearls for her cough * . Review of Systems - Review of Systems Respiratory: negative: Cough, Dry, Shortness of Breath, Hemoptysis, SOB with Excertion, Pleuritic Pain, Sputum, Wheezing Cardiovascular: negative: chest pain, palpitations, orthopnea, paroxysmal nocturnal dyspnea, edema, light headedness, other Gastrointestinal: negative: Nausea, Vomiting, Abdominal Pain, Diarrhea, Constipation, Melena, Hematochezia, Other Musculoskeletal: Shoulder Pain, Arm Pain, Leg Pain Skin: negative: Rash, Lesions, Chapo, Bruising, Other - Medications/Allergies Allergies/Adverse Reactions: Allergies Allergy/AdvReac Type Severity Reaction Status Date / Time aspirin Allergy Severe Verified 12/22/17 17:26 cefepime Allergy Severe Rash Verified 12/22/17 17:26 ibuprofen Allergy Severe Verified 12/22/17 17:26 NSAIDS (Non-Steroidal Allergy Severe Verified 12/22/17 17:26 Anti-Inflamma Penicillins Allergy Unknown Verified 12/22/17 17:26 Medications: Current Medications Acetaminophen (Tylenol) 650 mg PO Q4H PRN PRN Reason: Headache/Fever or Pain Acetaminophen (Tylenol) 650 mg [place] Q4H PRN PRN Reason: Headache/Fever or Pain Hydrocodone Bitart/Acetaminophen ([place] 5/325) 1 tab PO Q4H PRN PRN Reason: Moderate Pain (4-6) Albuterol/Ipratropium (Duoneb) 3 ml NEB Q6H PRN PRN Reason: SOB &/or Wheezing Last Admin: 01/16/18 23:03 Dose: 3 ml Albuterol/Ipratropium (Duoneb) 3 ml NEB QID-RT [facility] Last Admin: 01/19/18 14:05 Dose: 3 ml Amlodipine Besylate (Norvasc) 5 mg PO DAILY [facility] Last Admin: 01/19/18 08:28 Dose: 5 mg Amoxicillin (Amoxil) 250 mg PO TID [facility] Stop: 01/23/18 23:59 Last Admin: 01/19/18 14:38 Dose: 250 mg Benzonatate (Tessalon) 100 mg PO TIDPRN PRN PRN Reason: Cough Last Admin: 01/19/18 08:36 Dose: 100 mg Bisacodyl (Dulcolax) 10 mg PO DAILYPRN PRN PRN Reason: Constipation Enoxaparin Sodium (Lovenox) 40 mg SC 0900 [facility] Last Admin: 01/19/18 08:31 Dose: 40 mg Escitalopram Oxalate (Lexapro) 10 mg PO DAILY [facility] Last Admin: 01/19/18 08:28 Dose: 10 mg Furosemide (Lasix) 20 mg PO DAILY-AC [facility] Last Admin: 01/19/18 08:30 Dose: 20 mg Guaifenesin/Dextromethorphan (Mucinex Dm) 2 tab PO Q12HR [facility] Last Admin: 01/19/18 08:28 Dose: 2 tab Levothyroxine Sodium (Synthroid) 100 mcg PO 0600 [facility] Last Admin: 01/19/18 05:39 Dose: 100 mcg Lidocaine (Lidoderm 5% Patch) 1 patch TD DAILY [facility] Last Admin: 01/19/18 08:31 Dose: 1 patch Lorazepam (Ativan) 0.5 mg PO Q6H PRN PRN Reason: Anxiety/Agitation Last Admin: 01/19/18 15:04 Dose: 0.5 mg Miscellaneous Medication (Pharmacy To Dose) 1 each IVPB PRN PRN PRN Reason: Pharmacy to dose Miscellaneous Medication (Lidocaine Patch Removal) 1 each TOP 2100 [facility] Last Admin: 01/18/18 20:58 Dose: 1 each Ondansetron HCl (Zofran Odt) 4 mg PO Q6H PRN PRN Reason: Nausea/Vomiting Last Admin: 01/15/18 04:13 Dose: 4 mg Pantoprazole Sodium (Protonix) 40 mg PO DAILY [facility] Last Admin: 01/19/18 08:29 Dose: 40 mg Pregabalin (Lyrica) 75 mg PO BID [facility] Last Admin: 01/19/18 08:29 Dose: 75 mg Saccharomyces Boulardii (Florastor) 250 mg PO BID [facility] Last Admin: 01/19/18 08:31 Dose: 250 mg Sodium Chloride (Flush - Normal Saline) 10 ml IVF Q12HR [facility] Last Admin: 01/19/18 08:31 Dose: 10 ml Sodium Chloride (Flush - Normal Saline) 10 ml IVF PRN PRN PRN Reason: Saline Flush Trazodone HCl (Desyrel) 100 mg PO HSPRN PRN PRN Reason: Insomnia Last Admin: 01/18/18 20:55 Dose: 100 mg
[2018-01-19] MEDS: Lidocaine Patch Removal 1 EACH TOP SCH (21:24)
[2018-01-19] MEDS: traZODone HCl 50 MG TAB PO PRN (21:48)
[2018-01-20] MEDS: HYDROcodone/Acetaminophen 5/325 mg Tablet PO PRN ×5 (03:00→21:18)
[2018-01-20] MEDS: Levothyroxine Sodium 100 MCG TAB PO SCH (03:00)
[2018-01-20] MEDS: AMOXicillin 250 MG CAP PO SCH ×3 (08:53→21:19)
[2018-01-20] MEDS: Enoxaparin Sodium 40 MG/0.4 ML SYRINGE SC SCH (08:53)
[2018-01-20] MEDS: Furosemide 20 MG TAB PO SCH (08:53)
[2018-01-20] MEDS: Amlodipine 5 MG TAB PO SCH (08:53)
[2018-01-20] MEDS: guaiFENesin/DM ER PO SCH ×2 (08:54→21:19)
[2018-01-20] MEDS: Escitalopram Oxalate 10 mg Tablet PO SCH (08:54)
[2018-01-20] MEDS: Lidocaine 5% Patch TD SCH (08:55)
[2018-01-20] MEDS: Pregabalin 75 MG CAP PO SCH ×2 (08:55→21:19)
[2018-01-20] MEDS: Saccharomyces boulardii 250 MG CAP PO SCH ×2 (08:55→21:19)
[2018-01-20] MEDS: Lorazepam 0.5 MG TAB PO PRN ×3 (09:02→21:19)
[2018-01-20] MEDS: Benzonatate 100 MG CAP PO PRN ×3 (09:02→21:26)
[2018-01-20 09:20] LABS: #Basophils 0.1 thou/uL (0.0-0.2); #Eosinphils 0.7 thou/uL (0.0-0.7); #Lymphocytes 1.1 thou/uL (1.20-3.40); #Monocytes 0.4 thou/uL (0.11-0.59); #Neutrophils 2.1 thou/uL (1.40-6.50); %Basophils 1.9 % (0.0-1.0); %Eosinophils 16.6 % (0.0-10.0); %Lymphocytes 24.3 % (21.0-51.0); %Monocytes 7.9 % (0.0-10.0); %Neutrophils 49.2 % (42.0-75.0); Hemoglobin 10.2 g/dL (12.0-16.0); Mean Corpuscular HGB CONC 30.4 g/dL (32.0-36.0); Mean Corpuscular Hemoglobin 25.8 pg (27.0-31.0); Mean Corpuscular Volume 84.9 fL (78.0-98.0); Mean Platelet Volume 10.4 fL (7.4-10.4); Platelet Count 161 thou/uL (130-400); RBC Distribution Width 18.2 % (11.5-14.5); Red Blood Cell (RBC) Count 3.94 mill/uL (4.20-5.40); White Blood Cell (WBC) Count 4.4 thou/uL (4.8-10.8)
[2018-01-20 09:28] LABS: Anion Gap 12 mmol/L (10-20); BUN (Urea Nitrogen) 19 mg/dL (9.8-20.1); Calc. Creatinine Clearance 72 mL/min (70-130); Calcium 8.7 mg/dL (7.8-10.44); Carbon Dioxide 24 mmol/L (23-31); Chloride 108 mmol/L (98-107); Estimated GFR-MDRD 74; Glucose 97 mg/dL (80-115); Potassium 3.8 mmol/L (3.5-5.1); Sodium 140 mmol/L (136-145)
[2018-01-20] MEDS ORDERED: Lidocaine 5% Patch TD SCH (12:45)
--- NOTE | 2018-01-20 17:21 | PDOC.PN ---
- Subjective Encounter Start Date: 01/20/18 Encounter Start Time: 08:00 Pt seen for followup re: physical deconditioning. Feels slightly better. c/o pain R knee x few days. Reports she landed on the knee a few days ago. - Objective Resuscitation Status: Resuscitation Status FULL:Full Resuscitation MAR Reviewed: Yes Vital Signs & Weight: Vital Signs (12 hours) Temp Pulse Resp BP BP Pulse Ox 01/20/18 14:51 71 16 96 01/20/18 09:33 70 14 94 L 01/20/18 08:53 70 152/67 H 01/20/18 08:06 98.0 F 70 18 152/67 H 94 L 01/20/18 08:00 94 L 01/20/18 05:36 74 12 95 Weight Weight 138 lb 12.8 oz I&O: 01/19/18 01/20/18 01/21/18 06:59 06:59 06:59 Intake Total 410 150 Output Total 3800 Balance -3390 150 Result Diagrams: 01/21/18 04:31 01/21/18 04:31 Additional Labs: Labs reviewed by me Phys Exam - Physical Examination Constitutional: NAD HEENT: moist MMs Neck: supple Respiratory: clear to auscultation bilateral Cardiovascular: RRR Gastrointestinal: soft Mild right knee tenderness Neurological: moves all 4 limbs Psychiatric: normal affect Dx/Plan (1) Physical deconditioning Code(s): R53.81 - OTHER MALAISE Status: Acute Comment: Awaiting SNU bed, working with therapy services (2) Rhinovirus infection Code(s): B34.8 - OTHER VIRAL INFECTIONS OF UNSPECIFIED SITE Status: Acute Comment: Improving (3) Knee pain Code(s): M25.569 - PAIN IN UNSPECIFIED KNEE Status: Acute Comment: check x- rays (4) Chronic pain Code(s): G89.29 - OTHER CHRONIC PAIN Status: Chronic Comment: on pain medications (5) Hypertension Code(s): I10 - ESSENTIAL (PRIMARY) HYPERTENSION Status: Chronic Qualifiers: Hypertension type: essential hypertension Qualified Code(s): I10 - Essential (primary) hypertension Comment: controlled (6) Hypothyroid Code(s): E03.9 - HYPOTHYROIDISM, UNSPECIFIED Status: Chronic Qualifiers: Hypothyroidism type: unspecified Qualified Code(s): E03.9 - Hypothyroidism , unspecified Comment: TSH dose increased due to high TSH (7) Moderate protein-calorie malnutrition Code(s): E44.0 - MODERATE PROTEIN-CALORIE MALNUTRITION Status: Chronic (8) Fever Code(s): R50.9 - FEVER, UNSPECIFIED Status: Resolved Comment: continue oral antibiotics as below - Plan * . Review of Systems - Review of Systems Constitutional: weakness Respiratory: negative: Cough, Shortness of Breath, SOB with Excertion, Pleuritic Pain, Wheezing Cardiovascular: negative: chest pain, palpitations, orthopnea, paroxysmal nocturnal dyspnea, edema, light headedness Musculoskeletal: Other (right knee pain) - Medications/Allergies Allergies/Adverse Reactions: Allergies Allergy/AdvReac Type Severity Reaction Status Date / Time aspirin Allergy Severe Verified 12/22/17 17:26 cefepime Allergy Severe Rash Verified 12/22/17 17:26 ibuprofen Allergy Severe Verified 12/22/17 17:26 NSAIDS (Non-Steroidal Allergy Severe Verified 12/22/17 17:26 Anti-Inflamma Penicillins Allergy Unknown Verified 12/22/17 17:26 Medications: Current Medications Acetaminophen (Tylenol) 650 mg PO Q4H PRN PRN Reason: Headache/Fever or Pain Acetaminophen (Tylenol) 650 mg [place] Q4H PRN PRN Reason: Headache/Fever or Pain Hydrocodone Bitart/Acetaminophen ([place] 5/325) 1 tab PO Q4H PRN PRN Reason: Moderate Pain (4-6) Last Admin: 01/20/18 16:55 Dose: 1 tab Albuterol/Ipratropium (Duoneb) 3 ml NEB Q6H PRN PRN Reason: SOB &/or Wheezing Last Admin: 01/16/18 23:03 Dose: 3 ml Albuterol/Ipratropium (Duoneb) 3 ml NEB QID-RT [facility] Last Admin: 01/20/18 14:51 Dose: 3 ml Amlodipine Besylate (Norvasc) 5 mg PO DAILY [facility] Last Admin: 01/20/18 08:53 Dose: 5 mg Amoxicillin (Amoxil) 250 mg PO TID [facility] Stop: 01/23/18 23:59 Last Admin: 01/20/18 14:57 Dose: 250 mg Benzonatate (Tessalon) 100 mg PO TIDPRN PRN PRN Reason: Cough Bisacodyl (Dulcolax) 10 mg PO DAILYPRN PRN PRN Reason: Constipation Last Admin: 01/19/18 21:48 Dose: 10 mg Enoxaparin Sodium (Lovenox) 40 mg SC 09 [facility] Last Admin: 01/20/18 08:53 Dose: 40 mg Escitalopram Oxalate (Lexapro) 10 mg PO DAILY [facility] Last Admin: 01/20/18 08:54 Dose: 10 mg Furosemide (Lasix) 20 mg PO DAILY-AC [facility] Last Admin: 01/20/18 08:53 Dose: 20 mg Guaifenesin/Dextromethorphan (Mucinex Dm) 2 tab PO Q12HR [facility] Last Admin: 01/20/18 08:54 Dose: 2 tab Levothyroxine Sodium (Synthroid) 100 mcg PO 0600 [facility] Last Admin: 01/20/18 03:00 Dose: 100 mcg Lidocaine (Lidoderm 5% Patch) 1 patch TD DAILY [facility] Last Admin: 01/20/18 08:55 Dose: 1 patch Lorazepam (Ativan) 0.5 mg PO Q6H PRN PRN Reason: Anxiety/Agitation Last Admin: 01/20/18 14:59 Dose: 0.5 mg Miscellaneous Medication (Pharmacy To Dose) 1 each IVPB PRN PRN PRN Reason: Pharmacy to dose Miscellaneous Medication (Lidocaine Patch Removal) 1 each TOP 2100 [facility] Last Admin: 01/19/18 21:24 Dose: 1 each Ondansetron HCl (Zofran Odt) 4 mg PO Q6H PRN PRN Reason: Nausea/Vomiting Last Admin: 01/15/18 04:13 Dose: 4 mg Pantoprazole Sodium (Protonix) 40 mg PO DAILY [facility] Last Admin: 01/20/18 08:55 Dose: 40 mg Pregabalin (Lyrica) 75 mg PO BID [facility] Last Admin: 01/20/18 08:55 Dose: 75 mg Saccharomyces Boulardii (Florastor) 250 mg PO BID [facility] Last Admin: 01/20/18 08:55 Dose: 250 mg Sodium Chloride (Flush - Normal Saline) 10 ml IVF Q12HR [facility] Last Admin: 01/20/18 08:55 Dose: 10 ml Sodium Chloride (Flush - Normal Saline) 10 ml IVF PRN PRN PRN Reason: Saline Flush Trazodone HCl (Desyrel) 100 mg PO HSPRN PRN PRN Reason: Insomnia Last Admin: 01/19/18 21:48 Dose: 100 mg
--- NOTE | 2018-01-20 18:20 | RAD ---
RIGHT KNEE FOUR VIEWS: 01/20/18 HISTORY: Right knee pain. FINDINGS/IMPRESSION: There are postop changes of left total knee arthroplasty in good position and alignment. There is a h ealed internally fixed fracture of the distal femur with plate and screws in place. No acute fracture or dislocation is identified. No perihardware lucency is noted to suggest loosening. POS: [facility]
[2018-01-20] MEDS: traZODone HCl 50 MG TAB PO PRN (21:18)
[2018-01-20] MEDS: Lidocaine Patch Removal 1 EACH TOP SCH (21:20)
[2018-01-21] MEDS: HYDROcodone/Acetaminophen 5/325 mg Tablet PO PRN ×5 (04:16→21:50)
[2018-01-21 05:16] LABS: #Eosinphils 0.6 thou/uL (0.0-0.7); #Lymphocytes 1.1 thou/uL (1.20-3.40); #Monocytes 0.3 thou/uL (0.11-0.59); #Neutrophils 1.8 thou/uL (1.40-6.50); %Basophils 0.6 % (0.0-1.0); %Eosinophils 16.5 % (0.0-10.0); %Lymphocytes 28.1 % (21.0-51.0); %Monocytes 8.7 % (0.0-10.0); %Neutrophils 46.2 % (42.0-75.0); Hemoglobin 9.2 g/dL (12.0-16.0); Mean Corpuscular HGB CONC 30.2 g/dL (32.0-36.0); Mean Corpuscular Hemoglobin 25.6 pg (27.0-31.0); Mean Corpuscular Volume 84.6 fL (78.0-98.0); Mean Platelet Volume 10.4 fL (7.4-10.4); Platelet Count 149 thou/uL (130-400); RBC Distribution Width 17.9 % (11.5-14.5); Red Blood Cell (RBC) Count 3.61 mill/uL (4.20-5.40); White Blood Cell (WBC) Count 3.9 thou/uL (4.8-10.8)
[2018-01-21] MEDS: Levothyroxine Sodium 100 MCG TAB PO SCH (05:19)
[2018-01-21 05:34] LABS: Anion Gap 10 mmol/L (10-20); BUN (Urea Nitrogen) 23 mg/dL (9.8-20.1); Calc. Creatinine Clearance 71 mL/min (70-130); Calcium 8.4 mg/dL (7.8-10.44); Carbon Dioxide 24 mmol/L (23-31); Chloride 110 mmol/L (98-107); Estimated GFR-MDRD 71; Glucose 110 mg/dL (80-115); Potassium 3.8 mmol/L (3.5-5.1); Sodium 140 mmol/L (136-145)
[2018-01-21] MEDS: Lorazepam 0.5 MG TAB PO PRN ×3 (08:24→20:17)
[2018-01-21] MEDS: Saccharomyces boulardii 250 MG CAP PO SCH ×2 (08:24→20:17)
[2018-01-21] MEDS: AMOXicillin 250 MG CAP PO SCH ×3 (08:24→20:22)
[2018-01-21] MEDS: Pregabalin 75 MG CAP PO SCH ×2 (08:25→20:18)
[2018-01-21] MEDS: Amlodipine 5 MG TAB PO SCH (08:25)
[2018-01-21] MEDS: guaiFENesin/DM ER PO SCH ×2 (08:25→20:17)
[2018-01-21] MEDS: Escitalopram Oxalate 10 mg Tablet PO SCH (08:26)
[2018-01-21] MEDS: Enoxaparin Sodium 40 MG/0.4 ML SYRINGE SC SCH (08:26)
[2018-01-21] MEDS: Furosemide 20 MG TAB PO SCH (08:26)
[2018-01-21] MEDS: Lidocaine 5% Patch TD SCH (08:27)
[2018-01-21] MEDS: Benzonatate 100 MG CAP PO PRN ×3 (09:22→21:49)
--- NOTE | 2018-01-21 12:23 | PDOC.PN ---
- Subjective Encounter Start Date: 01/21/18 Encounter Start Time: 08:20 Pt seen for followup re: physical deconditioning. Denies chest pain, fevers or chills. Has shortness of breath with exertion. - Objective Resuscitation Status: Resuscitation Status FULL:Full Resuscitation MAR Reviewed: Yes Vital Signs & Weight: Vital Signs (12 hours) Temp Pulse Resp BP BP BP Pulse Ox 01/21/18 11:20 98.5 F 74 20 125/65 90 L 01/21/18 08:25 67 127/65 01/21/18 08:00 93 L 01/21/18 07:26 97.8 F 67 18 127/65 93 L 01/21/18 06:05 63 14 92 L 01/21/18 04:00 98.0 F 63 18 128/61 92 L Weight Weight 138 lb 12.8 oz I&O: 01/20/18 01/21/18 01/22/18 06:59 06:59 06:59 Intake Total 960 Balance 960 Result Diagrams: 01/21/18 04:31 01/21/18 04:31 Additional Labs: Labs reviewed by me Phys Exam - Physical Examination Constitutional: NAD HEENT: moist MMs Neck: supple Respiratory: clear to auscultation bilateral Cardiovascular: RRR Gastrointestinal: soft Neurological: moves all 4 limbs Psychiatric: normal affect Dx/Plan (1) Physical deconditioning Code(s): R53.81 - OTHER MALAISE Status: Acute Comment: Awaiting SNU bed, ambulating with therapy services (2) Rhinovirus infection Code(s): B34.8 - OTHER VIRAL INFECTIONS OF UNSPECIFIED SITE Status: Acute Comment: Improving, continue symptomatic management (3) Knee pain Code(s): M25.569 - PAIN IN UNSPECIFIED KNEE Status: Acute Comment: nil acute on knee x-rays (4) Chronic pain Code(s): G89.29 - OTHER CHRONIC PAIN Status: Chronic Comment: continue pain medications (5) Hypertension Code(s): I10 - ESSENTIAL (PRIMARY) HYPERTENSION Status: Chronic Qualifiers: Hypertension type: essential hypertension Qualified Code(s): I10 - Essential (primary) hypertension Comment: controlled (6) Hypothyroid Code(s): E03.9 - HYPOTHYROIDISM, UNSPECIFIED Status: Chronic Qualifiers: Hypothyroidism type: unspecified Qualified Code(s): E03.9 - Hypothyroidism , unspecified Comment: synthroid dose increased due to high TSH (7) Moderate protein-calorie malnutrition Code(s): E44.0 - MODERATE PROTEIN-CALORIE MALNUTRITION Status: Chronic (8) Fever Code(s): R50.9 - FEVER, UNSPECIFIED Status: Resolved Comment: continue oral antibiotics as below - Plan * . Review of Systems - Review of Systems Respiratory: Cough, Dry, SOB with Excertion. negative: Shortness of Breath, Sputum, Wheezing Cardiovascular: negative: chest pain, palpitations, orthopnea, paroxysmal nocturnal dyspnea, edema, light headedness - Medications/Allergies Allergies/Adverse Reactions: Allergies Allergy/AdvReac Type Severity Reaction Status Date / Time aspirin Allergy Severe Verified 12/22/17 17:26 cefepime Allergy Severe Rash Verified 12/22/17 17:26 ibuprofen Allergy Severe Verified 12/22/17 17:26 NSAIDS (Non-Steroidal Allergy Severe Verified 12/22/17 17:26 Anti-Inflamma Penicillins Allergy Unknown Verified 12/22/17 17:26 Medications: Current Medications Acetaminophen (Tylenol) 650 mg PO Q4H PRN PRN Reason: Headache/Fever or Pain Acetaminophen (Tylenol) 650 mg [place] Q4H PRN PRN Reason: Headache/Fever or Pain Hydrocodone Bitart/Acetaminophen ([place] 5/325) 1 tab PO Q4H PRN PRN Reason: Moderate Pain (4-6) Last Admin: 01/21/18 09:21 Dose: 1 tab Albuterol/Ipratropium (Duoneb) 3 ml NEB Q6H PRN PRN Reason: SOB &/or Wheezing Last Admin: 01/16/18 23:03 Dose: 3 ml Amlodipine Besylate (Norvasc) 5 mg PO DAILY [facility] Last Admin: 01/21/18 08:25 Dose: 5 mg Amoxicillin (Amoxil) 250 mg PO TID [facility] Stop: 01/23/18 23:59 Last Admin: 01/21/18 08:24 Dose: 250 mg Benzonatate (Tessalon) 100 mg PO TIDPRN PRN PRN Reason: Cough Last Admin: 01/21/18 09:22 Dose: 100 mg Bisacodyl (Dulcolax) 10 mg PO DAILYPRN PRN PRN Reason: Constipation Last Admin: 01/19/18 21:48 Dose: 10 mg Enoxaparin Sodium (Lovenox) [address] [facility] Last Admin: 01/21/18 08:26 Dose: 40 mg Escitalopram Oxalate (Lexapro) [address] [facility] Last Admin: 01/21/18 08:26 Dose: 10 mg Furosemide (Lasix) 20 mg PO DAILY-AC [facility] Last Admin: 01/21/18 08:26 Dose: 20 mg Guaifenesin/Dextromethorphan (Mucinex Dm) [address] [facility] Last Admin: 01/21/18 08:25 Dose: 2 tab Levothyroxine Sodium (Synthroid) [address] [facility] Last Admin: 01/21/18 05:19 Dose: 100 mcg Lidocaine (Lidoderm 5% Patch) [address] [facility] Last Admin: 01/21/18 08:27 Dose: 1 patch Lorazepam (Ativan) 0.5 mg PO Q6H PRN PRN Reason: Anxiety/Agitation Last Admin: 01/21/18 08:24 Dose: 0.5 mg Miscellaneous Medication (Pharmacy To Dose) 1 each IVPB PRN PRN PRN Reason: Pharmacy to dose Miscellaneous Medication (Lidocaine Patch Removal) [address] [facility] Last Admin: 01/20/18 21:20 Dose: 1 each Ondansetron HCl (Zofran Odt) 4 mg PO Q6H PRN PRN Reason: Nausea/Vomiting Last Admin: 01/15/18 04:13 Dose: 4 mg Pantoprazole Sodium (Protonix) [address] [facility] Last Admin: 01/21/18 08:24 Dose: 40 mg Pregabalin (Lyrica) [address] [facility] Last Admin: 01/21/18 08:25 Dose: 75 mg Saccharomyces Boulardii (Florastor) [address] [facility] Last Admin: 01/21/18 08:24 Dose: 250 mg Sodium Chloride (Flush - Normal Saline) [address] [facility] Last Admin: 01/21/18 08:27 Dose: 10 ml Sodium Chloride (Flush - Normal Saline) 10 ml IVF PRN PRN PRN Reason: Saline Flush Trazodone HCl (Desyrel) 100 mg PO HSPRN PRN PRN Reason: Insomnia Last Admin: 01/20/18 21:18 Dose: 100 mg
[2018-01-21] MEDS: Ondansetron ODT 4 MG TAB PO PRN (20:17)
[2018-01-21] MEDS: traZODone HCl 50 MG TAB PO PRN (20:18)
[2018-01-21] MEDS: Lidocaine Patch Removal 1 EACH TOP SCH (20:19)
[2018-01-22] MEDS: HYDROcodone/Acetaminophen 5/325 mg Tablet PO PRN ×5 (02:47→21:11)
[2018-01-22 05:39] LABS: #Eosinphils 0.7 thou/uL (0.0-0.7); #Monocytes 0.3 thou/uL (0.11-0.59); #Neutrophils 1.7 thou/uL (1.40-6.50); %Basophils 0.9 % (0.0-1.0); %Lymphocytes 25.9 % (21.0-51.0); %Monocytes 8.8 % (0.0-10.0); %Neutrophils 46.4 % (42.0-75.0); Hemoglobin 8.8 g/dL (12.0-16.0); Mean Corpuscular HGB CONC 30.6 g/dL (32.0-36.0); Mean Corpuscular Hemoglobin 26.1 pg (27.0-31.0); Mean Corpuscular Volume 85.4 fL (78.0-98.0); Mean Platelet Volume 9.7 fL (7.4-10.4); Platelet Count 170 thou/uL (130-400); RBC Distribution Width 17.5 % (11.5-14.5); Red Blood Cell (RBC) Count 3.37 mill/uL (4.20-5.40); White Blood Cell (WBC) Count 3.7 thou/uL (4.8-10.8)
[2018-01-22] MEDS: Levothyroxine Sodium 100 MCG TAB PO SCH (05:53)
[2018-01-22 06:11] LABS: Anion Gap 11 mmol/L (10-20); BUN (Urea Nitrogen) 22 mg/dL (9.8-20.1); Calc. Creatinine Clearance 74 mL/min (70-130); Calcium 8.7 mg/dL (7.8-10.44); Carbon Dioxide 25 mmol/L (23-31); Chloride 111 mmol/L (98-107); Estimated GFR-MDRD 76; Glucose 98 mg/dL (80-115); Sodium 143 mmol/L (136-145)
[2018-01-22] MEDS: guaiFENesin/DM ER PO SCH ×2 (08:07→20:18)
[2018-01-22] MEDS: Enoxaparin Sodium 40 MG/0.4 ML SYRINGE SC SCH (08:07)
[2018-01-22] MEDS: Saccharomyces boulardii 250 MG CAP PO SCH ×2 (08:08→20:18)
[2018-01-22] MEDS: Amlodipine 5 MG TAB PO SCH (08:08)
[2018-01-22] MEDS: Pregabalin 75 MG CAP PO SCH ×2 (08:08→20:18)
[2018-01-22] MEDS: Furosemide 20 MG TAB PO SCH (08:09)
[2018-01-22] MEDS: Escitalopram Oxalate 10 mg Tablet PO SCH (08:09)
[2018-01-22] MEDS: AMOXicillin 250 MG CAP PO SCH ×3 (08:09→20:18)
[2018-01-22] MEDS: Lorazepam 0.5 MG TAB PO PRN ×3 (08:12→21:11)
[2018-01-22] MEDS: Lidocaine 5% Patch TD SCH (08:12)
[2018-01-22] MEDS: Benzonatate 100 MG CAP PO PRN ×3 (08:14→20:27)
[2018-01-22 09:41] LABS: Free T4 (Free Thyroxine) 1.1 ng/dL (0.70-1.48)
--- NOTE | 2018-01-22 11:17 | PDOC.PN ---
- Subjective Encounter Start Date: 01/22/18 Encounter Start Time: 08:40 Pt seen for followup re: physical deconditioning. Denies chest pain or shortness of breath. - Objective Resuscitation Status: Resuscitation Status FULL:Full Resuscitation MAR Reviewed: Yes Vital Signs & Weight: Vital Signs (12 hours) Temp Pulse Resp BP Pulse Ox 01/22/18 10:53 97.5 F L 75 18 119/61 93 L 01/22/18 08:08 73 01/22/18 08:00 92 L 01/22/18 07:32 98.0 F 73 18 138/70 92 L 01/22/18 04:00 98.5 F 66 18 109/60 92 L 01/22/18 00:00 98.5 F 73 18 131/63 94 L Weight Weight 138 lb 12.8 oz I&O: 01/21/18 01/22/18 01/23/18 06:59 06:59 06:59 Intake Total 960 1685 Balance 960 1685 Result Diagrams: 01/23/18 04:22 01/23/18 04:22 Additional Labs: Labs reviewed by me Phys Exam - Physical Examination Constitutional: NAD HEENT: moist MMs Neck: supple Respiratory: clear to auscultation bilateral Cardiovascular: RRR Gastrointestinal: soft Neurological: moves all 4 limbs Psychiatric: normal affect Dx/Plan (1) Physical deconditioning Code(s): R53.81 - OTHER MALAISE Status: Acute Comment: ambulating with therapy services, waiting for swing bed (2) Rhinovirus infection Code(s): B34.8 - OTHER VIRAL INFECTIONS OF UNSPECIFIED SITE Status: Acute Comment: Improving (3) Knee pain Code(s): M25.569 - PAIN IN UNSPECIFIED KNEE Status: Acute Comment: nil acute on knee x-rays, continue pain medications (4) Chronic pain Code(s): G89.29 - OTHER CHRONIC PAIN Status: Chronic Comment: continue pain medications (5) Hypertension Code(s): I10 - ESSENTIAL (PRIMARY) HYPERTENSION Status: Chronic Qualifiers: Hypertension type: essential hypertension Qualified Code(s): I10 - Essential (primary) hypertension Comment: controlled (6) Hypothyroid Code(s): E03.9 - HYPOTHYROIDISM, UNSPECIFIED Status: Chronic Qualifiers: Hypothyroidism type: unspecified Qualified Code(s): E03.9 - Hypothyroidism , unspecified Comment: TSH high but free T3/T4 normal continue home dose of synthroid (7) Moderate protein-calorie malnutrition Code(s): E44.0 - MODERATE PROTEIN-CALORIE MALNUTRITION Status: Chronic (8) Fever Code(s): R50.9 - FEVER, UNSPECIFIED Status: Resolved Comment: continue oral antibiotics as below - Plan * . Review of Systems - Review of Systems Respiratory: negative: Cough, Shortness of Breath, SOB with Excertion, Pleuritic Pain, Wheezing Cardiovascular: negative: chest pain, palpitations, orthopnea, paroxysmal nocturnal dyspnea, edema, light headedness - Medications/Allergies Allergies/Adverse Reactions: Allergies Allergy/AdvReac Type Severity Reaction Status Date / Time aspirin Allergy Severe Verified 12/22/17 17:26 cefepime Allergy Severe Rash Verified 12/22/17 17:26 ibuprofen Allergy Severe Verified 12/22/17 17:26 NSAIDS (Non-Steroidal Allergy Severe Verified 12/22/17 17:26 Anti-Inflamma Penicillins Allergy Unknown Verified 12/22/17 17:26 Medications: Current Medications Acetaminophen (Tylenol) 650 mg PO Q4H PRN PRN Reason: Headache/Fever or Pain Acetaminophen (Tylenol) 650 mg [place] Q4H PRN PRN Reason: Headache/Fever or Pain Hydrocodone Bitart/Acetaminophen ([place] 5/325) 1 tab PO Q4H PRN PRN Reason: Moderate Pain (4-6) Last Admin: 01/22/18 08:12 Dose: 1 tab Albuterol/Ipratropium (Duoneb) 3 ml NEB Q6H PRN PRN Reason: SOB &/or Wheezing Last Admin: 01/21/18 23:03 Dose: 3 ml Amlodipine Besylate (Norvasc) 5 mg PO DAILY [facility] Last Admin: 01/22/18 08:08 Dose: 5 mg Amoxicillin (Amoxil) 250 mg PO TID [facility] Stop: 01/23/18 23:59 Last Admin: 01/22/18 08:09 Dose: 250 mg Benzonatate (Tessalon) 100 mg PO TIDPRN PRN PRN Reason: Cough Last Admin: 01/22/18 08:14 Dose: 100 mg Bisacodyl (Dulcolax) 10 mg PO DAILYPRN PRN PRN Reason: Constipation Last Admin: 01/19/18 21:48 Dose: 10 mg Enoxaparin Sodium (Lovenox) 40 mg SC 0900 [facility] Last Admin: 01/22/18 08:07 Dose: 40 mg Escitalopram Oxalate (Lexapro) 10 mg PO DAILY [facility] Last Admin: 01/22/18 08:09 Dose: 10 mg Furosemide (Lasix) 20 mg PO DAILY-AC [facility] Last Admin: 01/22/18 08:09 Dose: 20 mg Guaifenesin/Dextromethorphan (Mucinex Dm) 2 tab PO Q12HR [facility] Last Admin: 01/22/18 08:07 Dose: 2 tab Levothyroxine Sodium (Synthroid) 100 mcg PO 0600 [facility] Last Admin: 01/22/18 05:53 Dose: 100 mcg Lidocaine (Lidoderm 5% Patch) 1 patch TD DAILY [facility] Last Admin: 01/22/18 08:12 Dose: 1 patch Lorazepam (Ativan) 0.5 mg PO Q6H PRN PRN Reason: Anxiety/Agitation Last Admin: 01/22/18 08:12 Dose: 0.5 mg Miscellaneous Medication (Pharmacy To Dose) 1 each IVPB PRN PRN PRN Reason: Pharmacy to dose Miscellaneous Medication (Lidocaine Patch Removal) 1 each TOP 2100 [facility] Last Admin: 01/21/18 20:19 Dose: 1 each Ondansetron HCl (Zofran Odt) 4 mg PO Q6H PRN PRN Reason: Nausea/Vomiting Last Admin: 01/21/18 20:17 Dose: 4 mg Pantoprazole Sodium (Protonix) 40 mg PO DAILY [facility] Last Admin: 01/22/18 08:08 Dose: 40 mg Pregabalin (Lyrica) 75 mg PO BID [facility] Last Admin: 01/22/18 08:08 Dose: 75 mg Saccharomyces Boulardii (Florastor) 250 mg PO BID [facility] Last Admin: 01/22/18 08:08 Dose: 250 mg Sodium Chloride (Flush - Normal Saline) 10 ml IVF Q12HR [facility] Last Admin: 01/22/18 08:09 Dose: 10 ml Sodium Chloride (Flush - Normal Saline) 10 ml IVF PRN PRN PRN Reason: Saline Flush Trazodone HCl (Desyrel) 100 mg PO HSPRN PRN PRN Reason: Insomnia Last Admin: 01/21/18 20:18 Dose: 100 mg
[2018-01-22] MEDS: Lidocaine Patch Removal 1 EACH TOP SCH (20:19)
[2018-01-22] MEDS: traZODone HCl 50 MG TAB PO PRN (20:27)
[2018-01-23 05:15] LABS: #Basophils 0.1 thou/uL (0.0-0.2); #Eosinphils 0.6 thou/uL (0.0-0.7); #Lymphocytes 0.9 thou/uL (1.20-3.40); #Monocytes 0.3 thou/uL (0.11-0.59); #Neutrophils 1.7 thou/uL (1.40-6.50); %Basophils 1.7 % (0.0-1.0); %Lymphocytes 25.2 % (21.0-51.0); %Neutrophils 47.1 % (42.0-75.0); Mean Corpuscular HGB CONC 29.6 g/dL (32.0-36.0); Mean Corpuscular Hemoglobin 25.6 pg (27.0-31.0); Mean Corpuscular Volume 86.4 fL (78.0-98.0); Mean Platelet Volume 9.6 fL (7.4-10.4); Platelet Count 167 thou/uL (130-400); RBC Distribution Width 17.5 % (11.5-14.5); Red Blood Cell (RBC) Count 3.53 mill/uL (4.20-5.40); White Blood Cell (WBC) Count 3.5 thou/uL (4.8-10.8)
[2018-01-23] MEDS: HYDROcodone/Acetaminophen 5/325 mg Tablet PO PRN ×4 (05:20→20:40)
[2018-01-23] MEDS: Levothyroxine Sodium 75 MCG TAB PO SCH (05:20)
[2018-01-23] MEDS: Lorazepam 0.5 MG TAB PO PRN ×3 (05:20→20:40)
[2018-01-23 05:28] LABS: Anion Gap 11 mmol/L (10-20); BUN (Urea Nitrogen) 21 mg/dL (9.8-20.1); Calc. Creatinine Clearance 77 mL/min (70-130); Calcium 8.5 mg/dL (7.8-10.44); Carbon Dioxide 23 mmol/L (23-31); Chloride 110 mmol/L (98-107); Estimated GFR-MDRD 79; Glucose 97 mg/dL (80-115); Sodium 140 mmol/L (136-145)
[2018-01-23] MEDS ORDERED: Levothyroxine 150 MCG TAB PO SCH (06:00)
[2018-01-23] MEDS: Enoxaparin Sodium 40 MG/0.4 ML SYRINGE SC SCH (09:21)
[2018-01-23] MEDS: Pregabalin 75 MG CAP PO SCH ×2 (09:21→20:40)
[2018-01-23] MEDS: guaiFENesin/DM ER PO SCH ×2 (09:21→20:39)
[2018-01-23] MEDS: Furosemide 20 MG TAB PO SCH (09:23)
[2018-01-23] MEDS: Saccharomyces boulardii 250 MG CAP PO SCH ×2 (09:23→20:39)
[2018-01-23] MEDS: Escitalopram Oxalate 10 mg Tablet PO SCH (09:23)
[2018-01-23] MEDS: Amlodipine 5 MG TAB PO SCH (09:23)
[2018-01-23] MEDS: Lidocaine 5% Patch TD SCH (09:24)
[2018-01-23] MEDS: AMOXicillin 250 MG CAP PO SCH ×3 (09:24→20:39)
--- NOTE | 2018-01-23 17:20 | PDOC.PN ---
- Subjective Encounter Start Date: 01/23/18 Encounter Start Time: 09:00 Pt seen for followup re: physical deconditioning. No new complaints today. Cough still + - Objective Resuscitation Status: Resuscitation Status FULL:Full Resuscitation MAR Reviewed: Yes Vital Signs & Weight: Vital Signs (12 hours) Temp Pulse Resp BP BP BP Pulse Ox 01/23/18 16:57 99 F 66 17 129/48 L 92 L 01/23/18 12:00 98.5 F 70 19 114/57 L 92 L 01/23/18 10:14 147/58 H 01/23/18 09:23 66 167/70 H 01/23/18 08:00 98.4 F 68 21 H 167/70 H 92 L Weight Weight 138 lb 12.8 oz I&O: 01/22/18 01/23/18 01/24/18 06:59 06:59 06:59 Intake Total 1685 490 Balance 1685 490 Result Diagrams: 01/23/18 04:22 01/23/18 04:22 Additional Labs: Accuchecks 01/23/18 11:59 POC Glucose 84 Labs reviewed by me Phys Exam - Physical Examination Constitutional: NAD HEENT: moist MMs Neck: supple Respiratory: clear to auscultation bilateral Cardiovascular: RRR Gastrointestinal: soft L AKA Neurological: moves all 4 limbs Psychiatric: normal affect Dx/Plan (1) Physical deconditioning Code(s): R53.81 - OTHER MALAISE Status: Acute Comment: waiting for swing bed (2) Rhinovirus infection Code(s): B34.8 - OTHER VIRAL INFECTIONS OF UNSPECIFIED SITE Status: Acute Comment: Improving clinically (3) Knee pain Code(s): M25.569 - PAIN IN UNSPECIFIED KNEE Status: Acute Comment: continue pain medications (4) Chronic pain Code(s): G89.29 - OTHER CHRONIC PAIN Status: Chronic Comment: continue pain medications (5) Hypertension Code(s): I10 - ESSENTIAL (PRIMARY) HYPERTENSION Status: Chronic Qualifiers: Hypertension type: essential hypertension Qualified Code(s): I10 - Essential (primary) hypertension Comment: controlled (6) Hypothyroid Code(s): E03.9 - HYPOTHYROIDISM, UNSPECIFIED Status: Chronic Qualifiers: Hypothyroidism type: unspecified Qualified Code(s): E03.9 - Hypothyroidism , unspecified Comment: continue home dose of synthroid (7) Moderate protein-calorie malnutrition Code(s): E44.0 - MODERATE PROTEIN-CALORIE MALNUTRITION Status: Chronic (8) Fever Code(s): R50.9 - FEVER, UNSPECIFIED Status: Resolved - Plan * . Antibiotics to be discontinued today. Increase Tessalon dose. Review of Systems - Review of Systems Respiratory: Cough, SOB with Excertion. negative: Dry, Shortness of Breath, Hemoptysis, Pleuritic Pain, Sputum, Wheezing Cardiovascular: negative: chest pain, palpitations, orthopnea, paroxysmal nocturnal dyspnea, edema, light headedness - Medications/Allergies Allergies/Adverse Reactions: Allergies Allergy/AdvReac Type Severity Reaction Status Date / Time aspirin Allergy Severe Verified 12/22/17 17:26 cefepime Allergy Severe Rash Verified 12/22/17 17:26 ibuprofen Allergy Severe Verified 12/22/17 17:26 NSAIDS (Non-Steroidal Allergy Severe Verified 12/22/17 17:26 Anti-Inflamma Penicillins Allergy Unknown Verified 12/22/17 17:26 Medications: Current Medications Acetaminophen (Tylenol) 650 mg PO Q4H PRN PRN Reason: Headache/Fever or Pain Acetaminophen (Tylenol) 650 mg [place] Q4H PRN PRN Reason: Headache/Fever or Pain Hydrocodone Bitart/Acetaminophen ([place] 5/325) 1 tab PO Q4H PRN PRN Reason: Moderate Pain (4-6) Last Admin: 01/23/18 15:32 Dose: 1 tab Albuterol/Ipratropium (Duoneb) 3 ml NEB Q6H PRN PRN Reason: SOB &/or Wheezing Last Admin: 01/22/18 19:12 Dose: 3 ml Amlodipine Besylate (Norvasc) 5 mg PO DAILY [facility] Last Admin: 01/23/18 09:23 Dose: 5 mg Amoxicillin (Amoxil) 250 mg PO TID [facility] Stop: 01/23/18 23:59 Last Admin: 01/23/18 14:15 Dose: 250 mg Benzonatate (Tessalon) 200 mg PO TIDPRN PRN PRN Reason: Cough Bisacodyl (Dulcolax) 10 mg PO DAILYPRN PRN PRN Reason: Constipation Last Admin: 01/19/18 21:48 Dose: 10 mg Enoxaparin Sodium (Lovenox) 40 mg SC 0900 [facility] Last Admin: 01/23/18 09:21 Dose: 40 mg Escitalopram Oxalate (Lexapro) 10 mg PO DAILY [facility] Last Admin: 01/23/18 09:23 Dose: 10 mg Furosemide (Lasix) 20 mg PO DAILY-AC [facility] Last Admin: 01/23/18 09:23 Dose: 20 mg Guaifenesin/Dextromethorphan (Mucinex Dm) 2 tab PO Q12HR [facility] Last Admin: 01/23/18 09:21 Dose: 2 tab Levothyroxine Sodium (Synthroid) 75 mcg PO 0600 [facility] Last Admin: 01/23/18 05:20 Dose: 75 mcg Lidocaine (Lidoderm 5% Patch) 1 patch TD DAILY [facility] Last Admin: 01/23/18 09:24 Dose: 1 patch Lorazepam (Ativan) 0.5 mg PO Q6H PRN PRN Reason: Anxiety/Agitation Last Admin: 01/23/18 14:15 Dose: 0.5 mg Miscellaneous Medication (Pharmacy To Dose) 1 each IVPB PRN PRN PRN Reason: Pharmacy to dose Miscellaneous Medication (Lidocaine Patch Removal) 1 each TOP 2100 [facility] Last Admin: 01/22/18 20:19 Dose: 1 each Ondansetron HCl (Zofran Odt) 4 mg PO Q6H PRN PRN Reason: Nausea/Vomiting Last Admin: 01/21/18 20:17 Dose: 4 mg Pantoprazole Sodium (Protonix) 40 mg PO DAILY [facility] Last Admin: 01/23/18 09:21 Dose: 40 mg Pregabalin (Lyrica) 75 mg PO BID [facility] Last Admin: 01/23/18 09:21 Dose: 75 mg Saccharomyces Boulardii (Florastor) 250 mg PO BID [facility] Last Admin: 01/23/18 09:23 Dose: 250 mg Sodium Chloride (Flush - Normal Saline) 10 ml IVF Q12HR [facility] Last Admin: 01/23/18 09:24 Dose: 10 ml Sodium Chloride (Flush - Normal Saline) 10 ml IVF PRN PRN PRN Reason: Saline Flush Trazodone HCl (Desyrel) 100 mg PO HSPRN PRN PRN Reason: Insomnia Last Admin: 01/22/18 20:27 Dose: 100 mg
[2018-01-23] MEDS: traZODone HCl 50 MG TAB PO PRN (20:39)
[2018-01-23] MEDS: Benzonatate 100 MG CAP PO PRN (20:39)
[2018-01-23] MEDS: Lidocaine Patch Removal 1 EACH TOP SCH (20:40)
[2018-01-24] MEDS: HYDROcodone/Acetaminophen 5/325 mg Tablet PO PRN ×5 (01:43→22:14)
[2018-01-24] MEDS: Benzonatate 100 MG CAP PO PRN ×3 (05:26→22:13)
[2018-01-24] MEDS: Levothyroxine Sodium 75 MCG TAB PO SCH (05:26)
[2018-01-24] MEDS: Lorazepam 0.5 MG TAB PO PRN ×3 (05:27→20:28)
[2018-01-24] MEDS: Lidocaine 5% Patch TD SCH (08:13)
[2018-01-24] MEDS: Saccharomyces boulardii 250 MG CAP PO SCH ×2 (08:14→20:27)
[2018-01-24] MEDS: Furosemide 20 MG TAB PO SCH (08:14)
[2018-01-24] MEDS: Escitalopram Oxalate 10 mg Tablet PO SCH (08:14)
[2018-01-24] MEDS: Enoxaparin Sodium 40 MG/0.4 ML SYRINGE SC SCH (08:14)
[2018-01-24] MEDS: Amlodipine 5 MG TAB PO SCH (08:14)
[2018-01-24] MEDS: guaiFENesin/DM ER PO SCH ×2 (08:14→20:27)
[2018-01-24] MEDS: Pregabalin 75 MG CAP PO SCH ×2 (08:15→20:28)
--- NOTE | 2018-01-24 14:57 | PDOC.PN ---
- Subjective Encounter Start Date: 01/24/18 Encounter Start Time: 10:20 Pt seen for followup re: physical deconditioning. Feels better, no new complaints today. - Objective Resuscitation Status: Resuscitation Status FULL:Full Resuscitation MAR Reviewed: Yes Vital Signs & Weight: Vital Signs (12 hours) Temp Pulse Resp BP BP Pulse Ox 01/24/18 12:18 98.3 F 65 18 123/66 01/24/18 08:14 61 158/62 H 01/24/18 08:00 98.4 F 61 16 158/62 H 93 L Weight Admit Weight 138 lb 12.8 oz Weight 138 lb 12.8 oz I&O: 01/23/18 01/24/18 01/25/18 06:59 06:59 06:59 Intake Total 490 1390 Balance 490 1390 Result Diagrams: 01/23/18 04:22 01/23/18 04:22 Additional Labs: labs reviewed by me Phys Exam - Physical Examination Constitutional: NAD HEENT: moist MMs Neck: supple Respiratory: clear to auscultation bilateral Cardiovascular: RRR Gastrointestinal: soft Neurological: moves all 4 limbs Psychiatric: normal affect Dx/Plan (1) Physical deconditioning Code(s): R53.81 - OTHER MALAISE Status: Acute Comment: waiting for swing bed vs SNU bed (2) Rhinovirus infection Code(s): B34.8 - OTHER VIRAL INFECTIONS OF UNSPECIFIED SITE Status: Acute Comment: Improved (3) Knee pain Code(s): M25.569 - PAIN IN UNSPECIFIED KNEE Status: Acute Comment: nil acute on knee x-rays (4) Chronic pain Code(s): G89.29 - OTHER CHRONIC PAIN Status: Chronic Comment: continue pain medications (5) Hypertension Code(s): I10 - ESSENTIAL (PRIMARY) HYPERTENSION Status: Chronic Qualifiers: Hypertension type: essential hypertension Qualified Code(s): I10 - Essential (primary) hypertension Comment: controlled (6) Hypothyroid Code(s): E03.9 - HYPOTHYROIDISM, UNSPECIFIED Status: Chronic Qualifiers: Hypothyroidism type: unspecified Qualified Code(s): E03.9 - Hypothyroidism , unspecified Comment: continue synthroid (7) Moderate protein-calorie malnutrition Code(s): E44.0 - MODERATE PROTEIN-CALORIE MALNUTRITION Status: Chronic (8) Fever Code(s): R50.9 - FEVER, UNSPECIFIED Status: Resolved - Plan * . Review of Systems - Review of Systems Respiratory: Cough, Dry. negative: Shortness of Breath, Hemoptysis, SOB with Excertion, Pleuritic Pain, Sputum, Wheezing Cardiovascular: negative: chest pain, palpitations, orthopnea, paroxysmal nocturnal dyspnea, edema, light headedness - Medications/Allergies Allergies/Adverse Reactions: Allergies Allergy/AdvReac Type Severity Reaction Status Date / Time aspirin Allergy Severe Verified 12/22/17 17:26 cefepime Allergy Severe Rash Verified 12/22/17 17:26 ibuprofen Allergy Severe Verified 12/22/17 17:26 NSAIDS (Non-Steroidal Allergy Severe Verified 12/22/17 17:26 Anti-Inflamma Penicillins Allergy Unknown Verified 12/22/17 17:26 Medications: Current Medications Acetaminophen (Tylenol) 650 mg PO Q4H PRN PRN Reason: Headache/Fever or Pain Acetaminophen (Tylenol) 650 mg [place] Q4H PRN PRN Reason: Headache/Fever or Pain Hydrocodone Bitart/Acetaminophen ([place] 5/325) 1 tab PO Q4H PRN PRN Reason: Moderate Pain (4-6) Last Admin: 01/24/18 11:22 Dose: 1 tab Albuterol/Ipratropium (Duoneb) 3 ml NEB Q6H PRN PRN Reason: SOB &/or Wheezing Last Admin: 01/23/18 20:07 Dose: 3 ml Amlodipine Besylate (Norvasc) 5 mg PO DAILY [facility] Last Admin: 01/24/18 08:14 Dose: 5 mg Benzonatate (Tessalon) 200 mg PO TIDPRN PRN PRN Reason: Cough Last Admin: 01/24/18 14:02 Dose: 200 mg Bisacodyl (Dulcolax) 10 mg PO DAILYPRN PRN PRN Reason: Constipation Last Admin: 01/19/18 21:48 Dose: 10 mg Enoxaparin Sodium (Lovenox) 40 mg SC 0900 [facility] Last Admin: 01/24/18 08:14 Dose: 40 mg Escitalopram Oxalate (Lexapro) 10 mg PO DAILY [facility] Last Admin: 01/24/18 08:14 Dose: 10 mg Furosemide (Lasix) 20 mg PO DAILY[facility] Last Admin: 01/24/18 08:14 Dose: 20 mg Guaifenesin/Dextromethorphan (Mucinex Dm) 2 tab PO Q12HR [facility] Last Admin: 01/24/18 08:14 Dose: 2 tab Levothyroxine Sodium (Synthroid) 75 mcg PO 0600 [facility] Last Admin: 01/24/18 05:26 Dose: 75 mcg Lidocaine (Lidoderm 5% Patch) 1 patch TD DAILY [facility] Last Admin: 01/24/18 08:13 Dose: 1 patch Lorazepam (Ativan) 0.5 mg PO Q6H PRN PRN Reason: Anxiety/Agitation Last Admin: 01/24/18 14:02 Dose: 0.5 mg Miscellaneous Medication (Pharmacy To Dose) 1 each IVPB PRN PRN PRN Reason: Pharmacy to dose Miscellaneous Medication (Lidocaine Patch Removal) 1 each TOP 2100 [facility] Last Admin: 01/23/18 20:40 Dose: 1 each Ondansetron HCl (Zofran Odt) 4 mg PO Q6H PRN PRN Reason: Nausea/Vomiting Last Admin: 01/21/18 20:17 Dose: 4 mg Pantoprazole Sodium (Protonix) 40 mg PO DAILY [facility] Last Admin: 01/24/18 08:14 Dose: 40 mg Pregabalin (Lyrica) 75 mg PO BID [facility] Last Admin: 01/24/18 08:15 Dose: 75 mg Saccharomyces Boulardii (Florastor) 250 mg PO BID [facility] Last Admin: 01/24/18 08:14 Dose: 250 mg Sodium Chloride (Flush - Normal Saline) 10 ml IVF Q12HR [facility] Last Admin: 01/24/18 08:15 Dose: 10 ml Sodium Chloride (Flush - Normal Saline) 10 ml IVF PRN PRN PRN Reason: Saline Flush Trazodone HCl (Desyrel) 100 mg PO HSPRN PRN PRN Reason: Insomnia Last Admin: 01/23/18 20:39 Dose: 100 mg
[2018-01-24] MEDS: traZODone HCl 50 MG TAB PO PRN (20:28)
[2018-01-24] MEDS: Lidocaine Patch Removal 1 EACH TOP SCH (20:29)
[2018-01-25] MEDS: Levothyroxine Sodium 75 MCG TAB PO SCH (05:54)
[2018-01-25] MEDS: HYDROcodone/Acetaminophen 5/325 mg Tablet PO PRN ×4 (05:54→18:32)
[2018-01-25] MEDS: Lorazepam 0.5 MG TAB PO PRN ×3 (05:55→20:40)
[2018-01-25] MEDS: guaiFENesin/DM ER PO SCH ×2 (07:55→20:40)
[2018-01-25] MEDS: Saccharomyces boulardii 250 MG CAP PO SCH ×2 (07:56→20:40)
[2018-01-25] MEDS: Furosemide 20 MG TAB PO SCH (07:56)
[2018-01-25] MEDS: Pregabalin 75 MG CAP PO SCH ×2 (07:56→20:40)
[2018-01-25] MEDS: Amlodipine 5 MG TAB PO SCH (07:57)
[2018-01-25] MEDS: Escitalopram Oxalate 10 mg Tablet PO SCH (07:57)
[2018-01-25] MEDS: Enoxaparin Sodium 40 MG/0.4 ML SYRINGE SC SCH (07:58)
[2018-01-25] MEDS: Lidocaine 5% Patch TD SCH (07:58)
[2018-01-25] MEDS: Benzonatate 100 MG CAP PO PRN ×3 (08:02→20:40)
--- NOTE | 2018-01-25 18:59 | PDOC.PN ---
- Subjective Encounter Start Date: 01/25/18 Encounter Start Time: 11:00 Pt seen for followup re: physical deconditioning. No new complaints today, awaiting SNU bed. - Objective Resuscitation Status: Resuscitation Status FULL:Full Resuscitation MAR Reviewed: Yes Vital Signs & Weight: Vital Signs (12 hours) Temp Pulse Resp BP BP Pulse Ox 01/25/18 08:00 94 L 01/25/18 07:57 62 148/64 H 01/25/18 07:29 98.3 F 62 20 148/64 H 94 L Weight Admit Weight 138 lb 12.8 oz Weight 138 lb 12.8 oz I&O: 01/24/18 01/25/18 01/26/18 06:59 06:59 06:59 Intake Total 1390 1440 1500 Balance 1390 1440 1500 Result Diagrams: 01/23/18 04:22 01/23/18 04:22 Additional Labs: Labs reviewed by me Phys Exam - Physical Examination Constitutional: NAD HEENT: moist MMs Neck: supple Respiratory: no wheezing Cardiovascular: RRR Gastrointestinal: non-tender Neurological: moves all 4 limbs Psychiatric: normal affect Dx/Plan (1) Physical deconditioning Code(s): R53.81 - OTHER MALAISE Status: Acute Comment: waiting for SNU bed (2) Rhinovirus infection Code(s): B34.8 - OTHER VIRAL INFECTIONS OF UNSPECIFIED SITE Status: Acute Comment: Improved (3) Knee pain Code(s): M25.569 - PAIN IN UNSPECIFIED KNEE Status: Acute Comment: on pain medications (4) Chronic pain Code(s): G89.29 - OTHER CHRONIC PAIN Status: Chronic Comment: on pain medications (5) Hypertension Code(s): I10 - ESSENTIAL (PRIMARY) HYPERTENSION Status: Chronic Qualifiers: Hypertension type: essential hypertension Qualified Code(s): I10 - Essential (primary) hypertension Comment: controlled (6) Hypothyroid Code(s): E03.9 - HYPOTHYROIDISM, UNSPECIFIED Status: Chronic Qualifiers: Hypothyroidism type: unspecified Qualified Code(s): E03.9 - Hypothyroidism , unspecified Comment: continue synthroid (7) Moderate protein-calorie malnutrition Code(s): E44.0 - MODERATE PROTEIN-CALORIE MALNUTRITION Status: Chronic (8) Fever Code(s): R50.9 - FEVER, UNSPECIFIED Status: Resolved - Plan * . Review of Systems - Review of Systems Constitutional: negative: fever, chills, sweats, weakness, malaise Neurological: negative: Weakness, Numbness, Incoordination, Change in Speech, Confusion, Seizures - Medications/Allergies Allergies/Adverse Reactions: Allergies Allergy/AdvReac Type Severity Reaction Status Date / Time aspirin Allergy Severe Verified 12/22/17 17:26 cefepime Allergy Severe Rash Verified 12/22/17 17:26 ibuprofen Allergy Severe Verified 12/22/17 17:26 NSAIDS (Non-Steroidal Allergy Severe Verified 12/22/17 17:26 Anti-Inflamma Penicillins Allergy Unknown Verified 12/22/17 17:26 Medications: Current Medications Acetaminophen (Tylenol) 650 mg PO Q4H PRN PRN Reason: Headache/Fever or Pain Acetaminophen (Tylenol) 650 mg [place] Q4H PRN PRN Reason: Headache/Fever or Pain Hydrocodone Bitart/Acetaminophen ([place] 5/325) 1 tab PO Q4H PRN PRN Reason: Moderate Pain (4-6) Last Admin: 01/25/18 18:32 Dose: 1 tab Albuterol/Ipratropium (Duoneb) 3 ml NEB Q6H PRN PRN Reason: SOB &/or Wheezing Last Admin: 01/23/18 20:07 Dose: 3 ml Amlodipine Besylate (Norvasc) 5 mg PO DAILY [facility] Last Admin: 01/25/18 07:57 Dose: 5 mg Benzonatate (Tessalon) 200 mg PO TIDPRN PRN PRN Reason: Cough Last Admin: 01/25/18 15:00 Dose: 200 mg Bisacodyl (Dulcolax) 10 mg PO DAILYPRN PRN PRN Reason: Constipation Last Admin: 01/19/18 21:48 Dose: 10 mg Enoxaparin Sodium (Lovenox) 40 mg SC 0900 [facility] Last Admin: 01/25/18 07:58 Dose: 40 mg Escitalopram Oxalate (Lexapro) 10 mg PO DAILY [facility] Last Admin: 01/25/18 07:57 Dose: 10 mg Furosemide (Lasix) 20 mg PO DAILY[facility] Last Admin: 01/25/18 07:56 Dose: 20 mg Guaifenesin/Dextromethorphan (Mucinex Dm) 2 tab PO Q12HR [facility] Last Admin: 01/25/18 07:55 Dose: 2 tab Levothyroxine Sodium (Synthroid) 75 mcg PO 0600 [facility] Last Admin: 01/25/18 05:54 Dose: 75 mcg Lidocaine (Lidoderm 5% Patch) 1 patch TD DAILY [facility] Last Admin: 01/25/18 07:58 Dose: 1 patch Lorazepam (Ativan) 0.5 mg PO Q6H PRN PRN Reason: Anxiety/Agitation Last Admin: 01/25/18 12:01 Dose: 0.5 mg Miscellaneous Medication (Pharmacy To Dose) 1 each IVPB PRN PRN PRN Reason: Pharmacy to dose Miscellaneous Medication (Lidocaine Patch Removal) 1 each TOP 2100 [facility] Last Admin: 01/24/18 20:29 Dose: Not Given Ondansetron HCl (Zofran Odt) 4 mg PO Q6H PRN PRN Reason: Nausea/Vomiting Last Admin: 01/21/18 20:17 Dose: 4 mg Pantoprazole Sodium (Protonix) 40 mg PO DAILY [facility] Last Admin: 01/25/18 07:57 Dose: 40 mg Pregabalin (Lyrica) 75 mg PO BID [facility] Last Admin: 01/25/18 07:56 Dose: 75 mg Saccharomyces Boulardii (Florastor) 250 mg PO BID [facility] Last Admin: 01/25/18 07:56 Dose: 250 mg Sodium Chloride (Flush - Normal Saline) 10 ml IVF Q12HR [facility] Last Admin: 01/25/18 07:58 Dose: 10 ml Sodium Chloride (Flush - Normal Saline) 10 ml IVF PRN PRN PRN Reason: Saline Flush Trazodone HCl (Desyrel) 100 mg PO HSPRN PRN PRN Reason: Insomnia Last Admin: 01/24/18 20:28 Dose: 100 mg
[2018-01-25] MEDS: traZODone HCl 50 MG TAB PO PRN (20:39)
[2018-01-25] MEDS: Lidocaine Patch Removal 1 EACH TOP SCH (20:41)
[2018-01-26] MEDS: HYDROcodone/Acetaminophen 5/325 mg Tablet PO PRN ×5 (02:42→20:53)
[2018-01-26] MEDS: Levothyroxine Sodium 75 MCG TAB PO SCH (04:56)
[2018-01-26] MEDS: Lorazepam 0.5 MG TAB PO PRN ×3 (04:58→20:52)
[2018-01-26] MEDS: Escitalopram Oxalate 10 mg Tablet PO SCH (08:29)
[2018-01-26] MEDS: Furosemide 20 MG TAB PO SCH (08:29)
[2018-01-26] MEDS: Amlodipine 5 MG TAB PO SCH (08:29)
[2018-01-26] MEDS: guaiFENesin/DM ER PO SCH ×2 (08:30→20:52)
[2018-01-26] MEDS: Pregabalin 75 MG CAP PO SCH ×2 (08:30→20:53)
[2018-01-26] MEDS: Saccharomyces boulardii 250 MG CAP PO SCH ×2 (08:30→20:52)
[2018-01-26] MEDS: Lidocaine 5% Patch TD SCH (08:32)
[2018-01-26] MEDS: Enoxaparin Sodium 40 MG/0.4 ML SYRINGE SC SCH (08:32)
[2018-01-26] MEDS: Benzonatate 100 MG CAP PO PRN ×2 (08:44→20:52)
--- NOTE | 2018-01-26 18:22 | PDOC.PN ---
- Subjective Encounter Start Date: 01/26/18 Encounter Start Time: 07:40 Pt seen for followup re: physical deconditioning. Cough better, no other complaints today. - Objective Resuscitation Status: Resuscitation Status FULL:Full Resuscitation MAR Reviewed: Yes Vital Signs & Weight: Vital Signs (12 hours) Temp Pulse Resp BP BP Pulse Ox 01/26/18 15:52 98.4 F 72 20 124/60 94 L 01/26/18 08:47 96 01/26/18 08:36 69 18 94 L 01/26/18 08:29 61 160/67 H 01/26/18 07:58 97.6 F 61 18 160/67 H 96 Weight Admit Weight 138 lb 12.8 oz Weight 138 lb 12.8 oz I&O: 01/25/18 01/26/18 01/27/18 06:59 06:59 06:59 Intake Total 1440 1800 960 Output Total 800 Balance 1440 1800 160 Result Diagrams: 01/23/18 04:22 01/23/18 04:22 Additional Labs: labs reviewed by me Phys Exam - Physical Examination Constitutional: NAD HEENT: moist MMs Neck: supple Respiratory: clear to auscultation bilateral Cardiovascular: RRR Gastrointestinal: soft Neurological: moves all 4 limbs Psychiatric: normal affect Dx/Plan (1) Physical deconditioning Code(s): R53.81 - OTHER MALAISE Status: Acute Comment: waiting to hear from [facility] (2) Rhinovirus infection Code(s): B34.8 - OTHER VIRAL INFECTIONS OF UNSPECIFIED SITE Status: Acute Comment: Improved (3) Knee pain Code(s): M25.569 - PAIN IN UNSPECIFIED KNEE Status: Acute Comment: continue pain medications (4) Chronic pain Code(s): G89.29 - OTHER CHRONIC PAIN Status: Chronic Comment: continue pain medications (5) Hypertension Code(s): I10 - ESSENTIAL (PRIMARY) HYPERTENSION Status: Chronic Qualifiers: Hypertension type: essential hypertension Qualified Code(s): I10 - Essential (primary) hypertension Comment: controlled (6) Hypothyroid Code(s): E03.9 - HYPOTHYROIDISM, UNSPECIFIED Status: Chronic Qualifiers: Hypothyroidism type: unspecified Qualified Code(s): E03.9 - Hypothyroidism , unspecified Comment: continue synthroid (7) Moderate protein-calorie malnutrition Code(s): E44.0 - MODERATE PROTEIN-CALORIE MALNUTRITION Status: Chronic (8) Fever Code(s): R50.9 - FEVER, UNSPECIFIED Status: Resolved - Plan * . Review of Systems - Review of Systems Constitutional: negative: fever, chills, sweats, weakness, malaise Respiratory: Cough. negative: Shortness of Breath, SOB with Excertion, Pleuritic Pain, Wheezing - Medications/Allergies Allergies/Adverse Reactions: Allergies Allergy/AdvReac Type Severity Reaction Status Date / Time aspirin Allergy Severe Verified 12/22/17 17:26 cefepime Allergy Severe Rash Verified 12/22/17 17:26 ibuprofen Allergy Severe Verified 12/22/17 17:26 NSAIDS (Non-Steroidal Allergy Severe Verified 12/22/17 17:26 Anti-Inflamma Penicillins Allergy Unknown Verified 12/22/17 17:26 Medications: Current Medications Acetaminophen (Tylenol) 650 mg PO Q4H PRN PRN Reason: Headache/Fever or Pain Acetaminophen (Tylenol) 650 mg [place] Q4H PRN PRN Reason: Headache/Fever or Pain Hydrocodone Bitart/Acetaminophen ([place] 5/325) 1 tab PO Q4H PRN PRN Reason: Moderate Pain (4-6) Last Admin: 01/26/18 17:13 Dose: 1 tab Albuterol/Ipratropium (Duoneb) 3 ml NEB Q6H PRN PRN Reason: SOB &/or Wheezing Last Admin: 01/26/18 08:36 Dose: 3 ml Amlodipine Besylate (Norvasc) 5 mg PO DAILY [facility] Last Admin: 01/26/18 08:29 Dose: 5 mg Benzonatate (Tessalon) 200 mg PO TIDPRN PRN PRN Reason: Cough Last Admin: 01/26/18 08:44 Dose: 200 mg Bisacodyl (Dulcolax) 10 mg PO DAILYPRN PRN PRN Reason: Constipation Last Admin: 01/19/18 21:48 Dose: 10 mg Enoxaparin Sodium (Lovenox) 40 mg SC 0900 [facility] Last Admin: 01/26/18 08:32 Dose: 40 mg Escitalopram Oxalate (Lexapro) 10 mg PO DAILY [facility] Last Admin: 01/26/18 08:29 Dose: 10 mg Furosemide (Lasix) 20 mg PO DAILY[facility] Last Admin: 01/26/18 08:29 Dose: 20 mg Guaifenesin/Dextromethorphan (Mucinex Dm) 2 tab PO Q12HR [facility] Last Admin: 01/26/18 08:30 Dose: 2 tab Levothyroxine Sodium (Synthroid) 75 mcg PO 0600 [facility] Last Admin: 01/26/18 04:56 Dose: 75 mcg Lidocaine (Lidoderm 5% Patch) 1 patch TD DAILY [facility] Last Admin: 01/26/18 08:32 Dose: 1 patch Lorazepam (Ativan) 0.5 mg PO Q6H PRN PRN Reason: Anxiety/Agitation Last Admin: 01/26/18 12:03 Dose: 0.5 mg Miscellaneous Medication (Pharmacy To Dose) 1 each IVPB PRN PRN PRN Reason: Pharmacy to dose Miscellaneous Medication (Lidocaine Patch Removal) 1 each TOP 2100 [facility] Last Admin: 01/25/18 20:41 Dose: Not Given Ondansetron HCl (Zofran Odt) 4 mg PO Q6H PRN PRN Reason: Nausea/Vomiting Last Admin: 01/21/18 20:17 Dose: 4 mg Pantoprazole Sodium (Protonix) 40 mg PO DAILY [facility] Last Admin: 01/26/18 08:32 Dose: 40 mg Pregabalin (Lyrica) 75 mg PO BID [facility] Last Admin: 01/26/18 08:30 Dose: 75 mg Saccharomyces Boulardii (Florastor) 250 mg PO BID [facility] Last Admin: 01/26/18 08:30 Dose: 250 mg Sodium Chloride (Flush - Normal Saline) 10 ml IVF Q12HR [facility] Last Admin: 01/26/18 08:32 Dose: Not Given Sodium Chloride (Flush - Normal Saline) 10 ml IVF PRN PRN PRN Reason: Saline Flush Trazodone HCl (Desyrel) 100 mg PO HSPRN PRN PRN Reason: Insomnia Last Admin: 01/25/18 20:39 Dose: 100 mg
[2018-01-26] MEDS: traZODone HCl 50 MG TAB PO PRN (20:52)
[2018-01-26] MEDS: Lidocaine Patch Removal 1 EACH TOP SCH (20:54)
[2018-01-27] MEDS: HYDROcodone/Acetaminophen 5/325 mg Tablet PO PRN ×3 (05:10→14:08)
[2018-01-27] MEDS: Levothyroxine Sodium 75 MCG TAB PO SCH (05:10)
[2018-01-27] MEDS: guaiFENesin/DM ER PO SCH (08:39)
[2018-01-27] MEDS: Amlodipine 5 MG TAB PO SCH (08:39)
[2018-01-27] MEDS: Furosemide 20 MG TAB PO SCH (08:39)
[2018-01-27] MEDS: Saccharomyces boulardii 250 MG CAP PO SCH (08:39)
[2018-01-27] MEDS: Escitalopram Oxalate 10 mg Tablet PO SCH (08:40)
[2018-01-27] MEDS: Pregabalin 75 MG CAP PO SCH (08:40)
[2018-01-27] MEDS: Enoxaparin Sodium 40 MG/0.4 ML SYRINGE SC SCH (08:41)
[2018-01-27] MEDS: Lidocaine 5% Patch TD SCH (08:41)
[2018-01-27] MEDS: Lorazepam 0.5 MG TAB PO PRN ×2 (09:17→15:40)
[2018-01-27] MEDS: Benzonatate 100 MG CAP PO PRN (14:08)
[2018-01-27] MEDS ORDERED: Acetaminophen/Codeine 30-300mg Tablet PO PRN (14:56)
[2018-01-27 17:46] VITALS: BP 151/53; TEMP 98.5
--- NOTE | 2018-01-28 00:53 | DIS ---
DATE OF ADMISSION: 01/13/2018 DATE OF DISCHARGE: 01/27/2018 PRIMARY CARE PHYSICIAN: Iqra Little MD DISCHARGE DIAGNOSES: 1. Fevers. 2. Respiratory rhinovirus infection. 3. Chronic pain syndrome. 4. Physical deconditioning. 5. Low TSH. CONDITION OF PATIENT ON THE DAY OF DISCHARGE: Stable. I assessed Ms. Adrian on the day of discharge. She feels better. PHYSICAL EXAMINATION: VITAL SIGNS: Stable. HEART: S1 and S2 are heard, regular. LUNGS: Clear to auscultation bilaterally. DISCHARGE MEDICATIONS: Amlodipine 5 mg daily; Synthroid 75 mcg daily; trazodone 100 mg in the evenin g; Lexapro 10 mg daily; Lasix 20 mg daily; DuoNeb 4 times a day as needed; lidocaine 5% patch daily; Protonix 40 mg daily; Lyrica 75 mg 2 times a day; Ativan 0.5 mg 3 times a day; Tylenol 650 mg every 4 hours as needed; Tylenol No. 3, 300/30 mg 1 tablet every 6 hours as needed; Tessalon 200 mg 3 times a day as needed; Dulcolax 10 mg daily as needed; and Mucinex DM 1200/60 mg every 12 hours as needed. CONSULTATIONS DURING THIS HOSPITALIZATION: Infectious diseases, Dr. Salcedo; and Pulmonology, Dr. Siddiqui . HOSPITAL COURSE: Ms. Adrian is a pleasant 62-year-old lady who was admitted to [facility] on 01/13/2018 for fevers. She was recently discharged from the hospital after being sugar myrna for Enterococcal bacteremia. She was found to have respiratory infection with rhinovirus. She was initially treated with broad-sp ectrum antibiotics, subsequently stepped down to oral antibiotics, which have since been discontinued . She has a low TSH, but normal free T3 and free T4. Her thyroid profile will need to be rechecked in about 6 weeks' time. She was also physically deconditioned. She is being discharged to [facility] for further management. Many thanks for allowing me to participate in your patient's care. Please feel free to contact me wi th any questions or concerns. DISCHARGE DESTINATION: [facility]. TOTAL AMOUNT OF TIME SPENT COORDINATING THIS DISCHARGE: 33 minutes.
--- NOTE | 2018-01-28 14:11 | EKG ---
Test Reason : CHEST TIGHTNESS Blood Pressure : / mmHG Vent. Rate : 078 BPM Atrial Rate : 078 BPM P-R Int : 178 ms QRS Dur : 092 ms QT Int : 428 ms P-R-T Axes : 012 010 036 degrees QTc Int : 487 ms Normal sinus rhythm Cannot rule out Anterior infarct , age undetermined Abnormal ECG Confirmed by NILA NORTON DO ([id number]), city editor EVA RUELAS ([id number]) on 01/28/2018 2:11:20 PM Referred By: Confirmed By:NILA NORTON DO
== END 2018-01-27 17:48 | DRG 866 ==
LOC: ERS 13:03 → 2SW 16:38 → OBSVTOIN 16:38 → T4-A 23:06
PROVIDERS: ADMIT Internal Medicine; ATTEND Internal Medicine
DX: B34.8 Other viral infections of unspecified site (principal); J90 Pleural effusion, not elsewhere classified; E44.0 Moderate protein-calorie malnutrition; I50.32 Chronic diastolic (congestive) heart failure; R50.9 Fever, unspecified; G89.29 Other chronic pain; F41.9 Anxiety disorder, unspecified; I10 Essential (primary) hypertension; E78.5 Hyperlipidemia, unspecified; E03.9 Hypothyroidism, unspecified; J44.9 Chronic obstructive pulmonary disease, unspecified; K70.30 Alcoholic cirrhosis of liver without ascites; I11.0 Hypertensive heart disease with heart failure; Z68.22 Body mass index [BMI] 22.0-22.9, adult
CPT/HCPCS: 36415; 36416; 71045; 71275; 80048; 80053; 80202; 81003; 81015; 82553; 83605; 83880; 84439; 84443; 84481; 84484; 85025; 85379; 87040; 87086; 87149; 87633; 90471; 90686; 93005; 96365; A4216; G0008; G8978-GP-CL; G8979-GP-CJ; G8987-GO-CJ; G8988-GO-CK; J1650; J3370; J3490; J7050; J7620; Q0162

== ENCOUNTER 2018-04-29 20:00 | Inpatient (IN) | payer MEDICARE ==
[~2018-04-29 20:00] MED LIST changes: -ISOVUE-370 76%-LOCM 1 ML ONE; +Lidocaine 1% PF 5 ML VIAL ONE; +Ondansetron PF 4 MG/2 ML Vial ONE; +PHENYLEPHRINE-NS 100 MCG/ML 10 ML SYRINGE ONE; +PROPOFOL 200 MG/20 ML VIAL ONE; +Succinylcholine Chloride 20 MG/ML 10 ml SYRINGE FS ONE
[2018-04-29] MEDS ORDERED: Ondansetron PF 4 MG/2 ML Vial ONE ×2 (20:19→23:45)
[2018-04-29 20:36] LABS: #Eosinphils 0.1 thou/uL (0.0-0.7); #Lymphocytes 1.1 thou/uL (1.20-3.40); #Monocytes 0.6 thou/uL (0.11-0.59); %Basophils 0.9 % (0.0-1.0); %Eosinophils 1.4 % (0.0-10.0); %Lymphocytes 19.4 % (21.0-51.0); %Monocytes 10.5 % (0.0-10.0); %Neutrophils 67.9 % (42.0-75.0); Hemoglobin 7.4 g/dL (12.0-16.0); Mean Corpuscular HGB CONC 32.6 g/dL (32.0-36.0); Mean Corpuscular Hemoglobin 27.3 pg (27.0-31.0); Mean Corpuscular Volume 83.9 fL (78.0-98.0); Mean Platelet Volume 9.1 fL (7.4-10.4); Platelet Count 171 thou/uL (130-400); RBC Distribution Width 18.6 % (11.5-14.5); White Blood Cell (WBC) Count 5.8 thou/uL (4.8-10.8)
[2018-04-29] MEDS ORDERED: Lidocaine 2% MPF 10 ML AMP (For Epidural Use) ONE (20:36)
[2018-04-29] MEDS ORDERED: Pantoprazole 40 MG VIAL ONE (20:40)
[2018-04-29 20:43] LABS: INR-International Normal Ratio 1.3; PTT 32.1 SEC (22.9-36.1); Prothrombin Time 16.7 SEC (12.0-14.7)
[2018-04-29 20:57] LABS: ALT (SGPT) 15 U/L (8-55); AST (SGOT) 37 U/L (5-34); Albumin 2.5 g/dL (3.4-4.8); Alkaline Phosphatase 163 U/L (40-150); Anion Gap 18 mmol/L (10-20); BUN (Urea Nitrogen) 38 mg/dL (9.8-20.1); Bilirubin, Total 0.4 mg/dL (0.2-1.2); Calc. Creatinine Clearance 0 mL/min (70-130); Calcium 7.5 mg/dL (7.8-10.44); Carbon Dioxide 22 mmol/L (23-31); Chloride 107 mmol/L (98-107); Estimated GFR-MDRD 59; Globulin 2.2 g/dL (2.4-3.5); Glucose 128 mg/dL (80-115); Potassium 4.9 mmol/L (3.5-5.1); Protein, Total 4.7 g/dL (6.0-8.3); Sodium 142 mmol/L (136-145)
[2018-04-29] MEDS ORDERED: Octreotide Acetate 50 MCG/ML AMP SLOW IVP SCH (21:15)
[2018-04-29] MEDS ORDERED: Pantoprazole 80 MG, Admixture Fee 1 EACH in Sodium Chloride 0.9% 100 ML IVP SCH (21:30)
[2018-04-29] MEDS ORDERED: metroNIDAZOLE 500 MG/100 ML BAG ONE (21:49)
[2018-04-29] MEDS ORDERED: Octreotide Acetate 50 MCG/ML AMP ONE (22:09)
[2018-04-29] MEDS ORDERED: Octreotide Acetate 1,250 MCG in Sodium Chloride 0.9% 250 ML 250 ML IVPB SCH (22:15)
[2018-04-29] MEDS ORDERED: cefTRIAXone\\ROCEPHIN 1 GM VIAL ONE (22:17)
[2018-04-29] MEDS ORDERED: Fentanyl 100 MCG/2 ML VIAL ONE (22:17)
[2018-04-29] MEDS ORDERED: Acetaminophen 325 MG TAB PO PRN (22:46)
[2018-04-29] MEDS ORDERED: Ondansetron PF 4 MG/2 ML Vial IVP PRN (22:46)
[2018-04-29 22:53] LABS: Hemoglobin 9.7 g/dL (12.0-16.0)
--- NOTE | 2018-04-29 23:47 | HP ---
REASON FOR ADMISSION: GI bleed, hemorrhagic shock due to bleeding. HISTORY OF PRESENTING ILLNESS: The patient gives history of having cough for last 3 days. She felt like her pneumonia which she had 2 months back had come back. No expectoration as such. It was mostly dry. Today, she felt sick to her stomach from morning. She has been nauseating, finally she vomited multiple times. The last vomitus at home was bloody. This happened around 6:30 p.m. She had one more after arriving here, which again was a large amount of blood in the vomitus. She had one episode of bleeding per rectum at home. Again, she says it was a large volume and the toilet essentially was completely red. There is no abdominal pain as such. The patient says she stopped drinking alcohol from 8 months. She also quit smoking a month back. PAST MEDICAL AND SURGICAL HISTORY: History of alcoholic cirrhosis, prior history of GI bleed, history of TIPS done in 1989, pneumonia in the month of January, echo done in December of this year showed EF of 60%, grade 3/3 diastolic dysfunction, concentric LVH, left atrium was dilated, moderate mitral regurgitation, moderate aortic regurgitation. 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 CURRENT MEDICATIONS: The patient is on; 1. Amlodipine 5 mg daily. 2. Levothyroxine 75 mcg daily. 3. Trazodone 100 mg p.o. at bedtime. 4. Cymbalta 60 mg p.o. daily. 5. Lyrica 75 mg p.o. twice daily for phantom limb from left AKA. 6. Protonix 40 mg daily. 7. Lasix 40 mg every other day. ALLERGIES: TO ASPIRIN, CEFEPIME, MOTRIN, AND PENICILLIN. PERSONAL HISTORY: Quit smoking a month back, prior to which smoking 3 packs a day for last 6 months or so due to personal history/divorce. She stopped drinking 8 months back, prior to which was drinking vodka about one-third a bottle for 2 years or so. Does not abuse drugs. FAMILY HISTORY: History of heart disease in the family. Brother has history of hypertension. CODE STATUS: Full. Power of civil rights attorney is her son Mr. Martinez. REVIEW OF SYSTEMS: CONSTITUTIONAL: Negative for weight loss or gain, ability to conduct usual activities. SKIN: Negative for rash, itching. EYES: Negative for double vision, pain. ENT/MOUTH: Negative for nose bleeding, neck stiffness, pain, tenderness. CARDIOVASCULAR: Negative for palpitations, dyspnea on exertion, orthopnea. RESPIRATORY: Negative for shortness of breath, wheezing, cough, hemoptysis, fever or night sweats. GASTROINTESTINAL: Negative for poor appetite, abdominal pain, heartburn, nausea , vomiting, constipation, or diarrhea. GENITOURINARY: Negative for urgency, frequency, dysuria, nocturia. MUSCULOSKELETAL: Negative for pain, swelling. NEUROLOGIC/PSYCHIATRIC: Negative for anxiety, depression. ALLERGY/IMMUNOLOGIC: Negative for skin rash, bleeding tendency. PHYSICAL EXAMINATION: GENERAL: The patient is a 62-year-old female who is currently not in any acute distress. VITAL SIGNS: Blood pressure is 90/46, pulse 116 per minute, respiratory rate 18 per minute, temperature 99.5 degrees, and saturating 95% on 2 L nasal cannula. NECK: Supple. No elevated JVD. HEENT: Eyes; extraocular muscles intact. Pupils reacting to light. Oral cavity; mucous membranes are dry. There is loss of rugae on the tongue. There is dried blood around the nasal ala and oral cavity. No ulcerations or active bleed seen. CARDIOVASCULAR SYSTEM: S1 and S2 heard, tachycardic. There is murmur plus. RESPIRATORY SYSTEM: Air entry 1+ bilateral. Scattered rhonchi plus bilateral. ABDOMEN: Soft, bowel sounds heard. No tenderness, rigidity, or guarding. EXTREMITIES: No peripheral edema. Has history of left AKA, stump looks clean. Peripheral pulses 1+ bilateral. No ischemic ulcerations or gangrene. CENTRAL NERVOUS SYSTEM: No gross focal deficits noted. The patient is alert, awake, and oriented well. PSYCHIATRIC SYSTEM: The patient's mood is euthymic. No hallucinations or delusions. LABORATORY DATA: White count of 5.8, hemoglobin and hematocrit 7 and 22, platelet count is 171, MCV is 83 with 67% neutrophils. INR is 1.3. BUN is 38, creatinine 0.9, serum bicarb 22, serum glucose 128. AST 37, ALT 15, alkaline phosphatase 163, total bilirubin 0.4, albumin is 2.5. EKG done shows normal sinus rhythm at 93 beats per minute and there are signs of LVH seen. Nonspecific ST-T wave changes are seen. CLINICAL IMPRESSION AND PLAN: The patient will be admitted to IMCU for gastrointestinal hemorrhage with hemorrhagic shock. She is getting her third unit of packed cell. The patient also received 2 L of IV fluids in the ER. She is on Protonix drip and octreotide. The patient has history of cirrhosis and likely her bleed is due to varices. The patient has seen Dr. Jaylan Garcia and is currently going for upper endoscopy. We will empirically place her on Cipro and Flagyl as the patient is allergic to cephalosporins. She is also getting fresh frozen plasma. We will obtain serial hemoglobin and hematocrit and transfuse as needed. She will be kept n.p.o. for now. Her overall prognosis is guarded due to her history of cirrhosis and likely variceal bleed. We will continue to closely monitor her in IMCU and if needed, we will transfer her to CCU. Further plan will be based on upper endoscopy findings. Job ID: [id number] CARROLL
--- NOTE | 2018-04-30 00:48 | CON ---
DATE OF CONSULTATION: 04/29/2018 TYPE OF CONSULTATION: Gastroenterology. CHIEF COMPLAINT: Vomited blood. HISTORY OF PRESENT ILLNESS: Ms. Adrian is a 62-year-old woman with a history of alcoholic cirrhosis and esophageal varices, who vomited red blood this afternoon. She had a black stool as well. She was taken to the emergency room by EMS and had another large red hematemesis episode in the ER. She was hypotensive associated with that and even after 2 L of fluid, her blood pressure was 87/51. She received 3 units of blood. Hemoglobin prior to transfusion was 7.4. Her pulse is in the 90s. Her blood pressure is improved to 100 over 50s range. She has been afebrile. She has no abdominal pain. No ongoing nausea currently. No chest pain or shortness of breath. PAST MEDICAL HISTORY: Alcoholic cirrhosis, esophageal varices, peptic ulcer disease, hypertension, hyperlipidemia, osteoarthritis, hypothyroidism, and COPD. She had EGD by Dr. Ly on 12/04/2017, which showed small gastric varices in the fundus of the stomach without stigmata of recent bleeding and erosive esophagitis, but no esophageal varices. She did have a pyloric channel ulcer noted without bleeding at the time. She had postoperative deformity in the duodenum consistent with prior surgery. PAST SURGICAL HISTORY: Hip replacement, laminectomy, shoulder surgery, and left leg amputation. FAMILY HISTORY: Negative for GI malignancies. SOCIAL HISTORY: She has had no alcohol use in the last 6 months. No drugs. No tobacco. ALLERGIES: CEFEPIME, PENICILLIN, ASPIRIN, AND IBUPROFEN. MEDICATIONS: Based on the most recent discharge summary include; 1. Levothyroxine. 2. Escitalopram. 3. Furosemide. 4. DuoNeb inhaler. 5. Lyrica. 6. Pantoprazole. 7. Acetaminophen with codeine. 8. Lorazepam. 9. Trazodone. 10. Amlodipine. REVIEW OF SYSTEMS: Negative x10 systems reviewed except as stated in history of present illness. PHYSICAL EXAMINATION: VITAL SIGNS: Blood pressure 100 range over 50s, pulse is in the 80s. She is afebrile. GENERAL: She has blood staining on various parts of her body and clothing from vomiting. There is blood staining on the floor and all over the bed. She is in no acute distress. Alert and oriented x3. There is no asterixis. HEENT: Eyes have no scleral icterus. Oropharynx is clear without lesions. No cervical or supraclavicular lymphadenopathy. LUNGS: Clear to auscultation bilaterally. HEART: Regular rate and rhythm without murmur. ABDOMEN: Soft, nontender, and nondistended. Bowel sounds are present. EXTREMITIES: No lower extremity edema, status post amputation left leg. LABORATORY DATA: Creatinine 0.96. Bilirubin 0.4, AST 37, ALT 15, and alkaline phosphatase 63. Albumin 2.5, INR 1.3. White blood cell count 5.7, hemoglobin 7.4 prior to transfusion, and platelets 171. Plasma alcohol back in 11/2017 was 307. IMPRESSION: 1. Hematemesis. 2. Anemia of acute blood loss. 3. Hemorrhagic shock. 4. Alcoholic cirrhosis. 5. History of peptic ulcer disease by endoscopy in November. 6. Small gastric varices by endoscopy in November. RECOMMENDATIONS: 1. Proton pump inhibitor drip. 2. Octreotide drip. 3. She has received volume resuscitation and blood transfusion. 4. We will plan upper endoscopy this evening. 5. Antibiotics for SBP prophylaxis. She is allergic to cephalosporins and penicillins. She has been given ciprofloxacin and metronidazole in the ER. Job ID: [id number]
[2018-04-30] MEDS: metroNIDAZOLE 500 MG in Premix Bag 1 BAG IVPB SCH ×3 (01:06→15:37)
--- NOTE | 2018-04-30 01:21 | OP ---
DATE OF PROCEDURE: 04/29/2018 PROCEDURE PERFORMED: Esophagogastroduodenoscopy with control of hemorrhage. PREOPERATIVE DIAGNOSES: Hematemesis, anemia of acute blood loss, and hemorrhagic shock. DESCRIPTION OF PROCEDURE: Informed consent was obtained from the patient. She was sedated with general anesthesia. The bite-block was placed and the endoscope was advanced easily to the second portion of the duodenum and retroflexion was performed in the stomach. The esophagus had mild grade B erosive esophagitis. There was no esophageal varices present. There were moderate gastric varices in the fundus of the stomach without stigmata of recent bleeding. There was 1 cm cratered ulcer in the pre-pyloric antrum. This had a protuberant visible vessel with overlying blood clot. The blood clot was dislodged and the underlying vessel was cauterized with a 10-Slovenian gold probe with good hemostasis confirmed. Prior to the cautery, epinephrine 1:10,000 was injected in four quadrants with 1 mL per quadrant. There was also shallow ulcer in the bulb of the duodenum. There was a single protuberant red spot over one of these ulcers and this was cauterized with a 10-Slovenian gold probe, but did not appear to be significant active bleeding source. The second portion of the duodenum was unremarkable. IMPRESSION: 1. A 1 cm cratered ulcer in the pre-pyloric antrum with a visible vessel with overlying clot, which was injected with epinephrine and cauterized with a 10-Slovenian gold probe with good hemostasis confirmed. 2. Shallow duodenal bulb ulcer with a focal vessel cauterized. This is less likely a significant bleeding source. 3. Moderate varices in the gastric fundus. 4. Mild grade B erosive esophagitis. 5. The patient had vomited a large amount of red blood in the emergency room; however, at the time of the endoscopy, there was no active bleeding. 6. History of alcoholic cirrhosis. She had a transjugular intrahepatic portosystemic shunt procedure back in 1988, which failed not long after it was performed. She since had multiple collateral form around that. RECOMMENDATIONS: 1. Continue proton pump inhibitor IV drip. 2. Discontinue the octreotide in the morning. 3. Check hemoglobin in the morning. Job ID: [id number]
[2018-04-30 02:29] LABS: Hemoglobin 9.2 g/dL (12.0-16.0)
[2018-04-30] MEDS ORDERED: ALPRAZolam 1 MG TAB PO SCH (06:30)
[2018-04-30] MEDS ORDERED: ALPRAZolam 0.5 MG TAB PO SCH (06:30)
[2018-04-30] MEDS: Dextrose 5%-Lactated Ringers 1,000 ML IV SCH (06:43)
[2018-04-30] MEDS: Levothyroxine Sodium 75 MCG TAB PO SCH (06:43)
[2018-04-30 08:02] LABS: ALT (SGPT) 13 U/L (8-55); AST (SGOT) 33 U/L (5-34); Albumin 2.3 g/dL (3.4-4.8); Alkaline Phosphatase 127 U/L (40-150); Anion Gap 12 mmol/L (10-20); BUN (Urea Nitrogen) 37 mg/dL (9.8-20.1); Bilirubin, Total 0.5 mg/dL (0.2-1.2); Calc. Creatinine Clearance 69 mL/min (70-130); Calcium 6.5 mg/dL (7.8-10.44); Carbon Dioxide 23 mmol/L (23-31); Chloride 112 mmol/L (98-107); Estimated GFR-MDRD 67; Glucose 154 mg/dL (80-115); Potassium 5.3 mmol/L (3.5-5.1); Protein, Total 4.3 g/dL (6.0-8.3); Sodium 142 mmol/L (136-145)
[2018-04-30] MEDS: Pantoprazole 80 MG in Sodium Chloride 0.9% 100 ML IVP SCH ×2 (08:05→17:48)
[2018-04-30 08:12] LABS: Hemoglobin 8.4 g/dL (12.0-16.0)
--- NOTE | 2018-04-30 11:19 | PDOC.PN ---
- Subjective Encounter Start Date: 04/30/18 Encounter Start Time: 11:17 Patient seen and examined, no new issues or complaints. - Objective Resuscitation Status - Order Detail: 04/29/18 22:41 Resuscitation Status Routine Resuscitation Status: FULL: Full Resuscitation Discussed with: POA: (son) Vital Signs & Weight: Vital Signs (12 hours) Temp Pulse Resp BP Pulse Ox 04/30/18 10:50 97.4 F L 74 18 112/41 L 97 04/30/18 10:40 74 16 93 L 04/30/18 08:00 99 04/30/18 07:38 98.8 F 78 20 120/47 L 96 04/30/18 07:16 71 16 98 04/30/18 04:00 98.2 F 71 24 H 118/46 L 99 04/29/18 23:55 99.2 F 92 18 168/54 H 100 Weight Weight 143 lb 1.6 oz I&O: 04/29/18 04/30/18 05/01/18 06:59 06:59 06:59 Intake Total 222 Output Total 300 Balance -78 Result Diagrams: 04/30/18 08:02 04/30/18 02:17 Phys Exam - Physical Examination Constitutional: NAD HEENT: PERRLA, moist MMs, sclera anicteric Neck: no nodes, no JVD, supple, full ROM Respiratory: no wheezing, no rales, no rhonchi Cardiovascular: RRR, no significant murmur, no rub Gastrointestinal: soft, non-tender, no distention Musculoskeletal: no edema, pulses present Dx/Plan (1) Upper GI bleed Code(s): K92.2 - GASTROINTESTINAL HEMORRHAGE, UNSPECIFIED Status: Acute (2) Hypotension Status: Acute (3) Abdominal pain Code(s): R10.9 - UNSPECIFIED ABDOMINAL PAIN Status: Acute - Plan * patient states she takes a LOT of aleve, about 4-6 pills daily and has been doing so for about 3-4 months, advised not to take any more NSAIDs as this will not help her current condition * move to telemetry floor today, hematocit stable and hemodynamically stable * no other changes in plan of care * case and plan d/w patient at length, she understood and agreed with this plan
--- NOTE | 2018-04-30 11:23 | PDOC.PN ---
- Subjective Encounter Start Date: 04/30/18 Encounter Start Time: 11:20 Patient seen and examined, daughters at bedside, all questions answered. - Objective Resuscitation Status - Order Detail: 04/29/18 22:41 Resuscitation Status Routine Resuscitation Status: FULL: Full Resuscitation Discussed with: POA: (son) Vital Signs & Weight: Vital Signs (12 hours) Temp Pulse Resp BP Pulse Ox 04/30/18 10:50 97.4 F L 74 18 112/41 L 97 04/30/18 10:40 74 16 93 L 04/30/18 08:00 99 04/30/18 07:38 98.8 F 78 20 120/47 L 96 04/30/18 07:16 71 16 98 04/30/18 04:00 98.2 F 71 24 H 118/46 L 99 04/29/18 23:55 99.2 F 92 18 168/54 H 100 Weight Weight 143 lb 1.6 oz I&O: 04/29/18 04/30/18 05/01/18 06:59 06:59 06:59 Intake Total 222 Output Total 300 Balance -78 Result Diagrams: 04/30/18 08:02 04/30/18 02:17 Phys Exam - Physical Examination Constitutional: NAD HEENT: PERRLA, moist MMs, sclera anicteric Neck: no nodes, no JVD, supple Respiratory: no wheezing, no rales, no rhonchi Cardiovascular: RRR, no significant murmur, no rub Gastrointestinal: soft, non-tender, no distention, positive bowel sounds Musculoskeletal: pulses present, edema present (trace) Dx/Plan (1) Upper GI bleed Code(s): K92.2 - GASTROINTESTINAL HEMORRHAGE, UNSPECIFIED Status: Acute (2) Hypotension Status: Acute (3) Abdominal pain Code(s): R10.9 - UNSPECIFIED ABDOMINAL PAIN Status: Acute (4) Hyponatremia Code(s): E87.1 - HYPO-OSMOLALITY AND HYPONATREMIA Status: Acute (5) Cirrhosis Code(s): K74.60 - UNSPECIFIED CIRRHOSIS OF LIVER Status: Acute (6) GI bleed Code(s): K92.2 - GASTROINTESTINAL HEMORRHAGE, UNSPECIFIED Status: Resolved Qualifiers: GI bleed type/associated pathology: unspecified peptic ulcer Qualified Code (s): K27.4 - Chronic or unspecified peptic ulcer, site unspecified, with hemorrhage - Plan * Remains in shock requiring levophed, last night went up to 10mcg/kg dosage, currently down to 6, will start midodrine 10mg po TID for SBP < 100mmHg to see if we can wean of the levophed * overall prognosis appears to be VERY POOR, admitting Na was 109 and the patient was AAO x 3 with no neurological dysfunction, this implies a chronic drop in Na levels and not an acute change * case d/w renal team as well, over all the patient would benefit from hospice evaluation, family at bedside, they agree with DNR/DNI, but would like to discuss a bit further prior to talking to hospice representatives * for now continue with pressors and current plan of care * case and plan d/w patient and both daughters at length, they understand and agree with this plan.
--- NOTE | 2018-04-30 12:02 | PRG ---
DATE OF SERVICE: 04/30/2018 SUBJECTIVE: Ms. Adrian has had no further overt bleeding today. She has no abdominal pain. No nausea or vomiting. OBJECTIVE: VITAL SIGNS: Temperature 97.4, pulse 74, and blood pressure 112/41. GENERAL: She is in no acute distress. She is alert and oriented x3. She has no asterixis on neurological exam. LUNGS: Clear to auscultation bilaterally. HEART: Regular rate and rhythm without murmur. ABDOMEN: Soft, nontender, and nondistended. Bowel sounds are present. EXTREMITIES: No lower extremity edema. LABORATORY DATA: Hemoglobin is 8.4. She received 3 units transfusion last night prior to endoscopy. Her creatinine is 0.86. Bilirubin 0.5 and INR 1.3 last night. IMPRESSION: 1. Gastrointestinal bleed secondary to peptic ulcer in the antrum of the stomach, status post cautery of visible vessel in the ulcer base. 2. Alcoholic cirrhosis. 3. Moderate gastric varices. These had no stigmata of recent bleed at the time of endoscopy last night and the ulcer was a bleeding source. 4. Anemia of acute blood loss. She has received 3 units so far. We will continue to follow trend of her hemoglobin. RECOMMENDATIONS: 1. Continue Protonix drip. 2. We will discontinue octreotide today. 3. Start clear liquid diet and advance if she tolerates. 4. Continue to follow trend of her liver tests. 5. She is on antibiotics for SBP prophylaxis. Job ID: [id number]
[2018-04-30] MEDS: HYDROcodone/Acetaminophen 5/325 mg Tablet PO PRN ×2 (15:37→20:15)
[2018-04-30] MEDS: Lorazepam 0.5 MG TAB PO PRN (20:15)
[2018-04-30 20:24] LABS: Hemoglobin 7.8 g/dL (12.0-16.0)
[2018-04-30] MEDS ORDERED: traZODone HCl 50 MG TAB PO SCH (23:45)
[2018-05-01] MEDS: metroNIDAZOLE 500 MG in Premix Bag 1 BAG IVPB SCH ×4 (00:08→23:56)
[2018-05-01] MEDS: Pantoprazole 80 MG in Sodium Chloride 0.9% 100 ML IVP SCH ×2 (03:15→14:14)
[2018-05-01] MEDS: Dextrose 5%-Lactated Ringers 1,000 ML IV SCH (03:15)
[2018-05-01] MEDS: Levothyroxine Sodium 75 MCG TAB PO SCH (05:52)
[2018-05-01] MEDS: HYDROcodone/Acetaminophen 5/325 mg Tablet PO PRN ×3 (10:03→21:18)
[2018-05-01] MEDS: Lorazepam 0.5 MG TAB PO PRN (12:21)
--- NOTE | 2018-05-01 12:41 | PRG ---
DATE OF SERVICE: GI INPATIENT DAILY PROGRESS NOTE SUBJECTIVE: Ms. Adrian is feeling okay today, just a bit weak. No abdominal pain. No melena or any bowel movements. She is tolerating her clear liquid diet okay today. Hemoglobin trending down to 7.8 but with no evidence of overt rebleeding. OBJECTIVE: VITAL SIGNS: Temperature 98.3, pulse 84, blood pressure 105/52, 94% oxygen saturation on room air. GENERAL: No acute distress. HEART: Regular rate and rhythm. LUNGS: Clear to auscultation bilaterally. ABDOMEN: Soft and nontender to palpation. EXTREMITIES: No peripheral edema. LABORATORY STUDIES: Hemoglobin 7.8, hematocrit 23.6. Sodium 142, potassium 5.3, BUN 37, creatinine 0.86. ASSESSMENT AND PLAN: 1. Upper gastrointestinal bleeding secondary to peptic ulcer in the antrum and stomach, status post cautery of visible vessel in the ulcer base by Dr. Garcia 2 days ago on 04/29/2018. 2. Acute blood loss anemia. There has been no further overt evidence of bleeding since her endoscopy the night before last. Octreotide has been discontinued. She continues on IV PPI every 12 hours. I had a long discussion with her about peptic ulcer disease. She is going to need to go up to twice daily on her Protonix 40 mg upon hospital discharge. She is also going to have to quit taking all nonsteroidal anti-inflammatory drugs including Aleve. She says this is going to be difficult due to her chronic musculoskeletal pain including left shoulder problems. She might benefit from referral to a highway painter helper. 3. Alcoholic cirrhosis. 4. Gastric varices, nonbleeding. The patient's LFTs are actually in normal range. Admission INR was 1.3. She really has no other evidence of decompensation of cirrhosis. I recall that she had a TIPS placed many years ago, which evidently has occluded. Continue on antibiotics for SBP prophylaxis while inpatient, and these can be discontinued on hospital discharge. 5. We will advance her diet to full liquid diet today. Job ID: [id number]
--- NOTE | 2018-05-01 14:47 | PDOC.PN ---
- Subjective Encounter Start Date: 05/01/18 Encounter Start Time: 10:40 Pt seen for followup re: anemia of acute blood loss. Denies chest pain or shortness of breath. - Objective Resuscitation Status - Order Detail: 04/29/18 22:41 Resuscitation Status Routine Resuscitation Status: FULL: Full Resuscitation Discussed with: POA: (son) MAR Reviewed: Yes Vital Signs & Weight: Vital Signs (12 hours) Temp Pulse Resp BP Pulse Ox 05/01/18 12:09 98.3 F 84 17 105/52 L 94 L 05/01/18 11:27 65 20 95 05/01/18 08:00 95 05/01/18 07:53 64 18 95 05/01/18 07:34 97.9 F 66 14 114/46 L 97 05/01/18 04:00 97.6 F 58 L 14 117/43 L 94 L Weight Admit Weight 143 lb 1.6 oz Weight 143 lb 1.6 oz I&O: 04/30/18 05/01/18 05/02/18 06:59 06:59 06:59 Intake Total 222 3360 Output Total 300 450 Balance -78 2910 Result Diagrams: 04/30/18 20:08 04/30/18 02:17 EKG Reviewed by me: Yes (Tele: NSR) Phys Exam - Physical Examination Constitutional: NAD HEENT: moist MMs, sclera anicteric, oral pharynx no lesions, 2+ tonsils pallor Neck: no nodes, no JVD, supple, full ROM Respiratory: clear to auscultation bilateral Cardiovascular: RRR, no rub S1, s2 Gastrointestinal: soft, non-tender, no distention, positive bowel sounds Neurological: moves all 4 limbs Psychiatric: normal affect, A&O x 3 Dx/Plan (1) Anemia associated with acute blood loss Code(s): D62 - ACUTE POSTHEMORRHAGIC ANEMIA Status: Acute Comment: secondary to Upper GI bleed (2) Symptomatic anemia Code(s): D64.9 - ANEMIA, UNSPECIFIED Status: Acute Comment: Improving (3) Upper GI bleed Code(s): K92.2 - GASTROINTESTINAL HEMORRHAGE, UNSPECIFIED Status: Acute Comment: s/p EGD (4) Peptic ulcer Code(s): K27.9 - PEPTIC ULC, SITE UNSP, UNSP AC OR CHR, W/O HEMOR OR PERF Status: Acute Comment: Increase PPI to BID at the time of discharge (5) Hypertension Code(s): I10 - ESSENTIAL (PRIMARY) HYPERTENSION Status: Chronic Qualifiers: Hypertension type: essential hypertension Qualified Code(s): I10 - Essential (primary) hypertension Comment: controlled (6) Hypothyroid Code(s): E03.9 - HYPOTHYROIDISM, UNSPECIFIED Status: Chronic Qualifiers: Hypothyroidism type: unspecified Qualified Code(s): E03.9 - Hypothyroidism , unspecified Comment: continue synthroid (7) Shoulder pain Code(s): M25.519 - PAIN IN UNSPECIFIED SHOULDER Status: Chronic Comment: consult pain service - Plan * . Review of Systems - Review of Systems Constitutional: negative: fever, chills, sweats, weakness, malaise Cardiovascular: negative: chest pain, palpitations, orthopnea, paroxysmal nocturnal dyspnea, edema, light headedness Gastrointestinal: negative: Nausea, Vomiting, Abdominal Pain, Diarrhea, Constipation, Melena, Hematochezia Genitourinary: negative: Dysuria, Frequency, Incontinence, Hematuria, Retention Musculoskeletal: Shoulder Pain. negative: Neck Pain, Arm Pain, Back Pain, Hand Pain, Leg Pain, Foot Pain - Medications/Allergies Allergies/Adverse Reactions: Allergies Allergy/AdvReac Type Severity Reaction Status Date / Time aspirin Allergy Severe Verified 12/22/17 17:26 cefepime Allergy Severe Rash Verified 12/22/17 17:26 ibuprofen Allergy Severe Verified 12/22/17 17:26 NSAIDS (Non-Steroidal Allergy Severe Verified 12/22/17 17:26 Anti-Inflamma Penicillins Allergy Unknown Verified 12/22/17 17:26 Medications: Current Medications Acetaminophen (Tylenol) 650 mg PO Q4H PRN PRN Reason: Headache/Fever/Mild Pain (1-3) Hydrocodone Bitart/Acetaminophen ([place] 5/325) 1 tab PO TIDPRN PRN PRN Reason: Pain 4-6 Last Admin: 05/01/18 10:03 Dose: 1 tab Albuterol/Ipratropium (Duoneb) 3 ml NEB [id number] ELI Last Admin: 05/01/18 11:27 Dose: 3 ml Pantoprazole Sodium 80 mg/ (Sodium Chloride) 100 mls @ 10 mls/hr IVP INF ELI Last Admin: 05/01/18 14:14 Dose: 100 mls Ciprofloxacin/Dextrose 400 mg/ (Device) 200 mls @ 200 mls/hr IVPB 1100,2300 [facility] Last Admin: 05/01/18 10:51 Dose: 200 mls Metronidazole 500 mg/ Device 100 mls @ 100 mls/hr IVPB 0800,1600,2359 [facility] Last Admin: 05/01/18 08:55 Dose: 100 mls Dextrose/Lactated Ringer's (D5 Lr) 1,000 mls @ 50 mls/hr IV .Q20H [facility] Last Admin: 05/01/18 03:15 Dose: 1,000 mls Levothyroxine Sodium (Synthroid) 75 mcg PO 0600 [facility] Last Admin: 05/01/18 05:52 Dose: 75 mcg Lorazepam (Ativan) 0.5 mg PO TID PRN PRN Reason: Anxiety Last Admin: 05/01/18 12:21 Dose: 0.5 mg Ondansetron HCl (Zofran) 4 mg IVP Q6H PRN PRN Reason: Nausea/Vomiting Sodium Chloride (Flush - Normal Saline) 10 ml IVF Q12HR [facility] Last Admin: 05/01/18 08:56 Dose: 10 ml Sodium Chloride (Flush - Normal Saline) 10 ml IVF PRN PRN PRN Reason: Saline Flush Trazodone HCl (Desyrel) 100 mg PO HS [facility]
[2018-05-01] MEDS: Pregabalin 75 MG CAP PO SCH (21:17)
[2018-05-01] MEDS: traZODone HCl 50 MG TAB PO SCH (21:18)
[2018-05-02] MEDS: Pantoprazole 80 MG in Sodium Chloride 0.9% 100 ML IVP SCH ×3 (00:21→21:44)
[2018-05-02] MEDS: Dextrose 5%-Lactated Ringers 1,000 ML IV SCH ×3 (01:31→21:46)
[2018-05-02] MEDS: Lorazepam 0.5 MG TAB PO PRN ×4 (01:49→21:53)
[2018-05-02] MEDS: Levothyroxine Sodium 75 MCG TAB PO SCH (05:19)
[2018-05-02] MEDS: metroNIDAZOLE 500 MG in Premix Bag 1 BAG IVPB SCH ×3 (08:35→23:58)
[2018-05-02] MEDS: HYDROcodone/Acetaminophen 5/325 mg Tablet PO PRN ×3 (08:35→21:53)
[2018-05-02] MEDS: Pregabalin 75 MG CAP PO SCH ×2 (08:45→21:42)
[2018-05-02] MEDS ORDERED: HYDROcodone/Acetaminophen 5/325 mg Tablet PO PRN (08:49)
[2018-05-02] MEDS ORDERED: Pregabalin 75 MG CAP PO SCH (09:00)
[2018-05-02] MEDS ORDERED: Lidocaine 5% Patch TD SCH (11:15)
[2018-05-02] MEDS ORDERED: DULoxetine 30 MG CAP PO SCH (11:15)
--- NOTE | 2018-05-02 13:07 | PDOC.PN ---
- Subjective Encounter Start Date: 05/02/18 Encounter Start Time: 07:40 Pt seen for followup re: acute blood loss anemia. Feels better. Occ cough+ - Objective Resuscitation Status - Order Detail: 04/29/18 22:41 Resuscitation Status Routine Resuscitation Status: FULL: Full Resuscitation Discussed with: POA: (son) Vital Signs & Weight: Vital Signs (12 hours) Temp Pulse Resp BP Pulse Ox 05/02/18 11:06 98.2 F 80 12 102/50 L 99 05/02/18 10:42 76 16 05/02/18 07:26 98.3 F 85 15 111/52 L 94 L 05/02/18 06:37 80 16 05/02/18 04:00 98.2 F 69 20 127/57 L 94 L Weight Admit Weight 143 lb 1.6 oz Weight 147 lb 14.4 oz I&O: 05/01/18 05/02/18 05/03/18 06:59 06:59 06:59 Intake Total 3360 1880 Output Total 450 550 Balance 2910 1330 Result Diagrams: 04/30/18 20:08 04/30/18 02:17 Phys Exam - Physical Examination Constitutional: NAD HEENT: moist MMs Neck: supple Respiratory: clear to auscultation bilateral Cardiovascular: RRR, no rub Gastrointestinal: soft s/p L BKA Neurological: moves all 4 limbs Psychiatric: normal affect Dx/Plan (1) Anemia associated with acute blood loss Code(s): D62 - ACUTE POSTHEMORRHAGIC ANEMIA Status: Acute Comment: secondary to Upper GI bleed, hemoglobin stable (2) Symptomatic anemia Code(s): D64.9 - ANEMIA, UNSPECIFIED Status: Acute Comment: stable (3) Cough Code(s): R05 - COUGH Status: Acute Comment: start Tessalon; check chest x- ray (4) Upper GI bleed Code(s): K92.2 - GASTROINTESTINAL HEMORRHAGE, UNSPECIFIED Status: Acute Comment: s/p EGD (5) Peptic ulcer Code(s): K27.9 - PEPTIC ULC, SITE UNSP, UNSP AC OR CHR, W/O HEMOR OR PERF Status: Acute Comment: On PPI drip, start BID PPI at the time of discharge (6) Hypertension Code(s): I10 - ESSENTIAL (PRIMARY) HYPERTENSION Status: Chronic Qualifiers: Hypertension type: essential hypertension Qualified Code(s): I10 - Essential (primary) hypertension Comment: controlled (7) Hypothyroid Code(s): E03.9 - HYPOTHYROIDISM, UNSPECIFIED Status: Chronic Qualifiers: Hypothyroidism type: unspecified Qualified Code(s): E03.9 - Hypothyroidism , unspecified Comment: on synthroid (8) Shoulder pain Code(s): M25.519 - PAIN IN UNSPECIFIED SHOULDER Status: Chronic Comment: appreciate pain service input - Plan * . Review of Systems - Review of Systems Respiratory: Cough, Dry Cardiovascular: negative: chest pain, palpitations, orthopnea, paroxysmal nocturnal dyspnea, edema, light headedness - Medications/Allergies Allergies/Adverse Reactions: Allergies Allergy/AdvReac Type Severity Reaction Status Date / Time aspirin Allergy Severe Verified 12/22/17 17:26 cefepime Allergy Severe Rash Verified 12/22/17 17:26 ibuprofen Allergy Severe Verified 12/22/17 17:26 NSAIDS (Non-Steroidal Allergy Severe Verified 12/22/17 17:26 Anti-Inflamma Penicillins Allergy Unknown Verified 12/22/17 17:26 Medications: Current Medications Acetaminophen (Tylenol) 650 mg PO Q4H PRN PRN Reason: Headache/Fever/Mild Pain (1-3) Hydrocodone Bitart/Acetaminophen ([place] 5/325) 2 tab PO TIDPRN PRN PRN Reason: PAIN 7-10 Last Admin: 05/02/18 08:35 Dose: 2 tab Hydrocodone Bitart/Acetaminophen ([place] 5/325) 1 tab PO TID PRN PRN Reason: Moderate Pain (4-6) Albuterol/Ipratropium (Duoneb) 3 ml NEB [id number] [facility] Last Admin: 05/02/18 10:42 Dose: 3 ml Albuterol/Ipratropium (Duoneb) 3 ml NEB QID PRN PRN Reason: sob, wheezing Duloxetine HCl (Cymbalta) 30 mg PO DAILY ELI Duloxetine HCl (Cymbalta) 30 mg PO NOW ELI Stop: 05/02/18 13:15 Last Admin: 05/02/18 12:29 Dose: 30 mg Furosemide (Lasix) 20 mg PO DAILY-AC EIL Pantoprazole Sodium 80 mg/ (Sodium Chloride) 100 mls @ 10 mls/hr IVP INF ELI Last Admin: 05/02/18 11:02 Dose: 100 mls Ciprofloxacin/Dextrose 400 mg/ (Device) 200 mls @ 200 mls/hr IVPB 1100,2300 [facility] Last Admin: 05/02/18 11:02 Dose: 200 mls Metronidazole 500 mg/ Device 100 mls @ 100 mls/hr IVPB 0800,1600,2359 [facility] Last Admin: 05/02/18 08:35 Dose: 100 mls Dextrose/Lactated Ringer's (D5 Lr) 1,000 mls @ 50 mls/hr IV .Q20H [facility] Last Admin: 05/02/18 01:31 Dose: 1,000 mls Levothyroxine Sodium (Synthroid) 75 mcg PO 0600 [facility] Last Admin: 05/02/18 05:19 Dose: 75 mcg Lidocaine (Lidoderm 5% Patch) 1 patch TD DAILY [facility] Lidocaine (Lidoderm 5% Patch) 1 patch TD NOW [facility] Stop: 05/02/18 13:15 Last Admin: 05/02/18 12:29 Dose: 1 patch Lorazepam (Ativan) 0.5 mg PO TID PRN PRN Reason: Anxiety Last Admin: 05/02/18 08:35 Dose: 0.5 mg Miscellaneous Medication (Lidocaine Patch Removal) 1 each TOP 2100 [facility] Ondansetron HCl (Zofran) 4 mg IVP Q6H PRN PRN Reason: Nausea/Vomiting Pregabalin (Lyrica) 75 mg PO BID [facility] Last Admin: 05/02/18 08:45 Dose: 75 mg Sodium Chloride (Flush - Normal Saline) 10 ml IVF Q12HR [facility] Last Admin: 05/02/18 08:46 Dose: Not Given Sodium Chloride (Flush - Normal Saline) 10 ml IVF PRN PRN PRN Reason: Saline Flush Trazodone HCl (Desyrel) 100 mg PO HS [facility] Last Admin: 05/01/18 21:18 Dose: 100 mg
--- NOTE | 2018-05-02 14:46 | RAD ---
TWO VIEWS CHEST: Comparison: 12-23-17 History: Shortness of breath. Evaluate for pulmonary infiltrates. FINDINGS: Two views of the chest shows an enlarged but stable cardiomediastinal silhouette. There are small marc ateral pleural effusions. The patient appears to have a tips stent in the right upper quadrant of the abdomen. Patient has a left shoulder prosthesis. IMPRESSION: Small bilateral pleural effusions. POS: CET
--- NOTE | 2018-05-02 16:23 | PRG ---
DATE OF SERVICE: 05/02/2018 GI INPATIENT DAILY PROGRESS NOTE SUBJECTIVE: Ms. Adrian is feeling a bit better today. She denies any abdominal pain or nausea. She is tolerating her regular diet. She has not had any bowel movement, certainly no melena, and she has not had any hematemesis. She has remained hemodynamically stable. She does have some ongoing dry cough. OBJECTIVE: VITAL SIGNS: Temperature 98.2, pulse 80, blood pressure 102/50, and 99% oxygen saturation on room air. GENERAL: No acute distress. HEART: Regular rate and rhythm. LUNGS: Clear to auscultation bilaterally. ABDOMEN: Bowel sounds present. Soft. Some tenderness to palpation in the epigastrium, but no guarding or rebound tenderness. EXTREMITIES: No peripheral edema. LABORATORY STUDIES: No new labs from this morning. From the 6th, the hemoglobin was 7.8 and hematocrit 23.6. ASSESSMENT AND PLAN: 1. Upper gastrointestinal bleeding secondary to peptic ulcer in the antrum of the stomach, status post cautery of visible vessel in the ulcer base by Dr. Garcia 3 days ago on 04/29/2018. 2. Acute blood loss anemia. Still no further evidence of overt bleeding since her endoscopy 3 days ago. Continue on intravenous proton pump inhibitor while inpatient and transition to oral Protonix 40 mg twice daily upon discharge. I again stressed with her that she needs to avoid all nonsteroidal anti-inflammatory drugs including Aleve going forward. We will check complete blood count and comprehensive metabolic profile tomorrow to assure stability for blood counts and down trend of her BUN. 3. Alcoholic cirrhosis, otherwise appears well compensated. She is on antibiotics for spontaneous bacterial peritonitis prophylaxis while inpatient and these can be discontinued on hospital discharge. 4. Gastric varices, nonbleeding. There were no stigmata of bleeding on recent couple of esophagogastroduodenoscopies. Job ID: [id number]
[2018-05-02] MEDS: Benzonatate 100 MG CAP PO SCH ×2 (16:34→21:44)
--- NOTE | 2018-05-02 19:30 | CON ---
DATE OF CONSULTATION: 05/01/2018 Consultation is for pain management from Hospitalist Group. REASON FOR CONSULT: Chronic pain syndrome. CHIEF COMPLAINT: "I have pain all over." HISTORY OF PRESENT ILLNESS: The patient is a 62-year-old female with past medical history of alcoholic cirrhosis, esophageal varices, peptic ulcer disease, hypertension, hyperlipidemia, osteoarthritis, hypothyroidism, COPD, anxiety disorder, multiple joint surgeries including left AKA that resulted in chronic pain syndrome, who was recently admitted on 04/29/2018 for acute GI bleed. She was treated for hemorrhagic shock with vasopressors, fluid resuscitation, and blood products, underwent emergent EGD with Gastroenterology, and is found to be stable currently. She is complaining of pain "all over her body." Rates her pain 7/10 at rest currently. She reports most of her pain is in her left shoulder, left AKA, and right lower extremity pain. 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 She reports phantom limb pain on the left AKA side as well. She has been managed in the past with hydrocodone 5/325 mg tablets one p.o. t.i.d. and Lyrica 75 mg b.i.d. by her primary care provider for the past several months. Prior to that, she was managed in [place] with pain management on hydrocodone 10/325 mg one p.o. q.i.d. and Lyrica. She reports other narcotic medications that have been tried for chronic pain, including MS Contin, OxyContin, and Tramadol; all with poor relief or adverse reactions reported. She has been medicating with NSAIDs quite routinely at home for her pain, which has likely led to her increased risk for GI bleed in her recent admission. We have been consulted for her pain management. PAST MEDICAL HISTORY: As noted above. PAST SURGICAL HISTORY: Includes hip replacement on the right, cervical laminectomy, left failed rotator cuff surgery, right shoulder surgery, left total knee joint replacement x2 and revisions as a result of a septic joint, left AKA, TIPS procedure in 1989, as well as multiple upper endoscopy procedures. SOCIAL HISTORY: The patient lives at home alone. She reports she is independent with crutches for ambulation as well as a prosthetic device in the left AKA site. She is able to drive. She denies any drug use. She has history of alcoholism, used to drink 1/3rd bottle of vodka per night, reports she has had no alcohol in the past 8 months. She has a history of smoking as well as recently . She has moved here from the [place] area to be closer to her family in order to help her with her care. FAMILY HISTORY: Positive for hypertension in her father and brother. ALLERGIES: SHE IS ALLERGIC TO CEFEPIME, PENICILLIN, ASPIRIN, AND IBUPROFEN. REVIEW OF SYSTEMS: Negative except for above positives in the HPI. PHYSICAL EXAMINATION: GENERAL: The patient is resting, sitting up in bed, alert and oriented x3. She is cooperative and appropriate, no acute distress noted. VITAL SIGNS: Stable at 130/58, 75, 98.7, 18, breathing without assistance on room air. SKIN: Normal turgor, warm and dry with no masses, no rashes or edema. HEENT: Pupils are equal and reactive to light, no scleral icterus. No cervical lymphadenopathy appreciated. CARDIOVASCULAR: Regular rate and rhythm. Normal pulses with no peripheral vascular edema. PULMONARY: Clear to auscultation bilaterally. ABDOMEN: Soft, nontender, nondistended. Bowel sounds x4. MUSCULOSKELETAL: Left shoulder with limited abduction and forward flexion, strength is 2/5 against resistance with healed scar to the left shoulder noted. [employer] strength is 4/5 on the left. Right shoulder with full active range of motion, strength is 5/5. Right lower extremity with a healed midline incision at the knee and lateral femoral region with healed incisional scar. There is a small abrasion to the right knee cap. There is a small right abrasion to the right patella area. Strength to left lower extremity is 4/5 with active plantar and dorsiflexion with strength of 5/5 with no radicular pain in the lower extremity. Left lower extremity with AKA, skin intact, positive sensation at the stump site. SPINE: Cervical, thoracic, lumbar spine all without paraspinal muscle spasms, range of motion intact. No vertebral body tenderness or deformity appreciated. NEUROLOGIC: She is alert and oriented x3, cooperative, deep tendon reflexes are intact to bilateral upper extremities, not tested in lower extremities. No clonus. Sensory normal with slight hypersensitivity to left AKA site. ASSESSMENT AND PLAN: This is a 62-year-old patient with history of alcoholic cirrhosis, recently admitted for upper GI bleed secondary to overuse of NSAIDs with history of chronic pain, who has been on hydrocodone 5/325 mg tablets and Lyrica 75 mg b.i.d. for the past 10 months from her primary care. This has been reviewed on the [facility] website. At this time, she is not a candidate for interventional procedures from pain management and recommendation has been made to continue her current pain management with her primary care provider as previously done for the past year. We will restart her Lyrica 75 mg p.o. b.i.d., this is likely to improve her phantom limb pain at the left AKA location, and allow for 1 to 2 hydrocodone 5/325 mg tablets every 8 hours as needed for pain until her strength improves, and she is able to functionally transfer independently as she has previously been doing prior to her admission. She may benefit from referral to [facility] in [place] for continued pain management if her primary care provider is not comfortable providing continued medication management. The [facility] is a multidisciplinary approach with pain management physicians, therapists, modalities, Psychiatric and Psychology Services provided. Job ID: [id number]
[2018-05-02] MEDS: Lidocaine Patch Removal 1 EACH TOP SCH (21:39)
[2018-05-02] MEDS: traZODone HCl 50 MG TAB PO SCH (21:44)
[2018-05-03] MEDS: Levothyroxine Sodium 75 MCG TAB PO SCH (05:28)
[2018-05-03] MEDS: Benzonatate 100 MG CAP PO SCH ×3 (08:21→20:08)
[2018-05-03] MEDS: Pregabalin 75 MG CAP PO SCH ×2 (08:22→20:08)
[2018-05-03] MEDS: Furosemide 20 MG TAB PO SCH ×2 (08:22→09:33)
[2018-05-03] MEDS: DULoxetine 30 MG CAP PO SCH (08:22)
[2018-05-03] MEDS: metroNIDAZOLE 500 MG in Premix Bag 1 BAG IVPB SCH (08:24)
[2018-05-03] MEDS: HYDROcodone/Acetaminophen 5/325 mg Tablet PO PRN ×2 (08:24→15:59)
[2018-05-03] MEDS: Lidocaine 5% Patch TD SCH (08:25)
[2018-05-03 10:11] VITALS: BMI 23.8
[2018-05-03] MEDS: Lorazepam 0.5 MG TAB PO PRN ×2 (11:11→18:40)
[2018-05-03 12:24] LABS: ALT (SGPT) 8 U/L (8-55); AST (SGOT) 20 U/L (5-34); Albumin 2.3 g/dL (3.4-4.8); Alkaline Phosphatase 109 U/L (40-150); Anion Gap 10 mmol/L (10-20); BUN (Urea Nitrogen) 8 mg/dL (9.8-20.1); Bilirubin, Total 0.3 mg/dL (0.2-1.2); Calc. Creatinine Clearance 80 mL/min (70-130); Calcium 7.5 mg/dL (7.8-10.44); Carbon Dioxide 24 mmol/L (23-31); Chloride 108 mmol/L (98-107); Estimated GFR-MDRD 77; Globulin 1.9 g/dL (2.4-3.5); Glucose 97 mg/dL (80-115); Potassium 4.2 mmol/L (3.5-5.1); Protein, Total 4.2 g/dL (6.0-8.3); Sodium 138 mmol/L (136-145)
[2018-05-03 12:52] LABS: #Eosinphils 0.3 thou/uL (0.0-0.7); #Lymphocytes 0.6 thou/uL (1.20-3.40); #Monocytes 0.2 thou/uL (0.11-0.59); #Neutrophils 1.3 thou/uL (1.40-6.50); %Basophils 1.3 % (0.0-1.0); %Eosinophils 11.6 % (0.0-10.0); %Lymphocytes 25.4 % (21.0-51.0); %Monocytes 7.8 % (0.0-10.0); %Neutrophils 53.9 % (42.0-75.0); Hemoglobin 7.9 g/dL (12.0-16.0); MDiff Complete? YES; Mean Corpuscular HGB CONC 32.4 g/dL (32.0-36.0); Mean Corpuscular Hemoglobin 27.9 pg (27.0-31.0); Mean Corpuscular Volume 86.1 fL (78.0-98.0); Mean Platelet Volume 9.8 fL (7.4-10.4); Ovalocytes SLIGHT = 2-5 cells (100X) (0-1/hpf); Platelet Count 80 thou/uL (130-400); Polychromasia SLIGHT = 2-3 cells (100X) (0-2/hpf); RBC Distribution Width 16.7 % (11.5-14.5); Red Blood Cell (RBC) Count 2.83 mill/uL (4.20-5.40); White Blood Cell (WBC) Count 2.5 thou/uL (4.8-10.8)
--- NOTE | 2018-05-03 16:01 | PDOC.PN ---
- Subjective Encounter Start Date: 05/03/18 Encounter Start Time: 09:00 Pt seen for followup re: acute blood loss anemia. Feels better. - Objective Resuscitation Status - Order Detail: 04/29/18 22:41 Resuscitation Status Routine Resuscitation Status: FULL: Full Resuscitation Discussed with: POA: (son) Vital Signs & Weight: Vital Signs (12 hours) Temp Pulse Resp BP Pulse Ox 05/03/18 11:39 98.5 F 72 18 118/65 92 L 05/03/18 08:00 92 L 05/03/18 07:39 98.2 F 74 18 134/67 92 L 05/03/18 04:00 98.0 F 79 18 123/65 93 L Weight Admit Weight 143 lb 1.6 oz Weight 147 lb 14.4 oz I&O: 05/02/18 05/03/18 05/04/18 06:59 06:59 06:59 Intake Total 1880 4000 Output Total 550 Balance 1330 4000 Result Diagrams: 05/03/18 11:16 05/03/18 11:16 Phys Exam - Physical Examination Constitutional: NAD HEENT: moist MMs Neck: supple Respiratory: clear to auscultation bilateral Cardiovascular: RRR Gastrointestinal: soft Neurological: moves all 4 limbs Psychiatric: normal affect Dx/Plan (1) Anemia associated with acute blood loss Code(s): D62 - ACUTE POSTHEMORRHAGIC ANEMIA Status: Acute Comment: hemoglobin stable (2) Symptomatic anemia Code(s): D64.9 - ANEMIA, UNSPECIFIED Status: Acute Comment: stable (3) Cough Code(s): R05 - COUGH Status: Acute Comment: no evidence of pneumonia on chest x-ray (4) Upper GI bleed Code(s): K92.2 - GASTROINTESTINAL HEMORRHAGE, UNSPECIFIED Status: Acute Comment: s/p EGD (5) Peptic ulcer Code(s): K27.9 - PEPTIC ULC, SITE UNSP, UNSP AC OR CHR, W/O HEMOR OR PERF Status: Acute Comment: start BID PPI at the time of discharge (6) Hypertension Code(s): I10 - ESSENTIAL (PRIMARY) HYPERTENSION Status: Chronic Qualifiers: Hypertension type: essential hypertension Qualified Code(s): I10 - Essential (primary) hypertension Comment: controlled (7) Hypothyroid Code(s): E03.9 - HYPOTHYROIDISM, UNSPECIFIED Status: Chronic Qualifiers: Hypothyroidism type: unspecified Qualified Code(s): E03.9 - Hypothyroidism , unspecified Comment: on synthroid (8) Shoulder pain Code(s): M25.519 - PAIN IN UNSPECIFIED SHOULDER Status: Chronic Comment: appreciate pain service input - Plan * . Review of Systems - Review of Systems Cardiovascular: negative: chest pain, palpitations, orthopnea, paroxysmal nocturnal dyspnea, edema, light headedness Gastrointestinal: negative: Nausea, Vomiting, Abdominal Pain, Diarrhea, Constipation, Melena, Hematochezia - Medications/Allergies Allergies/Adverse Reactions: Allergies Allergy/AdvReac Type Severity Reaction Status Date / Time aspirin Allergy Severe Verified 12/22/17 17:26 cefepime Allergy Severe Rash Verified 12/22/17 17:26 ibuprofen Allergy Severe Verified 12/22/17 17:26 NSAIDS (Non-Steroidal Allergy Severe Verified 12/22/17 17:26 Anti-Inflamma Penicillins Allergy Unknown Verified 12/22/17 17:26 Medications: Current Medications Acetaminophen (Tylenol) 650 mg PO Q4H PRN PRN Reason: Headache/Fever/Mild Pain (1-3) Hydrocodone Bitart/Acetaminophen ([place] 5/325) 2 tab PO TIDPRN PRN PRN Reason: PAIN 7-10 Last Admin: 05/03/18 08:24 Dose: 2 tab Hydrocodone Bitart/Acetaminophen ([place] 5/325) 1 tab PO TID PRN PRN Reason: Moderate Pain (4-6) Albuterol/Ipratropium (Duoneb) 3 ml NEB [id number] [facility] Last Admin: 05/03/18 12:54 Dose: Not Given Albuterol/Ipratropium (Duoneb) 3 ml NEB QID PRN PRN Reason: sob, wheezing Benzonatate (Tessalon) 100 mg PO TID [facility] Last Admin: 05/03/18 08:21 Dose: 100 mg Duloxetine HCl (Cymbalta) 30 mg PO DAILY [facility] Last Admin: 05/03/18 08:22 Dose: 30 mg Furosemide (Lasix) 20 mg PO DAILY-AC [facility] Last Admin: 05/03/18 09:33 Dose: 20 mg Pantoprazole Sodium 80 mg/ (Sodium Chloride) 100 mls @ 10 mls/hr IVP INF [facility] Last Admin: 05/02/18 21:44 Dose: 100 mls Dextrose/Lactated Ringer's (D5 Lr) 1,000 mls @ 50 mls/hr IV .Q20H [facility] Last Admin: 05/02/18 21:46 Dose: 1,000 mls Levothyroxine Sodium (Synthroid) 75 mcg PO 0600 [facility] Last Admin: 05/03/18 05:28 Dose: 75 mcg Lidocaine (Lidoderm 5% Patch) 1 patch TD DAILY [facility] Last Admin: 05/03/18 08:25 Dose: 1 patch Lorazepam (Ativan) 0.5 mg PO TID PRN PRN Reason: Anxiety Last Admin: 05/03/18 11:11 Dose: 0.5 mg Miscellaneous Medication (Lidocaine Patch Removal) 1 each TOP 2100 [facility] Last Admin: 05/02/18 21:39 Dose: Not Given Ondansetron HCl (Zofran) 4 mg IVP Q6H PRN PRN Reason: Nausea/Vomiting Pregabalin (Lyrica) 75 mg PO BID [facility] Last Admin: 05/03/18 08:22 Dose: 75 mg Sodium Chloride (Flush - Normal Saline) 10 ml IVF Q12HR [facility] Last Admin: 05/03/18 08:27 Dose: Not Given Sodium Chloride (Flush - Normal Saline) 10 ml IVF PRN PRN PRN Reason: Saline Flush Trazodone HCl (Desyrel) 100 mg PO HS [facility] Last Admin: 05/02/18 21:44 Dose: 100 mg
[2018-05-03] MEDS: Dextrose 5%-Lactated Ringers 1,000 ML IV SCH ×2 (16:03→20:10)
--- NOTE | 2018-05-03 17:31 | PRG ---
DATE OF SERVICE: 05/03/2018 This is a GI inpatient daily progress note. SUBJECTIVE: Ms. Adrian is feeling pretty good. She still continues to have shoulder pain and overall feels weak. She has had no further abdominal pain. No nausea or vomiting. No melena. Hemoglobin came back this morning, stable at 7.9, BUN has dropped dramatically, now normalized at 8. OBJECTIVE: VITAL SIGNS: Temperature 98.8, pulse 82, blood pressure 119/47, and 92% oxygen saturation on room air. GENERAL: No acute distress. HEART: Regular rate and rhythm. LUNGS: Clear to auscultation bilaterally. ABDOMEN: Soft and nontender to palpation. EXTREMITIES: No peripheral edema. LABORATORY STUDIES: Hemoglobin 7.9, WBC 2.5, and platelets 80. Sodium 138, potassium 4.2, BUN down to 8, and creatinine 0.76. LFTs all normal with total bilirubin 0.3, alkaline phosphatase 109, AST 20, and ALT 8. ASSESSMENT AND PLAN: 1. Upper gastrointestinal bleeding secondary to peptic ulcer in the antrum of the stomach, status post cautery of visible vessel in the ulcer base by Dr. Garcia 4 days ago on 04/29/2018. 2. Acute blood loss anemia, stabilized. There is no evidence of any further overt bleeding. BUN has normalized. Hemoglobin is stable. From a GI standpoint, I think she could be discharged from the hospital on Protonix 40 mg twice daily. I again reviewed with her that she needs to avoid all nonsteroidal anti-inflammatory drugs going forward. 3. Alcoholic cirrhosis, otherwise appears well compensated. Job ID: [id number]
[2018-05-03] MEDS: Pantoprazole 80 MG in Sodium Chloride 0.9% 100 ML IVP SCH (20:07)
[2018-05-03] MEDS: traZODone HCl 50 MG TAB PO SCH (20:08)
[2018-05-03] MEDS: Lidocaine Patch Removal 1 EACH TOP SCH (20:14)
[2018-05-04] MEDS: HYDROcodone/Acetaminophen 5/325 mg Tablet PO PRN ×3 (00:19→16:13)
[2018-05-04] MEDS: Levothyroxine Sodium 75 MCG TAB PO SCH (05:36)
[2018-05-04] MEDS: Pantoprazole 80 MG in Sodium Chloride 0.9% 100 ML IVP SCH (06:24)
[2018-05-04 06:32] LABS: Anion Gap 9 mmol/L (10-20); BUN (Urea Nitrogen) 8 mg/dL (9.8-20.1); Calc. Creatinine Clearance 79 mL/min (70-130); Calcium 7.6 mg/dL (7.8-10.44); Carbon Dioxide 27 mmol/L (23-31); Chloride 108 mmol/L (98-107); Estimated GFR-MDRD 76; Glucose 126 mg/dL (80-115); Potassium 3.9 mmol/L (3.5-5.1); Sodium 140 mmol/L (136-145)
[2018-05-04 07:22] LABS: #Eosinphils 0.3 thou/uL (0.0-0.7); #Lymphocytes 0.8 thou/uL (1.20-3.40); #Monocytes 0.2 thou/uL (0.11-0.59); #Neutrophils 1.7 thou/uL (1.40-6.50); %Eosinophils 10.2 % (0.0-10.0); %Lymphocytes 25.9 % (21.0-51.0); %Monocytes 6.5 % (0.0-10.0); %Neutrophils 56.5 % (42.0-75.0); Hemoglobin 7.5 g/dL (12.0-16.0); Mean Corpuscular HGB CONC 31.3 g/dL (32.0-36.0); Mean Corpuscular Hemoglobin 27.2 pg (27.0-31.0); Mean Corpuscular Volume 87.1 fL (78.0-98.0); Platelet Count 117 thou/uL (130-400); RBC Distribution Width 17.3 % (11.5-14.5); Red Blood Cell (RBC) Count 2.77 mill/uL (4.20-5.40); White Blood Cell (WBC) Count 2.9 thou/uL (4.8-10.8)
[2018-05-04 07:38] LABS: Hypochromia SLIGHT = 6-15 cells (100X) (0-5/hpf); MDiff Complete? YES; Ovalocytes SLIGHT = 2-5 cells (100X) (0-1/hpf); PLT Morphology Comment Appears Decreased; Polychromasia SLIGHT = 2-3 cells (100X) (0-2/hpf)
[2018-05-04] MEDS: Lorazepam 0.5 MG TAB PO PRN ×2 (08:53→16:14)
[2018-05-04] MEDS: Benzonatate 100 MG CAP PO SCH ×2 (08:53→16:14)
[2018-05-04] MEDS: DULoxetine 30 MG CAP PO SCH (08:53)
[2018-05-04] MEDS: Furosemide 20 MG TAB PO SCH (08:54)
[2018-05-04] MEDS: Pregabalin 75 MG CAP PO SCH (08:54)
[2018-05-04] MEDS: Lidocaine 5% Patch TD SCH (08:55)
[2018-05-04 11:03] LABS: Hemoglobin 7.9 g/dL (12.0-16.0)
[2018-05-04 17:25] VITALS: BP 144/68; TEMP 98.7
--- NOTE | 2018-05-05 03:18 | DIS ---
DATE OF ADMISSION: 04/29/2018 DATE OF DISCHARGE: 05/04/2018 PRIMARY CARE PROVIDER: Dr. Iqra Little. DISCHARGE DIAGNOSES: 1. Acute blood loss anemia. 2. Symptomatic anemia. 3. Gastric ulcers. 4. Duodenal bulb ulcer. 5. Gastric fundus varices. 6. Grade B erosive esophagitis. 7. Hemorrhagic shock. CONDITION OF PATIENT ON THE DAY OF DISCHARGE: Stable. I assessed Ms. Adrian on the day of discharge. She denies any chest pain or shortness of breath. PHYSICAL EXAMINATION: VITAL SIGNS: Stable. S1 and S2 are heard, regular. LUNGS: Clear to auscultation bilaterally. CONSULTATIONS DURING THIS HOSPITALIZATION: Gastroenterology, Dr. Garcia and Pain Service, Cierra Fung. DISCHARGE MEDICATIONS: 1. Amlodipine 5 mg daily. 2. Duloxetine 30 mg daily. 3. [place] 5/325 mg three times a day as needed. 4. DuoNebs four times a day as needed. 5. Synthroid 75 mcg daily. 6. Ativan 0.5 mg three times a day as needed. 7. Trazodone 100 mg every evening. 8. Lasix 20 mg daily. 9. Lidocaine 5% patch daily. 10. Protonix 40 mg 2 times a day. 11. Lyrica 75 mg 2 times a day. HOSPITAL COURSE: 1. Ms. Adrian is a pleasant 62-year-old lady, who was admitted to [facility] on April 29, 2018, for upper gastrointestinal bleed with hemorrhagic shock. Please refer to Dr. Quijano's history and physical note for further details regarding the admission. She was seen by Gastroenterology Service. She was treated with PPI drip and octreotide drip. She underwent EGD, which showed a 1 cm cratered ulcer in the pre-pyloric antrum with a visible vessel with overlying clot, which was injected with epinephrine and cauterized with gold probe. She also had shallow duodenal bulb ulcer with focal vessel cauterized. She had moderate varices in the gastric fundus and mild grade B erosive esophagitis. She continued to improve clinically. Hemoglobin remained stable. She is being transitioned from PPI drip to Protonix 40 mg 2 times a day. She is being discharged home in a stable condition. On the day of discharge, she has sodium of 140, potassium 3.9, and creatinine 0.77; white count 2.9, hemoglobin 7.9, and platelet count 117,000. Many thanks for allowing me to participate in your patient's care. Please feel free to contact me with any questions or concerns. DISCHARGE DESTINATION: Home. Total amount of time spent coordinating this discharge: Thirty-three minutes. Job ID: [id number]
== END 2018-05-04 18:14 | disposition home or self-care (01) | DRG 377 ==
LOC: ERS 20:00 → IMCU/EMU 21:30 → 2NO 05-01 11:53 → T4-B 05-02 21:21
PROVIDERS: ADMIT Internal Medicine; ATTEND Internal Medicine
PROC: 0W3P8ZZ Control Bleeding in Gastrointestinal Tract, Via Natural or Artificial Opening Endoscopic (ICD-10-PCS; principal; 2018-04-29)
DX: K25.0 Acute gastric ulcer with hemorrhage (principal); R57.8 Other shock; D62 Acute posthemorrhagic anemia; K22.10 Ulcer of esophagus without bleeding; K70.30 Alcoholic cirrhosis of liver without ascites; I86.4 Gastric varices; K92.0 Hematemesis; E78.5 Hyperlipidemia, unspecified; I10 Essential (primary) hypertension; M19.90 Unspecified osteoarthritis, unspecified site; J44.9 Chronic obstructive pulmonary disease, unspecified; Z96.642 Presence of left artificial hip joint; Z79.899 Other long term (current) drug therapy; Z89.612 Acquired absence of left leg above knee; Z88.2 Allergy status to sulfonamides; Z88.0 Allergy status to penicillin; Z88.6 Allergy status to analgesic agent; G54.7 Phantom limb syndrome without pain; F41.9 Anxiety disorder, unspecified; G89.4 Chronic pain syndrome; E03.9 Hypothyroidism, unspecified; Z87.891 Personal history of nicotine dependence; M25.519 Pain in unspecified shoulder
CPT/HCPCS: 36415; 36430; 36556; 71046; 80048; 80053; 80307; 85014; 85018; 85025; 85610; 85730; 86850; 86900; 86901; 93005; 94640; 94760; 96361; 96365; 96368; 96375; 96376; C9113; J0696; J0744; J2001; J2354; J2405; J2704; J3010; J7050; J7620; P9016

== ENCOUNTER 2018-05-23 17:48 | Emergency (ER) | payer MEDICARE ==
[2018-05-23] MEDS ORDERED: Ondansetron ODT 4 MG TAB ONE (19:36)
[2018-05-23] MEDS ORDERED: traMADol HCl 50 MG TAB ONE (19:44)
[2018-05-23 20:25] LABS: #Basophils 0.1 thou/uL (0.0-0.2); #Eosinphils 0.2 thou/uL (0.0-0.7); #Lymphocytes 1.3 thou/uL (1.20-3.40); #Monocytes 0.4 thou/uL (0.11-0.59); #Neutrophils 4.8 thou/uL (1.40-6.50); %Basophils 0.9 % (0.0-1.0); %Eosinophils 2.9 % (0.0-10.0); %Lymphocytes 19.6 % (21.0-51.0); %Monocytes 6.2 % (0.0-10.0); %Neutrophils 70.5 % (42.0-75.0); Hemoglobin 8.9 g/dL (12.0-16.0); Mean Corpuscular HGB CONC 31.3 g/dL (32.0-36.0); Mean Corpuscular Hemoglobin 25.1 pg (27.0-31.0); Mean Corpuscular Volume 80.4 fL (78.0-98.0); Platelet Count 289 thou/uL (130-400); RBC Distribution Width 16.6 % (11.5-14.5); Red Blood Cell (RBC) Count 3.55 mill/uL (4.20-5.40); White Blood Cell (WBC) Count 6.8 thou/uL (4.8-10.8)
[2018-05-23 20:48] LABS: ALT (SGPT) Less than 7 U/L (8-55); AST (SGOT) 15 U/L (5-34); Albumin 3.5 g/dL (3.4-4.8); Alkaline Phosphatase 146 U/L (40-150); Anion Gap 10 mmol/L (10-20); BUN (Urea Nitrogen) 10 mg/dL (9.8-20.1); Bilirubin, Total 0.5 mg/dL (0.2-1.2); Calc. Creatinine Clearance 0 mL/min (70-130); Calcium 9.3 mg/dL (7.8-10.44); Carbon Dioxide 28 mmol/L (23-31); Chloride 109 mmol/L (98-107); Estimated GFR-MDRD 75; Globulin 3.1 g/dL (2.4-3.5); Glucose 97 mg/dL (80-115); Potassium 3.9 mmol/L (3.5-5.1); Protein, Total 6.6 g/dL (6.0-8.3); Sodium 143 mmol/L (136-145)
== END 2018-05-23 21:43 | disposition home or self-care (01) ==
LOC: ERS 17:48
DX: G89.29 Other chronic pain (principal); M54.2 Cervicalgia; B37.3 Candidiasis of vulva and vagina; I10 Essential (primary) hypertension; Z79.899 Other long term (current) drug therapy
CPT/HCPCS: 36415; 80053; 85025; 99283; Q0162

== ENCOUNTER 2018-07-24 13:09 | Emergency (ER) | payer MEDICARE ==
[2018-07-24] MEDS ORDERED: HYDROcodone/Acetaminophen 5/325 mg Tablet ONE (14:12)
--- NOTE | 2018-07-24 14:55 | RAD ---
FXR Ribs Rt>= 2 View W/PA CXR History: [Chest pain] Comparison: None Findings: Small right pleural effusion. A TIPS shunt catheter is present. No acute displaced rib frac ture. Left shoulder hemiarthroplasty. Advanced degenerative disease of the right glenohumeral joint. Impression: No acute displaced rib fracture.
--- NOTE | 2018-07-24 14:55 | RAD ---
FXR Shoulder Rt 3 View STANDARD: 07/24/2018 2:03 PM CLINICAL INDICATION: Pain COMPARISON: None. FINDINGS: Fracture:No fracture. Arthropathy:Moderate osteoarthritis. Incidental findings:None of significance. IMPRESSION: 1. No acute osseous abnormalities.
--- NOTE | 2018-07-24 15:11 | CT ---
CT CERVICAL SPINE WITH CORONAL AND SAGITTAL REFORMATIONS: Date: 07/24/18 HISTORY: Fall, neck pain. COMPARISON: 11/26/17. FINDINGS/IMPRESSION: Multilevel degenerative changes are again seen. Postop changes of laminectomy at C3 and C4 levels are redemonstrated. Fusion of the posterior elements of C2 and C3 vertebrae are again seen. Interbody fu aida is seen at C5-6 level. No fracture, subluxation, or facet malalignment is seen. POS: [facility]PC
== END 2018-07-24 15:20 | disposition home or self-care (01) ==
LOC: ERS 13:09
DX: S16.1XXA Strain of muscle, fascia and tendon at neck level, initial encounter (principal); M25.511 Pain in right shoulder; I10 Essential (primary) hypertension; F41.9 Anxiety disorder, unspecified; Z79.899 Other long term (current) drug therapy; W18.30XA Fall on same level, unspecified, initial encounter
CPT/HCPCS: 72125

== ENCOUNTER 2018-07-31 19:08 | Emergency (ER) | payer MEDICARE ==
--- NOTE | 2018-07-31 20:59 | CT ---
CT BRAIN WITHOUT CONTRAST: HISTORY:Fall, headache COMPARISON:11/26/2017 FINDINGS: There are foci of decreased attenuation in the periventricular white matter, consistent with chronic small vessel ischemic disease. No evidence of acute infarct, hemorrhage, midline shift or abnormal extra-axial fluid collections is seen. The ventricular size is appropriate and the basilar cisterns are patent. The bony calvarium is intact. The visualized paranasal sinuses and mastoid air cells are well aerated. IMPRESSION: No CT evidence of acute intracranial process.
--- NOTE | 2018-07-31 21:03 | CT ---
CT CERVICAL SPINE WITH CORONAL AND SAGITTAL REFORMATIONS: Date: 07/31/18 HISTORY: Fall, neck pain. COMPARISON: 07/24/17. FINDINGS/IMPRESSION: Multilevel degenerative changes are again seen. Postop changes of laminectomy at C3 and C4 levels are redemonstrated. Fusion of the posterior elements of C2 and C3 vertebrae are again seen. Interbody fu aida is seen at C5-6 level. No fracture, subluxation, or facet malalignment is seen. There is a small right pleural effusion.
[2018-07-31] MEDS ORDERED: HYDROcodone/Acetaminophen 10/325 mg Tablet ONE (21:09)
== END 2018-07-31 22:32 | disposition home or self-care (01) ==
LOC: ERS 19:08
DX: M54.2 Cervicalgia (principal); R51 Headache; I10 Essential (primary) hypertension; F41.9 Anxiety disorder, unspecified; Z79.899 Other long term (current) drug therapy; W19.XXXA Unspecified fall, initial encounter
CPT/HCPCS: 70450; 72125

== ENCOUNTER 2018-09-19 16:46 | Emergency (ER) | payer MEDICARE ==
[2018-09-19 18:08] LABS: Hemoglobin 8.9 g/dL (12.0-16.0); Mean Corpuscular HGB CONC 30.2 g/dL (32.0-36.0); Mean Corpuscular Hemoglobin 21.5 pg (27.0-31.0); Mean Platelet Volume 6.6 fL (7.4-10.4); Platelet Count 215 thou/uL (130-400); RBC Distribution Width 20.6 % (11.5-14.5); Red Blood Cell (RBC) Count 4.13 mill/uL (4.20-5.40); White Blood Cell (WBC) Count 5.3 thou/uL (4.8-10.8)
[2018-09-19 18:28] LABS: #Eosinphils 0.3 thou/uL (0.0-0.7); #Lymphocytes 1.4 thou/uL (1.20-3.40); #Monocytes 0.4 thou/uL (0.11-0.59); #Neutrophils 3.2 thou/uL (1.40-6.50); %Basophils 0.6 % (0.0-1.0); %Eosinophils 5.9 % (0.0-10.0); %Lymphocytes 26.2 % (21.0-51.0); %Monocytes 7.2 % (0.0-10.0); %Neutrophils 60.1 % (42.0-75.0); ALT (SGPT) Less than 7 U/L (8-55); AST (SGOT) 16 U/L (5-34); Albumin 3.2 g/dL (3.4-4.8); Alkaline Phosphatase 133 U/L (40-150); Anion Gap 15 mmol/L (10-20); Anisocytosis SLIGHT = 6-15 cells (100X) (0-5/hpf); BUN (Urea Nitrogen) 9 mg/dL (9.8-20.1); Bilirubin, Total 0.4 mg/dL (0.2-1.2); CK (CPK) 41 U/L (29-168); Calc. Creatinine Clearance 0 mL/min (70-130); Calcium 8.3 mg/dL (7.8-10.44); Carbon Dioxide 20 mmol/L (23-31); Chloride 111 mmol/L (98-107); Elliptocytes SLIGHT = 2-5 cells (100X) (0-1/hpf); Estimated GFR-MDRD 78; Globulin 3.1 g/dL (2.4-3.5); Glucose 81 mg/dL (80-115); Hypochromia SLIGHT = 6-15 cells (100X) (0-5/hpf); MDiff Complete? YES; Microcytosis SLIGHT = 6-15 cells (100X) (0-5/hpf); Platelet Morphology Comment Appears Adequate; Poikilocytosis SLIGHT = 6-15 cells (100X) (0-5/hpf); Potassium 3.7 mmol/L (3.5-5.1); Protein, Total 6.3 g/dL (6.0-8.3); Sodium 142 mmol/L (136-145)
[2018-09-19 18:29] LABS: Acetaminophen Less than 6.0 mcg/mL (10.0-30.0); Alcohol 187 mg/dL (Less than 10); Salicylate Less than 8.0 mg/dL (15.0-30.0)
[2018-09-20] MEDS ORDERED: Acetaminophen 500 MG TAB ONE (03:45)
[2018-09-20 03:50] LABS: Bilirubin Negative (Negative); Blood, Urine Negative (Negative); Clarity CLEAR (Clear); Glucose, Urine (Dipstick) Negative (Negative); Leukocyte Negative (Negative); Nitrite Negative (Negative); Protein, Urine (Dipstick) 30 mg/dL (Neg-Trace); Specific Gravity, Urine 1.014 (1.002-1.036)
[2018-09-20 03:59] LABS: Bacteria/HPF None Seen HPF (None Seen); Crystals/HPF None Seen HPF (Negative); Hyaline Casts/LPF NONE SEEN LPF (0-3 Hyaline); RBC/HPF None Seen HPF (0-3); Renal Epithelial None Seen HPF (0-3); Squamous Epithelial 0-3 HPF (0-3); Transitional Epithelial NONE SEEN HPF (0-3); WBC/HPF 0-3 HPF (0-3); Yeast-All Forms None Seen HPF (None Seen)
[2018-09-20 04:02] LABS: Amphetamine Not Detected (NotDetected); Barbiturates Screen Not Detected (NotDetected); Benzodiazepine Screen Not Detected (NotDetected); Cocaine Metabolite Screen Not Detected (NotDetected); Medtox Control Line Valid? VALID (VALID); Medtox Reader # READER 4; Methadone Not Detected (NotDetected); Methamphetamine Not Detected (NotDetected); Opiate Screen Not Detected (NotDetected); Oxycodone Screen Not Detected (NotDetected); Phencyclidine (PCP) Not Detected (NotDetected); THC/Cannabinoid Screen Detected (NotDetected); Tricyclic Screen Not Detected (NotDetected)
== END 2018-09-20 07:28 | disposition home or self-care (01) ==
LOC: ERS 16:46
DX: F43.0 Acute stress reaction (principal); I10 Essential (primary) hypertension; M19.90 Unspecified osteoarthritis, unspecified site; F10.21 Alcohol dependence, in remission; K74.60 Unspecified cirrhosis of liver; Z87.01 Personal history of pneumonia (recurrent); Z79.01 Long term (current) use of anticoagulants; Z79.899 Other long term (current) drug therapy
CPT/HCPCS: 36415; 80053; 80306; 80307; 81003; 81015; 82550; 84443; 85025; 93005

== ENCOUNTER 2018-12-19 12:39 | Inpatient (IN) | payer MEDICARE ==
[2018-12-19] MEDS ORDERED: Acetaminophen 325 MG TAB PO PRN (13:57)
[2018-12-19 15:23] LABS: #Eosinphils 0.3 thou/uL (0.0-0.7); #Lymphocytes 0.4 thou/uL (1.20-3.40); #Monocytes 0.3 thou/uL (0.11-0.59); #Neutrophils 2.1 thou/uL (1.40-6.50); %Basophils 1.1 % (0.0-1.0); %Eosinophils 9.9 % (0.0-10.0); %Lymphocytes 14.1 % (21.0-51.0); %Monocytes 8.2 % (0.0-10.0); %Neutrophils 66.6 % (42.0-75.0); Hemoglobin 8.6 g/dL (12.0-16.0); Mean Corpuscular Hemoglobin 22.2 pg (27.0-31.0); Mean Corpuscular Volume 73.8 fL (78.0-98.0); Mean Platelet Volume 6.8 fL (7.4-10.4); Platelet Count 150 thou/uL (130-400); Red Blood Cell (RBC) Count 3.88 mill/uL (4.20-5.40); White Blood Cell (WBC) Count 3.1 thou/uL (4.8-10.8)
[2018-12-19 15:35] LABS: ALT (SGPT) Less than 7 U/L (8-55); AST (SGOT) 16 U/L (5-34); Albumin 2.9 g/dL (3.4-4.8); Alkaline Phosphatase 139 U/L (40-150); Anion Gap 11 mmol/L (10-20); BUN (Urea Nitrogen) 12 mg/dL (9.8-20.1); Bilirubin, Total 0.4 mg/dL (0.2-1.2); Calc. Creatinine Clearance 0 mL/min (70-130); Calcium 8.2 mg/dL (7.8-10.44); Carbon Dioxide 24 mmol/L (23-31); Chloride 108 mmol/L (98-107); Estimated GFR-MDRD 84; Globulin 2.5 g/dL (2.4-3.5); Glucose 86 mg/dL (80-115); Potassium 3.8 mmol/L (3.5-5.1); Protein, Total 5.4 g/dL (6.0-8.3); Sodium 139 mmol/L (136-145)
[2018-12-19 15:40] LABS: INR-International Normal Ratio 1.1; Prothrombin Time 14.2 SEC (12.0-14.7)
[2018-12-19 15:49] LABS: Anisocytosis SLIGHT = 6-15 cells (100X) (0-5/hpf); Elliptocytes SLIGHT = 2-5 cells (100X) (0-1/hpf); Hypochromia SLIGHT = 6-15 cells (100X) (0-5/hpf); MDiff Complete? YES; Microcytosis SLIGHT = 6-15 cells (100X) (0-5/hpf); Ovalocytes SLIGHT = 2-5 cells (100X) (0-1/hpf); Platelet Morphology Comment Appears Adequate; Polychromasia SLIGHT = 2-3 cells (100X) (0-2/hpf)
--- NOTE | 2018-12-19 15:55 | PRG ---
DATE OF SERVICE: 12/19/2018 I was informed by Dr. Petit that Ms. Adrian has been transferred over to this facility from [facility]. Please see my note from earlier today at the [facility]. The patient is here because she needs thoracoscopy. Otherwise, the plan is unchanged, and she will continue on antibiotic therapy through the perioperative period. Dr. Sorenson was seen her in the past. He will assume care tomorrow. Job ID: [id number]
[2018-12-19] MEDS: HYDROcodone/Acetaminophen 5/325 mg Tablet PO PRN (17:06)
--- NOTE | 2018-12-19 18:11 | HP ---
HISTORY OF PRESENT ILLNESS: The patient was transferred from [facility] for higher level of care with a possibility for thoracoscopy by cardiothoracic surgeon. Apparently, she was admitted to the [facility], and recently she complained about weakness and frequent falls and shortness of breath, and she was diagnosed with a complex right pleural effusion, and since that technically this procedure could not be done at [facility]. The patient was sent to us. She complains of some chest pain when she takes deep breath, but she denies any fever or chills. She is somewhat short of breath and has some greenish productive cough. She feels exhausted. Her appetite is kind of up and down. She has her bowel movements daily. Surrogate decision maker is her brother, Segundo Bautista. Primary care physician is Dr. Iqra Little. PAST MEDICAL HISTORY: Positive for, 1. Alcoholic cirrhosis. 2. History of GI bleeding. 3. History of pneumonia. 4. History of diastolic dysfunction. 5. History of esophageal varices. 6. History of peptic ulcer disease. 7. Chronic pain syndrome/phantom limb pain of the left lower extremity. 8. Hyperlipidemia. 9. Hypertension. 10. Anxiety disorder. 11. Hypothyroidism. 12. 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 PAST SURGICAL HISTORY: 1. Thyroidectomy. 2. Left total hip replacement. 3. Lumbar laminectomy. 4. Left shoulder rotator cuff repair. ALLERGIES: ASPIRIN, CEFEPIME, MOTRIN, AND PENICILLIN. MEDICATIONS: 1. Amlodipine 2.5 mg once a day. 2. Levothyroxine 75 mcg once a day. 3. Trazodone 100 mg at bedtime. 4. Cymbalta 60 mg daily. 5. Lyrica 75 mg twice a day. 6. Protonix 40 mg daily. 7. Lasix 40 mg every other day. 8. Milnor 10 mg q.6 hours p.r.n. as needed. 9. Lorazepam 0.5 mg one tablet q.6 hours p.r.n. as needed. FAMILY HISTORY: Father was 63 when he passed from CVA and mother was 76 when she passed from internal bleeding. REVIEW OF SYSTEMS: All 14 systems were reviewed and it showed all symptoms which were discussed in the HPI plus almost daily headaches and pain in the right knee, which is chronic. PHYSICAL EXAMINATION: VITAL SIGNS: Blood pressure is 112/53, pulse is 67, respirations 18, O2 saturation is 95% on 2 L by nasal cannula, temperature is 98.1. HEENT: Head is atraumatic and normocephalic. Eyes are PERRLA. Sclerae are nonicteric. Oral mucosa is somewhat dry. NECK: Supple. No lymphadenopathy. Thyroid is not palpable. LUNGS: Breath sounds diminished in several areas over the right lung. No crackles. No wheezing. Left lung, clear. HEART: S1 and S2 normal. There is a big systolic murmur which is audible all over her precordium at 3/6. ABDOMEN: Soft, nontender, nondistended. Bowel sounds are present. No organomegaly. EXTREMITIES: Left above the knee amputee status. 1+ peripheral edema similar in the right foot and right ankle area. Pulses are somewhat diminished on tibialis posterior and dorsalis pedis arteries. NEUROLOGIC: She is following my commands. She moves her all 4 extremities. There are no any motor deficits. LABORATORY DATA: None. IMPRESSION: 1. Complex right pleural effusion. 2. History of pneumonia. 3. Liver cirrhosis. 4. Esophageal varices. 5. Chronic pain syndrome/phantom limb. 6. Hypertension. 7. Hyperlipidemia. 8. Diastolic dysfunction. 9. Moderate mitral regurgitation. 10. Moderate aortic regurgitation. 11. History of goiter, status post total thyroidectomy. 12. Anxiety disorder. PLAN: We accepted transfer from [facility]. She will stay on a heart healthy diet. IV Hep-Lock. We will check her vitamin B12 and folic acid levels. We will transfuse her as needed. We will get cardiothoracic surgeon, Dr. Fraire, to be consulted for her right pleural complexed effusion. We will get albumins, and we will get PT and INR, and will get residential sales consultant to follow. Dr. Sorenson saw her yesterday at the [facility] and Dr. Fine saw her over the weekend there. We will continue her aztreonam and vancomycin, two antibiotics she was taking in previous facility, and we will do DVT prophylaxis with Lovenox, and we will continue her home medications. Job ID: [id number]
[2018-12-19] MEDS: Aztreonam 1 GM in Sodium Chloride 0.9% 100 ML IVPB SCH (20:53)
[2018-12-19] MEDS: Pregabalin 75 MG CAP PO SCH (20:54)
[2018-12-19] MEDS: traZODone HCl 50 MG TAB PO SCH ×2 (20:55→20:56)
[2018-12-19] MEDS ORDERED: AZTREONAM IVPB SCH (22:00)
--- NOTE | 2018-12-20 00:04 | CON ---
DATE OF CONSULTATION: HISTORY OF PRESENT ILLNESS: This is a 63-year-old female, transferred from the [facility] today for loculated right pleural effusion with recommendation for thoracoscopy for diagnostic and therapeutic purposes. She has been somewhat ill over the past month with recurrent hospitalizations for weakness and right-sided chest pain. She was diagnosed with pneumonia and treated with antibiotics. She has continued to return to the hospital with weakness and falling while trying to ambulate on her prosthetic limb at home. She has remained afebrile with a normal white count. She continues to have right-sided chest pain and is requiring pain medications for this. PAST MEDICAL HISTORY: Positive for hypertension with Dr. Little recently stopping her amlodipine because "her blood pressure was normalized." PAST SURGICAL HISTORY: She has a past surgical history of a left [id number] amputation following complications from a knee replacement and possible necrotizing fasciitis from an injury to her foot. In any event, she has had right knee surgery and a fractured right femur. She has had a previous bleeding ulcer, treated through a midline laparotomy, and then has an extensive Sujey incision on her abdomen, which she says was related to a TIPS procedure in the late , although may well have been some sort of portacaval shunt. In any event, she has also had a thyroidectomy for goiter. MEDICATIONS: Her medications are listed as, 1. Duloxetine 30 a day. 2. Amlodipine 5 a day. 3. Hydrocodone for pain. 4. Lasix 20 mg daily. 5. Ativan 0.5 t.i.d. p.r.n. 6. Synthroid 75 mcg a day. 7. Lyrica 75 b.i.d. 8. Protonix 40 b.i.d. 9. Trazodone 100 at bedtime. ALLERGIES: REPORTED TO ASPIRIN, SEVERE; CEFEPIME, SEVERE; IBUPROFEN, SEVERE; NONSTEROIDALS, SEVERE; PENICILLIN, NONE KNOWN. CURRENT MEDICATIONS: 1. Amlodipine. 2. Azactam. 3. Lovenox as well as her home medications. PHYSICAL EXAMINATION: GENERAL: She is an alert, cooperative lady, in no distress with makeup on. VITAL SIGNS: Her blood pressure is recorded as 150/70, her heart rate is recorded as 75. She is in no respiratory distress. NECK: No carotid bruits. No JVD. LUNGS: Clear to auscultation anteriorly. CARDIAC: 2 to 3 over 6 systolic murmur across the precordium. ABDOMEN: Previously noted scars. Soft, nontender, slightly protuberant. EXTREMITIES: Absent left lower extremity from the [id number] down with palpable right popliteal, femoral, and posterior tibial pulse with trace edema. ASSESSMENT AND PLAN: At this time, the patient presents with a loculated effusion, history of pneumonia, and general fatigue and malaise. We will proceed with a thoracoscopy, although it is unlikely this is infected given her course. It may prevent her from developing a peel in the future and I have also discussed the possibility of thoracotomy, if this has been going on long enough, that a thoracoscopic decortication is not feasible. Informed consent has been obtained. We will order type and cross for 2 units since her baseline hemoglobin is about 8 g. Renal function is normal. Job ID: [id number]
[2018-12-20] MEDS: HYDROcodone/Acetaminophen 5/325 mg Tablet PO PRN (04:52)
[2018-12-20] MEDS: Levothyroxine Sodium 75 MCG TAB PO SCH (04:53)
[2018-12-20 05:31] LABS: ALT (SGPT) Less than 7 U/L (8-55); AST (SGOT) 14 U/L (5-34); Albumin 2.7 g/dL (3.4-4.8); Alkaline Phosphatase 128 U/L (40-150); Anion Gap 11 mmol/L (10-20); BUN (Urea Nitrogen) 11 mg/dL (9.8-20.1); Bilirubin, Total 0.5 mg/dL (0.2-1.2); Calc. Creatinine Clearance 0 mL/min (70-130); Calcium 8.2 mg/dL (7.8-10.44); Carbon Dioxide 22 mmol/L (23-31); Chloride 111 mmol/L (98-107); Estimated GFR-MDRD Greater than 90; Globulin 2.6 g/dL (2.4-3.5); Glucose 81 mg/dL (80-115); Potassium 3.8 mmol/L (3.5-5.1); Protein, Total 5.3 g/dL (6.0-8.3); Sodium 140 mmol/L (136-145)
[2018-12-20 05:32] LABS: #Eosinphils 0.3 thou/uL (0.0-0.7); #Lymphocytes 0.8 thou/uL (1.20-3.40); #Monocytes 0.3 thou/uL (0.11-0.59); #Neutrophils 2.7 thou/uL (1.40-6.50); %Basophils 0.3 % (0.0-1.0); %Eosinophils 8.2 % (0.0-10.0); %Lymphocytes 19.9 % (21.0-51.0); %Monocytes 7.2 % (0.0-10.0); %Neutrophils 64.4 % (42.0-75.0); Hemoglobin 8.5 g/dL (12.0-16.0); Mean Corpuscular HGB CONC 30.7 g/dL (32.0-36.0); Mean Corpuscular Hemoglobin 22.1 pg (27.0-31.0); Mean Corpuscular Volume 72.1 fL (78.0-98.0); Mean Platelet Volume 8.2 fL (7.4-10.4); Platelet Count 165 thou/uL (130-400); RBC Distribution Width 19.7 % (11.5-14.5); Red Blood Cell (RBC) Count 3.83 mill/uL (4.20-5.40); White Blood Cell (WBC) Count 4.2 thou/uL (4.8-10.8)
[2018-12-20] MEDS: Furosemide 20 MG TAB PO SCH (08:46)
[2018-12-20] MEDS: Pregabalin 75 MG CAP PO SCH ×2 (08:47→19:55)
[2018-12-20] MEDS: Amlodipine 5 MG TAB PO SCH (08:47)
[2018-12-20] MEDS: Aztreonam 1 GM in Sodium Chloride 0.9% 100 ML IVPB SCH ×2 (08:52→19:55)
[2018-12-20] MEDS: Lorazepam 0.5 MG TAB PO PRN (08:54)
[2018-12-20] MEDS ORDERED: Enoxaparin Sodium 40 MG/0.4 ML SYRINGE SC SCH (09:00)
[2018-12-20] MEDS: DULoxetine 30 MG CAP PO SCH (10:31)
[2018-12-20] MEDS ORDERED: Famotidine/PF 20 mg/2ml Vial ONE (12:57)
[2018-12-20] MEDS ORDERED: Fentanyl 100 MCG/2 ML VIAL ONE ×5 (12:57→17:24)
[2018-12-20] MEDS ORDERED: Bupivacaine/Epinephrine 0.25% 30 ML VIAL ONE (15:07)
[2018-12-20] MEDS ORDERED: Acetaminophen 325 MG TAB PO PRN (17:17)
[2018-12-20] MEDS ORDERED: Ondansetron PF 4 MG/2 ML Vial IVP PRN (17:17)
[2018-12-20] MEDS ORDERED: Fentanyl 100 MCG/2 ML VIAL SLOW IVP PRN (17:17)
--- NOTE | 2018-12-20 17:41 | RAD ---
RADIOGRAPH CHEST 1 VIEW: DATE: 12/20/2018 TIME: 5:04 PM HISTORY: 63-year-old female status post thoracotomy COMPARISON: 07/24/2018 FINDINGS: New double right-sided chest tubes, one with distal tip at apex and the other at right upper lung zon e. New right subclavian central line with distal tip overlying right atrium. Consolidation at retrocardiac right medial lung base and moderate consolidation more laterally at right lower lung zon e. Small right pleural effusion remains. TIPS in right upper quadrant of abdomen. No pneumothorax visualized. No pulmonary edema. Small new left pleural effusion. IMPRESSION: Status post right thoracotomy with postsurgical changes.
[2018-12-20] MEDS: Lactated Ringer's 1,000 ML IV SCH (18:05)
[2018-12-20 18:12] LABS: RBC Count-Automated (BF) 24012 /cumm; WBC/Nucleated-Auto (BF) 374 uL
[2018-12-20 18:42] LABS: Body Fluid Source Pleural Fluid; Clarity Cloudy/Turbid (Clear)
[2018-12-20 18:43] LABS: BF Color Pink; Tube # EDTA
[2018-12-20 18:49] LABS: BF Segmented Neutrophils 9 %; Cell Count Non Hematic 25 %; Eosinophils 12 %; Lymphocytes 53 %
[2018-12-20] MEDS: traZODone HCl 50 MG TAB PO SCH (19:55)
--- NOTE | 2018-12-20 22:02 | PDOC.HOSPP ---
- Subjective Encounter Date: 12/20/18 Encounter Time: 19:00 - Objective Vital Signs & Weight: Vital Signs (12 hours) Temp Pulse Resp BP Pulse Ox 12/20/18 18:05 97.8 F 94 18 124/62 100 Weight Admit Weight 144 lb 12.8 oz Weight 144 lb 12.8 oz I&O: 12/19/18 12/20/18 12/21/18 06:59 06:59 06:59 Intake Total 400 Output Total 250 250 Balance 150 -250 Result Diagrams: 12/20/18 04:50 12/20/18 04:50 Hospitalist ROS - Medication Medications: Active Medications Generic Name Dose Route Start Last Admin Trade Name Freq PRN Reason Stop Dose Admin Amlodipine Besylate 2.5 mg 12/20/18 09:00 12/20/18 08:47 Norvasc PO 2.5 mg DAILY ELI Administration Duloxetine HCl 30 mg 12/20/18 09:00 12/20/18 10:31 Cymbalta PO 30 mg DAILY ELI Administration Fentanyl 50 mcg 12/20/18 17:17 12/20/18 19:56 Sublimaze SLOW IVP 50 mcg Q2H PRN Administration Severe Pain (7-10) Furosemide 20 mg 12/20/18 07:30 12/20/18 08:46 Lasix PO 20 mg DAILY-AC ELI Administration Aztreonam 1 gm/ Sodium 100 mls @ 100 mls/hr 12/19/18 21:00 12/20/18 19:55 Chloride IVPB 100 mls Q12HR ELI Administration Lactated Ringer's 1,000 mls @ 75 mls/hr 12/20/18 17:17 12/20/18 18:05 Lactated Ringer's IV 1,000 mls .[id number] ELI Administration Levothyroxine Sodium 75 mcg 12/20/18 06:00 12/20/18 04:53 Synthroid PO 75 mcg 0600 ELI Administration Lorazepam 0.5 mg 12/19/18 14:32 12/20/18 08:54 Ativan PO 0.5 mg TIDPRN PRN Administration Anxiety Pantoprazole Sodium 40 mg 12/19/18 21:00 12/20/18 19:55 Protonix PO 40 mg BID ELI Administration Pregabalin 75 mg 12/19/18 21:00 08/28/19 19:55 Lyrica PO 75 mg BID ELI Administration Trazodone HCl 100 mg 12/19/18 21:00 12/20/18 19:55 Desyrel PO 100 mg QPM ELI Administration
[2018-12-21] MEDS: HYDROcodone/Acetaminophen 5/325 mg Tablet PO PRN ×2 (00:24→05:47)
[2018-12-21 05:40] LABS: Anion Gap 12 mmol/L (10-20); BUN (Urea Nitrogen) 13 mg/dL (9.8-20.1); Calc. Creatinine Clearance 88 mL/min (70-130); Calcium 8.2 mg/dL (7.8-10.44); Carbon Dioxide 24 mmol/L (23-31); Chloride 107 mmol/L (98-107); Estimated GFR-MDRD 89; Glucose 173 mg/dL (80-115); Potassium 3.7 mmol/L (3.5-5.1); Sodium 139 mmol/L (136-145)
[2018-12-21] MEDS: Levothyroxine Sodium 75 MCG TAB PO SCH (05:48)
[2018-12-21 05:52] LABS: #Lymphocytes 0.3 thou/uL (1.20-3.40); #Monocytes 0.1 thou/uL (0.11-0.59); #Neutrophils 3.4 thou/uL (1.40-6.50); %Eosinophils 0.1 % (0.0-10.0); %Lymphocytes 8.2 % (21.0-51.0); %Monocytes 1.6 % (0.0-10.0); Hemoglobin 8.7 g/dL (12.0-16.0); Hypochromia SLIGHT = 6-15 cells (100X) (0-5/hpf); MDiff Complete? YES; Mean Corpuscular Hemoglobin 22.5 pg (27.0-31.0); Mean Corpuscular Volume 72.6 fL (78.0-98.0); Mean Platelet Volume 7.6 fL (7.4-10.4); Ovalocytes SLIGHT = 2-5 cells (100X) (0-1/hpf); Platelet Count 163 thou/uL (130-400); Platelet Morphology Comment Appears Adequate; RBC Distribution Width 19.4 % (11.5-14.5); Red Blood Cell (RBC) Count 3.85 mill/uL (4.20-5.40); Target Cells SLIGHT = 2-5 cells (100X) (0-1/hpf); White Blood Cell (WBC) Count 3.8 thou/uL (4.8-10.8)
[2018-12-21] MEDS: Lactated Ringer's 1,000 ML IV SCH ×2 (06:08→19:52)
--- NOTE | 2018-12-21 08:43 | RAD ---
FRONTAL RADIOGRAPH CHEST: DATE: 12/21/2018. COMPARISON: 12/20/2018. HISTORY: Evaluate chest following thoracotomy. FINDINGS: There is persistent pleural and parenchymal opacity in the right lung base, nonspecific. Two stable right-sided chest tubes are present. Stable right-sided vascular catheter. Heart and media stinal contours are stable. Left lung appears clear. Stable left shoulder arthroplasty. IMPRESSION: Postoperative changes as detailed above. Pleural and parenchymal opacity in the right lung base/right costophrenic angle region, nonspecific. Follow-up to resolution advised. Transcribed Date/Time: 12/21/2018 11:13 AM
[2018-12-21] MEDS: Fentanyl 100 MCG/2 ML VIAL SLOW IVP PRN ×4 (09:16→21:37)
[2018-12-21] MEDS: Pregabalin 75 MG CAP PO SCH ×2 (09:19→20:56)
[2018-12-21] MEDS: Amlodipine 5 MG TAB PO SCH (09:24)
[2018-12-21] MEDS: DULoxetine 30 MG CAP PO SCH (09:24)
[2018-12-21] MEDS: Furosemide 20 MG TAB PO SCH (09:26)
[2018-12-21] MEDS: Aztreonam 1 GM in Sodium Chloride 0.9% 100 ML IVPB SCH ×2 (09:26→20:58)
--- NOTE | 2018-12-21 11:01 | OP ---
DATE OF PROCEDURE: 12/20/2018 PREOPERATIVE DIAGNOSIS: Right pleural effusion. POSTOPERATIVE DIAGNOSIS: Right pleural effusion. PROCEDURE PERFORMED: Right thoracoscopy, pleural biopsies, and partial lung decortication. ANESTHESIA: General. ESTIMATED BLOOD LOSS: Minimal. DESCRIPTION OF PROCEDURE: After adequate anesthesia had been obtained with a double-lumen endotracheal tube, a right subclavian triple-lumen CVP was placed. The patient was placed in the left lateral decubitus position. A 5 trocar was introduced through a very thick and hard pleura. Following this, the area was inspected and the pleural fluid was aspirated for studies. Following this, random pleural biopsies were done as there were no discrete pleural masses. Following this, adhesions between the lower lobe and the chest wall were taken down with the cautery. The lower lobe was partially trapped, but this was not something that could be treated thoracoscopically, and I did not feel that she was an ideal candidate for a full thoracotomy. After mobilizing the lower lobe, 2 chest tubes were placed. The lung was reinflated and the patient's sq tissues infiltrated with Marcaine and closed. She is to be taken to the recovery room in guarded condition. Job ID: [id number] [facility]
--- NOTE | 2018-12-21 11:39 | PRG ---
DATE OF SERVICE: 12/21/2018 SUBJECTIVE: Massiel Adrian did well overnight. Her only complaint is chest tube insertion site pain. OBJECTIVE: VITAL SIGNS: Blood pressure 139/66, heart rate 84, and respiratory rate 18. She is afebrile. LUNGS: She has equal breath sounds. HEART: Regular rhythm. IMPRESSION AND PLAN: Loculated effusion, status post thoracoscopy and washout. PLAN: Continue supportive care. Job ID: [id number]
[2018-12-21] MEDS ORDERED: Lidocaine 1% PF 5 ML VIAL ONE (16:32)
[2018-12-21] MEDS ORDERED: PHENYLEPHRINE-NS 100 MCG/ML 10 ML SYRINGE ONE (16:32)
[2018-12-21] MEDS ORDERED: PROPOFOL 200 MG/20 ML VIAL ONE (16:32)
[2018-12-21] MEDS ORDERED: ePHEDrine 50 MG/ML VIAL ONE (16:32)
[2018-12-21] MEDS ORDERED: Rocuronium Bromide 10 MG/ML (10ML VIAL) ONE (16:32)
[2018-12-21] MEDS ORDERED: Dexamethasone 20 MG/5 ML VIAL ONE (16:32)
--- NOTE | 2018-12-21 18:09 | PDOC.HOSPP ---
- Subjective Encounter Date: 12/21/18 Encounter Time: 18:07 Subjective: Patient seen and examined for Pleural effusion. SOB on exertion +. No new complaints. No overnight events - Objective Vital Signs & Weight: Vital Signs (12 hours) Temp Pulse Resp BP Pulse Ox 12/21/18 17:55 98.6 F 86 18 147/65 H 96 12/21/18 14:31 97 12/21/18 11:40 85 18 128/61 97 12/21/18 09:24 84 12/21/18 07:51 100 12/21/18 07:44 98.7 F 84 18 139/66 100 Weight Admit Weight 144 lb 12.8 oz Weight 141 lb 11.2 oz I&O: 12/20/18 12/21/18 12/22/18 06:59 06:59 06:59 Intake Total 400 1050 480 Output Total 250 350 Balance 150 700 480 Result Diagrams: 12/21/18 04:54 12/21/18 04:54 EKG Reviewed by me: Yes (Tele SR) Hospitalist ROS - Review of Systems Respiratory: reports: SOB with excertion. denies: cough, dry, shortness of breath, hemoptysis, pleuritic pain, sputum, wheezing, other Gastrointestinal: denies: nausea, vomitting, abdominal pain, diarrhea, constipation, melena, hematochezia, other - Medication Medications: Active Medications Generic Name Dose Route Start Last Admin Trade Name Freq PRN Reason Stop Dose Admin Hydrocodone Bitart/Acetaminophen 1 tab 12/20/18 17:17 12/21/18 05:47 [place] 5/325 PO 1 tab Q4H PRN Administration Mild Pain (1-3) Amlodipine Besylate 2.5 mg 12/20/18 09:00 12/21/18 09:24 Norvasc PO 2.5 mg DAILY ELI Administration Duloxetine HCl 30 mg 12/20/18 09:00 12/21/18 09:24 Cymbalta PO 30 mg DAILY ELI Administration Fentanyl 25 mcg 12/20/18 17:17 12/21/18 17:50 Sublimaze SLOW IVP 25 mcg Q2H PRN Administration Moderate Pain (4-6) Fentanyl 50 mcg 12/20/18 17:17 12/20/18 19:56 Sublimaze SLOW IVP 50 mcg Q2H PRN Administration Severe Pain (7-10) Furosemide 20 mg 08/28/19 07:30 12/21/18 09:26 Lasix PO 20 mg DAILY-AC ELI Administration Aztreonam 1 gm/ Sodium 100 mls @ 100 mls/hr 12/19/18 21:00 12/21/18 09:26 Chloride IVPB 100 mls Q12HR ELI Administration Lactated Ringer's 1,000 mls @ 75 mls/hr 12/20/18 17:17 12/21/18 06:08 Lactated Ringer's IV 1,000 mls .[id number] ELI Administration Levothyroxine Sodium 75 mcg 12/20/18 06:00 12/21/18 05:48 Synthroid PO 75 mcg 0600 ELI Administration Lorazepam 0.5 mg 12/19/18 14:32 12/20/18 08:54 Ativan PO 0.5 mg TIDPRN PRN Administration Anxiety Pantoprazole Sodium 40 mg 12/19/18 21:00 12/21/18 09:18 Protonix PO 40 mg BID ELI Administration Pregabalin 75 mg 12/19/18 21:00 12/21/18 09:19 Lyrica PO 75 mg BID ELI Administration Trazodone HCl 100 mg 12/19/18 21:00 12/20/18 19:55 Desyrel PO 100 mg QPM ELI Administration - Exam General Appearance: NAD Neck: supple, no JVD Heart: RRR, no gallops Respiratory: no wheezes Respiratory - other findings: Right basilar rales/rhonchi Gastrointestinal: soft, non-distended Extremities: no edema Hosp A/P (1) Loculated pleural effusion Code(s): J90 - PLEURAL EFFUSION, NOT ELSEWHERE CLASSIFIED Status: Acute (2) Cirrhosis Code(s): K74.60 - UNSPECIFIED CIRRHOSIS OF LIVER Status: Acute (3) Hypertension Code(s): I10 - ESSENTIAL (PRIMARY) HYPERTENSION Status: Chronic Qualifiers: Hypertension type: essential hypertension Qualified Code(s): I10 - Essential (primary) hypertension (4) HLD (hyperlipidemia) Code(s): E78.5 - HYPERLIPIDEMIA, UNSPECIFIED Status: Acute (5) Other issues per previous notes Status: Acute - Plan s/p Thoracoscopy/biopsy and partial lung decortication Cont IVF Cont Aztreonam Cont current meds as below AM labs CXR in AM
[2018-12-21] MEDS ORDERED: Polyethylene Glycol 3350 17 GM Packet PO PRN (18:19)
[2018-12-21] MEDS: traZODone HCl 50 MG TAB PO SCH (20:55)
[2018-12-21] MEDS: Senokot S 8.6-50 MG TAB PO SCH (20:56)
[2018-12-22] MEDS: Fentanyl 100 MCG/2 ML VIAL SLOW IVP PRN (04:53)
[2018-12-22] MEDS: Levothyroxine Sodium 75 MCG TAB PO SCH (04:54)
[2018-12-22 05:44] LABS: #Lymphocytes 0.9 thou/uL (1.20-3.40); #Monocytes 0.7 thou/uL (0.11-0.59); #Neutrophils 6.4 thou/uL (1.40-6.50); %Basophils 0.1 % (0.0-1.0); %Eosinophils 0.3 % (0.0-10.0); %Lymphocytes 10.7 % (21.0-51.0); %Monocytes 8.4 % (0.0-10.0); %Neutrophils 80.5 % (42.0-75.0); Elliptocytes SLIGHT = 2-5 cells (100X) (0-1/hpf); Hemoglobin 7.9 g/dL (12.0-16.0); Hypochromia SLIGHT = 6-15 cells (100X) (0-5/hpf); MDiff Complete? YES; Mean Corpuscular HGB CONC 30.5 g/dL (32.0-36.0); Mean Corpuscular Hemoglobin 22.1 pg (27.0-31.0); Mean Corpuscular Volume 72.5 fL (78.0-98.0); Mean Platelet Volume 6.2 fL (7.4-10.4); Platelet Count 167 thou/uL (130-400); RBC Distribution Width 19.6 % (11.5-14.5); Red Blood Cell (RBC) Count 3.56 mill/uL (4.20-5.40)
[2018-12-22 05:46] LABS: Platelet Morphology Comment Appears Adequate
[2018-12-22 05:50] LABS: ALT (SGPT) Less than 7 U/L (8-55); AST (SGOT) 15 U/L (5-34); Albumin 2.7 g/dL (3.4-4.8); Alkaline Phosphatase 113 U/L (40-150); Anion Gap 12 mmol/L (10-20); BUN (Urea Nitrogen) 14 mg/dL (9.8-20.1); Bilirubin, Total 0.2 mg/dL (0.2-1.2); Calc. Creatinine Clearance 86 mL/min (70-130); Carbon Dioxide 25 mmol/L (23-31); Chloride 110 mmol/L (98-107); Estimated GFR-MDRD 84; Globulin 2.4 g/dL (2.4-3.5); Glucose 134 mg/dL (80-115); Magnesium 1.4 mg/dL (1.6-2.6); Potassium 3.7 mmol/L (3.5-5.1); Protein, Total 5.1 g/dL (6.0-8.3); Sodium 143 mmol/L (136-145)
[2018-12-22] MEDS: Pregabalin 75 MG CAP PO SCH ×2 (08:37→21:25)
[2018-12-22] MEDS: Saccharomyces boulardii 250 MG CAP PO SCH (08:37)
[2018-12-22] MEDS: Furosemide 20 MG TAB PO SCH (08:38)
[2018-12-22] MEDS: DULoxetine 30 MG CAP PO SCH (08:38)
[2018-12-22] MEDS: Amlodipine 5 MG TAB PO SCH (08:39)
[2018-12-22] MEDS: Senokot S 8.6-50 MG TAB PO SCH ×2 (08:40→21:26)
[2018-12-22] MEDS: HYDROcodone/Acetaminophen 5/325 mg Tablet PO PRN ×3 (08:41→18:13)
[2018-12-22] MEDS: Lorazepam 0.5 MG TAB PO PRN ×2 (08:50→18:15)
[2018-12-22] MEDS: Aztreonam 1 GM in Sodium Chloride 0.9% 100 ML IVPB SCH ×2 (08:53→21:23)
[2018-12-22] MEDS ORDERED: Magnesium Sulfate 3 GM in Sodium Chloride 0.9% 100 ML IVPB SCH (12:00)
[2018-12-22 12:08] VITALS: BMI 23.7
--- NOTE | 2018-12-22 14:14 | RAD ---
RADIOGRAPH CHEST 1 VIEW: DATE: 12/22/2018 TIME: 2:04 PM HISTORY: 63-year-old female follow-up status post thoracotomy COMPARISON: 12/21/2018 FINDINGS: 2 right-sided chest tubes, one with distal tip at apex and the other with distal tip at upper medial right lung field. Right subclavian central line. Irregular thickening of right lower pleural surface and right hemidiaphragm. Nonspecific pulmonary parenchymal densities at right mid and lower l mike zones. Cardiomegaly. No pulmonary edema. Left lung is relatively clear. No pneumothorax. Left humeral head metallic prosthesis. No interval change overall. TIPS stent noted in right upper quadran t of abdomen. IMPRESSION: 1) no interval change overall. 2) post thoracotomy changes on the right chest tubes, central vascular catheter, and right lower pulm onary and pleural changes. 3) status post TIPS
--- NOTE | 2018-12-22 17:15 | PDOC.HOSPP ---
- Subjective Encounter Date: 12/22/18 Encounter Time: 12:00 Subjective: Patient seen and examined for Pleural effusion. Pain controlled. Dry cough. No new complaints. No overnight events - Objective Vital Signs & Weight: Vital Signs (12 hours) Temp Pulse Pulse Pulse Resp BP BP 12/22/18 16:00 98.5 F 81 18 12/22/18 11:20 98.2 F 81 18 12/22/18 09:00 86 79 149/63 H 139/66 12/22/18 08:39 87 12/22/18 08:05 99.4 F 87 18 BP Pulse Ox 12/22/18 16:00 110/55 L 95 12/22/18 11:20 120/57 L 95 12/22/18 09:00 12/22/18 08:39 12/22/18 08:05 165/72 H 94 L Weight Admit Weight 144 lb 12.8 oz Weight 147 lb 3.2 oz I&O: 12/21/18 12/22/18 12/23/18 06:59 06:59 06:59 Intake Total 1050 2485 Output Total 350 425 Balance 700 2060 Result Diagrams: 12/22/18 05:15 12/22/18 05:15 Additional Labs: Laboratory Tests 12/22/18 05:15 Magnesium 1.4 L Microbiology 12/20/18 15:18 Pleural - Fluid Direct Acid Fast Bacilli Smear - Final 12/20/18 15:18 Pleural - Fluid Acid Fast Bacilli Culture - Preliminary Specimen has been received and culture in progress. No Growth to date. Radiology Reviewed by me: Yes (CXR - No infiltrate) EKG Reviewed by me: Yes (Tele SR) Hospitalist ROS - Review of Systems Respiratory: denies: cough, dry, shortness of breath, hemoptysis, SOB with excertion, pleuritic pain, sputum, wheezing, other Cardiovascular: denies: chest pain, palpitations, orthopnea, paroxysmal noc. dyspnea, edema, light headedness, other - Medication Medications: Active Medications Generic Name Dose Route Start Last Admin Trade Name Freq PRN Reason Stop Dose Admin Hydrocodone Bitart/Acetaminophen 1 tab 12/20/18 17:17 12/22/18 14:13 [place] 5/325 PO 1 tab Q4H PRN Administration Mild Pain (1-3) Amlodipine Besylate 2.5 mg 12/20/18 09:00 08/30/19 08:39 Norvasc PO 2.5 mg DAILY ELI Administration Duloxetine HCl 30 mg 12/20/18 09:00 12/22/18 08:38 Cymbalta PO 30 mg DAILY ELI Administration Fentanyl 25 mcg 12/20/18 17:17 12/22/18 04:53 Sublimaze SLOW IVP 25 mcg Q2H PRN Administration Moderate Pain (4-6) Fentanyl 50 mcg 12/20/18 17:17 12/20/18 19:56 Sublimaze SLOW IVP 50 mcg Q2H PRN Administration Severe Pain (7-10) Furosemide 20 mg 12/20/18 07:30 12/22/18 08:38 Lasix PO 20 mg DAILY-AC ELI Administration Aztreonam 1 gm/ Sodium 100 mls @ 100 mls/hr 12/19/18 21:00 12/22/18 08:53 Chloride IVPB 100 mls Q12HR ELI Administration Levothyroxine Sodium 75 mcg 12/20/18 06:00 12/22/18 04:54 Synthroid PO 75 mcg 0600 ELI Administration Lorazepam 0.5 mg 12/19/18 14:32 12/22/18 08:50 Ativan PO 0.5 mg TIDPRN PRN Administration Anxiety Pantoprazole Sodium 40 mg 12/19/18 21:00 12/22/18 08:40 Protonix PO 40 mg BID ELI Administration Pregabalin 75 mg 12/19/18 21:00 12/22/18 08:37 Lyrica PO 75 mg BID ELI Administration Saccharomyces Boulardii 250 mg 12/22/18 09:00 12/22/18 08:37 Florastor PO 250 mg DAILY ELI Administration Senna/Docusate Sodium 1 tab 12/21/18 21:00 12/22/18 08:40 Senokot S PO 1 tab BID ELI Administration Trazodone HCl 100 mg 12/19/18 21:00 12/21/18 20:55 Desyrel PO 100 mg QPM ELI Administration - Exam General Appearance: NAD Heart: RRR, no rubs Respiratory: CTAB, rales (at R base) Gastrointestinal: soft, non-tender, normal bowel sounds Extremities: no edema Neurological: no new deficit Hosp A/P (1) Loculated pleural effusion Code(s): J90 - PLEURAL EFFUSION, NOT ELSEWHERE CLASSIFIED Status: Acute (2) Cirrhosis Code(s): K74.60 - UNSPECIFIED CIRRHOSIS OF LIVER Status: Acute (3) Hypertension Code(s): I10 - ESSENTIAL (PRIMARY) HYPERTENSION Status: Chronic Qualifiers: Hypertension type: essential hypertension Qualified Code(s): I10 - Essential (primary) hypertension (4) HLD (hyperlipidemia) Code(s): E78.5 - HYPERLIPIDEMIA, UNSPECIFIED Status: Acute (5) Hypomagnesemia Code(s): E83.42 - HYPOMAGNESEMIA Status: Acute (6) Other issues per previous notes Status: Acute - Plan s/p Thoracoscopy/biopsy and partial lung decortication Cont Aztreonam Replace Magnessium Cont current meds as below AM labs Pleural biopsy negative for malignancy
--- NOTE | 2018-12-22 19:48 | PRG ---
DATE OF SERVICE: 12/22/2018 SUBJECTIVE: Massiel Adrian did well overnight. She still has chest tube in place. Intake and output recording shows that there was 425 mL of chest tube drainage over the previous 24 hours. She is still complaining of discomfort in the right chest. OBJECTIVE: LUNGS: Clear anteriorly. HEART: Regular rhythm. ABDOMEN: Soft. IMPRESSION: Status post thoracoscopy. Pleural biopsies were done showing chronic inflammation. No granulomas were seen. No malignancy was seen. Her acid-fast smears were negative. PLAN: Continue with current chest tube drainage and supportive care. I have encouraged her to sit up in a chair. The nurses can help her with transfers, even though she only has one leg. She has to start working on transfers again since she was ambulatory several weeks ago. Job ID: [id number]
[2018-12-22] MEDS: traZODone HCl 50 MG TAB PO SCH (21:24)
[2018-12-23] MEDS: HYDROcodone/Acetaminophen 5/325 mg Tablet PO PRN ×3 (00:19→17:41)
[2018-12-23] MEDS: Fentanyl 100 MCG/2 ML VIAL SLOW IVP PRN ×3 (04:31→21:09)
[2018-12-23] MEDS: Levothyroxine Sodium 75 MCG TAB PO SCH (05:31)
--- NOTE | 2018-12-23 08:41 | RAD ---
CHEST 1 VIEW: Date: 12/23/18 HISTORY: Status post thoracotomy. COMPARISON: 12/22/18. FINDINGS: Right chest tube is in place. Right central line. Pleural and parenchymal opacity changes appear stab le in the right base. No significant pneumothorax. Minimal increased markings in the retrocardiac asp ect of the left lower lobe. IMPRESSION: Overall stable appearing chest. No significant new process. POS: [facility]
[2018-12-23] MEDS: Furosemide 20 MG TAB PO SCH (09:34)
[2018-12-23] MEDS: DULoxetine 30 MG CAP PO SCH (09:34)
[2018-12-23] MEDS: Senokot S 8.6-50 MG TAB PO SCH ×2 (09:35→22:25)
[2018-12-23] MEDS: Amlodipine 5 MG TAB PO SCH (09:35)
[2018-12-23] MEDS: Pregabalin 75 MG CAP PO SCH ×2 (09:35→21:04)
[2018-12-23] MEDS: Saccharomyces boulardii 250 MG CAP PO SCH (09:35)
[2018-12-23] MEDS: Lorazepam 0.5 MG TAB PO PRN ×2 (09:36→21:03)
[2018-12-23] MEDS: Aztreonam 1 GM in Sodium Chloride 0.9% 100 ML IVPB SCH ×2 (09:39→21:00)
[2018-12-23 11:21] LABS: Hemoglobin 7.4 g/dL (12.0-16.0); Platelet Count 150 thou/uL (130-400)
--- NOTE | 2018-12-23 11:26 | PDOC.HOSPP ---
- Subjective Encounter Date: 12/23/18 Encounter Time: 11:24 Subjective: Patient seen and examined, no new issues or complaints, no family at bedside, all questions answerd. - Objective Vital Signs & Weight: Vital Signs (12 hours) Temp Pulse Resp BP Pulse Ox 12/23/18 09:35 81 12/23/18 04:19 98.7 F 81 12 117/54 L 94 L Weight Admit Weight 144 lb 12.8 oz Weight 153 lb 8 oz I&O: 12/22/18 12/23/18 12/24/18 06:59 06:59 06:59 Intake Total 2485 400 Output Total 425 200 Balance 2060 200 Result Diagrams: 12/23/18 11:00 12/22/18 05:15 Hospitalist ROS - Medication Medications: Active Medications Generic Name Dose Route Start Last Admin Trade Name Freq PRN Reason Stop Dose Admin Hydrocodone Bitart/Acetaminophen 1 tab 12/20/18 17:17 12/23/18 00:19 [place] 5/325 PO 1 tab Q4H PRN Administration Mild Pain (1-3) Amlodipine Besylate 2.5 mg 12/20/18 09:00 12/23/18 09:35 Norvasc PO 2.5 mg DAILY ELI Administration Duloxetine HCl 30 mg 12/20/18 09:00 12/23/18 09:34 Cymbalta PO 30 mg DAILY ELI Administration Fentanyl 25 mcg 12/20/18 17:17 12/23/18 09:36 Sublimaze SLOW IVP 25 mcg Q2H PRN Administration Moderate Pain (4-6) Fentanyl 50 mcg 12/20/18 17:17 12/20/18 19:56 Sublimaze SLOW IVP 50 mcg Q2H PRN Administration Severe Pain (7-10) Furosemide 20 mg 12/20/18 07:30 12/23/18 09:34 Lasix PO 20 mg DAILY-AC ELI Administration Aztreonam 1 gm/ Sodium 100 mls @ 100 mls/hr 12/19/18 21:00 12/23/18 09:39 Chloride IVPB 100 mls Q12HR ELI Administration Levothyroxine Sodium 75 mcg 12/20/18 06:00 12/23/18 05:31 Synthroid PO 75 mcg 0600 ELI Administration Lorazepam 0.5 mg 12/19/18 14:32 12/23/18 09:36 Ativan PO 0.5 mg TIDPRN PRN Administration Anxiety Pantoprazole Sodium 40 mg 12/19/18 21:00 12/23/18 09:35 Protonix PO 40 mg BID ELI Administration Pregabalin 75 mg 12/19/18 21:00 12/23/18 09:35 Lyrica PO 75 mg BID ELI Administration Saccharomyces Boulardii 250 mg 12/22/18 09:00 12/23/18 09:35 Florastor PO 250 mg DAILY ELI Administration Senna/Docusate Sodium 1 tab 12/21/18 21:00 12/23/18 09:35 Senokot S PO 1 tab BID ELI Administration Sodium Chloride 10 ml 12/22/18 21:00 12/23/18 09:40 Flush - Normal Saline IVF 10 ml Q12HR ELI Administration Trazodone HCl 100 mg 12/19/18 21:00 12/22/18 21:24 Desyrel PO 100 mg QPM ELI Administration - Exam General Appearance: NAD, awake alert Eye: PERRL, anicteric sclera ENT: normocephalic atraumatic, no oropharyngeal lesions Neck: supple, symmetric, no JVD, no thyromegaly Heart: RRR, no murmur, no gallops, no rubs Respiratory: CTAB, no wheezes Respiratory - other findings: +Chest tube Gastrointestinal: soft, non-tender, non-distended Hosp A/P (1) Chest tube in place Code(s): Z96.89 - PRESENCE OF OTHER SPECIFIED FUNCTIONAL IMPLANTS Status: Acute (2) HLD (hyperlipidemia) Code(s): E78.5 - HYPERLIPIDEMIA, UNSPECIFIED Status: Acute (3) Loculated pleural effusion Code(s): J90 - PLEURAL EFFUSION, NOT ELSEWHERE CLASSIFIED Status: Acute - Plan - Chest tube in place - vitals stable - Hgb low but stable, will monitor for now - afebrile - cont current plan of care - case and plan d/w patient at length, she understood and agreed with this plan.
[2018-12-23 11:42] LABS: Anion Gap 10 mmol/L (10-20); BUN (Urea Nitrogen) 12 mg/dL (9.8-20.1); Calc. Creatinine Clearance 99 mL/min (70-130); Calcium 7.7 mg/dL (7.8-10.44); Carbon Dioxide 25 mmol/L (23-31); Chloride 106 mmol/L (98-107); Estimated GFR-MDRD Greater than 90; Glucose 107 mg/dL (80-115); Potassium 3.2 mmol/L (3.5-5.1); Sodium 138 mmol/L (136-145)
--- NOTE | 2018-12-23 17:03 | PRG ---
DATE OF SERVICE: 12/23/2018 SUBJECTIVE: Massiel Adrian has no complaints. She says she is having a litlle less pain.. OBJECTIVE: LUNGS: Clear. HEART: Regular rhythm. ABDOMEN: Soft. Chest tube drainage is decreasing VITAL SIGNS: She is afebrile. Heart rate is 98, respiratory rate is 18, oximetry is 95, blood pressure 125/58. LABORATORY DATA: Hemoglobin is 7.4, it was 7.9 yesterday. Electrolytes are normal. IMPRESSION: 1. Right pleural effusion that is subacute, status post thoracoscopy and drainage. 2. Blood loss anemia combined with anemia of chronic disease. 3. History of transjugular intrahepatic portosystemic shunt procedure. 4. Deconditioning. 5. High left lower extremity amputation. Chest tube drainage 200 mL in last 24 hours, which is a trend downward. She continues with the chest tube suction. She has no air leak. Chest radiograph today is unchanged. She has no pneumothorax. We will continue to follow. Job ID: [id number] [facility]
[2018-12-23] MEDS: traZODone HCl 50 MG TAB PO SCH (22:25)
[2018-12-24] MEDS: HYDROcodone/Acetaminophen 5/325 mg Tablet PO PRN ×3 (00:57→17:31)
[2018-12-24] MEDS: Levothyroxine Sodium 75 MCG TAB PO SCH (05:17)
[2018-12-24 08:17] LABS: Anion Gap 10 mmol/L (10-20); BUN (Urea Nitrogen) 14 mg/dL (9.8-20.1); Calc. Creatinine Clearance 101 mL/min (70-130); Calcium 7.7 mg/dL (7.8-10.44); Carbon Dioxide 27 mmol/L (23-31); Chloride 104 mmol/L (98-107); Estimated GFR-MDRD Greater than 90; Glucose 115 mg/dL (80-115); Potassium 3.2 mmol/L (3.5-5.1); Sodium 138 mmol/L (136-145)
[2018-12-24 08:31] LABS: Hemoglobin 6.8 g/dL (12.0-16.0); Platelet Count 144 thou/uL (130-400)
[2018-12-24] MEDS: Furosemide 20 MG TAB PO SCH (09:41)
[2018-12-24] MEDS: Amlodipine 5 MG TAB PO SCH (09:41)
[2018-12-24] MEDS: Aztreonam 1 GM in Sodium Chloride 0.9% 100 ML IVPB SCH ×2 (09:41→20:36)
[2018-12-24] MEDS: DULoxetine 30 MG CAP PO SCH (09:42)
[2018-12-24] MEDS: Pregabalin 75 MG CAP PO SCH ×2 (09:42→20:38)
[2018-12-24] MEDS: Senokot S 8.6-50 MG TAB PO SCH ×2 (09:43→20:39)
[2018-12-24] MEDS: Saccharomyces boulardii 250 MG CAP PO SCH (09:43)
--- NOTE | 2018-12-24 09:43 | RAD ---
FRONTAL RADIOGRAPH CHEST: Date: 12/24/18 COMPARISON: 12/23/18. HISTORY: Evaluate chest following thoracotomy. FINDINGS: There is persistent pleural and parenchymal opacity within the mid right lung zone/right lung base. T wo stable right-sided chest tubes are present. Stable prominence of the cardiac silhouette. Vascular stent material overlies the right upper quadrant, suggesting a TIPS. IMPRESSION: No significant interval change. POS: OFF
[2018-12-24] MEDS: Lorazepam 0.5 MG TAB PO PRN (10:55)
[2018-12-24] MEDS: Fentanyl 100 MCG/2 ML VIAL SLOW IVP PRN (10:59)
--- NOTE | 2018-12-24 12:01 | PDOC.HOSPP ---
- Subjective Encounter Date: 12/24/18 Encounter Time: 09:30 Subjective: wants her chest tube out as its hurting no sob or fever - Objective Vital Signs & Weight: Vital Signs (12 hours) Temp Pulse Resp BP Pulse Ox 12/24/18 09:41 73 12/24/18 08:15 99.2 F 73 16 135/65 96 12/24/18 04:00 98.2 F 90 19 127/62 94 L Weight Admit Weight 144 lb 12.8 oz Weight 153 lb 8 oz I&O: 12/23/18 12/24/18 12/25/18 06:59 06:59 06:59 Intake Total 400 Output Total 200 140 Balance 200 -140 Result Diagrams: 12/24/18 07:40 12/24/18 07:40 Hospitalist ROS - Medication Medications: Active Medications Generic Name Dose Route Start Last Admin Trade Name Freq PRN Reason Stop Dose Admin Hydrocodone Bitart/Acetaminophen 1 tab 12/20/18 17:17 12/24/18 05:17 [place] 5/325 PO 1 tab Q4H PRN Administration Mild Pain (1-3) Amlodipine Besylate 2.5 mg 12/20/18 09:00 12/24/18 09:41 Norvasc PO 2.5 mg DAILY ELI Administration Duloxetine HCl 30 mg 12/20/18 09:00 12/24/18 09:42 Cymbalta PO 30 mg DAILY ELI Administration Fentanyl 25 mcg 12/20/18 17:17 12/24/18 10:59 Sublimaze SLOW IVP 25 mcg Q2H PRN Administration Moderate Pain (4-6) Fentanyl 50 mcg 12/20/18 17:17 12/20/18 19:56 Sublimaze SLOW IVP 50 mcg Q2H PRN Administration Severe Pain (7-10) Furosemide 20 mg 12/20/18 07:30 12/24/18 09:41 Lasix PO 20 mg DAILY-AC ELI Administration Aztreonam 1 gm/ Sodium 100 mls @ 100 mls/hr 12/19/18 21:00 12/24/18 09:41 Chloride IVPB 100 mls Q12HR ELI Administration Levothyroxine Sodium 75 mcg 12/20/18 06:00 12/24/18 05:17 Synthroid PO 75 mcg 0600 ELI Administration Lorazepam 0.5 mg 12/19/18 14:32 12/24/18 10:55 Ativan PO 0.5 mg TIDPRN PRN Administration Anxiety Pantoprazole Sodium 40 mg 12/19/18 21:00 12/24/18 09:42 Protonix PO 40 mg BID ELI Administration Pregabalin 75 mg 12/19/18 21:00 12/24/18 09:42 Lyrica PO 75 mg BID ELI Administration Saccharomyces Boulardii 250 mg 12/22/18 09:00 12/24/18 09:43 Florastor PO 250 mg DAILY ELI Administration Senna/Docusate Sodium 1 tab 12/21/18 21:00 12/24/18 09:43 Senokot S PO 1 tab BID ELI Administration Sodium Chloride 10 ml 12/22/18 21:00 12/24/18 09:43 Flush - Normal Saline IVF 10 ml Q12HR ELI Administration Trazodone HCl 100 mg 12/19/18 21:00 12/23/18 22:25 Desyrel PO Not Given QPM ELI - Exam General Appearance: NAD, awake alert Eye: PERRL, anicteric sclera ENT: no oropharyngeal lesions, moist mucosa Neck: supple, no JVD Heart: RRR, no murmur Respiratory: no wheezes Respiratory - other findings: right chest tube x2 + Gastrointestinal: soft, non-tender, normal bowel sounds Extremities: no clubbing, no edema Neurological: CN's grossly intact, no focal deficits Psychiatric: normal affect, A&O x 3 Hosp A/P (1) Loculated pleural effusion Code(s): J90 - PLEURAL EFFUSION, NOT ELSEWHERE CLASSIFIED Status: Acute (2) Cirrhosis Code(s): K74.60 - UNSPECIFIED CIRRHOSIS OF LIVER Status: Chronic Qualifiers: Ascites presence: without ascites (3) Hypothyroidism Code(s): E03.9 - HYPOTHYROIDISM, UNSPECIFIED Status: Chronic Qualifiers: Hypothyroidism type: acquired Qualified Code(s): E03.9 - Hypothyroidism, unspecified (4) HLD (hyperlipidemia) Code(s): E78.5 - HYPERLIPIDEMIA, UNSPECIFIED Status: Chronic (5) Acute blood loss anemia Code(s): D62 - ACUTE POSTHEMORRHAGIC ANEMIA Status: Acute (6) Hypertension Code(s): I10 - ESSENTIAL (PRIMARY) HYPERTENSION Status: Chronic Qualifiers: Hypertension type: essential hypertension Qualified Code(s): I10 - Essential (primary) hypertension - Plan has chest tube in place will transfuse 1 u prbc today to mobilize as tolerated may dc azactam if ok with CTS/Pulm continue nebs, i.spirometry, norvasc, nebs, lasix, lyrica and trazadone fentanyl prn
--- NOTE | 2018-12-24 15:26 | PRG ---
DATE OF SERVICE: 12/24/2018 SUBJECTIVE: Massiel Adrian has no complaints. She has her leg in the room, but she has not ambulated. OBJECTIVE: VITAL SIGNS: She is afebrile. Heart rate 78, respiratory rate 16, oximetry 96% on room air, blood pressure 148/64. LUNGS: Clear. CHEST: Tube output 140 mL over the last 24 hours. It is 200 mL yesterday and 425 mL the day before. I have explained to her that this is improving. They have reported that she gained 6 pounds between the 30st and the 31st. 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 We will continue with supportive care. Job ID: [id number] [facility]TDD
[2018-12-24] MEDS: traZODone HCl 50 MG TAB PO SCH (21:00)
[2018-12-25] MEDS: HYDROcodone/Acetaminophen 5/325 mg Tablet PO PRN ×5 (00:55→21:25)
[2018-12-25] MEDS: Lorazepam 0.5 MG TAB PO PRN ×3 (00:56→21:20)
[2018-12-25] MEDS: Levothyroxine Sodium 75 MCG TAB PO SCH (05:36)
--- NOTE | 2018-12-25 08:41 | RAD ---
CHEST 1 VIEW: Date: 12/25/18 HISTORY: Status post thoracotomy. COMPARISON: 12/24/18. FINDINGS: The two previously noted right chest tubes have been removed with some persistent pleural and parench ymal opacity changes in the right base. No significant residual pneumothorax. Cardiomegaly. Stable le ft chest. IMPRESSION: Removal of the two right chest tubes with persistent pleural and parenchymal opacity changes without significant pneumothorax. POS: JOHN
[2018-12-25] MEDS: Aztreonam 1 GM in Sodium Chloride 0.9% 100 ML IVPB SCH (08:44)
[2018-12-25] MEDS: Pregabalin 75 MG CAP PO SCH ×2 (08:45→21:17)
[2018-12-25] MEDS: Furosemide 20 MG TAB PO SCH (08:45)
[2018-12-25] MEDS: DULoxetine 30 MG CAP PO SCH (08:45)
[2018-12-25] MEDS: Amlodipine 5 MG TAB PO SCH (08:46)
[2018-12-25] MEDS: Saccharomyces boulardii 250 MG CAP PO SCH (08:46)
[2018-12-25] MEDS: Senokot S 8.6-50 MG TAB PO SCH ×2 (08:50→21:19)
--- NOTE | 2018-12-25 12:33 | PDOC.HOSPP ---
- Subjective Encounter Date: 12/25/18 Encounter Time: 08:00 Subjective: no sob now, is eating better no chest pain, still feels weak - Objective Vital Signs & Weight: Vital Signs (12 hours) Temp Pulse Resp BP Pulse Ox 12/25/18 08:46 88 12/25/18 07:55 99.2 F 88 18 153/68 H 95 12/25/18 03:00 97.8 F 74 18 127/60 93 L Weight Admit Weight 144 lb 12.8 oz Weight 153 lb 8 oz I&O: 12/24/18 12/25/18 12/26/18 06:59 06:59 06:59 Intake Total 1902 180 Output Total 140 260 Balance -140 1642 180 Result Diagrams: 12/24/18 07:40 12/24/18 07:40 Hospitalist ROS - Medication Medications: Active Medications Generic Name Dose Route Start Last Admin Trade Name Freq PRN Reason Stop Dose Admin Acetaminophen 650 mg 12/20/18 17:17 12/24/18 16:09 Tylenol PO 650 mg Q4H PRN Administration (Fever>101.5F, ROBERTS or mild pain Hydrocodone Bitart/Acetaminophen 1 tab 12/20/18 17:17 12/25/18 08:46 [place] 5/325 PO 1 tab Q4H PRN Administration Mild Pain (1-3) Amlodipine Besylate 2.5 mg 12/20/18 09:00 12/25/18 08:46 Norvasc PO 2.5 mg DAILY ELI Administration Duloxetine HCl 30 mg 12/20/18 09:00 12/25/18 08:45 Cymbalta PO 30 mg DAILY ELI Administration Fentanyl 25 mcg 12/20/18 17:17 12/24/18 10:59 Sublimaze SLOW IVP 25 mcg Q2H PRN Administration Moderate Pain (4-6) Fentanyl 50 mcg 12/20/18 17:17 12/20/18 19:56 Sublimaze SLOW IVP 50 mcg Q2H PRN Administration Severe Pain (7-10) Furosemide 20 mg 12/20/18 07:30 12/25/18 08:45 Lasix PO 20 mg DAILY-AC ELI Administration Aztreonam 1 gm/ Sodium 100 mls @ 100 mls/hr 12/19/18 21:00 12/25/18 08:44 Chloride IVPB 100 mls Q12HR ELI Administration Levothyroxine Sodium 75 mcg 12/20/18 06:00 12/25/18 05:36 Synthroid PO 75 mcg 0600 ELI Administration Lorazepam 0.5 mg 12/19/18 14:32 12/25/18 00:56 Ativan PO 0.5 mg TIDPRN PRN Administration Anxiety Pantoprazole Sodium 40 mg 12/19/18 21:00 12/25/18 08:46 Protonix PO 40 mg BID ELI Administration Pregabalin 75 mg 12/19/18 21:00 12/25/18 08:45 Lyrica PO 75 mg BID ELI Administration Saccharomyces Boulardii 250 mg 12/22/18 09:00 12/25/18 08:46 Florastor PO 250 mg DAILY ELI Administration Senna/Docusate Sodium 1 tab 12/21/18 21:00 12/25/18 08:50 Senokot S PO Not Given BID ELI Sodium Chloride 10 ml 12/22/18 21:00 12/25/18 08:47 Flush - Normal Saline IVF 10 ml Q12HR ELI Administration Trazodone HCl 100 mg 12/19/18 21:00 12/24/18 21:00 Desyrel PO 100 mg QPM ELI Administration - Exam General Appearance: NAD, awake alert Eye: PERRL, anicteric sclera ENT: no oropharyngeal lesions, moist mucosa Neck: supple, no JVD Heart: RRR, no murmur Respiratory: no wheezes, no rales Gastrointestinal: soft, non-tender, normal bowel sounds Extremities: no cyanosis, no edema Neurological: CN's grossly intact, no focal deficits Psychiatric: normal affect, A&O x 3 Hosp A/P (1) Loculated pleural effusion Code(s): J90 - PLEURAL EFFUSION, NOT ELSEWHERE CLASSIFIED Status: Acute (2) Cirrhosis Code(s): K74.60 - UNSPECIFIED CIRRHOSIS OF LIVER Status: Chronic Qualifiers: Ascites presence: without ascites (3) Hypothyroidism Code(s): E03.9 - HYPOTHYROIDISM, UNSPECIFIED Status: Chronic Qualifiers: Hypothyroidism type: acquired Qualified Code(s): E03.9 - Hypothyroidism, unspecified (4) HLD (hyperlipidemia) Code(s): E78.5 - HYPERLIPIDEMIA, UNSPECIFIED Status: Chronic (5) Acute blood loss anemia Code(s): D62 - ACUTE POSTHEMORRHAGIC ANEMIA Status: Acute (6) Hypertension Code(s): I10 - ESSENTIAL (PRIMARY) HYPERTENSION Status: Chronic Qualifiers: Hypertension type: essential hypertension Qualified Code(s): I10 - Essential (primary) hypertension - Plan right chest tubes was removed yesterday had 1 u prbc yesterday to mobilize as tolerated will dc azactam continue nebs, i.spirometry, norvasc, nebs, lasix, lyrica and trazadone fentanyl prn awaiting placement
[2018-12-25 13:30] LABS: #Eosinphils 0.3 thou/uL (0.0-0.7); #Lymphocytes 0.7 thou/uL (1.20-3.40); #Monocytes 0.6 thou/uL (0.11-0.59); #Neutrophils 3.3 thou/uL (1.40-6.50); %Eosinophils 6.6 % (0.0-10.0); %Lymphocytes 14.6 % (21.0-51.0); %Neutrophils 66.8 % (42.0-75.0); Hemoglobin 8.3 g/dL (12.0-16.0); Mean Corpuscular HGB CONC 31.1 g/dL (32.0-36.0); Mean Corpuscular Hemoglobin 23.4 pg (27.0-31.0); Mean Corpuscular Volume 75.5 fL (78.0-98.0); Mean Platelet Volume 11.2 fL (7.4-10.4); Platelet Count 187 thou/uL (130-400); RBC Distribution Width 20.1 % (11.5-14.5); Red Blood Cell (RBC) Count 3.54 mill/uL (4.20-5.40)
[2018-12-25 13:53] LABS: ALT (SGPT) 30 U/L (8-55); AST (SGOT) 49 U/L (5-34); Albumin 2.5 g/dL (3.4-4.8); Alkaline Phosphatase 152 U/L (40-150); Anion Gap 11 mmol/L (10-20); BUN (Urea Nitrogen) 13 mg/dL (9.8-20.1); Bilirubin, Total 0.5 mg/dL (0.2-1.2); Calc. Creatinine Clearance 99 mL/min (70-130); Calcium 7.8 mg/dL (7.8-10.44); Carbon Dioxide 23 mmol/L (23-31); Chloride 106 mmol/L (98-107); Estimated GFR-MDRD Greater than 90; Globulin 2.8 g/dL (2.4-3.5); Glucose 125 mg/dL (80-115); Potassium 3.3 mmol/L (3.5-5.1); Protein, Total 5.3 g/dL (6.0-8.3); Sodium 137 mmol/L (136-145)
--- NOTE | 2018-12-25 15:34 | PRG ---
DATE OF SERVICE: 12/25/2018 SUBJECTIVE: The patient is feeling better, had no acute complaints. OBJECTIVE: VITAL SIGNS: Temperature 99.5, pulse 84, respirations 16, O2 saturation 98%, blood pressure 130/58. HEENT: Unremarkable. NECK: No adenopathy or JVD. CHEST: Slightly diminished breath sounds at right base. CARDIAC: S1 and S2, regular. ABDOMEN: Soft. EXTREMITIES: No edema. IMAGING STUDIES: Her x-ray shows some blunting in the right base. LABORATORY DATA: White blood cell count 5, hematocrit 26.7, and platelet count 187. ASSESSMENT: Status post thoracoscopic decortication of a chronic right pleural effusion. PLAN: Mainly rehabilitative at this point. Antibiotics have been stopped. Hopefully to rehab or home soon. Job ID: [id number]
[2018-12-25] MEDS: traZODone HCl 50 MG TAB PO SCH (21:19)
[2018-12-26] MEDS: Levothyroxine Sodium 75 MCG TAB PO SCH (05:39)
[2018-12-26] MEDS: HYDROcodone/Acetaminophen 5/325 mg Tablet PO PRN ×3 (05:40→15:53)
[2018-12-26] MEDS: Senokot S 8.6-50 MG TAB PO SCH (08:47)
[2018-12-26] MEDS: Saccharomyces boulardii 250 MG CAP PO SCH (08:47)
[2018-12-26] MEDS: DULoxetine 30 MG CAP PO SCH (08:48)
[2018-12-26] MEDS: Pregabalin 75 MG CAP PO SCH (08:48)
[2018-12-26] MEDS: Furosemide 20 MG TAB PO SCH (08:49)
[2018-12-26] MEDS: Amlodipine 5 MG TAB PO SCH (08:49)
[2018-12-26] MEDS: Lorazepam 0.5 MG TAB PO PRN (08:52)
--- NOTE | 2018-12-26 10:26 | RAD ---
PORTABLE CHEST: HISTORY: Status post thoracotomy. COMPARISON: 12/25/2018 FINDINGS: Heart size is enlarged. Right-sided subclavian line is present. Pleural and parenchymal changes in the right lung base are stable. IMPRESSION: Stable examination. POS: OFF
--- NOTE | 2018-12-26 12:12 | PDOC.HOSPP ---
- Subjective Encounter Date: 12/26/18 Encounter Time: 10:00 Subjective: feels a bit nauseous, no vomiting, didnt eat her breakfast no sob or palp - Objective Vital Signs & Weight: Vital Signs (12 hours) Temp Pulse Resp BP Pulse Ox 12/26/18 11:39 98.3 F 75 18 155/69 H 12/26/18 08:49 82 12/26/18 07:43 99.2 F 82 18 158/70 H 93 L 12/26/18 04:00 99.9 F H 86 18 138/63 94 L Weight Admit Weight 144 lb 12.8 oz Weight 153 lb 8 oz I&O: 12/25/18 12/26/18 12/27/18 06:59 06:59 06:59 Intake Total 1902 1320 Output Total 260 500 Balance 1642 820 Result Diagrams: 12/25/18 13:15 12/25/18 13:15 Hospitalist ROS - Medication Medications: Active Medications Generic Name Dose Route Start Last Admin Trade Name Freq PRN Reason Stop Dose Admin Acetaminophen 650 mg 12/20/18 17:17 12/24/18 16:09 Tylenol PO 650 mg Q4H PRN Administration (Fever>101.5F, ROBERT[place] or mild pain Hydrocodone Bitart/Acetaminophen 1 tab 12/20/18 17:17 12/26/18 10:37 [place] 5/325 PO 1 tab Q4H PRN Administration Mild Pain (1-3) Amlodipine Besylate 2.5 mg 12/20/18 09:00 12/26/18 08:49 Norvasc PO 2.5 mg DAILY ELI Administration Duloxetine HCl 30 mg 12/20/18 09:00 12/26/18 08:48 Cymbalta PO 30 mg DAILY ELI Administration Fentanyl 25 mcg 12/20/18 17:17 12/24/18 10:59 Sublimaze SLOW IVP 25 mcg Q2H PRN Administration Moderate Pain (4-6) Fentanyl 50 mcg 12/20/18 17:17 12/20/18 19:56 Sublimaze SLOW IVP 50 mcg Q2H PRN Administration Severe Pain (7-10) Furosemide 20 mg 12/20/18 07:30 12/26/18 08:49 Lasix PO 20 mg DAILY-AC ELI Administration Levothyroxine Sodium 75 mcg 12/20/18 06:00 12/26/18 05:39 Synthroid PO 75 mcg 0600 ELI Administration Lorazepam 0.5 mg 12/19/18 14:32 12/26/18 08:52 Ativan PO 0.5 mg TIDPRN PRN Administration Anxiety Pantoprazole Sodium 40 mg 12/19/18 21:00 12/26/18 08:48 Protonix PO 40 mg BID ELI Administration Pregabalin 75 mg 12/19/18 21:00 12/26/18 08:48 Lyrica PO 75 mg BID ELI Administration Saccharomyces Boulardii 250 mg 12/22/18 09:00 12/26/18 08:47 Florastor PO 250 mg DAILY ELI Administration Senna/Docusate Sodium 1 tab 12/21/18 21:00 12/26/18 08:47 Senokot S PO Not Given BID ELI Sodium Chloride 10 ml 12/22/18 21:00 12/26/18 08:54 Flush - Normal Saline IVF 10 ml Q12HR ELI Administration Trazodone HCl 100 mg 12/19/18 21:00 12/25/18 21:19 Desyrel PO 100 mg QPM ELI Administration - Exam General Appearance: NAD, awake alert Eye: PERRL, anicteric sclera ENT: no oropharyngeal lesions, moist mucosa Neck: supple, no JVD Heart: RRR, murmur present Respiratory: no wheezes, no rales Gastrointestinal: soft, non-tender, non-distended, normal bowel sounds Extremities: no cyanosis, no edema Neurological: CN's grossly intact, no focal deficits Psychiatric: normal affect, A&O x 3 Hosp A/P (1) Loculated pleural effusion Code(s): J90 - PLEURAL EFFUSION, NOT ELSEWHERE CLASSIFIED Status: Acute (2) Cirrhosis Code(s): K74.60 - UNSPECIFIED CIRRHOSIS OF LIVER Status: Chronic Qualifiers: Ascites presence: without ascites (3) Hypothyroidism Code(s): E03.9 - HYPOTHYROIDISM, UNSPECIFIED Status: Chronic Qualifiers: Hypothyroidism type: acquired Qualified Code(s): E03.9 - Hypothyroidism, unspecified (4) HLD (hyperlipidemia) Code(s): E78.5 - HYPERLIPIDEMIA, UNSPECIFIED Status: Chronic (5) Acute blood loss anemia Code(s): D62 - ACUTE POSTHEMORRHAGIC ANEMIA Status: Acute (6) Hypertension Code(s): I10 - ESSENTIAL (PRIMARY) HYPERTENSION Status: Chronic Qualifiers: Hypertension type: essential hypertension Qualified Code(s): I10 - Essential (primary) hypertension - Plan right chest tubes was removed 12/24/2018 had 1 u prbc 12/24/2018 to mobilize as tolerated continue nebs, i.spirometry, norvasc, nebs, lasix, lyrica and trazadone awaiting placement, may dc if ready hope she starts eating again this afternoon
[2018-12-26 15:44] VITALS: BP 127/62; TEMP 98.4
--- NOTE | 2018-12-26 16:31 | PRG ---
DATE OF SERVICE: 12/26/2018 SUBJECTIVE: Ms. Adrian's chest tubes are out. OBJECTIVE: GENERAL: She is in no distress. She is resting comfortably. VITAL SIGNS: She is afebrile. Heart rate is 72, respiratory rate is 18, oximetry is 93% to 97% on room air, blood pressure is 127/62 this afternoon. Intake and outputs recorded as positive 820. LUNGS: Unchanged. HEART: Unchanged. ABDOMEN: Unchanged. IMPRESSION: 1. Status post thoracoscopy and drainage. 2. Extreme deconditioning. 3. History of a left lower extremity high amputation. PLAN: I believe she is stable for discharge to a skilled environment. We will sign off. Job ID: [id number]
== END 2018-12-26 18:10 | disposition swing bed (61) | DRG 164 ==
LOC: 2NO 12:39
PROVIDERS: ADMIT Internal Medicine; ATTEND Internal Medicine
PROC: 0BCF4ZZ Extirpation of Matter from Right Lower Lung Lobe, Percutaneous Endoscopic Approach (ICD-10-PCS; principal; 2018-12-20)
PROC: 0B9N4ZX Drainage of Right Pleura, Percutaneous Endoscopic Approach, Diagnostic (ICD-10-PCS; 2018-12-20)
DX: J90 Pleural effusion, not elsewhere classified (principal); I85.10 Secondary esophageal varices without bleeding; D62 Acute posthemorrhagic anemia; K70.30 Alcoholic cirrhosis of liver without ascites; K27.9 Peptic ulcer, site unspecified, unspecified as acute or chronic, without hemorrhage or perforation; G89.4 Chronic pain syndrome; E78.5 Hyperlipidemia, unspecified; I10 Essential (primary) hypertension; F41.9 Anxiety disorder, unspecified; E03.9 Hypothyroidism, unspecified; Z96.642 Presence of left artificial hip joint; I08.0 Rheumatic disorders of both mitral and aortic valves; D63.8 Anemia in other chronic diseases classified elsewhere; Z89.612 Acquired absence of left leg above knee; Z88.0 Allergy status to penicillin; Z88.1 Allergy status to other antibiotic agents; Z88.6 Allergy status to analgesic agent; Z79.899 Other long term (current) drug therapy; E83.42 Hypomagnesemia
CPT/HCPCS: 36415; 36430; 71045; 80048; 80053; 83735; 84157; 85014; 85018; 85025; 85049; 85060; 85610; 86850; 86900; 86901; 87116; 87206; 88305; 89051; J0131; J1100; J2001; J2704; J3010; J3475; J3490; J7120; J7620; P9016; S0028

== ENCOUNTER 2019-01-22 10:24 | Emergency (ER) | payer MEDICARE ==
--- NOTE | 2019-01-22 11:05 | RAD ---
EXAM: XR Chest Pa Lat STANDARD PROVIDED CLINICAL HISTORY: Chest pain COMPARISON: 12/26/2018 FINDINGS: Cardiac and mediastinal silhouettes are unchanged in appearance. Right basilar pleural-parenchymal op acity is redemonstrated. Lungs appear otherwise clear. No evidence for pneumothorax. TIPS changes are again seen. IMPRESSION: Persistent right basilar pleural-parenchymal opacity. This likely small pleural fluid with adjacent a telectasis or infiltrate.
[2019-01-22 11:18] LABS: Mean Corpuscular Hemoglobin 23.2 pg (27.0-31.0); Mean Corpuscular Volume 74.9 fL (78.0-98.0); Mean Platelet Volume 11.2 fL (7.4-10.4); Platelet Count 232 thou/uL (130-400); Red Blood Cell (RBC) Count 4.72 mill/uL (4.20-5.40); White Blood Cell (WBC) Count 6.1 thou/uL (4.8-10.8)
[2019-01-22 11:34] LABS: Eosinophils 3 % (0-10); Hypochromia SLIGHT = 6-15 cells (100X) (0-5/hpf); Lymphocytes 20 % (21-51); MDiff Complete? YES; Microcytosis SLIGHT = 6-15 cells (100X) (0-5/hpf); Monocytes 2 % (0-10); Neutrophil 75 % (42-75); Platelet Morphology Comment Appears Adequate; Polychromasia SLIGHT = 2-3 cells (100X) (0-2/hpf)
[2019-01-22 11:53] LABS: ALT (SGPT) 7 U/L (8-55); AST (SGOT) 33 U/L (5-34); Albumin 3.5 g/dL (3.4-4.8); Alkaline Phosphatase 189 U/L (40-110); Anion Gap 21 mmol/L (10-20); BUN (Urea Nitrogen) 11 mg/dL (9.8-20.1); Bilirubin, Total 0.5 mg/dL (0.2-1.2); CK (CPK) 25 U/L (29-168); Calc. Creatinine Clearance 0 mL/min (70-130); Calcium 9.4 mg/dL (7.8-10.44); Carbon Dioxide 16 mmol/L (23-31); Chloride 107 mmol/L (98-107); Estimated GFR-MDRD 71; Globulin 4.5 g/dL (2.4-3.5); Glucose 103 mg/dL (80-115); Potassium 4.6 mmol/L (3.5-5.1); Sodium 139 mmol/L (136-145)
[2019-01-22] MEDS ORDERED: Ondansetron PF 4 MG/2 ML Vial ONE (12:21)
[2019-01-22] MEDS ORDERED: Morphine 4 MG/ML VIAL ONE (12:21)
[2019-01-22] MEDS ORDERED: ISOVUE-370 76%-LOCM 1 ML ONE (12:33)
[2019-01-22] MEDS ORDERED: HYDROcodone/Acetaminophen 5/325 mg Tablet ONE (13:05)
--- NOTE | 2019-01-22 13:42 | CT ---
CT Chest W Con HISTORY: Chest pain. Fever. Cough. History of chest tube. COMPARISON: Several portable examinations dating back to 12/24/[address] a CT of the chest [facility] 01/13/2018. FINDINGS: There are right-sided pleural changes which appear to be chronic in nature no evidence of a ny significant effusion. A tiny amount of fluid is seen in the costophrenic angle. There are chronic appearing atelectatic changes within the right lower lobe. There is been development of the s econd masslike area of nodularity which is seen in the right middle lobe on axial image 45 this is probably just another area atelectatic or consolidated lung is not felt to be likely to be a pleural- based mass although this is not totally excluded as a possibility. The left lung is clear. There is no significant mediastinal or hilar adenopathy. The portacaval shunt is noted to be in place. There are multiple small hypodensities within the splee n these are felt to probably been present on the prior exam just better demonstrated on today's study could represent small hemangiomas or cysts given the fact that they do appear to been present o n the prior exam a tic is unlikely to represent microabscesses. IMPRESSION: Chronic appearing pleural changes in the right base with chronic appearing atelectatic ch aylin in the right lower lobe and a pleural-based masslike area measuring 2.56 m in size in the lateral segment of the right middle lobe is probably also related to atelectatic lung as is not prese nt on the previous CT examination it would require follow-up to exclude a pleural-based mass but I think this would be very unlikely.
--- NOTE | 2019-01-27 13:41 | EKG ---
Test Reason : Blood Pressure : / mmHG Vent. Rate : 088 BPM Atrial Rate : 088 BPM P-R Int : 152 ms QRS Dur : 088 ms QT Int : 398 ms P-R-T Axes : 081 059 031 degrees QTc Int : 481 ms Sinus rhythm with Premature atrial complexes Minimal voltage criteria for LVH, may be normal variant Borderline ECG Confirmed by GUILLERMO OJEDA ([id number]), editor at large EVA RUELAS ([id number]) on 01/27/2019 1:41:12 PM Referred By: Confirmed By:GUILLERMO OJEDA
== END 2019-01-22 14:07 | disposition home or self-care (01) ==
LOC: ERS 10:24
DX: R07.9 Chest pain, unspecified (principal); I10 Essential (primary) hypertension; F41.9 Anxiety disorder, unspecified
CPT/HCPCS: 36415; 71046; 71260; 80053; 82550; 84484; 85025; 93005; J2270; J2405; Q9966

== ENCOUNTER 2019-07-03 15:19 | Inpatient (IN) | payer MEDICARE ==
[2019-07-03] MEDS ORDERED: Fentanyl 100 MCG/2 ML VIAL ONE ×2 (15:53→17:36)
[2019-07-03 15:59] LABS: #Basophils 0.1 thou/uL (0.0-0.2); #Eosinphils 0.4 thou/uL (0.0-0.7); #Lymphocytes 1.3 thou/uL (1.20-3.40); #Monocytes 0.6 thou/uL (0.11-0.59); #Neutrophils 3.4 thou/uL (1.40-6.50); %Basophils 1.2 % (0.0-1.0); %Eosinophils 6.3 % (0.0-10.0); %Lymphocytes 22.5 % (21.0-51.0); %Monocytes 10.2 % (0.0-10.0); %Neutrophils 59.7 % (42.0-75.0); Hemoglobin 8.9 g/dL (12.0-16.0); Mean Corpuscular HGB CONC 31.7 g/dL (32.0-36.0); Mean Corpuscular Hemoglobin 25.2 pg (27.0-31.0); Mean Corpuscular Volume 79.3 fL (78.0-98.0); Mean Platelet Volume 9.7 fL (7.4-10.4); Platelet Count 296 thou/uL (130-400); RBC Distribution Width 18.1 % (11.5-14.5); Red Blood Cell (RBC) Count 3.53 mill/uL (4.20-5.40); White Blood Cell (WBC) Count 5.7 thou/uL (4.8-10.8)
--- NOTE | 2019-07-03 16:06 | RAD ---
Exam: Chest one view HISTORY:Fever Comparison: 01/22/2019 FINDINGS: Cardiac silhouette:Enlarged cardiac silhouette. Aorta: Unremarkable Pulmonary vessels: Normal Costophrenic angles: Chronic blunting of the right costophrenic angle. Interval blunting of the left costophrenic angle. Bibasilar pleural and parenchymal changes. Lines and tubes: Right-sided PICC line terminates in the expected region of the superior vena cava. S tent from a previous TIPS procedure is noted. LUNGS: Bibasilar parenchymal changes. Lungs are hyperinflated. Pneumothorax: None Osseous abnormalities: Degenerative change in the right shoulder. Left humeral head prosthesis. IMPRESSION: 1. Cardiomegaly. 2. Bibasilar pleural and parenchymal changes. Hyperinflation. Correlate for bibasilar of pneumonia/as piration.
[2019-07-03 16:24] LABS: ALT (SGPT) Less than 7 U/L (8-55); AST (SGOT) 15 U/L (5-34); Albumin 2.7 g/dL (3.4-4.8); Alkaline Phosphatase 130 U/L (40-110); Anion Gap 14 mmol/L (10-20); BUN (Urea Nitrogen) 15 mg/dL (9.8-20.1); Bilirubin, Total 0.7 mg/dL (0.2-1.2); Calc. Creatinine Clearance 0 mL/min (70-130); Calcium 7.8 mg/dL (7.8-10.44); Carbon Dioxide 22 mmol/L (23-31); Chloride 106 mmol/L (98-107); Estimated GFR-MDRD 62; Globulin 2.7 g/dL (2.4-3.5); Glucose 108 mg/dL (80-115); Potassium 4.1 mmol/L (3.5-5.1); Protein, Total 5.4 g/dL (6.0-8.3); Sodium 138 mmol/L (136-145)
[2019-07-03 16:45] LABS: CKMB 1.2 ng/mL (0-6.6)
[2019-07-03] MEDS ORDERED: Vancomycin 1 GM/200 ML BAG ONE (16:46)
[2019-07-03] MEDS ORDERED: Meropenem 500 MG in Sodium Chloride 0.9% 100 ML IVPB SCH (18:00)
[2019-07-03] MEDS ORDERED: Ciprofloxacin HCL/Dexameth Otic Drops 7.5 ml Bottle ONE (20:12)
--- NOTE | 2019-07-03 20:36 | HP ---
PRIMARY CARE PHYSICIAN: Iqra Little MD CHIEF COMPLAINT: Painful, swollen, red knee. 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 The patient had a right total knee replacement in 2000 and did not have any problems with it until a few weeks ago. The patient went to apparently a nurse practitioner who was doing pain management for chronic knee pain in the knee. He did lots of needle injections there and did a lot of steroid injections as well and did some sort of nerve ablation. The patient has severe pain in the knee after that, had swelling and redness, and eventually went into [facility], where she was admitted with a septic joint. Apparently, she had there Dr. Salcedo consulted for antibiotic choice and orthopedist was consulted. They did do a washout of the knee and reportedly had MRSA grow back. The patient was put on vancomycin and eventually had a PICC line placed and was sent home with vancomycin IV. She reports that she has been taking that for about the last 5 or 6 days or so since her discharge, but four days ago, she noticed increased swelling and pain in the right knee and it got worse over the next few days with more swelling and swelling down into the leg. She started getting a few little blisters down her foot from the swelling that would pop and drain clear fluid, and then she also developed some episodes of chills. She did not notice a fever. When she did check it one time, it was normal and then today she noticed some redness around the incision sites from when the knee was drained arthroscopically, so she came into the hospital. In the ER, she was noted to have a normal white blood cell count. She did have a temperature of 100.5 on initial presentation with a mild tachycardia of 99 that has since resolved with Tylenol No. 3. Dr. Salcedo was consulted by the ER doctor as well as I believe the orthopedist who did the drainage over at [facility]. There was some discussion going on right now about whether or not the orthopedist who was consulted at [facility], but the patient was not their established patient or the doctor applications systems engineer. Dr. Dunbar will take the patient and the ER doctor is working to figure that out right now. The patient was also noted to have some black bowel movements and some drop in her hemoglobin while she was at [facility]. She had an EGD done there, which showed nonbleeding stomach ulcers and she is on a PPI. She has not had any more black bowel movements. Her blood count apparently went up to and now it is down to 8.9 currently, so likely fairly stable. REVIEW OF SYSTEMS: CONSTITUTIONAL: See HPI. EYES: No double vision or blurred vision. ENT: No congestion, drainage, or sore throat. CARDIOVASCULAR: No chest pain. No palpitations or racing heart. PULMONARY: She has a chronic cough, no worse than normal. No shortness of breath. GASTROINTESTINAL: No abdominal pain. No nausea or vomiting. No diarrhea or constipation. No more melena. GENITOURINARY: No dysuria or hematuria. MUSCULOSKELETAL: See HPI. SKIN: See HPI. NEUROLOGIC: No numbness, tingling, or focal weakness. PAST MEDICAL HISTORY: 1. 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 2. Hypertension. 3. Hyperlipidemia. 4. Hypothyroidism. 5. Alcoholic cirrhosis, stable since she stopped drinking 30 years ago. 6. 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 7. Recurrent pneumonia with loculated effusion, status post drainage last year. 8. Diastolic dysfunction of the heart. 9. Peptic ulcer disease. 10. Gastroesophageal reflux disease. PAST SURGICAL HISTORY: 1. Left total hip replacement. 2. Right total knee replacement. 3. Left total knee replacement x3 and then eventual right bmrgt-krz-gobp amputation. 4. Lumbar laminectomy. 5. Left shoulder rotator cuff repair. ALLERGIES: 1. PENICILLIN, TOLD BY MOTHER AN ALLERGY A CHILD, UNKNOWN WHAT HAPPENED. 2. ASPIRIN AND NSAIDS CAUSE GI BLEEDING. 3. CEFEPIME CAUSES SEVERE RASH. SOCIAL HISTORY: The patient smokes two cigarettes per day. No alcohol for 30 years, was alcoholic before that. No illicit drugs. She lives by herself. She is a full code. Should she be incapacitated, her brother would be her medical decision maker. His name is Aftab Mckeon. FAMILY HISTORY: Dad in his sleep of either a stroke or an [place] and mother of internal bleeding. Brother had a mild stroke recently. CURRENT MEDICATIONS: 1. Trazodone 100 mg at night. 2. Lyrica 75 mg twice a day. 3. Protonix 40 mg twice a day. 4. Ativan 0.5 mg 3 times a day as needed for anxiety. 5. Synthroid 75 mcg daily. 6. DuoNeb q.6 hours as needed. 7. Furosemide 20 mg daily. 8. Duloxetine 30 mg daily. 9. Amlodipine 2.5 mg daily. PHYSICAL EXAMINATION: VITAL SIGNS: Blood pressure 135/58; pulse 79; respirations 20; temperature now 98.8, it was 100.5 on arrival; O2 saturation 98% on room air. GENERAL: This is a well-developed, well-nourished white female, in no acute distress. HEENT: Pupils are equal, round, and reactive to light. Oropharynx is clear without lesions, erythema, or exudate. NECK: Supple. No lymphadenopathy. No thyroid nodules or enlargement. HEART: Regular rate and rhythm. No murmurs, rubs, or gallops. LUNGS: Clear to auscultation bilaterally. No wheezes, crackles, or rhonchi. ABDOMEN: Soft, nontender to palpation. Normoactive bowel sounds. No hepatosplenomegaly or other masses. EXTREMITIES: The patient has a left diocp-zhw-mial amputation. Her right leg shows swelling to the knee. She has incisions on the medial and lateral aspect that are sewn shut and they have surrounding erythema about 3 to 4 cm around each of them with some blanching and some warmth. Knee is very tender to palpation. She does have an effusion. She has some dependent edema below the knee and has a few superficial blisters a few that are red. Some of them are popped and draining clear non-pus fluid. She has good distal pulses and distal sensation in the foot and is able to move it some. SKIN: See extremity exam above. NEUROLOGIC: Intact strength and sensation in all extremities. No facial droop. PSYCHIATRIC: Alert and oriented x3. Normal mood and affect. LABORATORY DATA: CBC with a white blood cell count of 5.7, hemoglobin 8.9, hematocrit 28.0, platelet count 296. Complete metabolic panel is notable for carbon dioxide of 22, ALT of less than 7, alkaline phosphatase of 131, total protein of 5.4, albumin of 2.7, and the rest was normal. Lactic acid was negative at 1.1. Troponin was indeterminate at 0.031 and CK-MB was normal. IMAGING STUDIES: Chest x-ray, I did review the chest x-ray done in the emergency room along with the radiologist's report. It does show cardiomegaly and bibasilar pleural and parenchymal changes with hyperinflation. These are consistent with her previous history, some loculated effusions and scarring in the bases. ASSESSMENT AND PLAN: 1. Recurrent infection of the right artificial knee. The patient has a history of methicillin-resistant Staphylococcus aureus and was on vancomycin in the home, which the patient claims she was taking as prescribed. We will need to get a vancomycin level and see where she is at. We will continue vancomycin as well as meropenem that was started in the emergency room. We will consult Dr. Salcedo and Orthopedics for assistance. The patient may eventually need to have the artificial knee removed. However, the patient is very resistant to this idea given her history with her left artificial knee. She will need to discuss this further with Orthopedics. 2. Hypertension. Resume home antihypertensives. 3. Alcoholic cirrhosis of the liver appears stable. 4. Hypothyroidism. Resume the patient's levothyroxine. 5. History of peptic ulcer disease with recent gastrointestinal bleed. We will continue proton pump inhibitor twice a day and monitor hemoglobin closely, and we will avoid anticoagulants. 6. Code status, the patient is a full code. Should she be incapacitated, her brother, Aftab Mckeon, would be her medical decision maker. Job ID: [id number]
[2019-07-03] MEDS ORDERED: Acetaminophen 325 MG TAB PO PRN ×2 (21:06→21:40)
[2019-07-03] MEDS ORDERED: HYDROcodone/Acetaminophen 5/325 mg Tablet PO PRN ×3 (21:06→21:40)
[2019-07-03] MEDS ORDERED: Ondansetron PF 4 MG/2 ML Vial IVP PRN (21:06)
[2019-07-03] MEDS ORDERED: Ondansetron ODT 4 MG TAB SL PRN (21:06)
[2019-07-03] MEDS ORDERED: Guaifenesin DM 100-10/5 ML UDCUP PO PRN (21:40)
[2019-07-03] MEDS ORDERED: Senokot S 8.6-50 MG TAB PO PRN (21:40)
[2019-07-03] MEDS ORDERED: Lorazepam 0.5 MG TAB PO PRN (21:40)
[2019-07-03] MEDS ORDERED: Acetaminophen 650 MG Suppository PR PRN (21:40)
[2019-07-03] MEDS ORDERED: traZODone HCl 50 MG TAB PO SCH (22:00)
[2019-07-03] MEDS ORDERED: Pregabalin 75 MG CAP PO SCH (22:00)
[2019-07-03 22:18] VITALS: BMI 25.3
--- NOTE | 2019-07-03 22:58 | RAD ---
XR Knee Rt 2 View HISTORY: Knee pain. Infection. COMPARISON: 12/12/2017 exam. FINDINGS: A side plate stabilizes a distal femur fracture in place. Total knee prosthesis is also see n. There is a joint effusion noted. Some minimal lucency is developed along the lateral side of the tibial component of the prosthesis. No fracture. IMPRESSION: Small joint effusion. Development of some minimal lucency along the lateral edge of the t ibia beneath the tibial component of prosthesis.
--- NOTE | 2019-07-03 22:59 | RAD ---
XR Femur Rt 2 View STANDARD HISTORY: Knee pain thigh pain infection. COMPARISON: 12/12/2017 exam. FINDINGS: 3 screws stabilizes subcapital fracture of the femoral neck. A sideplate stabilizes a dista l femur fracture. A total knee prosthesis is noted there is a joint effusion present. IMPRESSION: Knee joint effusion. Possibility of underlying infection is not excluded.
[2019-07-04] MEDS: MEROPENEM 1 GM/50 ML 1 GM in Premix Bag 1 BAG IVPB SCH ×3 (03:48→20:55)
[2019-07-04] MEDS ORDERED: Meropenem 500 MG in Sodium Chloride 0.9% 100 ML IVPB SCH (04:00)
[2019-07-04] MEDS: HYDROcodone/Acetaminophen 5/325 mg Tablet PO PRN ×3 (04:15→23:51)
[2019-07-04] MEDS: Levothyroxine Sodium 75 MCG TAB PO SCH (04:16)
[2019-07-04] MEDS ORDERED: Vancomycin HCl 750 MG in Sodium Chloride 0.9% 250 ML 250 ML IVPB SCH ×2 (05:00→05:45)
[2019-07-04 05:10] LABS: #Eosinphils 0.4 thou/uL (0.0-0.7); #Monocytes 0.4 thou/uL (0.11-0.59); #Neutrophils 1.9 thou/uL (1.40-6.50); %Basophils 0.7 % (0.0-1.0); %Eosinophils 10.9 % (0.0-10.0); %Lymphocytes 27.2 % (21.0-51.0); %Monocytes 11.1 % (0.0-10.0); %Neutrophils 50.1 % (42.0-75.0); Hemoglobin 8.1 g/dL (12.0-16.0); Mean Corpuscular HGB CONC 30.6 g/dL (32.0-36.0); Mean Corpuscular Hemoglobin 24.5 pg (27.0-31.0); Mean Corpuscular Volume 80.2 fL (78.0-98.0); Mean Platelet Volume 10.1 fL (7.4-10.4); Platelet Count 241 thou/uL (130-400); RBC Distribution Width 18.2 % (11.5-14.5); Red Blood Cell (RBC) Count 3.32 mill/uL (4.20-5.40); White Blood Cell (WBC) Count 3.7 thou/uL (4.8-10.8)
[2019-07-04 05:31] LABS: Anion Gap 13 mmol/L (10-20); BUN (Urea Nitrogen) 13 mg/dL (9.8-20.1); Calc. Creatinine Clearance 77 mL/min (70-130); Calcium 7.7 mg/dL (7.8-10.44); Carbon Dioxide 21 mmol/L (23-31); Chloride 109 mmol/L (98-107); Estimated GFR-MDRD 69; Glucose 109 mg/dL (80-115); Potassium 4.2 mmol/L (3.5-5.1); Sodium 139 mmol/L (136-145)
[2019-07-04] MEDS: Pregabalin 75 MG CAP PO SCH ×2 (09:20→21:00)
[2019-07-04] MEDS: DULoxetine 30 MG CAP PO SCH (09:20)
[2019-07-04] MEDS: Amlodipine 5 MG TAB PO SCH (09:21)
--- NOTE | 2019-07-04 10:06 | PDOC.HOSPP ---
- Subjective Encounter Date: 07/04/19 Encounter Time: 16:30 Subjective: Patient just back from PACU, sleepy, groggy and mildly confused likely from anesthesia - Objective Vital Signs & Weight: Vital Signs (12 hours) Temp Pulse Resp BP BP Pulse Ox 07/04/19 09:21 81 131/62 07/04/19 07:59 98.5 F 81 20 131/62 94 L 07/04/19 04:00 99.2 F 85 18 146/64 H 96 07/03/19 23:33 98 Weight Weight 157 lb Result Diagrams: 07/04/19 18:59 07/04/19 05:00 Hospitalist ROS - Review of Systems ROS unobtainable: due to mental status - Medication Medications: Active Medications Generic Name Dose Route Start Last Admin Trade Name Freq PRN Reason Stop Dose Admin Hydrocodone Bitart/Acetaminophen 2 tab 07/03/19 21:40 07/04/19 09:36 Harbert 5/325 PO 2 tab Q4H PRN Administration Severe Pain (7-10) Amlodipine Besylate 2.5 mg 07/04/19 09:00 07/04/19 09:21 Norvasc PO 2.5 mg DAILY ELI Administration Duloxetine HCl 30 mg 07/04/19 09:00 07/04/19 09:20 Cymbalta PO 30 mg DAILY ELI Administration Meropenem 1 gm/ Device 50 mls @ 100 mls/hr 07/04/19 04:00 07/04/19 03:48 IVPB 50 mls 0400,1200,2000 ELI Administration Levothyroxine Sodium 75 mcg 07/04/19 06:00 07/04/19 04:16 Synthroid PO 75 mcg 0600 ELI Administration Lorazepam 0.5 mg 07/03/19 21:40 07/04/19 09:39 Ativan PO 0.5 mg TID PRN Administration Anxiety Pantoprazole Sodium 40 mg 07/04/19 09:00 07/04/19 09:21 Protonix PO 40 mg BID ELI Administration Pregabalin 75 mg 07/04/19 09:00 07/04/19 09:20 Lyrica PO 75 mg BID ELI Administration Sodium Chloride 10 ml 07/03/19 21:06 07/04/19 09:26 Flush - Normal Saline IVF 10 ml PRN PRN Administration Saline Flush - Exam General - other findings: sleepy, mumbling a bit, arousable to stimulation, says "Hi" and back sleep ENT: moist mucosa Heart: no gallops, no rubs, murmur present, II/IV Heart - other findings: mild tachycardia Respiratory: CTAB, no wheezes, no rales, no ronchi Gastrointestinal: soft, non-tender, normal bowel sounds Extremities - other findings: Right knee with post op dressing C/D/I Psychiatric: somnolent Hosp A/P (1) Septic arthritis of knee, right Code(s): M00.9 - PYOGENIC ARTHRITIS, UNSPECIFIED Status: Acute Qualifiers: Septic arthritis organism: staphylococcal Qualified Code(s): M00.061 - Staphylococcal arthritis, right knee (2) Presence of right artificial knee joint Code(s): Z96.651 - PRESENCE OF RIGHT ARTIFICIAL KNEE JOINT Status: Chronic (3) GI bleed Code(s): K92.2 - GASTROINTESTINAL HEMORRHAGE, UNSPECIFIED Status: Acute Qualifiers: GI bleed type/associated pathology: unspecified peptic ulcer Qualified Code (s): K27.4 - Chronic or unspecified peptic ulcer, site unspecified, with hemorrhage (4) Peptic ulcer Code(s): K27.9 - PEPTIC ULC, SITE UNSP, UNSP AC OR CHR, W/O HEMOR OR PERF Status: Acute (5) Diastolic dysfunction Code(s): I51.9 - HEART DISEASE, UNSPECIFIED Status: Chronic (6) Cirrhosis Code(s): K74.60 - UNSPECIFIED CIRRHOSIS OF LIVER Status: Chronic Qualifiers: Hepatic cirrhosis type: alcoholic cirrhosis Ascites presence: without ascites Qualified Code(s): K70.30 - Alcoholic cirrhosis of liver without ascites (7) HLD (hyperlipidemia) Code(s): E78.5 - HYPERLIPIDEMIA, UNSPECIFIED Status: Chronic (8) Hypertension Code(s): I10 - ESSENTIAL (PRIMARY) HYPERTENSION Status: Chronic Qualifiers: Hypertension type: essential hypertension Qualified Code(s): I10 - Essential (primary) hypertension (9) Hypothyroid Code(s): E03.9 - HYPOTHYROIDISM, UNSPECIFIED Status: Chronic Qualifiers: Hypothyroidism type: unspecified Qualified Code(s): E03.9 - Hypothyroidism , unspecified (10) Esophageal varices in alcoholic cirrhosis Code(s): K70.30 - ALCOHOLIC CIRRHOSIS OF LIVER WITHOUT ASCITES; I85.10 - SECONDARY ESOPHAGEAL VARICES WITHOUT BLEEDING Status: Chronic (11) Urinary retention Code(s): R33.9 - RETENTION OF URINE, UNSPECIFIED Status: Acute - Plan On Vanc and Meropenem. ID and ortho consults. Dr. Dunbar did unknown surgical procedure today. Patient with urinary retention today and was going to place [facility] but finally voided alot prior to surgery so cath held for now. H/H trending down a little, no more melena since admission at [facility] over a week ago.
[2019-07-04] MEDS ORDERED: EPHEDRINE 25 MG/5 ML SYRINGE ONE (11:07)
[2019-07-04] MEDS ORDERED: PROPOFOL 200 MG/20 ML VIAL ONE (11:07)
[2019-07-04] MEDS ORDERED: PHENYLEPHRINE-NS 100 MCG/ML 10 ML SYRINGE ONE (11:07)
[2019-07-04] MEDS ORDERED: diphenhydrAMINE 50 MG/ML VIAL ONE (11:07)
[2019-07-04] MEDS ORDERED: Ondansetron PF 4 MG/2 ML Vial ONE (11:07)
[2019-07-04] MEDS ORDERED: Metoclopramide HCl 10 MG/2 ML VIAL ONE (11:07)
[2019-07-04] MEDS ORDERED: Fentanyl 100 MCG/2 ML VIAL ONE ×4 (13:11→17:13)
[2019-07-04] MEDS ORDERED: Tobramycin Sulfate 1.2 GM VIAL ONE (13:47)
[2019-07-04 14:50] LABS: INR-International Normal Ratio 1.3; Prothrombin Time 15.9 SEC (12.0-14.7)
[2019-07-04] MEDS ORDERED: HYDROmorphone 2 MG/ML VIAL ONE (17:33)
--- NOTE | 2019-07-04 18:39 | CON ---
DATE OF CONSULTATION: 07/04/2019 REASON FOR CONSULTATION: Right knee replacement infection with recrudescence of fever. HISTORY OF PRESENT ILLNESS: A 63-year-old with history of alcoholism in remission and chronic liver disease with prior hepatic shunt surgery many years ago elsewhere with osteoarthrosis of various joints with multiple joint replacements. All those surgeries had been done in [place]. The left TKR developed infection, which culminated in above-knee amputation of left lower extremity a few years ago. More recently, she had injections administered to the right knee and the last injection was about a week before the previous admission to [facility] with subsequent development of pain and swelling. The patient was admitted to the [facility], and Dr. Davis did a washout of the right knee. Cultures taken and it yielded methicillin-resistant Staphylococcus aureus. The patient was given vancomycin and was released. Now, she presents to the [facility] with right lower quadrant pain, which has started about 2 days before, and swelling of the leg. The initial findings included BP 179/73, pulse 99, respirations 18, temperature 100.5, and O2 saturation 97. The exam was not described as abnormal except for the left below-knee amputation in the right lower extremity with evidence of knee erythema and tenderness to palpation. Initial findings included also white cell count 5.7, hemoglobin 8.9, and platelets 296 with normal differential. Sodium 138, creatinine 0.91, albumin 2.7, vancomycin trough of 48. Two sets of blood cultures were submitted, those are yet not resulted. The patient underwent surgical procedures to the right knee, I do not have a report yet transcribed, and we have samples from the knee with pending cultures. The patient has marked pain in the right knee. No respiratory symptoms, abdominal pain, or diarrhea. She is voiding in the diaper. MEDICAL HISTORY: Includes: 1. Alcoholism. 2. Liver cirrhosis. 3. Portal hypertension with previous portosystemic shunt. 4. Multiple joint replacements with prior infection of left TKR, which culminated in amputation at the above-knee level in the past elsewhere. 5. History of hypertension. ALLERGIES: PENICILLIN, IBUPROFEN, AND CEFEPIME. FAMILY HISTORY: Noncontributory. CURRENT MEDICATIONS: 1. P.r.n. medications. 2. Hydrocodone. 3. DuoNeb. 4. Norvasc. 5. Cymbalta. 6. Meropenem. 7. Vancomycin. PHYSICAL EXAMINATION: VITAL SIGNS: T-max 98.5, blood pressure 130/60, pulse 81, and respirations 20, and O2 saturation 94. SKIN: The right knee with a round-shaped area of erythema in the lateral aspect, probably where the port for the recent arthroscopy was located. There was swelling of the right knee. The patient has some areas of bruising in the dorsal aspect of the right foot. There is mild presacral erythema, perianal erythema. The patient has a PICC line in one of the upper extremities. No lymphadenopathy. HEENT: Ocular movements conjugate. Oral cavity not remarkable. LUNGS: Clear to auscultation and percussion. HEART: S1 and S2. Regular rate. No S3 or S4. ABDOMEN: Soft, not distended or tender. No ascites. No bladder distention. EXTREMITIES: Pulses are 1+ in dorsalis pedis. She does not have much movement in the right lower extremity. NEUROLOGIC: She is awake and oriented, follows commands. LABORATORY DATA: Followup WBC down to 3.7, hemoglobin 8.1, and platelets 241. Sodium 139 and creatinine 0.83. ASSESSMENT AND DISCUSSION: 1. History of liver cirrhosis due to alcoholism. 2. Portosystemic shunt for management of portal hypertension and ascites. 3. Osteoarthrosis with multiple joint replacements and prior left above-knee amputation. 4. Right knee total knee replacement with superimposed infection, which has occurred many years after the knee replacement date, probably due to hematogenous implantation of methicillin-resistant Staphylococcus aureus in the area. The alternate possibilities that one of the injections that were given for management of pain in the right knee led to infection of the implant by methicillin-resistant Staphylococcus aureus. Either one or the other possibility are conceivable. The patient had a washout. This was done with the arthroscopy, but now she has recrudescent inflammatory change and she was taken to the OR. It is not clear what the procedure was done. If the implant was removed, which is the more likely scenario or not. We will wait for the review of the report. Continue vancomycin and monitor blood cultures. After review of the report, then we will determine continuation of therapy if any additional antimicrobial therapy, other than vancomycin will be necessary. Job ID: [id number]
[2019-07-04 19:30] LABS: #Eosinphils 0.1 thou/uL (0.0-0.7); #Lymphocytes 1.1 thou/uL (1.20-3.40); #Monocytes 0.7 thou/uL (0.11-0.59); #Neutrophils 9.7 thou/uL (1.40-6.50); %Basophils 0.4 % (0.0-1.0); %Eosinophils 0.8 % (0.0-10.0); %Lymphocytes 9.2 % (21.0-51.0); %Monocytes 6.1 % (0.0-10.0); %Neutrophils 83.5 % (42.0-75.0); Hemoglobin 6.4 g/dL (12.0-16.0); Mean Corpuscular Hemoglobin 24.6 pg (27.0-31.0); Mean Corpuscular Volume 79.3 fL (78.0-98.0); Platelet Count 358 thou/uL (130-400); RBC Distribution Width 17.9 % (11.5-14.5); Red Blood Cell (RBC) Count 2.58 mill/uL (4.20-5.40); White Blood Cell (WBC) Count 11.6 thou/uL (4.8-10.8)
--- NOTE | 2019-07-04 20:13 | RAD ---
RIGHT KNEE TWO VIEW: 07/04/19 HISTORY: Total knee revision. COMPARISON: Radiograph prior day. FINDINGS: Previous explantation of the hardware with placement of antibiotic cement. IMPRESSION: Fluoroscopy for surgical purposes. POS: HOME
[2019-07-04] MEDS: traZODone HCl 50 MG TAB PO SCH (21:18)
[2019-07-05] MEDS: MEROPENEM 1 GM/50 ML 1 GM in Premix Bag 1 BAG IVPB SCH ×3 (03:35→21:34)
[2019-07-05 04:49] LABS: #Basophils 0.1 thou/uL (0.0-0.2); #Neutrophils 7.9 thou/uL (1.40-6.50); %Basophils 0.5 % (0.0-1.0); %Eosinophils 0.1 % (0.0-10.0); %Monocytes 9.6 % (0.0-10.0); %Neutrophils 79.8 % (42.0-75.0); Hemoglobin 7.3 g/dL (12.0-16.0); Mean Corpuscular HGB CONC 32.2 g/dL (32.0-36.0); Mean Corpuscular Hemoglobin 26.1 pg (27.0-31.0); Mean Corpuscular Volume 81.2 fL (78.0-98.0); Mean Platelet Volume 9.5 fL (7.4-10.4); Platelet Count 283 thou/uL (130-400); RBC Distribution Width 16.9 % (11.5-14.5); White Blood Cell (WBC) Count 9.9 thou/uL (4.8-10.8)
[2019-07-05 05:02] LABS: Vancomycin, Random 27.2 ug/mL (See Comment)
[2019-07-05 05:10] LABS: Anion Gap 12 mmol/L (10-20); BUN (Urea Nitrogen) 15 mg/dL (9.8-20.1); Calc. Creatinine Clearance 62 mL/min (70-130); Calcium 7.3 mg/dL (7.8-10.44); Carbon Dioxide 21 mmol/L (23-31); Chloride 113 mmol/L (98-107); Estimated GFR-MDRD 54; Glucose 116 mg/dL (80-115); Potassium 4.7 mmol/L (3.5-5.1); Sodium 141 mmol/L (136-145)
[2019-07-05] MEDS: HYDROcodone/Acetaminophen 5/325 mg Tablet PO PRN ×2 (05:44→10:38)
[2019-07-05] MEDS: Levothyroxine Sodium 75 MCG TAB PO SCH (05:45)
--- NOTE | 2019-07-05 08:26 | PDOC.HOSPP ---
- Subjective Encounter Date: 07/05/19 Encounter Time: 11:50 Subjective: Patient with severe pain in right knee where surgery done. Sleepy this AM, but now very alert. No more confusion like after surgery yesterday. BP quite high. - Objective Vital Signs & Weight: Vital Signs (12 hours) Temp Pulse Pulse Resp BP BP Pulse Ox 07/05/19 08:00 98.8 F 102 H 20 191/64 H 99 07/05/19 05:00 99.0 F 98 18 156/70 H 07/05/19 03:00 99.2 F 100 100 17 152/73 H 152/73 H 99 07/05/19 00:15 99.0 F 102 H 98 18 120/62 146/68 H 99 07/04/19 23:20 99.8 F H 98 18 128/66 99 07/04/19 21:40 99.2 F 90 16 108/68 97 07/04/19 21:00 95 Weight Weight 157 lb I&O: 07/04/19 07/05/19 07/06/19 06:59 06:59 06:59 Intake Total 1650 Balance 1650 Result Diagrams: 07/05/19 04:24 07/05/19 04:24 Hospitalist ROS - Review of Systems Constitutional: denies: fever, chills Respiratory: denies: cough, shortness of breath Cardiovascular: denies: chest pain, palpitations Gastrointestinal: denies: nausea, vomiting, abdominal pain Genitourinary: denies: dysuria, hematuria Musculoskeletal: reports: leg pain - Medication Medications: Active Medications Generic Name Dose Route Start Last Admin Trade Name Freq PRN Reason Stop Dose Admin Hydrocodone Bitart/Acetaminophen 2 tab 07/03/19 21:40 07/05/19 05:44 Stone 5/325 PO 2 tab Q4H PRN Administration Severe Pain (7-10) Amlodipine Besylate 2.5 mg 07/04/19 09:00 07/04/19 09:21 Norvasc PO 2.5 mg DAILY ELI Administration Duloxetine HCl 30 mg 07/04/19 09:00 07/04/19 09:20 Cymbalta PO 30 mg DAILY ELI Administration Meropenem 1 gm/ Device 50 mls @ 100 mls/hr 07/04/19 04:00 07/05/19 03:35 IVPB 50 mls 0400,1200,2000 ELI Administration Levothyroxine Sodium 75 mcg 07/04/19 06:00 07/05/19 05:45 Synthroid PO 75 mcg 0600 ELI Administration Lorazepam 0.5 mg 07/03/19 21:40 07/04/19 09:39 Ativan PO 0.5 mg TID PRN Administration Anxiety Pantoprazole Sodium 40 mg 07/04/19 09:00 07/04/19 20:59 Protonix PO 40 mg BID ELI Administration Pregabalin 75 mg 07/04/19 09:00 07/04/19 21:00 Lyrica PO 75 mg BID ELI Administration Sodium Chloride 10 ml 07/03/19 21:06 07/04/19 09:26 Flush - Normal Saline IVF 10 ml PRN PRN Administration Saline Flush Trazodone HCl 100 mg 07/04/19 21:00 07/04/19 21:18 Desyrel PO Not Given QPM ELI - Exam General Appearance: NAD, awake alert ENT: moist mucosa Heart: RRR, no murmur, no gallops, no rubs Respiratory: CTAB, no wheezes, no rales, no ronchi Gastrointestinal: soft, non-tender, non-distended, normal bowel sounds Extremities - other findings: L AKA, RLE with knee dressing and brace C/D/I Psychiatric: normal affect, normal behavior, A&O x 3 Hosp A/P (1) Septic arthritis of knee, right Code(s): M00.9 - PYOGENIC ARTHRITIS, UNSPECIFIED Status: Acute Qualifiers: Septic arthritis organism: staphylococcal Qualified Code(s): M00.061 - Staphylococcal arthritis, right knee (2) Presence of right artificial knee joint Code(s): Z96.651 - PRESENCE OF RIGHT ARTIFICIAL KNEE JOINT Status: Chronic (3) GI bleed Code(s): K92.2 - GASTROINTESTINAL HEMORRHAGE, UNSPECIFIED Status: Acute Qualifiers: GI bleed type/associated pathology: unspecified peptic ulcer Qualified Code (s): K27.4 - Chronic or unspecified peptic ulcer, site unspecified, with hemorrhage (4) Peptic ulcer Code(s): K27.9 - PEPTIC ULC, SITE UNSP, UNSP AC OR CHR, W/O HEMOR OR PERF Status: Acute (5) Diastolic dysfunction Code(s): I51.9 - HEART DISEASE, UNSPECIFIED Status: Chronic (6) Cirrhosis Code(s): K74.60 - UNSPECIFIED CIRRHOSIS OF LIVER Status: Chronic Qualifiers: Hepatic cirrhosis type: alcoholic cirrhosis Ascites presence: without ascites Qualified Code(s): K70.30 - Alcoholic cirrhosis of liver without ascites (7) HLD (hyperlipidemia) Code(s): E78.5 - HYPERLIPIDEMIA, UNSPECIFIED Status: Chronic (8) Hypertension Code(s): I10 - ESSENTIAL (PRIMARY) HYPERTENSION Status: Chronic Qualifiers: Hypertension type: essential hypertension Qualified Code(s): I10 - Essential (primary) hypertension (9) Hypothyroid Code(s): E03.9 - HYPOTHYROIDISM, UNSPECIFIED Status: Chronic Qualifiers: Hypothyroidism type: unspecified Qualified Code(s): E03.9 - Hypothyroidism , unspecified (10) Esophageal varices in alcoholic cirrhosis Code(s): K70.30 - ALCOHOLIC CIRRHOSIS OF LIVER WITHOUT ASCITES; I85.10 - SECONDARY ESOPHAGEAL VARICES WITHOUT BLEEDING Status: Chronic (11) Urinary retention Code(s): R33.9 - RETENTION OF URINE, UNSPECIFIED Status: Acute - Plan On Vanc and Meropenem. ID and ortho consults. Dr. Dunbar removed hardware and some of cement yesterday per patient. H/H dropped after surgery, getting blood transfusion, second unit going this AM. No Melena since last week at [facility]. No further urinary retention. Will increase pain meds, give prn BP meds if remains up with pain control. Patient may end up losing her extremity if surgical management not successful in controlling the infection.
[2019-07-05] MEDS: DULoxetine 30 MG CAP PO SCH (08:27)
[2019-07-05] MEDS: Pregabalin 75 MG CAP PO SCH ×2 (08:27→21:39)
[2019-07-05] MEDS: Amlodipine 5 MG TAB PO SCH (08:27)
[2019-07-05] MEDS ORDERED: HYDROcodone/Acetaminophen 10/325 mg Tablet PO PRN (11:12)
[2019-07-05] MEDS ORDERED: hydrALAZINE 20 MG/ML VIAL SLOW IVP PRN (11:14)
[2019-07-05] MEDS ORDERED: Labetalol HCl 100 MG/20 ML VIAL SLOW IVP PRN (11:14)
[2019-07-05] MEDS: Morphine 2 MG/ML SYRINGE SLOW IVP PRN (11:40)
[2019-07-05] MEDS: HYDROcodone/Acetaminophen 10/325 mg Tablet PO PRN ×2 (16:54→21:40)
[2019-07-05 19:45] LABS: Hemoglobin 8.2 g/dL (12.0-16.0)
[2019-07-05] MEDS: traZODone HCl 50 MG TAB PO SCH (21:49)
[2019-07-06] MEDS: MEROPENEM 1 GM/50 ML 1 GM in Premix Bag 1 BAG IVPB SCH ×3 (04:29→20:08)
[2019-07-06] MEDS: Levothyroxine Sodium 75 MCG TAB PO SCH (04:30)
[2019-07-06] MEDS: HYDROcodone/Acetaminophen 10/325 mg Tablet PO PRN ×4 (05:10→21:04)
[2019-07-06 06:22] LABS: #Basophils 0.2 thou/uL (0.0-0.2); #Eosinphils 0.2 thou/uL (0.0-0.7); #Lymphocytes 0.9 thou/uL (1.20-3.40); #Monocytes 0.8 thou/uL (0.11-0.59); #Neutrophils 6.8 thou/uL (1.40-6.50); %Basophils 1.9 % (0.0-1.0); %Eosinophils 1.9 % (0.0-10.0); %Lymphocytes 10.2 % (21.0-51.0); %Neutrophils 76.9 % (42.0-75.0); Mean Corpuscular HGB CONC 32.3 g/dL (32.0-36.0); Mean Corpuscular Hemoglobin 26.9 pg (27.0-31.0); Mean Corpuscular Volume 83.1 fL (78.0-98.0); Mean Platelet Volume 9.3 fL (7.4-10.4); Platelet Count 202 thou/uL (130-400); RBC Distribution Width 16.7 % (11.5-14.5); Red Blood Cell (RBC) Count 2.97 mill/uL (4.20-5.40); White Blood Cell (WBC) Count 8.8 thou/uL (4.8-10.8)
[2019-07-06 06:48] LABS: Anion Gap 13 mmol/L (10-20); BUN (Urea Nitrogen) 15 mg/dL (9.8-20.1); Calc. Creatinine Clearance 69 mL/min (70-130); Calcium 7.4 mg/dL (7.8-10.44); Carbon Dioxide 20 mmol/L (23-31); Chloride 110 mmol/L (98-107); Estimated GFR-MDRD 61; Glucose 104 mg/dL (80-115); Potassium 4.2 mmol/L (3.5-5.1); Sodium 139 mmol/L (136-145)
[2019-07-06] MEDS: Amlodipine 5 MG TAB PO SCH (07:57)
[2019-07-06] MEDS: DULoxetine 30 MG CAP PO SCH (07:57)
[2019-07-06] MEDS: Pregabalin 75 MG CAP PO SCH ×2 (07:58→20:09)
[2019-07-06] MEDS ORDERED: Morphine 2 MG/ML SYRINGE SLOW IVP PRN (15:32)
--- NOTE | 2019-07-06 16:49 | PDOC.HOSPP ---
- Subjective Encounter Date: 07/06/19 Encounter Time: 08:20 Subjective: Pt seen for followup re: septic arthritis. Sleepy but arousable. - Objective Vital Signs & Weight: Vital Signs (12 hours) Temp Pulse Resp BP BP Pulse Ox 07/06/19 16:41 97.8 F 90 20 159/62 H 100 07/06/19 11:51 99.4 F 97 20 133/59 L 100 07/06/19 09:42 99 07/06/19 08:50 99.4 F 92 20 162/71 H 99 07/06/19 07:57 93 162/71 H 07/06/19 07:54 99 07/06/19 05:20 98.3 F 90 16 155/67 H 98 Weight Weight 157 lb I&O: 07/05/19 07/06/19 07/07/19 06:59 06:59 06:59 Intake Total 1650 1860 Balance 1650 1860 Result Diagrams: 07/06/19 06:00 07/06/19 06:00 Additional Labs: Labs and MARs reviewed by hi Hospitalist ROS - Review of Systems Constitutional: reports: other. denies: fever, chills, sweats, weakness, malaise Respiratory: denies: cough, shortness of breath, SOB with excertion, pleuritic pain, wheezing Cardiovascular: denies: chest pain, palpitations, orthopnea, paroxysmal noc. dyspnea, edema, light headedness Gastrointestinal: denies: nausea, vomiting, abdominal pain, diarrhea, constipation, melena, hematochezia Genitourinary: denies: dysuria, frequency, incontinence, hematuria, retention Musculoskeletal: reports: other (right knee pain) - Medication Medications: Active Medications Generic Name Dose Route Start Last Admin Trade Name Freq PRN Reason Stop Dose Admin Hydrocodone Bitart/Acetaminophen 2 tab 07/05/19 11:12 07/06/19 15:10 [place] 10/325 PO 2 tab Q4H PRN Administration Severe Pain (7-10) Amlodipine Besylate 2.5 mg 07/04/19 09:00 07/06/19 07:57 Norvasc PO 2.5 mg DAILY ELI Administration Duloxetine HCl 30 mg 07/04/19 09:00 07/06/19 07:57 Cymbalta PO 30 mg DAILY ELI Administration Hydralazine HCl 10 mg 07/05/19 11:14 07/05/19 16:55 Apresoline SLOW IVP 10 mg Q4H PRN Administration SBP Greater Than 180 Meropenem 1 gm/ Device 50 mls @ 100 mls/hr 07/04/19 04:00 07/06/19 12:22 IVPB 50 mls 0400,1200,2000 ELI Administration Levothyroxine Sodium 75 mcg 07/04/19 06:00 07/06/19 04:30 Synthroid PO 75 mcg 0600 ELI Administration Lorazepam 0.5 mg 07/03/19 21:40 07/04/19 09:39 Ativan PO 0.5 mg TID PRN Administration Anxiety Morphine Sulfate 2 mg 07/05/19 11:13 07/05/19 11:40 Morphine SLOW IVP 2 mg Q4H PRN Administration Severe Pain (7-10) Pantoprazole Sodium 40 mg 07/04/19 09:00 07/06/19 07:58 Protonix PO 40 mg BID ELI Administration Pregabalin 75 mg 07/04/19 09:00 07/06/19 07:58 Lyrica PO 75 mg BID ELI Administration Sodium Chloride 10 ml 07/03/19 21:06 07/05/19 08:29 Flush - Normal Saline IVF 10 ml PRN PRN Administration Saline Flush Trazodone HCl 100 mg 07/04/19 21:00 07/05/19 21:49 Desyrel PO Not Given QPM ELI - Exam General Appearance: NAD Eye: anicteric sclera ENT: moist mucosa Neck: supple, symmetric, no thyromegaly, no lymphadenopathy Heart: RRR, no gallops, no rubs, normal peripheral pulses Respiratory: CTAB, no wheezes, no rales, no ronchi Gastrointestinal: soft, non-tender, non-distended, normal bowel sounds Extremities - other findings: s/p L AKA, s/p R knee surgery Psychiatric: lethargic Hosp A/P - Plan plan discussed w/ family, continue antibiotics, PT/OT, out of bed/ambulate - Assessment (1) Septic arthritis of knee, right Code(s): M00.9 - PYOGENIC ARTHRITIS, UNSPECIFIED Status: Acute Qualifiers: Septic arthritis organism: staphylococcal Qualified Code(s): M00.061 - Staphylococcal arthritis, right knee (2) Hypertension Code(s): I10 - ESSENTIAL (PRIMARY) HYPERTENSION Status: Chronic Qualifiers: Hypertension type: essential hypertension Qualified Code(s): I10 - Essential (primary) hypertension (3) Hypothyroid Code(s): E03.9 - HYPOTHYROIDISM, UNSPECIFIED Status: Chronic Qualifiers: Hypothyroidism type: unspecified Qualified Code(s): E03.9 - Hypothyroidism , unspecified (4) Peptic ulcer Code(s): K27.9 - PEPTIC ULC, SITE UNSP, UNSP AC OR CHR, W/O HEMOR OR PERF Status: Chronic (5) Diastolic dysfunction Code(s): I51.9 - HEART DISEASE, UNSPECIFIED Status: Chronic (6) Cirrhosis Code(s): K74.60 - UNSPECIFIED CIRRHOSIS OF LIVER Status: Chronic Qualifiers: Hepatic cirrhosis type: alcoholic cirrhosis Ascites presence: without ascites Qualified Code(s): K70.30 - Alcoholic cirrhosis of liver without ascites (7) HLD (hyperlipidemia) Code(s): E78.5 - HYPERLIPIDEMIA, UNSPECIFIED Status: Chronic (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 Hardware removed, pt has a spacer. Hemoglobin stable Trial IV morphine PRN Patient may end up losing her extremity if surgical management not successful in controlling the infection. Updated son Segundo over the telephone.
[2019-07-06] MEDS: Morphine 2 MG/ML SYRINGE SLOW IVP PRN ×2 (18:25→23:26)
[2019-07-06] MEDS: traZODone HCl 50 MG TAB PO SCH (20:10)
[2019-07-07] MEDS: HYDROcodone/Acetaminophen 10/325 mg Tablet PO PRN ×4 (02:19→23:58)
[2019-07-07 02:20] LABS: Vancomycin, Random 12.3 ug/mL (See Comment)
[2019-07-07] MEDS ORDERED: Vancomycin 1 GM in Premix Bag 1 BAG IVPB SCH (02:30)
[2019-07-07] MEDS ORDERED: Vancomycin HCl 750 MG in Sodium Chloride 0.9% 250 ML 250 ML IVPB SCH (03:00)
[2019-07-07] MEDS: MEROPENEM 1 GM/50 ML 1 GM in Premix Bag 1 BAG IVPB SCH ×3 (04:43→20:48)
[2019-07-07] MEDS: Morphine 2 MG/ML SYRINGE SLOW IVP PRN (05:18)
[2019-07-07] MEDS: Levothyroxine Sodium 75 MCG TAB PO SCH (05:19)
[2019-07-07] MEDS ORDERED: Morphine 2 MG/ML SYRINGE SLOW IVP PRN (07:50)
[2019-07-07] MEDS: DULoxetine 30 MG CAP PO SCH (07:52)
[2019-07-07] MEDS: Amlodipine 5 MG TAB PO SCH (07:53)
[2019-07-07] MEDS: Pregabalin 75 MG CAP PO SCH ×2 (07:53→20:48)
[2019-07-07] MEDS: Morphine 4 MG/ML VIAL IV PRN ×2 (11:20→17:16)
[2019-07-07] MEDS: Vancomycin 1 GM in Premix Bag 1 BAG IVPB SCH (11:59)
--- NOTE | 2019-07-07 14:59 | PRG ---
DATE OF SERVICE: 07/07/2019 SUBJECTIVE: The patient has had the implant removed and then, she has probably an articulated spacer with antibiotics. Still with moderate pain. No respiratory symptoms. Voiding without difficulty. OBJECTIVE: VITAL SIGNS: With a T-max 99.4 and currently 98.7, BP 130/60, pulse 83, respirations 20, and O2 saturation 100. SKIN: Right knee surgical site with dressing and splint. PICC line in right upper extremity. HEENT: Ocular movements conjugate. LUNGS: Symmetric clear breath sounds. HEART: S1 and S2. Regular rate. ABDOMEN: Soft, not distended or tender. No ascites. No bladder distention. NEUROLOGIC: Awake, alert, and oriented. LABORATORY DATA: White cell count down to 8.8, hemoglobin 8.0, and platelets 202. Creatinine 0.92. Cultures are pending, no growth in 3 days. Gram stain with no organisms. ASSESSMENT AND DISCUSSION: Right total knee replacement infection, probably from procedures that were done at a Pain Clinic or the possibility of hematogenous spread is there as well. History of liver cirrhosis due to alcoholism, which now is in remission for systemic shunts for management of poor hypertension with ascites. The patient has had recrudescence of the infection after the conservative management done at the [facility] recently and now implant was removed, which she gives her a much better chance for cure. We will continue vancomycin as previously set up and she would like to go home, which is fine with me. The treatment schedule was already discussed with her infusion company and she has a planning of support in the home setting at least, she states that she does. I would have to extend the end date of therapy for another week or so from the original date because of this setback. Job ID: [id number]
--- NOTE | 2019-07-07 16:21 | PDOC.HOSPP ---
- Subjective Encounter Date: 07/07/19 Encounter Time: 09:00 Subjective: Pt seen for followup re: septic arthritis. More alert today. c/o pain in right knee. - Objective Vital Signs & Weight: Vital Signs (12 hours) Temp Pulse Resp BP BP Pulse Ox 07/07/19 11:19 98.7 F 83 20 132/60 100 07/07/19 07:53 91 158/61 H 07/07/19 07:50 98.5 F 91 20 158/61 H 100 Weight Weight 157 lb I&O: 07/06/19 07/07/19 07/08/19 06:59 06:59 06:59 Intake Total 1860 1750 Balance 1860 1750 Result Diagrams: 07/06/19 06:00 07/06/19 06:00 Additional Labs: Labs and MARs reviewed by sc Hospitalist ROS - Review of Systems Constitutional: denies: fever, chills, sweats, weakness, malaise Cardiovascular: denies: chest pain, palpitations, orthopnea, paroxysmal noc. dyspnea, edema, light headedness Gastrointestinal: denies: nausea, vomiting, abdominal pain, diarrhea, constipation, melena, hematochezia Genitourinary: denies: dysuria, frequency, incontinence, hematuria, retention Musculoskeletal: reports: other (right knee pain) Skin: denies: rash, lesions, jonna, bruising - Medication Medications: Active Medications Generic Name Dose Route Start Last Admin Trade Name Freq PRN Reason Stop Dose Admin Hydrocodone Bitart/Acetaminophen 2 tab 07/05/19 11:12 07/07/19 13:09 [place] 10/325 PO 2 tab Q4H PRN Administration Severe Pain (7-10) Amlodipine Besylate 2.5 mg 07/04/19 09:00 07/07/19 07:53 Norvasc PO 2.5 mg DAILY ELI Administration Duloxetine HCl 30 mg 07/04/19 09:00 07/07/19 07:52 Cymbalta PO 30 mg DAILY ELI Administration Hydralazine HCl 10 mg 07/05/19 11:14 07/05/19 16:55 Apresoline SLOW IVP 10 mg Q4H PRN Administration SBP Greater Than 180 Meropenem 1 gm/ Device 50 mls @ 100 mls/hr 07/04/19 04:00 07/07/19 11:23 IVPB 50 mls 0400,1200,2000 ELI Administration Vancomycin HCl 1 gm/ Device 200 mls @ 200 mls/hr 07/07/19 12:00 07/07/19 11: 59 IVPB 200 mls 1200,2359 ELI Administration Levothyroxine Sodium 75 mcg 07/04/19 06:00 07/07/19 05:19 Synthroid PO 75 mcg 0600 ELI Administration Lorazepam 0.5 mg 07/03/19 21:40 07/04/19 09:39 Ativan PO 0.5 mg TID PRN Administration Anxiety Morphine Sulfate 4 mg 07/07/19 07:55 07/07/19 11:20 Morphine IV 4 mg Q4H PRN Administration Pain Pantoprazole Sodium 40 mg 07/04/19 09:00 07/07/19 07:52 Protonix PO 40 mg BID ELI Administration Pregabalin 75 mg 07/04/19 09:00 07/07/19 07:53 Lyrica PO 75 mg BID ELI Administration Trazodone HCl 100 mg 07/04/19 21:00 07/06/19 20:10 Desyrel PO Not Given QPM ELI - Exam General Appearance: awake alert Eye: anicteric sclera ENT: moist mucosa Neck: supple, symmetric, no lymphadenopathy, no carotid bruit Heart: RRR, no gallops, no rubs, normal peripheral pulses Respiratory: CTAB, no ronchi, normal chest expansion, no tachypnea Gastrointestinal: soft, non-tender, normal bowel sounds, no palpable masses Psychiatric: normal affect, normal behavior, oriented to person, oriented to place Hosp A/P - Plan continue antibiotics, out of bed/ambulate - Assessment (1) Septic arthritis of knee, right Code(s): M00.9 - PYOGENIC ARTHRITIS, UNSPECIFIED Status: Acute Qualifiers: Septic arthritis organism: staphylococcal Qualified Code(s): M00.061 - Staphylococcal arthritis, right knee (2) Hypertension Code(s): I10 - ESSENTIAL (PRIMARY) HYPERTENSION Status: Chronic Qualifiers: Hypertension type: essential hypertension Qualified Code(s): I10 - Essential (primary) hypertension (3) Hypothyroid Code(s): E03.9 - HYPOTHYROIDISM, UNSPECIFIED Status: Chronic Qualifiers: Hypothyroidism type: unspecified Qualified Code(s): E03.9 - Hypothyroidism , unspecified (4) Peptic ulcer Code(s): K27.9 - PEPTIC ULC, SITE UNSP, UNSP AC OR CHR, W/O HEMOR OR PERF Status: Chronic (5) Diastolic dysfunction Code(s): I51.9 - HEART DISEASE, UNSPECIFIED Status: Chronic (6) Cirrhosis Code(s): K74.60 - UNSPECIFIED CIRRHOSIS OF LIVER Status: Chronic Qualifiers: Hepatic cirrhosis type: alcoholic cirrhosis Ascites presence: without ascites Qualified Code(s): K70.30 - Alcoholic cirrhosis of liver without ascites (7) HLD (hyperlipidemia) Code(s): E78.5 - HYPERLIPIDEMIA, UNSPECIFIED Status: Chronic (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 Hardware removed during this admission from right knee, pt has a spacer. Hemoglobin stable Pt will likely need SNU at time of discharge.
[2019-07-07] MEDS: traZODone HCl 50 MG TAB PO SCH (20:48)
[2019-07-08] MEDS: Morphine 4 MG/ML VIAL IV PRN (02:39)
[2019-07-08] MEDS: MEROPENEM 1 GM/50 ML 1 GM in Premix Bag 1 BAG IVPB SCH ×3 (04:39→20:29)
[2019-07-08] MEDS: Levothyroxine Sodium 75 MCG TAB PO SCH (04:40)
[2019-07-08] MEDS: HYDROcodone/Acetaminophen 10/325 mg Tablet PO PRN ×4 (04:41→20:31)
[2019-07-08] MEDS ORDERED: Morphine 2 MG/ML SYRINGE SLOW IVP PRN (07:33)
[2019-07-08] MEDS: DULoxetine 30 MG CAP PO SCH (08:00)
[2019-07-08] MEDS: Amlodipine 5 MG TAB PO SCH (08:00)
[2019-07-08] MEDS: Pregabalin 75 MG CAP PO SCH ×2 (08:01→20:30)
[2019-07-08] MEDS ORDERED: Lidocaine Patch Removal 1 EACH TOP SCH (11:00)
[2019-07-08 11:26] LABS: Vancomycin, Random 28.9 ug/mL (See Comment)
[2019-07-08] MEDS: Vancomycin 1 GM in Premix Bag 1 BAG IVPB SCH ×2 (11:53)
[2019-07-08] MEDS: Morphine 2 MG/ML SYRINGE SLOW IVP PRN ×3 (12:07→23:00)
--- NOTE | 2019-07-08 12:37 | OP ---
DATE OF PROCEDURE: 07/04/2019 PREOPERATIVE DIAGNOSIS: Infected right total knee arthroplasty. POSTOPERATIVE DIAGNOSIS: Infected right total knee arthroplasty. PROCEDURE PERFORMED: 1. Explantation of right total knee arthroplasty. 2. Explantation of right lateral condylar distal femoral plate and screws. 3. Irrigation and debridement of right knee. 4. Insertion of antibiotic impregnated polymethylmethacrylate spacer. ANESTHESIA: General. BILINGUAL TEACHER: Kusum Dennis PA-C. TOURNIQUET TIME: Approximately 90 minutes at 300 mmHg. COMPLICATIONS: None. INFECTIONS: Patient with MRSA infection of right knee. SPECIMEN: Swab sent for Gram stain, culture, and sensitivity. INDICATIONS: Ms. Adrian is a 63-year-old lady who in 2000 had a total knee arthroplasty implanted. She did not have any problems with this total knee until 2016 at which time she sustained a periprosthetic distal femur fracture that was treated with a lateral condylar plate and screws. She went on to heal this fracture uneventfully. Then approximately three weeks ago, she was seen at a pain clinic and had multiple steroid injections performed in this right knee and in three to four days later presented to [facility] with an infected total knee arthroplasty. The patient did have an arthroscopic debridement performed at the [facility] and she did grow MRSA from her aspirate. Unfortunately, despite being on vancomycin antibiotics, her infection has returned with increasing pain, swelling, redness, and low-grade fevers. As such, she is now to undergo full explantation of these implants in hopes of eradicating this infection. DESCRIPTION OF PROCEDURE: The patient was brought to the operating room and a time-out performed followed by induction of general anesthesia. Next, a sterile prep and drape was performed of the right lower extremity. A midline anterior knee incision was made and after skin was sharply incised, dissection carried down to the underlying quadriceps mechanism. A medial parapatellar arthrotomy was performed with the patella inverted, the knee implant was visualized. Swabs were taken from this fluid that appeared serosanguineous in nature. Next some releases were performed down along the medial gutter as well as excision of some hypertrophic synovial tissue in the suprapatellar pouch. Next, an osteotome was used to remove the femoral component. It should be noted that purulent appearing material did come out from underneath this implant. This was swabbed and sent for Gram stain, culture, and sensitivity. The polyethylene liner removed and then the tibial tray removed. Next, all visually apparent cement was removed from the knee and the knee was irrigated with 5 L of normal saline using Pulsavac. At the completion of this, two batches of polymethylmethacrylate was mixed with the addition of tobramycin and vancomycin. Once the mix had started to firm up, it was implanted between the femur and tibia with the knee in just slight flexion. Once it had fully hardened, some mild excess cement was removed to allow for closure of the quadriceps mechanism. Next, attention was placed at the lateral side of the knee. The curved condylar plate that had been previously placed had to be removed due to this infection. An incision was made following the scar from her implantation. After skin was sharply incised, dissection was carried down through the IT band to the lateral aspect of the femur. The screws were removed from the distal end of the plate and then with C-arm imaging, small stab wounds were created up the lateral thigh, removing the locking and nonlocking screws from the vertical limb of the plate. Once all of the screws had been removed, the plate was removed without difficulty and then additional 3 L of normal saline was irrigated through the lateral knee. At the completion of this, the small stab wounds were closed with humberto. The lateral skin incision was closed in layers with 0 Vicryl for the tensor fascia followed by 2-0 Vicryl and humberto. Midline anterior knee incision was closed in layers with #2 Vicryl for the quadriceps mechanism, followed by 2-0 Vicryl and humberto. A Xeroform gauze and Mor wrap dressing were applied to the knee. Tourniquet was let down and then the knee was placed in a knee immobilizer. The patient was then transferred to recovery room in stable condition. There were no complications. The patient tolerated the procedure well. Job ID: [id number]
--- NOTE | 2019-07-08 12:58 | PDOC.HOSPP ---
- Subjective Encounter Date: 07/08/19 Encounter Time: 08:20 Subjective: Pt seen for followup re: septic arthritis. Feels better today. - Objective Vital Signs & Weight: Vital Signs (12 hours) Temp Pulse Resp BP BP Pulse Ox 07/08/19 12:08 97.9 F 81 18 157/68 H 97 07/08/19 08:00 75 128/63 07/08/19 07:25 98.8 F 74 20 128/63 97 07/08/19 07:23 97 07/08/19 04:00 98.6 F 75 18 125/63 96 Weight Weight 157 lb I&O: 07/07/19 07/08/19 07/09/19 06:59 06:59 06:59 Intake Total 1750 2370 Balance 1750 2370 Result Diagrams: 07/06/19 06:00 07/06/19 06:00 Additional Labs: Labs and MARs reviewed by [place] Hospitalist ROS - Review of Systems Cardiovascular: denies: chest pain, palpitations, orthopnea, paroxysmal noc. dyspnea, edema, light headedness Gastrointestinal: reports: other. denies: nausea, vomiting, diarrhea, constipation, melena, hematochezia Skin: denies: lesions, jonna, bruising - Medication Medications: Active Medications Generic Name Dose Route Start Last Admin Trade Name Freq PRN Reason Stop Dose Admin Hydrocodone Bitart/Acetaminophen 2 tab 07/05/19 11:12 07/08/19 09:19 [employer] 10/325 PO 2 tab Q4H PRN Administration Severe Pain (7-10) Amlodipine Besylate 2.5 mg 07/04/19 09:00 07/08/19 08:00 Norvasc PO 2.5 mg DAILY ELI Administration Duloxetine HCl 30 mg 07/04/19 09:00 07/08/19 08:00 Cymbalta PO 30 mg DAILY ELI Administration Hydralazine HCl 10 mg 07/05/19 11:14 07/05/19 16:55 Apresoline SLOW IVP 10 mg Q4H PRN Administration SBP Greater Than 180 Meropenem 1 gm/ Device 50 mls @ 100 mls/hr 07/04/19 04:00 07/08/19 11:58 IVPB 50 mls 0400,1200,2000 ELI Administration Levothyroxine Sodium 75 mcg 07/04/19 06:00 07/08/19 04:40 Synthroid PO 75 mcg 0600 ELI Administration Lorazepam 0.5 mg 07/03/19 21:40 07/04/19 09:39 Ativan PO 0.5 mg TID PRN Administration Anxiety Miscellaneous Medication 1 each 07/08/19 11:00 07/08/19 11:58 Lidocaine Patch Removal TOP Not Given 1100 ELI Morphine Sulfate 2 mg 07/08/19 08:53 07/08/19 12:07 Morphine SLOW IVP 2 mg Q3H PRN Administration Pain Pantoprazole Sodium 40 mg 07/04/19 09:00 07/08/19 08:00 Protonix PO 40 mg BID ELI Administration Pregabalin 75 mg 07/04/19 09:00 07/08/19 08:01 Lyrica PO 75 mg BID ELI Administration Trazodone HCl 100 mg 07/04/19 21:00 07/07/19 20:48 Desyrel PO Not Given QPM ELI - Exam General Appearance: NAD Eye: anicteric sclera ENT: moist mucosa Neck: supple Heart: RRR Respiratory: CTAB Gastrointestinal: soft, non-tender Extremities - other findings: s/p R knee surgery, s/p L AKA Psychiatric: normal affect, normal behavior Hosp A/P - Plan - Assessment (1) Septic arthritis of knee, right Code(s): M00.9 - PYOGENIC ARTHRITIS, UNSPECIFIED Status: Acute Qualifiers: Septic arthritis organism: staphylococcal Qualified Code(s): M00.061 - Staphylococcal arthritis, right knee (2) Hypertension Code(s): I10 - ESSENTIAL (PRIMARY) HYPERTENSION Status: Chronic Qualifiers: Hypertension type: essential hypertension Qualified Code(s): I10 - Essential (primary) hypertension (3) Hypothyroid Code(s): E03.9 - HYPOTHYROIDISM, UNSPECIFIED Status: Chronic Qualifiers: Hypothyroidism type: unspecified Qualified Code(s): E03.9 - Hypothyroidism , unspecified (4) Peptic ulcer Code(s): K27.9 - PEPTIC ULC, SITE UNSP, UNSP AC OR CHR, W/O HEMOR OR PERF Status: Chronic (5) Diastolic dysfunction Code(s): I51.9 - HEART DISEASE, UNSPECIFIED Status: Chronic (6) Cirrhosis Code(s): K74.60 - UNSPECIFIED CIRRHOSIS OF LIVER Status: Chronic Qualifiers: Hepatic cirrhosis type: alcoholic cirrhosis Ascites presence: without ascites Qualified Code(s): K70.30 - Alcoholic cirrhosis of liver without ascites (7) HLD (hyperlipidemia) Code(s): E78.5 - HYPERLIPIDEMIA, UNSPECIFIED Status: Chronic (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 Follow cultures. Hardware removed during this admission from right knee, pt has a spacer that also has antibiotics. Hemoglobin stable Pt will likely need SNU at time of discharge. Discussed with son Segundo over the phone, updated him.
[2019-07-08 13:28] LABS: #Basophils 0.1 thou/uL (0.0-0.2); #Eosinphils 1.1 thou/uL (0.0-0.7); #Lymphocytes 1.2 thou/uL (1.20-3.40); #Monocytes 0.5 thou/uL (0.11-0.59); #Neutrophils 3.6 thou/uL (1.40-6.50); %Basophils 1.1 % (0.0-1.0); %Eosinophils 16.4 % (0.0-10.0); %Lymphocytes 17.9 % (21.0-51.0); %Monocytes 8.1 % (0.0-10.0); %Neutrophils 56.4 % (42.0-75.0); Hemoglobin 7.8 g/dL (12.0-16.0); Mean Corpuscular HGB CONC 31.7 g/dL (32.0-36.0); Mean Corpuscular Hemoglobin 26.3 pg (27.0-31.0); Mean Corpuscular Volume 82.8 fL (78.0-98.0); Mean Platelet Volume 8.7 fL (7.4-10.4); Platelet Count 252 thou/uL (130-400); Red Blood Cell (RBC) Count 2.97 mill/uL (4.20-5.40); White Blood Cell (WBC) Count 6.4 thou/uL (4.8-10.8)
[2019-07-08 13:47] LABS: Anion Gap 13 mmol/L (10-20); BUN (Urea Nitrogen) 11 mg/dL (9.8-20.1); Calc. Creatinine Clearance 89 mL/min (70-130); Calcium 7.4 mg/dL (7.8-10.44); Carbon Dioxide 21 mmol/L (23-31); Chloride 107 mmol/L (98-107); Estimated GFR-MDRD 82; Glucose 86 mg/dL (80-115); Potassium 3.7 mmol/L (3.5-5.1); Sodium 137 mmol/L (136-145)
[2019-07-08] MEDS: traZODone HCl 50 MG TAB PO SCH (20:31)
[2019-07-08] MEDS ORDERED: Lidocaine 5% Patch TD SCH (23:30)
[2019-07-08 23:59] LABS: Vancomycin, Trough 21.1 ug/mL
[2019-07-09] MEDS: MEROPENEM 1 GM/50 ML 1 GM in Premix Bag 1 BAG IVPB SCH ×3 (03:30→20:50)
[2019-07-09] MEDS: HYDROcodone/Acetaminophen 10/325 mg Tablet PO PRN ×5 (04:15→20:49)
[2019-07-09] MEDS: Levothyroxine Sodium 75 MCG TAB PO SCH (05:59)
[2019-07-09] MEDS: Vancomycin HCl 1.25 GM in Sodium Chloride 0.9% 250 ML 250 ML IVPB SCH (05:59)
[2019-07-09 06:20] LABS: #Eosinphils 0.8 thou/uL (0.0-0.7); #Lymphocytes 0.9 thou/uL (1.20-3.40); #Monocytes 0.3 thou/uL (0.11-0.59); #Neutrophils 2.6 thou/uL (1.40-6.50); %Basophils 0.6 % (0.0-1.0); %Eosinophils 17.5 % (0.0-10.0); %Lymphocytes 19.4 % (21.0-51.0); %Monocytes 7.1 % (0.0-10.0); %Neutrophils 55.5 % (42.0-75.0); Hemoglobin 9.2 g/dL (12.0-16.0); Mean Corpuscular HGB CONC 31.2 g/dL (32.0-36.0); Mean Corpuscular Hemoglobin 25.8 pg (27.0-31.0); Mean Corpuscular Volume 82.6 fL (78.0-98.0); Mean Platelet Volume 9.2 fL (7.4-10.4); Platelet Count 221 thou/uL (130-400); Red Blood Cell (RBC) Count 3.56 mill/uL (4.20-5.40); White Blood Cell (WBC) Count 4.7 thou/uL (4.8-10.8)
[2019-07-09] MEDS: Morphine 2 MG/ML SYRINGE SLOW IVP PRN ×5 (06:39→23:04)
[2019-07-09 06:58] LABS: Anion Gap 12 mmol/L (10-20); BUN (Urea Nitrogen) 10 mg/dL (9.8-20.1); Calc. Creatinine Clearance 86 mL/min (70-130); Calcium 7.8 mg/dL (7.8-10.44); Carbon Dioxide 22 mmol/L (23-31); Chloride 110 mmol/L (98-107); Estimated GFR-MDRD 79; Glucose 89 mg/dL (80-115); Potassium 3.7 mmol/L (3.5-5.1); Sodium 140 mmol/L (136-145)
[2019-07-09] MEDS: DULoxetine 30 MG CAP PO SCH (08:13)
[2019-07-09] MEDS: Amlodipine 5 MG TAB PO SCH (08:14)
[2019-07-09] MEDS: Pregabalin 75 MG CAP PO SCH ×2 (08:14→20:50)
[2019-07-09] MEDS ORDERED: Vancomycin 1.5 GRAM/300 ML BAG 1.5 GM in Premix Bag 1 BAG IVPB SCH (09:00)
--- NOTE | 2019-07-09 16:34 | PDOC.HOSPP ---
- Subjective Encounter Date: 07/09/19 Encounter Time: 11:30 Subjective: pt up in bed still complains of pain to her right ext. - Objective Vital Signs & Weight: Vital Signs (12 hours) Temp Pulse Resp BP Pulse Ox 07/09/19 08:14 82 07/09/19 08:02 98.7 F 82 18 156/64 H 96 07/09/19 08:00 96 Weight Weight 157 lb I&O: 07/08/19 07/09/19 07/10/19 06:59 06:59 06:59 Intake Total 2370 2200 720 Balance 2370 2200 720 Result Diagrams: 07/09/19 06:04 07/09/19 06:04 Hospitalist ROS - Review of Systems Respiratory: denies: cough, dry, shortness of breath, hemoptysis, SOB with excertion, pleuritic pain, sputum, wheezing, other Cardiovascular: denies: chest pain, palpitations, orthopnea, paroxysmal noc. dyspnea, edema, light headedness, other Gastrointestinal: denies: nausea, vomiting, abdominal pain, diarrhea, constipation, melena, hematochezia, other Musculoskeletal: reports: leg pain - Medication Medications: Active Medications Generic Name Dose Route Start Last Admin Trade Name Freq PRN Reason Stop Dose Admin Hydrocodone Bitart/Acetaminophen 2 tab 07/05/19 11:12 07/09/19 12:29 [place] 10/325 PO 2 tab Q4H PRN Administration Severe Pain (7-10) Amlodipine Besylate 2.5 mg 07/04/19 09:00 07/09/19 08:14 Norvasc PO 2.5 mg DAILY ELI Administration Duloxetine HCl 30 mg 07/04/19 09:00 07/09/19 08:13 Cymbalta PO 30 mg DAILY ELI Administration Hydralazine HCl 10 mg 07/05/19 11:14 07/05/19 16:55 Apresoline SLOW IVP 10 mg Q4H PRN Administration SBP Greater Than 180 Meropenem 1 gm/ Device 50 mls @ 100 mls/hr 07/04/19 04:00 07/09/19 11:48 IVPB 50 mls 0400,1200,2000 ELI Administration Vancomycin HCl 1.25 gm/ Sodium 250 mls @ 166.667 mls/hr 07/09/19 06:00 05:59 Chloride IVPB 250 mls 0600 ELI Administration Levothyroxine Sodium 75 mcg 07/04/19 06:00 07/09/19 05:59 Synthroid PO 75 mcg 0600 ELI Administration Lorazepam 0.5 mg 07/03/19 21:40 07/04/19 09:39 Ativan PO 0.5 mg TID PRN Administration Anxiety Morphine Sulfate 2 mg 07/08/19 08:53 07/09/19 14:13 Morphine SLOW IVP 2 mg Q3H PRN Administration Pain Pantoprazole Sodium 40 mg 07/04/19 09:00 07/09/19 08:14 Protonix PO 40 mg BID ELI Administration Pregabalin 75 mg 07/04/19 09:00 07/09/19 08:14 Lyrica PO 75 mg BID EIL Administration Trazodone HCl 100 mg 07/04/19 21:00 07/08/19 20:31 Desyrel PO 100 mg QPM ELI Administration - Exam ENT: negative: normocephalic atraumatic, no oropharyngeal lesions, moist mucosa , dry oral mucosa Neck: negative: supple, symmetric, no JVD, no thyromegaly, no lymphadenopathy, no carotid bruit, JVD Heart: negative: RRR, no murmur, no gallops, no rubs, normal peripheral pulses, irregular, diminshed peripheral pulses, murmur present, II/IV, III/IV Respiratory: negative: CTAB, no wheezes, no rales, no ronchi, normal chest expansion, no tachypnea, normal percussion, rales, rhonchi, tachypneic, wheezes Gastrointestinal: negative: soft, non-tender, non-distended, normal bowel sounds , no palpable masses, no hepatomegaly, no splenomegaly, no bruit, no guarding, no rigidity, tender to palpation, distended, diminished bowl sounds, voluntary guarding Extremities: 1+ LE edema Extremities - other findings: right lower ext Hosp A/P (1) Septic arthritis of knee, right Code(s): M00.9 - PYOGENIC ARTHRITIS, UNSPECIFIED Status: Acute Qualifiers: Septic arthritis organism: staphylococcal Qualified Code(s): M00.061 - Staphylococcal arthritis, right knee (2) Cirrhosis Code(s): K74.60 - UNSPECIFIED CIRRHOSIS OF LIVER Status: Acute (3) Physical deconditioning Code(s): R53.81 - OTHER MALAISE Status: Acute (4) HLD (hyperlipidemia) Code(s): E78.5 - HYPERLIPIDEMIA, UNSPECIFIED Status: Chronic (5) Urinary retention Code(s): R33.9 - RETENTION OF URINE, UNSPECIFIED Status: Acute - Plan will continue broad spectrum abx for now. pt request additional pain meds i have informed her that last time this was done she became very lethargic so i have told her that i can give her one dose of extra pain meds. She will need PT.
--- NOTE | 2019-07-09 17:21 | PRG ---
DATE OF SERVICE: 07/09/2019 SUBJECTIVE: For some reason, the pain in the right knee has exacerbated. It goes all the way to the foot. It seems like it was triggered by her physical therapy this morning when she tried to bear weight. No respiratory symptoms. No diarrhea. Voiding in the diaper. OBJECTIVE: VITAL SIGNS: T-max 99, blood pressure 150/64, pulse 82, respirations 18. GENERAL: Appears in some distress from knee pain. EXTREMITIES: I tried to remove the stocking and the socks actually in the right foot and could not because the pain that it triggered. LUNGS: Clear. HEART: S1 and S2. Regular rate. ABDOMEN: Soft, not distended. LABORATORY DATA: White cell count 4.7, hemoglobin 9.2, platelets 221. Sodium 140, creatinine 0.74. Microbiology with negative cultures thus far. 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 Initially treated without removal. Now, she has had removal of the implant and will continue on IV vancomycin for protracted period of time. End date of therapy will have to be extended for another week or so. Job ID: [id number]
[2019-07-09] MEDS: traZODone HCl 50 MG TAB PO SCH (20:51)
[2019-07-10] MEDS: HYDROcodone/Acetaminophen 10/325 mg Tablet PO PRN ×5 (02:34→23:22)
[2019-07-10] MEDS: MEROPENEM 1 GM/50 ML 1 GM in Premix Bag 1 BAG IVPB SCH ×3 (04:09→20:03)
[2019-07-10] MEDS: Levothyroxine Sodium 75 MCG TAB PO SCH (05:37)
[2019-07-10] MEDS: Vancomycin HCl 1.25 GM in Sodium Chloride 0.9% 250 ML 250 ML IVPB SCH (05:37)
[2019-07-10] MEDS: Morphine 2 MG/ML SYRINGE SLOW IVP PRN ×4 (05:38→20:04)
[2019-07-10] MEDS: DULoxetine 30 MG CAP PO SCH (08:10)
[2019-07-10] MEDS: Lisinopril 2.5 MG TAB PO SCH (08:10)
[2019-07-10] MEDS: Pregabalin 75 MG CAP PO SCH ×2 (08:11→20:03)
[2019-07-10] MEDS: Amlodipine 5 MG TAB PO SCH (08:11)
[2019-07-10] MEDS: traZODone HCl 50 MG TAB PO SCH (20:05)
[2019-07-11] MEDS: Morphine 2 MG/ML SYRINGE SLOW IVP PRN ×2 (00:57→16:20)
[2019-07-11] MEDS: HYDROcodone/Acetaminophen 10/325 mg Tablet PO PRN ×5 (03:21→21:51)
[2019-07-11] MEDS: MEROPENEM 1 GM/50 ML 1 GM in Premix Bag 1 BAG IVPB SCH ×2 (03:21→12:54)
[2019-07-11] MEDS: Levothyroxine Sodium 75 MCG TAB PO SCH (05:01)
[2019-07-11 05:43] LABS: Vancomycin, Trough 19.7 ug/mL
[2019-07-11] MEDS: Amlodipine 5 MG TAB PO SCH (08:16)
[2019-07-11] MEDS: Vancomycin HCl 1.25 GM in Sodium Chloride 0.9% 250 ML 250 ML IVPB SCH (08:16)
[2019-07-11] MEDS: DULoxetine 30 MG CAP PO SCH (08:16)
[2019-07-11] MEDS: Lisinopril 2.5 MG TAB PO SCH (08:16)
[2019-07-11] MEDS: Pregabalin 75 MG CAP PO SCH ×2 (08:17→20:31)
--- NOTE | 2019-07-11 08:23 | PDOC.HOSPP ---
- Subjective Encounter Date: 07/10/19 Encounter Time: 11:00 Subjective: pt up in bed no states she has a lot of pain when she gets up with PT. - Objective Vital Signs & Weight: Vital Signs (12 hours) Temp Pulse Resp BP Pulse Ox 07/11/19 08:00 98.6 F 86 20 162/66 H 94 L 07/11/19 04:00 98 F 98 20 161/68 H Weight Weight 157 lb I&O: 07/10/19 07/11/19 07/12/19 06:59 06:59 06:59 Intake Total 960 840 Output Total 400 Balance 560 840 Result Diagrams: 07/09/19 06:04 07/09/19 06:04 Hospitalist ROS - Review of Systems Cardiovascular: denies: chest pain, palpitations, orthopnea, paroxysmal noc. dyspnea, edema, light headedness, other Gastrointestinal: denies: nausea, vomiting, abdominal pain, diarrhea, constipation, melena, hematochezia, other Genitourinary: denies: dysuria, frequency, incontinence, hematuria, retention, other Musculoskeletal: reports: leg pain - Medication Medications: Active Medications Generic Name Dose Route Start Last Admin Trade Name Freq PRN Reason Stop Dose Admin Hydrocodone Bitart/Acetaminophen 2 tab 07/05/19 11:12 07/11/19 03:21 [place] 10/325 PO 2 tab Q4H PRN Administration Severe Pain (7-10) Amlodipine Besylate 2.5 mg 07/04/19 09:00 07/10/19 08:11 Norvasc PO 2.5 mg DAILY ELI Administration Duloxetine HCl 30 mg 07/04/19 09:00 07/10/19 08:10 Cymbalta PO 30 mg DAILY ELI Administration Hydralazine HCl 10 mg 07/05/19 11:14 07/05/19 16:55 Apresoline SLOW IVP 10 mg Q4H PRN Administration SBP Greater Than 180 Meropenem 1 gm/ Device 50 mls @ 100 mls/hr 07/04/19 04:00 07/11/19 03:21 IVPB 50 mls 0400,1200,2000 ELI Administration Vancomycin HCl 1.25 gm/ Sodium 250 mls @ 166.667 mls/hr 07/09/19 06:00 05:37 Chloride IVPB 250 mls 0600 ELI Administration Levothyroxine Sodium 75 mcg 07/04/19 06:00 07/11/19 05:01 Synthroid PO 75 mcg 0600 ELI Administration Lisinopril 2.5 mg 07/10/19 09:00 07/10/19 08:10 Zestril PO 2.5 mg DAILY ELI Administration Lorazepam 0.5 mg 07/03/19 21:40 07/04/19 09:39 Ativan PO 0.5 mg TID PRN Administration Anxiety Morphine Sulfate 2 mg 07/08/19 08:53 07/11/19 00:57 Morphine SLOW IVP 2 mg Q3H PRN Administration Pain Pantoprazole Sodium 40 mg 07/04/19 09:00 07/10/19 20:04 Protonix PO 40 mg BID ELI Administration Pregabalin 75 mg 07/04/19 09:00 07/10/19 20:03 Lyrica PO 75 mg BID ELI Administration Sodium Chloride 10 ml 07/04/19 20:18 07/10/19 08:13 Flush - Normal Saline IVF 10 ml PRN PRN Administration Saline Flush Trazodone HCl 100 mg 07/04/19 21:00 07/10/19 20:05 Desyrel PO Not Given QPM ELI - Exam Heart: negative: RRR, no murmur, no gallops, no rubs, normal peripheral pulses, irregular, diminshed peripheral pulses, murmur present, II/IV, III/IV Respiratory: negative: CTAB, no wheezes, no rales, no ronchi, normal chest expansion, no tachypnea, normal percussion, rales, rhonchi, tachypneic, wheezes Gastrointestinal: negative: soft, non-tender, non-distended, normal bowel sounds , no palpable masses, no hepatomegaly, no splenomegaly, no bruit, no guarding, no rigidity, tender to palpation, distended, diminished bowl sounds, voluntary guarding Extremities - other findings: right leg in brace, dressing intact Hosp A/P (1) Septic arthritis of knee, right Code(s): M00.9 - PYOGENIC ARTHRITIS, UNSPECIFIED Status: Acute Qualifiers: Septic arthritis organism: staphylococcal Qualified Code(s): M00.061 - Staphylococcal arthritis, right knee (2) Cirrhosis Code(s): K74.60 - UNSPECIFIED CIRRHOSIS OF LIVER Status: Acute (3) Physical deconditioning Code(s): R53.81 - OTHER MALAISE Status: Acute (4) HLD (hyperlipidemia) Code(s): E78.5 - HYPERLIPIDEMIA, UNSPECIFIED Status: Chronic (5) Urinary retention Code(s): R33.9 - RETENTION OF URINE, UNSPECIFIED Status: Acute - Plan will continue broad spectrum abx for now. pt request additional pain meds i have informed her that last time this was done she became very lethargic so i have told her that i can give her one dose of extra pain meds. She will need PT. 07/09 will consult inpatient rehab for her. will continue her pain meds for now. I will switch her pain meds to oral in am. will continue iv vanco and tommy for now. cx still negative.
[2019-07-11] MEDS: Morphine 4 MG/ML VIAL SLOW IVP PRN (10:02)
--- NOTE | 2019-07-11 17:30 | PDOC.HOSPP ---
- Subjective Encounter Date: 07/11/19 Encounter Time: 10:55 Subjective: pt up in bed did not work much with PT per nursing. Pt however states that she has been working with PT. - Objective Vital Signs & Weight: Vital Signs (12 hours) Temp Pulse Resp BP Pulse Ox 07/11/19 11:19 97.8 F 97 20 155/61 H 92 L 07/11/19 08:00 98.6 F 86 20 162/66 H 94 L Weight Weight 157 lb I&O: 07/10/19 07/11/19 07/12/19 06:59 06:59 06:59 Intake Total 960 840 Output Total 400 Balance 560 840 Result Diagrams: 07/09/19 06:04 07/09/19 06:04 Hospitalist ROS - Review of Systems Cardiovascular: denies: chest pain, palpitations, orthopnea, paroxysmal noc. dyspnea, edema, light headedness, other Gastrointestinal: denies: nausea, vomiting, abdominal pain, diarrhea, constipation, melena, hematochezia, other Genitourinary: denies: dysuria, frequency, incontinence, hematuria, retention, other - Medication Medications: Active Medications Generic Name Dose Route Start Last Admin Trade Name Freq PRN Reason Stop Dose Admin Hydrocodone Bitart/Acetaminophen 2 tab 07/05/19 11:12 07/11/19 12:56 [place] 10/325 PO 2 tab Q4H PRN Administration Severe Pain (7-10) Amlodipine Besylate 2.5 mg 07/04/19 09:00 07/11/19 08:16 Norvasc PO 2.5 mg DAILY ELI Administration Duloxetine HCl 30 mg 07/04/19 09:00 07/11/19 08:16 Cymbalta PO 30 mg DAILY ELI Administration Hydralazine HCl 10 mg 07/05/19 11:14 07/05/19 16:55 Apresoline SLOW IVP 10 mg Q4H PRN Administration SBP Greater Than 180 Meropenem 1 gm/ Device 50 mls @ 100 mls/hr 07/04/19 04:00 07/11/19 12:54 IVPB 50 mls 0400,1200,2000 ELI Administration Vancomycin HCl 1.25 gm/ Sodium 250 mls @ 166.667 mls/hr 07/09/19 06:00 08:16 Chloride IVPB 250 mls 0600 ELI Administration Levothyroxine Sodium 75 mcg 07/04/19 06:00 07/11/19 05:01 Synthroid PO 75 mcg 0600 ELI Administration Lisinopril 2.5 mg 07/10/19 09:00 07/11/19 08:16 Zestril PO 2.5 mg DAILY ELI Administration Lorazepam 0.5 mg 07/03/19 21:40 07/04/19 09:39 Ativan PO 0.5 mg TID PRN Administration Anxiety Morphine Sulfate 2 mg 07/08/19 08:53 07/11/19 16:20 Morphine SLOW IVP 2 mg Q3H PRN Administration Pain Morphine Sulfate 4 mg 07/09/19 14:21 07/11/19 10:02 Morphine SLOW IVP 4 mg DAILY PRN Administration Mild-Moderate Pain (1-5) Pantoprazole Sodium 40 mg 07/04/19 09:00 07/11/19 08:16 Protonix PO 40 mg BID ELI Administration Pregabalin 75 mg 07/04/19 09:00 07/11/19 08:17 Lyrica PO 75 mg BID ELI Administration Sodium Chloride 10 ml 07/04/19 20:18 07/11/19 08:16 Flush - Normal Saline IVF 10 ml PRN PRN Administration Saline Flush Trazodone HCl 100 mg 07/04/19 21:00 07/10/19 20:05 Desyrel PO Not Given QPM ELI - Exam Neck: negative: supple, symmetric, no JVD, no thyromegaly, no lymphadenopathy, no carotid bruit, JVD Heart: negative: RRR, no murmur, no gallops, no rubs, normal peripheral pulses, irregular, diminshed peripheral pulses, murmur present, II/IV, III/IV Respiratory: negative: CTAB, no wheezes, no rales, no ronchi, normal chest expansion, no tachypnea, normal percussion, rales, rhonchi, tachypneic, wheezes Extremities - other findings: right leg mild edema, humberto intact. Hosp A/P (1) Septic arthritis of knee, right Code(s): M00.9 - PYOGENIC ARTHRITIS, UNSPECIFIED Status: Acute Qualifiers: Septic arthritis organism: staphylococcal Qualified Code(s): M00.061 - Staphylococcal arthritis, right knee (2) Cirrhosis Code(s): K74.60 - UNSPECIFIED CIRRHOSIS OF LIVER Status: Acute (3) Physical deconditioning Code(s): R53.81 - OTHER MALAISE Status: Acute (4) HLD (hyperlipidemia) Code(s): E78.5 - HYPERLIPIDEMIA, UNSPECIFIED Status: Chronic (5) Urinary retention Code(s): R33.9 - RETENTION OF URINE, UNSPECIFIED Status: Acute - Plan will continue broad spectrum abx for now. pt request additional pain meds i have informed her that last time this was done she became very lethargic so i have told her that i can give her one dose of extra pain meds. She will need PT. 07/09 will consult inpatient rehab for her. will continue her pain meds for now. I will switch her pain meds to oral in am. will continue iv vanco and tommy for now. cx still negative. 07/10 pt encouraged to work with PT and will change her pain meds. will continue abx. Inpatient rehab has denied her.
--- NOTE | 2019-07-11 17:57 | PRG ---
DATE OF SERVICE: 07/11/2019 SUBJECTIVE: Ms. Adrian is still with quite a bit of pain in the right knee. She does not have any dyspnea or cough. No abdominal pain. She had a bowel movement, which was soft. OBJECTIVE: VITAL SIGNS: Remarkable for normal temperature, BP 150/60, pulse 97, respirations 20, O2 saturation 92%. GENERAL: She is awake, appears in no distress. She was actually sleeping when I went into the room. Oriented. Follows commands. LUNGS: Clear to auscultation and percussion. HEART: S1 and S2. Regular rate. No S3 or S4. ABDOMEN: Soft. Not distended or tender. EXTREMITIES: The right knee with a splint and just a small dressing over the incision. No erythema or drainage of any significant nature is identified. She moves her upper extremities well. NEUROLOGIC: Cognitive function appears to be intact. LABORATORY DATA: White cell count is at 4.7, hemoglobin 9.2, platelets 221. Creatinine 0.74. Microbiology with no growth in 5 days. 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 The patient has an unarticulated spacer I believe. The pain control is still a problem, but is progressively getting better. Disposition will likely involve transfer to an LTAC in [place]. Discontinue meropenem. Job ID: [id number]
[2019-07-11] MEDS: traZODone HCl 50 MG TAB PO SCH (20:32)
[2019-07-12] MEDS: HYDROcodone/Acetaminophen 10/325 mg Tablet PO PRN ×5 (01:18→20:56)
[2019-07-12] MEDS: Levothyroxine Sodium 75 MCG TAB PO SCH (05:27)
[2019-07-12] MEDS: Vancomycin HCl 1.25 GM in Sodium Chloride 0.9% 250 ML 250 ML IVPB SCH (05:37)
[2019-07-12] MEDS: Morphine 4 MG/ML VIAL SLOW IVP PRN (09:15)
[2019-07-12] MEDS: DULoxetine 30 MG CAP PO SCH (09:19)
[2019-07-12] MEDS: Lisinopril 2.5 MG TAB PO SCH (09:19)
[2019-07-12] MEDS: Amlodipine 5 MG TAB PO SCH (09:20)
[2019-07-12] MEDS: Pregabalin 75 MG CAP PO SCH ×2 (09:20→20:51)
[2019-07-12] MEDS ORDERED: Furosemide 40 MG/4 ML VIAL SLOW IVP SCH (11:15)
[2019-07-12] MEDS: oxyCODONE 5 MG TAB PO PRN ×3 (13:09→23:36)
[2019-07-12] MEDS ORDERED: Labetalol HCl 100 MG/20 ML VIAL ONE (16:10)
--- NOTE | 2019-07-12 18:51 | PDOC.HOSPP ---
- Subjective Encounter Date: 07/12/19 Encounter Time: 11:20 Subjective: pt up in bed complains of pain to her right leg - Objective Vital Signs & Weight: Vital Signs (12 hours) Temp Pulse Resp BP Pulse Ox 07/12/19 09:20 93 07/12/19 08:00 98.6 F 93 20 161/64 H 92 L Weight Admit Weight 157 lb Weight 157 lb I&O: 07/11/19 07/12/19 07/13/19 06:59 06:59 06:59 Intake Total 840 1290 Output Total 900 1000 Balance 840 390 -1000 Result Diagrams: 07/09/19 06:04 07/09/19 06:04 Hospitalist ROS - Review of Systems Cardiovascular: denies: chest pain, palpitations, orthopnea, paroxysmal noc. dyspnea, edema, light headedness, other Gastrointestinal: denies: nausea, vomiting, abdominal pain, diarrhea, constipation, melena, hematochezia, other Musculoskeletal: reports: leg pain - Medication Medications: Active Medications Generic Name Dose Route Start Last Admin Trade Name Freq PRN Reason Stop Dose Admin Hydrocodone Bitart/Acetaminophen 2 tab 07/05/19 11:12 07/12/19 15:28 [place] 10/325 PO 2 tab Q4H PRN Administration Severe Pain (7-10) Amlodipine Besylate 2.5 mg 07/04/19 09:00 07/12/19 09:20 Norvasc PO 2.5 mg DAILY ELI Administration Duloxetine HCl 30 mg 07/04/19 09:00 07/12/19 09:19 Cymbalta PO 30 mg DAILY ELI Administration Hydralazine HCl 10 mg 07/05/19 11:14 07/05/19 16:55 Apresoline SLOW IVP 10 mg Q4H PRN Administration SBP Greater Than 180 Vancomycin HCl 1.25 gm/ Sodium 250 mls @ 166.667 mls/hr 07/09/19 06:00 05:37 Chloride IVPB 250 mls 0600 ELI Administration Levothyroxine Sodium 75 mcg 07/04/19 06:00 07/12/19 05:27 Synthroid PO 75 mcg 0600 ELI Administration Lisinopril 2.5 mg 07/10/19 09:00 07/12/19 09:19 Zestril PO 2.5 mg DAILY ELI Administration Lorazepam 0.5 mg 07/03/19 21:40 07/04/19 09:39 Ativan PO 0.5 mg TID PRN Administration Anxiety Oxycodone HCl 5 mg 07/12/19 11:09 07/12/19 17:30 Oxycodone Ir PO 5 mg Q4H PRN Administration Pain Pantoprazole Sodium 40 mg 07/04/19 09:00 07/12/19 09:19 Protonix PO 40 mg BID ELI Administration Pregabalin 75 mg 07/04/19 09:00 07/12/19 09:20 Lyrica PO 75 mg BID ELI Administration Sodium Chloride 10 ml 07/04/19 20:18 07/11/19 08:16 Flush - Normal Saline IVF 10 ml PRN PRN Administration Saline Flush Trazodone HCl 100 mg 07/04/19 21:00 07/11/19 20:32 Desyrel PO Not Given QPM ELI - Exam Neck: negative: supple, symmetric, no JVD, no thyromegaly, no lymphadenopathy, no carotid bruit, JVD Heart: negative: RRR, no murmur, no gallops, no rubs, normal peripheral pulses, irregular, diminshed peripheral pulses, murmur present, II/IV, III/IV Respiratory: negative: CTAB, no wheezes, no rales, no ronchi, normal chest expansion, no tachypnea, normal percussion, rales, rhonchi, tachypneic, wheezes Gastrointestinal: negative: soft, non-tender, non-distended, normal bowel sounds , no palpable masses, no hepatomegaly, no splenomegaly, no bruit, no guarding, no rigidity, tender to palpation, distended, diminished bowl sounds, voluntary guarding Extremities: 1+ LE edema Extremities - other findings: right leg Hosp A/P (1) Septic arthritis of knee, right Code(s): M00.9 - PYOGENIC ARTHRITIS, UNSPECIFIED Status: Acute Qualifiers: Septic arthritis organism: staphylococcal Qualified Code(s): M00.061 - Staphylococcal arthritis, right knee (2) Cirrhosis Code(s): K74.60 - UNSPECIFIED CIRRHOSIS OF LIVER Status: Acute (3) Physical deconditioning Code(s): R53.81 - OTHER MALAISE Status: Acute (4) HLD (hyperlipidemia) Code(s): E78.5 - HYPERLIPIDEMIA, UNSPECIFIED Status: Chronic (5) Urinary retention Code(s): R33.9 - RETENTION OF URINE, UNSPECIFIED Status: Acute - Plan will continue broad spectrum abx for now. pt request additional pain meds i have informed her that last time this was done she became very lethargic so i have told her that i can give her one dose of extra pain meds. She will need PT. 07/09 will consult inpatient rehab for her. will continue her pain meds for now. I will switch her pain meds to oral in am. will continue iv vanco and tommy for now. cx still negative. 07/10 pt encouraged to work with PT and will change her pain meds. will continue abx. Inpatient rehab has denied her. 07/11 will start her on oxy IR given her hx of liver disease. will also do prn morphine iv pt has a lot of pain. will give her a dose of iv lasix. Her meropenam has been discontinued per ID. she will probably go to [facility] in am.
[2019-07-12] MEDS: traZODone HCl 50 MG TAB PO SCH (20:53)
[2019-07-13] MEDS: HYDROcodone/Acetaminophen 10/325 mg Tablet PO PRN ×5 (02:31→18:39)
[2019-07-13] MEDS ORDERED: Morphine 2 MG/ML SYRINGE SLOW IVP SCH (03:00)
[2019-07-13] MEDS: oxyCODONE 5 MG TAB PO PRN ×5 (03:53→20:56)
[2019-07-13 05:21] LABS: Vancomycin, Trough 20.8 ug/mL
[2019-07-13] MEDS: Vancomycin 1 GM in Premix Bag 1 BAG IVPB SCH (05:49)
[2019-07-13] MEDS: Levothyroxine Sodium 75 MCG TAB PO SCH (05:49)
[2019-07-13] MEDS: Saccharomyces boulardii 250 MG CAP PO SCH (08:48)
[2019-07-13] MEDS: DULoxetine 30 MG CAP PO SCH (08:48)
[2019-07-13] MEDS: Lisinopril 2.5 MG TAB PO SCH (08:48)
[2019-07-13] MEDS: Pregabalin 75 MG CAP PO SCH ×2 (08:48→20:57)
[2019-07-13] MEDS: Amlodipine 5 MG TAB PO SCH (08:49)
--- NOTE | 2019-07-13 15:24 | PDOC.HOSPP ---
- Subjective Encounter Date: 07/13/19 Encounter Time: 09:00 Subjective: Pt seen for followup re: septic arthtitis. Sleepy but arousable, no complaints today. - Objective Vital Signs & Weight: Vital Signs (12 hours) Temp Pulse Resp BP Pulse Ox 07/13/19 08:49 76 07/13/19 08:00 92 L 07/13/19 07:17 98.3 F 76 20 149/60 H 92 L Weight Admit Weight 157 lb Weight 157 lb I&O: 07/12/19 07/13/19 07/14/19 06:59 06:59 06:59 Intake Total 1290 Output Total 900 1000 Balance 390 -1000 Result Diagrams: 07/09/19 06:04 07/09/19 06:04 Additional Labs: Labs and MARs reviewed by md Hospitalist ROS - Review of Systems Cardiovascular: denies: chest pain, palpitations, orthopnea, paroxysmal noc. dyspnea, edema, light headedness Gastrointestinal: denies: nausea, vomiting, abdominal pain, diarrhea, constipation, melena, hematochezia - Medication Medications: Active Medications Generic Name Dose Route Start Last Admin Trade Name Freq PRN Reason Stop Dose Admin Hydrocodone Bitart/Acetaminophen 2 tab 07/05/19 11:12 07/13/19 14:23 [place] 10/325 PO 2 tab Q4H PRN Administration Severe Pain (7-10) Amlodipine Besylate 2.5 mg 07/04/19 09:00 07/13/19 08:49 Norvasc PO 2.5 mg DAILY ELI Administration Duloxetine HCl 30 mg 07/04/19 09:00 07/13/19 08:48 Cymbalta PO 30 mg DAILY ELI Administration Hydralazine HCl 10 mg 07/05/19 11:14 07/05/19 16:55 Apresoline SLOW IVP 10 mg Q4H PRN Administration SBP Greater Than 180 Vancomycin HCl 1 gm/ Device 200 mls @ 200 mls/hr 07/13/19 06:00 07/13/19 05: 49 IVPB 200 mls 0600 ELI Administration Levothyroxine Sodium 75 mcg 07/04/19 06:00 07/13/19 05:49 Synthroid PO 75 mcg 0600 ELI Administration Lisinopril 2.5 mg 07/10/19 09:00 07/13/19 08:48 Zestril PO 2.5 mg DAILY ELI Administration Lorazepam 0.5 mg 07/03/19 21:40 07/04/19 09:39 Ativan PO 0.5 mg TID PRN Administration Anxiety Oxycodone HCl 5 mg 07/12/19 11:09 07/13/19 12:49 Oxycodone Ir PO 5 mg Q4H PRN Administration Pain Pantoprazole Sodium 40 mg 07/04/19 09:00 07/13/19 08:48 Protonix PO 40 mg BID ELI Administration Pregabalin 75 mg 07/04/19 09:00 07/13/19 08:48 Lyrica PO 75 mg BID ELI Administration Saccharomyces Boulardii 250 mg 07/13/19 09:00 07/13/19 08:48 Florastor PO 250 mg DAILY ELI Administration Sodium Chloride 10 ml 07/04/19 20:18 07/11/19 08:16 Flush - Normal Saline IVF 10 ml PRN PRN Administration Saline Flush Trazodone HCl 100 mg 07/04/19 21:00 07/12/19 20:53 Desyrel PO Not Given QPM ELI - Exam General Appearance: awake alert Eye: anicteric sclera ENT: moist mucosa Heart: RRR Respiratory: CTAB Gastrointestinal: soft, non-tender Skin: no rashes Psychiatric: normal affect, normal behavior Hosp A/P - Plan - Assessment (1) Septic arthritis of knee, right Code(s): M00.9 - PYOGENIC ARTHRITIS, UNSPECIFIED Status: Acute Qualifiers: Septic arthritis organism: staphylococcal Qualified Code(s): M00.061 - Staphylococcal arthritis, right knee (2) Hypertension Code(s): I10 - ESSENTIAL (PRIMARY) HYPERTENSION Status: Chronic Qualifiers: Hypertension type: essential hypertension Qualified Code(s): I10 - Essential (primary) hypertension (3) Hypothyroid Code(s): E03.9 - HYPOTHYROIDISM, UNSPECIFIED Status: Chronic Qualifiers: Hypothyroidism type: unspecified Qualified Code(s): E03.9 - Hypothyroidism , unspecified (4) Peptic ulcer Code(s): K27.9 - PEPTIC ULC, SITE UNSP, UNSP AC OR CHR, W/O HEMOR OR PERF Status: Chronic (5) Diastolic dysfunction Code(s): I51.9 - HEART DISEASE, UNSPECIFIED Status: Chronic (6) Cirrhosis Code(s): K74.60 - UNSPECIFIED CIRRHOSIS OF LIVER Status: Chronic Qualifiers: Hepatic cirrhosis type: alcoholic cirrhosis Ascites presence: without ascites Qualified Code(s): K70.30 - Alcoholic cirrhosis of liver without ascites (7) HLD (hyperlipidemia) Code(s): E78.5 - HYPERLIPIDEMIA, UNSPECIFIED Status: Chronic (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 Follow cultures. Hardware removed during this admission from right knee, pt has a spacer that has antibiotics. Hemoglobin stable Discharge plan to : [facility] when accepted.
[2019-07-13] MEDS: traZODone HCl 50 MG TAB PO SCH (20:58)
[2019-07-14] MEDS: HYDROcodone/Acetaminophen 10/325 mg Tablet PO PRN ×5 (00:18→20:26)
[2019-07-14] MEDS: oxyCODONE 5 MG TAB PO PRN ×5 (03:11→22:39)
[2019-07-14] MEDS: Vancomycin 1 GM in Premix Bag 1 BAG IVPB SCH (06:10)
[2019-07-14] MEDS: Levothyroxine Sodium 75 MCG TAB PO SCH (06:10)
[2019-07-14] MEDS: Amlodipine 5 MG TAB PO SCH (08:43)
[2019-07-14] MEDS: Lisinopril 2.5 MG TAB PO SCH (08:44)
[2019-07-14] MEDS: Pregabalin 75 MG CAP PO SCH ×2 (08:45→20:27)
[2019-07-14] MEDS: DULoxetine 30 MG CAP PO SCH (08:46)
[2019-07-14] MEDS: Saccharomyces boulardii 250 MG CAP PO SCH (08:46)
--- NOTE | 2019-07-14 15:39 | PDOC.HOSPP ---
- Subjective Encounter Date: 07/14/19 Encounter Time: 09:00 Subjective: Pt seen for followup re: septic arthritis. Sleepy but arousable, but not answering questions. Could not complete ROS. - Objective Vital Signs & Weight: Vital Signs (12 hours) Temp Pulse Resp BP BP Pulse Ox 07/14/19 12:00 98.5 F 85 18 152/55 H 95 07/14/19 08:44 90 157/66 H 07/14/19 08:43 90 07/14/19 08:00 94 L 07/14/19 07:54 98.3 F 90 18 157/66 H 94 L Weight Admit Weight 157 lb Weight 157 lb I&O: 07/13/19 07/14/19 07/15/19 06:59 06:59 06:59 Output Total 1000 Balance -1000 Result Diagrams: 07/09/19 06:04 07/09/19 06:04 Additional Labs: Labs and MARs reviewed by me Hospitalist ROS - Review of Systems ROS unobtainable: due to mental status - Medication Medications: Active Medications Generic Name Dose Route Start Last Admin Trade Name Freq PRN Reason Stop Dose Admin Hydrocodone Bitart/Acetaminophen 2 tab 07/05/19 11:12 07/14/19 13:54 [place] 10/325 PO 2 tab Q4H PRN Administration Severe Pain (7-10) Amlodipine Besylate 2.5 mg 07/04/19 09:00 07/14/19 08:43 Norvasc PO 2.5 mg DAILY ELI Administration Duloxetine HCl 30 mg 07/04/19 09:00 07/14/19 08:46 Cymbalta PO 30 mg DAILY ELI Administration Hydralazine HCl 10 mg 07/05/19 11:14 07/05/19 16:55 Apresoline SLOW IVP 10 mg Q4H PRN Administration SBP Greater Than 180 Vancomycin HCl 1 gm/ Device 200 mls @ 200 mls/hr 07/13/19 06:00 07/14/19 06: 10 IVPB 200 mls 0600 ELI Administration Levothyroxine Sodium 75 mcg 07/04/19 06:00 07/14/19 06:10 Synthroid PO 75 mcg 0600 ELI Administration Lisinopril 2.5 mg 07/10/19 09:00 07/14/19 08:44 Zestril PO 2.5 mg DAILY ELI Administration Oxycodone HCl 5 mg 07/12/19 11:09 07/14/19 12:02 Oxycodone Ir PO 5 mg Q4H PRN Administration Pain Pantoprazole Sodium 40 mg 07/04/19 09:00 07/14/19 08:45 Protonix PO 40 mg BID ELI Administration Pregabalin 75 mg 07/04/19 09:00 07/14/19 08:45 Lyrica PO 75 mg BID ELI Administration Saccharomyces Boulardii 250 mg 07/13/19 09:00 07/14/19 08:46 Florastor PO 250 mg DAILY ELI Administration Sodium Chloride 10 ml 07/04/19 20:18 07/11/19 08:16 Flush - Normal Saline IVF 10 ml PRN PRN Administration Saline Flush Trazodone HCl 100 mg 07/04/19 21:00 07/13/19 20:58 Desyrel PO Not Given QPM ELI - Exam Eye: anicteric sclera ENT: no oropharyngeal lesions, moist mucosa Neck: supple Heart: RRR Respiratory: CTAB, no wheezes, no ronchi Gastrointestinal: soft, non-tender Psychiatric - other findings: Sleepy but arousable Hosp A/P - Plan - Assessment (1) Septic arthritis of knee, right Code(s): M00.9 - PYOGENIC ARTHRITIS, UNSPECIFIED Status: Acute Qualifiers: Septic arthritis organism: staphylococcal Qualified Code(s): M00.061 - Staphylococcal arthritis, right knee (2) Hypertension Code(s): I10 - ESSENTIAL (PRIMARY) HYPERTENSION Status: Chronic Qualifiers: Hypertension type: essential hypertension Qualified Code(s): I10 - Essential (primary) hypertension (3) Hypothyroid Code(s): E03.9 - HYPOTHYROIDISM, UNSPECIFIED Status: Chronic Qualifiers: Hypothyroidism type: unspecified Qualified Code(s): E03.9 - Hypothyroidism , unspecified (4) Peptic ulcer Code(s): K27.9 - PEPTIC ULC, SITE UNSP, UNSP AC OR CHR, W/O HEMOR OR PERF Status: Chronic (5) Diastolic dysfunction Code(s): I51.9 - HEART DISEASE, UNSPECIFIED Status: Chronic (6) Cirrhosis Code(s): K74.60 - UNSPECIFIED CIRRHOSIS OF LIVER Status: Chronic Qualifiers: Hepatic cirrhosis type: alcoholic cirrhosis Ascites presence: without ascites Qualified Code(s): K70.30 - Alcoholic cirrhosis of liver without ascites (7) HLD (hyperlipidemia) Code(s): E78.5 - HYPERLIPIDEMIA, UNSPECIFIED Status: Chronic (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 Follow cultures. s/p hardware removal s/p spacer placement. Check AM labs. Discharge plan to : [facility] when accepted.
[2019-07-14] MEDS ORDERED: Lorazepam 0.5 MG TAB PO PRN (16:09)
[2019-07-14] MEDS: traZODone HCl 50 MG TAB PO SCH (20:28)
[2019-07-15] MEDS: HYDROcodone/Acetaminophen 10/325 mg Tablet PO PRN ×2 (01:58→08:49)
[2019-07-15] MEDS: oxyCODONE 5 MG TAB PO PRN ×4 (05:03→21:31)
[2019-07-15] MEDS: Levothyroxine Sodium 75 MCG TAB PO SCH (05:04)
[2019-07-15 05:31] LABS: #Basophils 0.1 thou/uL (0.0-0.2); #Eosinphils 0.7 thou/uL (0.0-0.7); #Monocytes 0.5 thou/uL (0.11-0.59); #Neutrophils 3.2 thou/uL (1.40-6.50); %Eosinophils 12.6 % (0.0-10.0); %Lymphocytes 18.8 % (21.0-51.0); %Monocytes 9.2 % (0.0-10.0); %Neutrophils 58.3 % (42.0-75.0); Hemoglobin 7.5 g/dL (12.0-16.0); Mean Corpuscular HGB CONC 30.9 g/dL (32.0-36.0); Mean Corpuscular Hemoglobin 24.9 pg (27.0-31.0); Mean Corpuscular Volume 80.5 fL (78.0-98.0); Mean Platelet Volume 8.3 fL (7.4-10.4); Platelet Count 337 thou/uL (130-400); Red Blood Cell (RBC) Count 3.03 mill/uL (4.20-5.40); White Blood Cell (WBC) Count 5.4 thou/uL (4.8-10.8)
[2019-07-15 05:46] LABS: Vancomycin, Trough 19.3 ug/mL
[2019-07-15 05:47] LABS: Anion Gap 11 mmol/L (10-20); BUN (Urea Nitrogen) 10 mg/dL (9.8-20.1); Calc. Creatinine Clearance 91 mL/min (70-130); Calcium 7.6 mg/dL (7.8-10.44); Carbon Dioxide 23 mmol/L (23-31); Chloride 107 mmol/L (98-107); Estimated GFR-MDRD 84; Glucose 86 mg/dL (80-115); Potassium 3.6 mmol/L (3.5-5.1); Sodium 137 mmol/L (136-145)
[2019-07-15] MEDS: Vancomycin 1 GM in Premix Bag 1 BAG IVPB SCH (06:15)
[2019-07-15] MEDS: Pregabalin 75 MG CAP PO SCH ×2 (08:47→21:32)
[2019-07-15] MEDS: Lisinopril 2.5 MG TAB PO SCH (08:48)
[2019-07-15] MEDS: Amlodipine 5 MG TAB PO SCH (08:48)
[2019-07-15] MEDS: Saccharomyces boulardii 250 MG CAP PO SCH (08:49)
[2019-07-15] MEDS: DULoxetine 30 MG CAP PO SCH (08:49)
--- NOTE | 2019-07-15 11:37 | PDOC.HOSPP ---
- Subjective Encounter Date: 07/15/19 Encounter Time: 09:00 Subjective: Pt seen for followup re: septic arthritis. c/o muscle spasms. - Objective Vital Signs & Weight: Vital Signs (12 hours) Temp Pulse Resp BP BP Pulse Ox 07/15/19 08:48 75 158/77 H 07/15/19 08:00 92 L 07/15/19 07:42 98.9 F 75 20 158/77 H 92 L Weight Admit Weight 157 lb Weight 157 lb Result Diagrams: 07/15/19 05:05 07/15/19 05:05 Additional Labs: Labs and MARs reviewed by wy Hospitalist ROS - Review of Systems Cardiovascular: denies: chest pain, palpitations, orthopnea, paroxysmal noc. dyspnea, edema, light headedness Gastrointestinal: denies: nausea, vomiting, abdominal pain, diarrhea, constipation, melena, hematochezia - Medication Medications: Active Medications Generic Name Dose Route Start Last Admin Trade Name Freq PRN Reason Stop Dose Admin Amlodipine Besylate 2.5 mg 07/04/19 09:00 07/15/19 08:48 Norvasc PO 2.5 mg DAILY ELI Administration Duloxetine HCl 30 mg 07/04/19 09:00 07/15/19 08:49 Cymbalta PO 30 mg DAILY ELI Administration Hydralazine HCl 10 mg 07/05/19 11:14 07/05/19 16:55 Apresoline SLOW IVP 10 mg Q4H PRN Administration SBP Greater Than 180 Vancomycin HCl 1 gm/ Device 200 mls @ 200 mls/hr 07/13/19 06:00 07/15/19 06: 15 IVPB 200 mls 0600 ELI Administration Levothyroxine Sodium 75 mcg 07/04/19 06:00 07/15/19 05:04 Synthroid PO 75 mcg 0600 ELI Administration Lisinopril 2.5 mg 07/10/19 09:00 07/15/19 08:48 Zestril PO 2.5 mg DAILY ELI Administration Lorazepam 0.5 mg 07/14/19 16:09 07/15/19 08:49 Ativan PO 07/16/19 16:10 0.5 mg TID PRN Administration Anxiety Oxycodone HCl 5 mg 07/12/19 11:09 07/15/19 11:07 Oxycodone Ir PO 5 mg Q4H PRN Administration Pain Pantoprazole Sodium 40 mg 07/04/19 09:00 07/15/19 08:48 Protonix PO 40 mg BID ELI Administration Pregabalin 75 mg 07/04/19 09:00 07/15/19 08:47 Lyrica PO 75 mg BID ELI Administration Saccharomyces Boulardii 250 mg 07/13/19 09:00 07/15/19 08:49 Florastor PO 250 mg DAILY ELI Administration Sodium Chloride 10 ml 07/04/19 20:18 07/11/19 08:16 Flush - Normal Saline IVF 10 ml PRN PRN Administration Saline Flush Trazodone HCl 100 mg 07/04/19 21:00 07/14/19 20:28 Desyrel PO Not Given QPM ELI - Exam General Appearance: awake alert Eye: anicteric sclera ENT: moist mucosa Neck: supple Heart: RRR Respiratory: CTAB Gastrointestinal: soft, non-tender Extremities - other findings: right knee swelling Psychiatric: normal affect, normal behavior Hosp A/P - Plan - Assessment (1) Septic arthritis of knee, right Code(s): M00.9 - PYOGENIC ARTHRITIS, UNSPECIFIED Status: Acute Qualifiers: Septic arthritis organism: staphylococcal Qualified Code(s): M00.061 - Staphylococcal arthritis, right knee (2) Hypertension Code(s): I10 - ESSENTIAL (PRIMARY) HYPERTENSION Status: Chronic Qualifiers: Hypertension type: essential hypertension Qualified Code(s): I10 - Essential (primary) hypertension (3) Hypothyroid Code(s): E03.9 - HYPOTHYROIDISM, UNSPECIFIED Status: Chronic Qualifiers: Hypothyroidism type: unspecified Qualified Code(s): E03.9 - Hypothyroidism , unspecified (4) Peptic ulcer Code(s): K27.9 - PEPTIC ULC, SITE UNSP, UNSP AC OR CHR, W/O HEMOR OR PERF Status: Chronic (5) Diastolic dysfunction Code(s): I51.9 - HEART DISEASE, UNSPECIFIED Status: Chronic (6) Cirrhosis Code(s): K74.60 - UNSPECIFIED CIRRHOSIS OF LIVER Status: Chronic Qualifiers: Hepatic cirrhosis type: alcoholic cirrhosis Ascites presence: without ascites Qualified Code(s): K70.30 - Alcoholic cirrhosis of liver without ascites (7) HLD (hyperlipidemia) Code(s): E78.5 - HYPERLIPIDEMIA, UNSPECIFIED Status: Chronic (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 Continue IV Vancomycin. Final cultures negative. s/p hardware removal s/p spacer placement. Add PRN IV hydralazine. Discharge plan to : [facility] when accepted.
[2019-07-15] MEDS: Cyclobenzaprine 10 MG TAB PO PRN ×2 (15:00→21:31)
[2019-07-15] MEDS: traZODone HCl 50 MG TAB PO SCH (21:33)
[2019-07-16] MEDS: oxyCODONE 5 MG TAB PO PRN ×5 (05:11→22:50)
[2019-07-16] MEDS: Cyclobenzaprine 10 MG TAB PO PRN ×3 (05:12→22:49)
[2019-07-16] MEDS: Vancomycin 1 GM in Premix Bag 1 BAG IVPB SCH (05:12)
[2019-07-16] MEDS: Levothyroxine Sodium 75 MCG TAB PO SCH (05:12)
[2019-07-16 05:29] LABS: #Eosinphils 0.5 thou/uL (0.0-0.7); #Lymphocytes 1.3 thou/uL (1.20-3.40); #Monocytes 0.5 thou/uL (0.11-0.59); #Neutrophils 3.3 thou/uL (1.40-6.50); %Basophils 0.7 % (0.0-1.0); %Eosinophils 9.1 % (0.0-10.0); %Lymphocytes 22.1 % (21.0-51.0); %Monocytes 9.5 % (0.0-10.0); %Neutrophils 58.7 % (42.0-75.0); Hemoglobin 7.7 g/dL (12.0-16.0); Mean Corpuscular HGB CONC 32.3 g/dL (32.0-36.0); Mean Corpuscular Hemoglobin 25.9 pg (27.0-31.0); Mean Corpuscular Volume 80.2 fL (78.0-98.0); Mean Platelet Volume 8.5 fL (7.4-10.4); Platelet Count 302 thou/uL (130-400); RBC Distribution Width 17.3 % (11.5-14.5); Red Blood Cell (RBC) Count 2.96 mill/uL (4.20-5.40); White Blood Cell (WBC) Count 5.7 thou/uL (4.8-10.8)
[2019-07-16 05:51] LABS: Anion Gap 12 mmol/L (10-20); BUN (Urea Nitrogen) 9 mg/dL (9.8-20.1); Calc. Creatinine Clearance 91 mL/min (70-130); Calcium 7.8 mg/dL (7.8-10.44); Carbon Dioxide 23 mmol/L (23-31); Chloride 108 mmol/L (98-107); Estimated GFR-MDRD 84; Glucose 83 mg/dL (80-115); Potassium 3.7 mmol/L (3.5-5.1); Sodium 139 mmol/L (136-145)
--- NOTE | 2019-07-16 09:07 | PDOC.HOSPP ---
- Subjective Encounter Date: 07/16/19 Encounter Time: 11:00 Subjective: Patient still with significant pain in knee, unchanged. No fever. No other symptoms. - Objective Vital Signs & Weight: Vital Signs (12 hours) Temp Pulse Resp BP Pulse Ox 07/16/19 07:26 98.8 F 80 22 H 179/66 H 94 L Weight Admit Weight 157 lb Weight 157 lb Result Diagrams: 07/16/19 05:05 07/16/19 05:05 Hospitalist ROS - Review of Systems Constitutional: denies: fever, chills Respiratory: denies: cough, shortness of breath Cardiovascular: denies: chest pain, palpitations Gastrointestinal: denies: nausea, vomiting, abdominal pain, diarrhea Genitourinary: denies: dysuria, hematuria Musculoskeletal: reports: leg pain - Medication Medications: Active Medications Generic Name Dose Route Start Last Admin Trade Name Freq PRN Reason Stop Dose Admin Amlodipine Besylate 2.5 mg 07/04/19 09:00 07/15/19 08:48 Norvasc PO 2.5 mg DAILY ELI Administration Cyclobenzaprine HCl 5 mg 07/15/19 11:36 07/16/19 05:12 Flexeril PO 5 mg TID PRN Administration Muscle Spasm Duloxetine HCl 30 mg 07/04/19 09:00 07/15/19 08:49 Cymbalta PO 30 mg DAILY ELI Administration Hydralazine HCl 10 mg 07/05/19 11:14 07/05/19 16:55 Apresoline SLOW IVP 10 mg Q4H PRN Administration SBP Greater Than 180 Vancomycin HCl 1 gm/ Device 200 mls @ 200 mls/hr 07/13/19 06:00 07/16/19 05: 12 IVPB 200 mls 0600 ELI Administration Levothyroxine Sodium 75 mcg 07/04/19 06:00 07/16/19 05:12 Synthroid PO 75 mcg 0600 ELI Administration Lisinopril 2.5 mg 07/10/19 09:00 07/15/19 08:48 Zestril PO 2.5 mg DAILY ELI Administration Lorazepam 0.5 mg 07/14/19 16:09 07/15/19 08:49 Ativan PO 07/16/19 16:10 0.5 mg TID PRN Administration Anxiety Oxycodone HCl 5 mg 07/12/19 11:09 07/16/19 05:11 Oxycodone Ir PO 5 mg Q4H PRN Administration Pain Pantoprazole Sodium 40 mg 07/04/19 09:00 07/15/19 21:31 Protonix PO 40 mg BID ELI Administration Pregabalin 75 mg 07/04/19 09:00 07/15/19 21:32 Lyrica PO 75 mg BID ELI Administration Saccharomyces Boulardii 250 mg 07/13/19 09:00 07/15/19 08:49 Florastor PO 250 mg DAILY ELI Administration Sodium Chloride 10 ml 07/04/19 20:18 07/11/19 08:16 Flush - Normal Saline IVF 10 ml PRN PRN Administration Saline Flush Trazodone HCl 100 mg 07/04/19 21:00 07/15/19 21:33 Desyrel PO Not Given QPM ELI - Exam General Appearance: NAD, awake alert ENT: moist mucosa Heart: RRR, no murmur, no gallops, no rubs Respiratory: CTAB, no wheezes, no rales, no ronchi Gastrointestinal: soft, non-tender, non-distended, normal bowel sounds Extremities - other findings: right knee lap sites with decreased redness compared to admit Psychiatric: normal affect, normal behavior, A&O x 3 Hosp A/P (1) Septic arthritis of knee, right Code(s): M00.9 - PYOGENIC ARTHRITIS, UNSPECIFIED Status: Acute Qualifiers: Septic arthritis organism: staphylococcal Qualified Code(s): M00.061 - Staphylococcal arthritis, right knee (2) Presence of right artificial knee joint Code(s): Z96.651 - PRESENCE OF RIGHT ARTIFICIAL KNEE JOINT Status: Chronic Plan: S/p removal and abx spacer placement (3) Peptic ulcer Code(s): K27.9 - PEPTIC ULC, SITE UNSP, UNSP AC OR CHR, W/O HEMOR OR PERF Status: Acute (4) Diastolic dysfunction Code(s): I51.9 - HEART DISEASE, UNSPECIFIED Status: Chronic (5) Cirrhosis Code(s): K74.60 - UNSPECIFIED CIRRHOSIS OF LIVER Status: Chronic Qualifiers: Hepatic cirrhosis type: alcoholic cirrhosis Ascites presence: without ascites Qualified Code(s): K70.30 - Alcoholic cirrhosis of liver without ascites (6) HLD (hyperlipidemia) Code(s): E78.5 - HYPERLIPIDEMIA, UNSPECIFIED Status: Chronic (7) Hypertension Code(s): I10 - ESSENTIAL (PRIMARY) HYPERTENSION Status: Chronic Qualifiers: Hypertension type: essential hypertension Qualified Code(s): I10 - Essential (primary) hypertension (8) Hypothyroid Code(s): E03.9 - HYPOTHYROIDISM, UNSPECIFIED Status: Chronic Qualifiers: Hypothyroidism type: unspecified Qualified Code(s): E03.9 - Hypothyroidism , unspecified (9) Esophageal varices in alcoholic cirrhosis Code(s): K70.30 - ALCOHOLIC CIRRHOSIS OF LIVER WITHOUT ASCITES; I85.10 - SECONDARY ESOPHAGEAL VARICES WITHOUT BLEEDING Status: Chronic - Plan Patient with septic arthritis of artificial right knee, s/p hardware removal and unarticulated abx spacer Needs IV Vancomycin, needs LTAC per rehab physician, trying to get insurance approval, doc to doc necessary and I called and left my number but the insurance doc hasn't called me back yet. Will clarify length of abx with Dr. Salcedo
[2019-07-16] MEDS: Lisinopril 2.5 MG TAB PO SCH (09:29)
[2019-07-16] MEDS: DULoxetine 30 MG CAP PO SCH (09:29)
[2019-07-16] MEDS: Saccharomyces boulardii 250 MG CAP PO SCH (09:31)
[2019-07-16] MEDS: Pregabalin 75 MG CAP PO SCH ×2 (09:31→20:33)
[2019-07-16] MEDS: Amlodipine 5 MG TAB PO SCH (09:31)
[2019-07-16] MEDS: traZODone HCl 50 MG TAB PO SCH (20:34)
[2019-07-17] MEDS: oxyCODONE 5 MG TAB PO PRN ×5 (03:01→21:34)
[2019-07-17] MEDS: Levothyroxine Sodium 75 MCG TAB PO SCH (05:06)
[2019-07-17 05:53] LABS: Vancomycin, Trough 17.8 ug/mL
[2019-07-17 05:55] LABS: Anion Gap 14 mmol/L (10-20); BUN (Urea Nitrogen) 8 mg/dL (9.8-20.1); Calc. Creatinine Clearance 86 mL/min (70-130); Calcium 7.6 mg/dL (7.8-10.44); Carbon Dioxide 23 mmol/L (23-31); Chloride 107 mmol/L (98-107); Estimated GFR-MDRD 79; Glucose 94 mg/dL (80-115); Potassium 3.8 mmol/L (3.5-5.1); Sodium 140 mmol/L (136-145)
[2019-07-17] MEDS: Vancomycin 1 GM in Premix Bag 1 BAG IVPB SCH (06:07)
[2019-07-17] MEDS: DULoxetine 30 MG CAP PO SCH (07:48)
[2019-07-17] MEDS: Cyclobenzaprine 10 MG TAB PO PRN (07:48)
[2019-07-17] MEDS: Pregabalin 75 MG CAP PO SCH ×2 (07:48→20:27)
[2019-07-17] MEDS: Saccharomyces boulardii 250 MG CAP PO SCH (07:48)
[2019-07-17] MEDS: Lisinopril 2.5 MG TAB PO SCH (07:49)
[2019-07-17] MEDS: Amlodipine 5 MG TAB PO SCH (07:49)
--- NOTE | 2019-07-17 10:17 | PDOC.HOSPP ---
- Subjective Encounter Date: 07/17/19 Encounter Time: 13:40 Subjective: Patient with continued severe pain in right knee. [place] 10 is what she is typically on at home. Switched to oxycodone 5mg here due to hx of liver disease but not helping enough. - Objective Vital Signs & Weight: Vital Signs (12 hours) Temp Pulse Resp BP Pulse Ox 07/17/19 09:44 98.3 F 92 16 156/63 H 95 07/17/19 07:49 97 07/17/19 07:32 98.9 F 97 18 180/70 H 90 L 07/17/19 03:45 98.9 F 93 16 159/62 H 94 L Weight Admit Weight 157 lb Weight 157 lb I&O: 07/16/19 07/17/19 07/18/19 06:59 06:59 06:59 Intake Total 1960 Output Total 1675 450 Balance 285 -450 Result Diagrams: 07/16/19 05:05 07/17/19 05:15 Hospitalist ROS - Review of Systems Constitutional: denies: fever, chills Respiratory: denies: cough, shortness of breath Cardiovascular: denies: chest pain, palpitations, orthopnea Gastrointestinal: denies: nausea, vomiting, abdominal pain Musculoskeletal: reports: leg pain - Medication Medications: Active Medications Generic Name Dose Route Start Last Admin Trade Name Freq PRN Reason Stop Dose Admin Amlodipine Besylate 2.5 mg 07/04/19 09:00 07/17/19 07:49 Norvasc PO 2.5 mg DAILY ELI Administration Cyclobenzaprine HCl 5 mg 07/15/19 11:36 07/17/19 07:48 Flexeril PO 5 mg TID PRN Administration Muscle Spasm Duloxetine HCl 30 mg 07/04/19 09:00 07/17/19 07:48 Cymbalta PO 30 mg DAILY ELI Administration Hydralazine HCl 10 mg 07/05/19 11:14 07/05/19 16:55 Apresoline SLOW IVP 10 mg Q4H PRN Administration SBP Greater Than 180 Vancomycin HCl 1 gm/ Device 200 mls @ 200 mls/hr 07/13/19 06:00 07/17/19 06: 07 IVPB 200 mls 0600 ELI Administration Levothyroxine Sodium 75 mcg 07/04/19 06:00 07/17/19 05:06 Synthroid PO 75 mcg 0600 ELI Administration Lisinopril 2.5 mg 07/10/19 09:00 07/17/19 07:49 Zestril PO 2.5 mg DAILY ELI Administration Oxycodone HCl 5 mg 07/12/19 11:09 07/17/19 07:48 Oxycodone Ir PO 5 mg Q4H PRN Administration Pain Pantoprazole Sodium 40 mg 07/04/19 09:00 07/17/19 07:49 Protonix PO 40 mg BID ELI Administration Pregabalin 75 mg 07/04/19 09:00 07/17/19 07:48 Lyrica PO 75 mg BID ELI Administration Saccharomyces Boulardii 250 mg 07/13/19 09:00 07/17/19 07:48 Florastor PO 250 mg DAILY ELI Administration Sodium Chloride 10 ml 07/04/19 20:18 07/11/19 08:16 Flush - Normal Saline IVF 10 ml PRN PRN Administration Saline Flush Trazodone HCl 100 mg 07/04/19 21:00 07/16/19 20:34 Desyrel PO Not Given QPM [facility] - Exam General Appearance: NAD, awake alert ENT: moist mucosa Heart: RRR, no murmur, no gallops, no rubs Respiratory: CTAB, no wheezes, no rales, no ronchi Gastrointestinal: soft, non-tender, non-distended, normal bowel sounds Extremities - other findings: RLE with brace in place, stiches removed, redness improved Psychiatric: normal affect, normal behavior, A&O x 3 Hosp A/P (1) Septic arthritis of knee, right Code(s): M00.9 - PYOGENIC ARTHRITIS, UNSPECIFIED Status: Acute Qualifiers: Septic arthritis organism: staphylococcal Qualified Code(s): M00.061 - Staphylococcal arthritis, right knee (2) Presence of right artificial knee joint Code(s): Z96.651 - PRESENCE OF RIGHT ARTIFICIAL KNEE JOINT Status: Chronic (3) Peptic ulcer Code(s): K27.9 - PEPTIC ULC, SITE UNSP, UNSP AC OR CHR, W/O HEMOR OR PERF Status: Acute (4) Diastolic dysfunction Code(s): I51.9 - HEART DISEASE, UNSPECIFIED Status: Chronic (5) Cirrhosis Code(s): K74.60 - UNSPECIFIED CIRRHOSIS OF LIVER Status: Chronic Qualifiers: Hepatic cirrhosis type: alcoholic cirrhosis Ascites presence: without ascites Qualified Code(s): K70.30 - Alcoholic cirrhosis of liver without ascites (6) HLD (hyperlipidemia) Code(s): E78.5 - HYPERLIPIDEMIA, UNSPECIFIED Status: Chronic (7) Hypertension Code(s): I10 - ESSENTIAL (PRIMARY) HYPERTENSION Status: Chronic Qualifiers: Hypertension type: essential hypertension Qualified Code(s): I10 - Essential (primary) hypertension (8) Hypothyroid Code(s): E03.9 - HYPOTHYROIDISM, UNSPECIFIED Status: Chronic Qualifiers: Hypothyroidism type: unspecified Qualified Code(s): E03.9 - Hypothyroidism , unspecified (9) Esophageal varices in alcoholic cirrhosis Code(s): K70.30 - ALCOHOLIC CIRRHOSIS OF LIVER WITHOUT ASCITES; I85.10 - SECONDARY 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 trough per Denisse Needs LTAC per rehab physician, trying to get insurance approval, doc to doc denied yesterday H/H stable, continue to monitor Ready for placement once insurance approval
[2019-07-17] MEDS: traZODone HCl 50 MG TAB PO SCH (20:27)
[2019-07-18] MEDS: oxyCODONE 5 MG TAB PO PRN ×5 (02:58→23:24)
[2019-07-18 05:23] LABS: #Basophils 0.1 thou/uL (0.0-0.2); #Eosinphils 0.7 thou/uL (0.0-0.7); #Lymphocytes 1.1 thou/uL (1.20-3.40); #Monocytes 0.5 thou/uL (0.11-0.59); #Neutrophils 2.9 thou/uL (1.40-6.50); %Basophils 1.5 % (0.0-1.0); %Eosinophils 13.1 % (0.0-10.0); %Lymphocytes 21.4 % (21.0-51.0); %Monocytes 8.7 % (0.0-10.0); %Neutrophils 55.3 % (42.0-75.0); Hemoglobin 7.1 g/dL (12.0-16.0); Mean Corpuscular HGB CONC 31.2 g/dL (32.0-36.0); Mean Corpuscular Hemoglobin 24.7 pg (27.0-31.0); Mean Corpuscular Volume 79.4 fL (78.0-98.0); Platelet Count 269 thou/uL (130-400); Red Blood Cell (RBC) Count 2.89 mill/uL (4.20-5.40); White Blood Cell (WBC) Count 5.3 thou/uL (4.8-10.8)
[2019-07-18 05:43] LABS: Anion Gap 10 mmol/L (10-20); BUN (Urea Nitrogen) 8 mg/dL (9.8-20.1); Calc. Creatinine Clearance 86 mL/min (70-130); Calcium 7.6 mg/dL (7.8-10.44); Carbon Dioxide 26 mmol/L (23-31); Chloride 109 mmol/L (98-107); Estimated GFR-MDRD 79; Glucose 86 mg/dL (80-115); Potassium 3.7 mmol/L (3.5-5.1); Sodium 141 mmol/L (136-145)
[2019-07-18] MEDS: Vancomycin 1 GM in Premix Bag 1 BAG IVPB SCH (06:35)
[2019-07-18] MEDS: Levothyroxine Sodium 75 MCG TAB PO SCH (06:36)
[2019-07-18] MEDS: Lisinopril 2.5 MG TAB PO SCH (08:24)
[2019-07-18] MEDS: DULoxetine 30 MG CAP PO SCH (08:24)
[2019-07-18] MEDS: Saccharomyces boulardii 250 MG CAP PO SCH (08:24)
[2019-07-18] MEDS: Amlodipine 5 MG TAB PO SCH (08:24)
[2019-07-18] MEDS: Pregabalin 75 MG CAP PO SCH ×2 (08:25→20:31)
[2019-07-18] MEDS: Cyclobenzaprine 10 MG TAB PO PRN (08:36)
--- NOTE | 2019-07-18 09:01 | PDOC.HOSPP ---
- Subjective Encounter Date: 07/18/19 Encounter Time: 10:40 Subjective: Patient with persistent RLE pain and muscle spasms. Also with LUE edema since surgery, some pain with movement in the forearm area. No IVs on that side. - Objective Vital Signs & Weight: Vital Signs (12 hours) Temp Pulse Resp BP BP Pulse Ox 07/18/19 08:24 82 07/18/19 08:04 98.9 F 82 18 164/63 H 93 L 07/18/19 00:00 99.1 F 89 14 145/74 H 95 Weight Admit Weight 157 lb Weight 157 lb I&O: 07/17/19 07/18/19 07/19/19 06:59 06:59 06:59 Intake Total 1960 360 Output Total 1671 750 Balance 285 -390 Result Diagrams: 07/18/19 04:56 07/18/19 04:56 Hospitalist ROS - Review of Systems Constitutional: denies: fever, chills Respiratory: denies: cough, shortness of breath Cardiovascular: reports: edema. denies: chest pain, palpitations Gastrointestinal: denies: nausea, vomiting, abdominal pain Genitourinary: denies: dysuria, hematuria Musculoskeletal: reports: leg pain - Medication Medications: Active Medications Generic Name Dose Route Start Last Admin Trade Name Freq PRN Reason Stop Dose Admin Amlodipine Besylate 2.5 mg 07/04/19 09:00 07/18/19 08:24 Norvasc PO 2.5 mg DAILY ELI Administration Cyclobenzaprine HCl 5 mg 07/15/19 11:36 07/18/19 08:36 Flexeril PO 5 mg TID PRN Administration Muscle Spasm Duloxetine HCl 30 mg 07/04/19 09:00 07/18/19 08:24 Cymbalta PO 30 mg DAILY ELI Administration Hydralazine HCl 10 mg 07/05/19 11:14 07/05/19 16:55 Apresoline SLOW IVP 10 mg Q4H PRN Administration SBP Greater Than 180 Vancomycin HCl 1 gm/ Device 200 mls @ 200 mls/hr 07/13/19 06:00 07/18/19 06: 35 IVPB 200 mls 0600 ELI Administration Levothyroxine Sodium 75 mcg 07/04/19 06:00 07/18/19 06:36 Synthroid PO 75 mcg 0600 ELI Administration Lisinopril 2.5 mg 07/10/19 09:00 07/18/19 08:24 Zestril PO 2.5 mg DAILY ELI Administration Oxycodone HCl 5 mg 07/12/19 11:09 07/18/19 08:25 Oxycodone Ir PO 5 mg Q4H PRN Administration Pain Oxycodone HCl 10 mg 07/17/19 15:04 07/17/19 17:36 Oxycodone Ir PO 10 mg Q4H PRN Administration Severe Pain (7-10) Pantoprazole Sodium 40 mg 07/04/19 09:00 07/18/19 08:24 Protonix PO 40 mg BID ELI Administration Pregabalin 75 mg 07/04/19 09:00 07/17/19 20:27 Lyrica PO 75 mg BID ELI Administration Saccharomyces Boulardii 250 mg 07/13/19 09:00 07/18/19 08:24 Florastor PO 250 mg DAILY ELI Administration Sodium Chloride 10 ml 07/04/19 20:18 07/11/19 08:16 Flush - Normal Saline IVF 10 ml PRN PRN Administration Saline Flush Trazodone HCl 100 mg 07/04/19 21:00 07/17/19 20:27 Desyrel PO 100 mg QPM ELI Administration - Exam General Appearance: NAD, awake alert ENT: moist mucosa Heart: RRR, no murmur, no gallops, no rubs Respiratory: CTAB, no wheezes, no rales, no ronchi Gastrointestinal: soft, non-tender, non-distended, normal bowel sounds Extremities - other findings: dependent edema of LUE on bottom of forearm, mild soft tissue TTP, no redne Skin: no rashes Hosp A/P (1) Septic arthritis of knee, right Code(s): M00.9 - PYOGENIC ARTHRITIS, UNSPECIFIED Status: Acute Qualifiers: Septic arthritis organism: staphylococcal Qualified Code(s): M00.061 - Staphylococcal arthritis, right knee (2) Presence of right artificial knee joint Code(s): Z96.651 - PRESENCE OF RIGHT ARTIFICIAL KNEE JOINT Status: Chronic (3) Peptic ulcer Code(s): K27.9 - PEPTIC ULC, SITE UNSP, UNSP AC OR CHR, W/O HEMOR OR PERF Status: Acute (4) Diastolic dysfunction Code(s): I51.9 - HEART DISEASE, UNSPECIFIED Status: Chronic (5) Cirrhosis Code(s): K74.60 - UNSPECIFIED CIRRHOSIS OF LIVER Status: Chronic Qualifiers: Hepatic cirrhosis type: alcoholic cirrhosis Ascites presence: without ascites Qualified Code(s): K70.30 - Alcoholic cirrhosis of liver without ascites (6) HLD (hyperlipidemia) Code(s): E78.5 - HYPERLIPIDEMIA, UNSPECIFIED Status: Chronic (7) Hypertension Code(s): I10 - ESSENTIAL (PRIMARY) HYPERTENSION Status: Chronic Qualifiers: Hypertension type: essential hypertension Qualified Code(s): I10 - Essential (primary) hypertension (8) Hypothyroid Code(s): E03.9 - HYPOTHYROIDISM, UNSPECIFIED Status: Chronic Qualifiers: Hypothyroidism type: unspecified Qualified Code(s): E03.9 - Hypothyroidism , unspecified (9) Esophageal varices in alcoholic cirrhosis Code(s): K70.30 - ALCOHOLIC CIRRHOSIS OF LIVER WITHOUT ASCITES; I85.10 - SECONDARY 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 trough per Denisse Needs LTAC per rehab physician, trying to get insurance approval, doc to doc denied, currently appealing H/H stable, continue to monitor Check U/S LUE for DVT Ready for placement once insurance approval
--- NOTE | 2019-07-18 14:06 | ULT ---
Venous duplex sonogram left upper extremity HISTORY: Left arm pain and edema. FINDINGS: Good color and spectral Doppler flow within the subclavian and internal jugular veins and w ithin the axillary, cephalic, and basilic veins. 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 One of the lumens is noncompressible, with internal thrombus and mi nimal flow. IMPRESSION : Exam is technically positive. 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 Remaind er of the deep venous system is normal.
[2019-07-18] MEDS: traZODone HCl 50 MG TAB PO SCH (20:32)
[2019-07-19] MEDS: Vancomycin 1 GM in Premix Bag 1 BAG IVPB SCH (06:12)
[2019-07-19] MEDS: Levothyroxine Sodium 75 MCG TAB PO SCH (06:14)
[2019-07-19] MEDS: oxyCODONE 5 MG TAB PO PRN ×5 (06:18→20:40)
--- NOTE | 2019-07-19 07:46 | PDOC.HOSPP ---
- Subjective Encounter Date: 07/19/19 Encounter Time: 10:50 Subjective: Mild swelling in LUE unchanged, did have some bruising in the forearm. No pain. Pain in RLE maybe a little better. No other complaints. - Objective Vital Signs & Weight: Vital Signs (12 hours) Temp Pulse Resp BP Pulse Ox 07/19/19 07:22 98.4 F 86 20 145/62 H 91 L 07/18/19 20:00 92 L Weight Admit Weight 157 lb Weight 157 lb I&O: 07/18/19 07/19/19 07/20/19 06:59 06:59 06:59 Intake Total 360 800 Output Total 750 800 Balance -390 0 Result Diagrams: 07/18/19 04:56 07/18/19 04:56 Hospitalist ROS - Review of Systems Constitutional: denies: fever, chills Respiratory: denies: cough, shortness of breath Cardiovascular: denies: chest pain, palpitations Gastrointestinal: denies: nausea, vomiting, abdominal pain Genitourinary: denies: dysuria, hematuria - Medication Medications: Active Medications Generic Name Dose Route Start Last Admin Trade Name Freq PRN Reason Stop Dose Admin Amlodipine Besylate 2.5 mg 07/04/19 09:00 07/18/19 08:24 Norvasc PO 2.5 mg DAILY ELI Administration Cyclobenzaprine HCl 5 mg 07/15/19 11:36 07/18/19 08:36 Flexeril PO 5 mg TID PRN Administration Muscle Spasm Duloxetine HCl 30 mg 07/04/19 09:00 07/18/19 08:24 Cymbalta PO 30 mg DAILY ELI Administration Hydralazine HCl 10 mg 07/05/19 11:14 07/05/19 16:55 Apresoline SLOW IVP 10 mg Q4H PRN Administration SBP Greater Than 180 Vancomycin HCl 1 gm/ Device 200 mls @ 200 mls/hr 07/13/19 06:00 07/19/19 06: 12 IVPB 200 mls 0600 ELI Administration Levothyroxine Sodium 75 mcg 07/04/19 06:00 07/19/19 06:14 Synthroid PO 75 mcg 0600 ELI Administration Lisinopril 2.5 mg 07/10/19 09:00 07/18/19 08:24 Zestril PO 2.5 mg DAILY ELI Administration Oxycodone HCl 5 mg 07/12/19 11:09 07/18/19 13:13 Oxycodone Ir PO 5 mg Q4H PRN Administration Pain Oxycodone HCl 10 mg 07/17/19 15:04 07/19/19 06:18 Oxycodone Ir PO 10 mg Q4H PRN Administration Severe Pain (7-10) Pantoprazole Sodium 40 mg 07/04/19 09:00 07/18/19 20:30 Protonix PO 40 mg BID ELI Administration Pregabalin 75 mg 07/04/19 09:00 07/18/19 20:31 Lyrica PO 75 mg BID ELI Administration Saccharomyces Boulardii 250 mg 07/13/19 09:00 07/18/19 08:24 Florastor PO 250 mg DAILY LEI Administration Sodium Chloride 10 ml 07/04/19 20:18 07/11/19 08:16 Flush - Normal Saline IVF 10 ml PRN PRN Administration Saline Flush Trazodone HCl 100 mg 07/04/19 21:00 07/18/19 20:32 Desyrel PO 100 mg QPM ELI Administration - Exam General Appearance: NAD, awake alert ENT: moist mucosa Heart: RRR, no murmur, no gallops, no rubs Respiratory: CTAB, no wheezes, no rales, no ronchi Gastrointestinal: soft, non-tender, non-distended, normal bowel sounds Extremities - other findings: brace to RLE Psychiatric: normal affect, normal behavior, A&O x 3 Hosp A/P (1) Septic arthritis of knee, right Code(s): M00.9 - PYOGENIC ARTHRITIS, UNSPECIFIED Status: Acute Qualifiers: Septic arthritis organism: staphylococcal Qualified Code(s): M00.061 - Staphylococcal arthritis, right knee (2) Presence of right artificial knee joint Code(s): Z96.651 - PRESENCE OF RIGHT ARTIFICIAL KNEE JOINT Status: Chronic (3) Peptic ulcer Code(s): K27.9 - PEPTIC ULC, SITE UNSP, UNSP AC OR CHR, W/O HEMOR OR PERF Status: Acute (4) Diastolic dysfunction Code(s): I51.9 - HEART DISEASE, UNSPECIFIED Status: Chronic (5) Cirrhosis Code(s): K74.60 - UNSPECIFIED CIRRHOSIS OF LIVER Status: Chronic Qualifiers: Hepatic cirrhosis type: alcoholic cirrhosis Ascites presence: without ascites Qualified Code(s): K70.30 - Alcoholic cirrhosis of liver without ascites (6) HLD (hyperlipidemia) Code(s): E78.5 - HYPERLIPIDEMIA, UNSPECIFIED Status: Chronic (7) Hypertension Code(s): I10 - ESSENTIAL (PRIMARY) HYPERTENSION Status: Chronic Qualifiers: Hypertension type: essential hypertension Qualified Code(s): I10 - Essential (primary) hypertension (8) Hypothyroid Code(s): E03.9 - HYPOTHYROIDISM, UNSPECIFIED Status: Chronic Qualifiers: Hypothyroidism type: unspecified Qualified Code(s): E03.9 - Hypothyroidism , unspecified (9) Esophageal varices in alcoholic cirrhosis Code(s): K70.30 - ALCOHOLIC CIRRHOSIS OF LIVER WITHOUT ASCITES; I85.10 - SECONDARY ESOPHAGEAL VARICES WITHOUT BLEEDING Status: Chronic (10) DVT of upper extremity (deep vein thrombosis) Code(s): I82.629 - ACUTE EMBOLISM AND THROMBOSIS OF DEEP VN UNSP UP EXTREM Status: Acute - Plan Patient with septic arthritis of artificial right knee, s/p hardware removal and unarticulated abx spacer Needs IV Vancomycin until August 19, weekly CBC, CRP, CMP, and Vanc. trough per [facility] Needs LTAC per rehab physician, trying to get insurance approval, doc to doc denied, currently appealing H/H stable, continue to monitor Check U/S LUE for DVT-> Brachial vein DVT, small and can't give blood thinners due to slow GI blood leak and dx of peptic ulcers at other hospital. Insurance approved for LTAC today. Will transfuse before transport due to borderline H/H and slow leak.
[2019-07-19] MEDS: DULoxetine 30 MG CAP PO SCH (08:01)
[2019-07-19] MEDS: Lisinopril 2.5 MG TAB PO SCH (08:01)
[2019-07-19] MEDS: Saccharomyces boulardii 250 MG CAP PO SCH (08:01)
[2019-07-19] MEDS: Pregabalin 75 MG CAP PO SCH ×2 (08:02→20:05)
[2019-07-19] MEDS: Amlodipine 5 MG TAB PO SCH (08:02)
[2019-07-19] MEDS ORDERED: Apixaban 5 MG TAB PO SCH (09:00)
[2019-07-19] MEDS: Cyclobenzaprine 10 MG TAB PO PRN (18:15)
[2019-07-19] MEDS: traZODone HCl 50 MG TAB PO SCH (20:05)
[2019-07-19 21:44] VITALS: BP 170/85; TEMP 98.1
--- NOTE | 2019-07-20 13:29 | DIS ---
DATE OF ADMISSION: 07/03/2019 DATE OF DISCHARGE: 07/19/2019 PRIMARY CARE PHYSICIAN: Iqra Little MD REASON FOR ADMISSION: Septic right knee. DISCHARGE DIAGNOSES: 1. Septic artificial right knee, status post artificial knee removal. 2. Peptic ulcer with slow gastrointestinal bleed. 3. Diastolic dysfunction. 4. Longstanding cirrhosis of the liver with previous portosystemic shunt. 5. Esophageal varices and alcoholic cirrhosis with resolution on most recent esophagogastroduodenoscopy. 6. Hyperlipidemia. 7. Hypertension. 8. Hypothyroidism. 9. 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 PROCEDURES: 1. X-ray of the right femur showing knee joint effusion and possibility of underlying infection. 2. X-ray of the right knee showing a small joint effusion, development of some minimal lucency on the lateral edge of the tibia beneath the tibial component of the prosthesis. 3. Explantation of right total knee arthroplasty and explantation of right lateral collateral distal femoral plate and screws. Irrigation and debridement of the right knee and insertion of antibiotic-impregnated polymethylmethacrylate spacer. 4. Ultrasound of the left upper extremity showing technically positive for occlusive thrombus within one of the duplicated brachial veins with the remainder of the deep venous system normal. CONSULTATIONS: 1. Orthopedics, Dr. Dunbar. 2. Infectious Disease, Dr. Salcedo. 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 The patient had some sort of injections done in her right knee, which was also artificial knee and did develop some swelling and redness, eventually went to [facility] previous to admission here and was admitted with a septic joint. She had a washout done there, and had MRSA grow back. The patient was put on vancomycin and had a PICC line placed and was sent home on IV vancomycin. However, she noticed increased swelling and pain in the right knee at home and so she came into the ER here. Here, she was found to be febrile and septic. She did have infection of the right knee noted. Dr. Dunbar was consulted and ended up taking out the artificial knee and putting in a spacer. Dr. Salcedo was consulted as well for antibiotic recommendations. The patient had a prolonged course here in the hospital and eventually required an LTAC placement. After her surgery, she did have development of some swelling and a little bit of pain in her left upper extremity, especially down in the forearm. An ultrasound was done, which showed a DVT in one of the paired brachial veins. However, given the patient's recent GI blood loss and anemia, she was deemed not a candidate for anticoagulation and so this will be monitored to make sure it resolves without progression. The patient did have a GI bleed at [facility]. She had an EGD done there, which showed some nonbleeding stomach ulcers, but no evidence of problems with her previous esophageal varices. She was placed on PPI, has been continued on those. She has continued to have a very slow hemoglobin drop. She had a transfusion prior to her surgery and has slowly dropped down over the course of her hospitalization here now down to 7.1. We are going to go ahead and transfuse her 2 units of packed red blood cells prior to transferring her out to LTAC because she will also need continued following up with GI as an outpatient as previously indicated. DISCHARGE MANAGEMENT: Discharged to LTAC at [facility]. ACTIVITY: As tolerated. DIET: Regular diet. THERAPY: Occupational and physical therapy. MEDICATIONS: 1. Vancomycin 1 g IV daily until August 19 with weekly CBC, CRP, CMP, and vancomycin troughs. 2. Amlodipine 2.5 mg daily. 3. Acetaminophen as needed. 4. Flexeril 5 mg 3 times a day. 5. Duloxetine 30 mg daily. 6. Robitussin DM as needed. 7. DuoNeb as needed. 8. Levothyroxine 75 mcg daily. 9. Lisinopril 2.5 mg daily. 10. Oxycodone IR 5 to 10 mg every 4 hours as needed for pain. 11. Protonix 40 mg twice a day. 12. Lyrica 75 mg twice a day. 13. Florastor 250 mg daily. 14. Senokot-S 2 tablets twice a day as needed for constipation. 15. Trazodone 100 mg at night. 16. Lorazepam 0.5 mg 3 times a day as needed for anxiety. FOLLOWUP: The patient is to follow up with Dr. Dunbar in his fracture clinic in 3 to 4 weeks and with the primary care physician after discharge from LTAC. TIME SPENT: Arranging the details of this discharge took 35 minutes. Job ID: [id number]
== END 2019-07-19 20:50 | disposition short-term general hospital (02) | DRG 463 ==
LOC: ERS 15:19 → T4-A 18:05
PROVIDERS: ADMIT Emergency Medicine; ATTEND Emergency Medicine
PROC: 30233N1 Transfusion of Nonautologous Red Blood Cells into Peripheral Vein, Percutaneous Approach (ICD-10-PCS; 2019-07-05)
PROC: 0SPC0JZ Removal of Synthetic Substitute from Right Knee Joint, Open Approach (ICD-10-PCS; principal; 2019-07-08)
PROC: 0SPC0MZ Removal of Lateral Unicondylar Synthetic Substitute from Right Knee Joint, Open Approach (ICD-10-PCS; 2019-07-08)
PROC: 0SRC0EZ Replacement of Right Knee Joint with Articulating Spacer, Open Approach (ICD-10-PCS; 2019-07-08)
DX: T84.53XA Infection and inflammatory reaction due to internal right knee prosthesis, initial encounter (principal); K27.4 Chronic or unspecified peptic ulcer, site unspecified, with hemorrhage; I85.10 Secondary esophageal varices without bleeding; M00.061 Staphylococcal arthritis, right knee; I82.622 Acute embolism and thrombosis of deep veins of left upper extremity; X58.XXXA Exposure to other specified factors, initial encounter; I10 Essential (primary) hypertension; E78.5 Hyperlipidemia, unspecified; E03.9 Hypothyroidism, unspecified; K21.9 Gastro-esophageal reflux disease without esophagitis; Z87.01 Personal history of pneumonia (recurrent); Z96.642 Presence of left artificial hip joint; Z88.1 Allergy status to other antibiotic agents; Z88.0 Allergy status to penicillin; Z88.8 Allergy status to other drugs, medicaments and biological substances; Z98.890 Other specified postprocedural states; Z89.612 Acquired absence of left leg above knee; F17.210 Nicotine dependence, cigarettes, uncomplicated; K70.30 Alcoholic cirrhosis of liver without ascites; R33.9 Retention of urine, unspecified
CPT/HCPCS: 36415; 36416; 36430; 71045; 76000; 80048; 80053; 80202; 82553; 83605; 84484; 85025; 85610; 85652; 85730; 86140; 86850; 86900; 86901; 87040; 87070; 87205; 96361; 96365; 96367; 96374; 96376; C1713; J0360; J1170; J1200; J1940; J2185; J2270; J2405; J2704; J2765; J3010; J3260; J3370; J3490; J7050; P9016

== ENCOUNTER 2021-03-13 12:57 | Inpatient (IN) | payer MEDICARE, MEDICAID ==
[2021-03-13 14:02] LABS: Bilirubin Negative (Negative); Blood, Urine Negative (Negative); Clarity Clear (Clear); Glucose, Urine (Dipstick) Normal (Negative); Ketone, Urine Trace mg/dL (Negative); Leukocyte Negative Leu/uL (Negative); Nitrite 1+ (Negative); Protein, Urine (Dipstick) Negative (Neg-Trace); RBC/HPF 0-3 HPF (0-3); Specific Gravity, Urine 1.019 (1.002-1.036); Squamous Epithelial 0-3 HPF (0-3); Urobilinogen Normal mg/dL (Less than 2); pH, Urine 6.5 (5.0-9.0)
[2021-03-13 14:03] LABS: Bacteria/HPF 1+ HPF (None Seen)
[2021-03-13 16:34] LABS: #Eosinphils 0.1 thou/uL (0.0-0.7); #Lymphocytes 1.6 thou/uL (1.20-3.40); #Monocytes 0.3 thou/uL (0.11-0.59); #Neutrophils 3.1 thou/uL (1.40-6.50); %Basophils 0.8 % (0.0-1.0); %Eosinophils 2.2 % (0.0-10.0); %Monocytes 6.6 % (0.0-10.0); %Neutrophils 59.4 % (42.0-75.0); Hemoglobin 11.1 g/dL (12.0-16.0); Mean Corpuscular Volume 93.9 fL (78.0-98.0); Mean Platelet Volume 8.7 fL (7.4-10.4); Platelet Count 171 thou/uL (130-400); RBC Distribution Width 13.6 % (11.5-14.5); Red Blood Cell (RBC) Count 3.56 mill/uL (4.20-5.40); White Blood Cell (WBC) Count 5.2 thou/uL (4.8-10.8)
[2021-03-13 16:58] LABS: ALT (SGPT) 13 U/L (8-55); AST (SGOT) 27 U/L (5-34); Acetaminophen Less than 6.0 mcg/mL (10.0-30.0); Alcohol Less than 10 mg/dL (Less than 10); Alkaline Phosphatase 95 U/L (40-110); Anion Gap 16 mmol/L (10-20); BUN (Urea Nitrogen) 29 mg/dL (9.8-20.1); Bilirubin, Total 0.6 mg/dL (0.2-1.2); Calc. Creatinine Clearance 0 mL/min (70-130); Calcium 9.4 mg/dL (7.8-10.44); Carbon Dioxide 17 mmol/L (23-31); Chloride 113 mmol/L (98-107); Globulin 2.9 g/dL (2.4-3.5); Glucose 75 mg/dL (80-115); Magnesium 1.6 mg/dL (1.6-2.6); Potassium 5.3 mmol/L (3.5-5.1); Protein, Total 5.9 g/dL (5.8-8.1); Salicylate Less than 8.0 mg/dL (15.0-30.0); Sodium 141 mmol/L (136-145)
[2021-03-13 17:13] LABS: Free T4 (Free Thyroxine) 1.12 ng/dL (0.70-1.48)
[2021-03-13 18:15] LABS: Amphetamine Not Detected (NotDetected); Barbiturates Screen Not Detected (NotDetected); Benzodiazepine Screen Not Detected (NotDetected); Cocaine Metabolite Screen Not Detected (NotDetected); Methadone Not Detected (NotDetected); Methamphetamine Not Detected (NotDetected); Opiate Screen Not Detected (NotDetected); Oxycodone Screen Not Detected (NotDetected); Phencyclidine (PCP) Not Detected (NotDetected); THC/Cannabinoid Screen Not Detected (NotDetected); Tricyclic Screen Not Detected (NotDetected)
[2021-03-13] MEDS ORDERED: Orphenadrine Citrate 60 MG/2 ML VIAL IM SCH (18:15)
[2021-03-13] MEDS ORDERED: Ondansetron ODT 4 MG TAB PO PRN (22:01)
[2021-03-13] MEDS ORDERED: Ondansetron PF 4 MG/2 ML Vial IVP PRN ×2 (22:01→23:29)
[2021-03-13 22:50] VITALS: BMI 21.2
[2021-03-13] MEDS: Gentamicin Sulfate 300 MG in Sodium Chloride 0.9% 100 ML IVPB SCH ×2 (23:17→23:32)
[2021-03-13] MEDS ORDERED: Acetaminophen 325 MG TAB PO PRN (23:29)
[2021-03-13] MEDS ORDERED: Acetaminophen 500 MG TAB PO PRN (23:33)
[2021-03-13] MEDS ORDERED: Magnesium Sulfate 2 GM in Sodium Chloride 0.9% 100 ML IVPB SCH (23:45)
[2021-03-13] MEDS ORDERED: Magnesium 2 GM/50 ML 2 GM in Premix Bag 1 BAG IVPB SCH (23:45)
[2021-03-14 05:34] LABS: #Eosinphils 0.2 thou/uL (0.0-0.7); #Lymphocytes 1.3 thou/uL (1.20-3.40); #Monocytes 0.5 thou/uL (0.11-0.59); #Neutrophils 3.1 thou/uL (1.40-6.50); %Basophils 0.9 % (0.0-1.0); %Eosinophils 4.2 % (0.0-10.0); %Lymphocytes 25.6 % (21.0-51.0); %Monocytes 9.3 % (0.0-10.0); Hemoglobin 9.3 g/dL (12.0-16.0); Mean Corpuscular HGB CONC 32.2 g/dL (32.0-36.0); Mean Corpuscular Hemoglobin 30.4 pg (27.0-31.0); Mean Corpuscular Volume 94.5 fL (78.0-98.0); Mean Platelet Volume 8.6 fL (7.4-10.4); Platelet Count 148 thou/uL (130-400); RBC Distribution Width 13.9 % (11.5-14.5); Red Blood Cell (RBC) Count 3.04 mill/uL (4.20-5.40); White Blood Cell (WBC) Count 5.1 thou/uL (4.8-10.8)
[2021-03-14 05:53] LABS: Anion Gap 13 mmol/L (10-20); BUN (Urea Nitrogen) 26 mg/dL (9.8-20.1); Calc. Creatinine Clearance 66 mL/min (70-130); Carbon Dioxide 16 mmol/L (23-31); Chloride 114 mmol/L (98-107); Potassium 4.2 mmol/L (3.5-5.1); Sodium 139 mmol/L (136-145)
[2021-03-14 05:54] LABS: Calcium 8.5 mg/dL (7.8-10.44); Glucose 75 mg/dL (80-115)
[2021-03-14] MEDS ORDERED: Meropenem 1 GM in Sodium Chloride 0.9% 100 ML IVPB SCH (06:00)
[2021-03-14] MEDS ORDERED: FLU VACC QS2021-22(65YR UP)/PF 240 MCG/0.7 ML SYRINGE IM ONE (09:00)
[2021-03-14] MEDS ORDERED: Thiamine 100 MG TAB PO SCH (10:15)
[2021-03-14] MEDS ORDERED: Folic Acid 1 MG TAB PO SCH (10:15)
[2021-03-14] MEDS ORDERED: Ascorbic Acid 500 mg Chewable Tablet PO SCH (10:15)
[2021-03-14] MEDS ORDERED: Sodium Chloride 0.9% 500 ML IV SCH (11:00)
[2021-03-14] MEDS ORDERED: Lorazepam 2 MG/ML VIAL IM PRN (11:17)
[2021-03-14] MEDS ORDERED: Ondansetron ODT 4 MG TAB PO PRN (11:17)
[2021-03-14] MEDS ORDERED: Lorazepam 1 MG TAB PO PRN (11:17)
[2021-03-14] MEDS ORDERED: Multivit, Therapeutic 1 TAB PO SCH (11:30)
[2021-03-14] MEDS ORDERED: Electrolyte Replacement Protocol 1 EACH FS SCH (11:30)
[2021-03-14] MEDS: Lorazepam 1 MG TAB PO SCH ×3 (12:10→23:31)
[2021-03-14 12:22] LABS: ALT (SGPT) 12 U/L (8-55); AST (SGOT) 27 U/L (5-34); Albumin 2.5 g/dL (3.4-4.8); Alkaline Phosphatase 79 U/L (40-110); Anion Gap 17 mmol/L (10-20); BUN (Urea Nitrogen) 25 mg/dL (9.8-20.1); Bilirubin, Direct 0.3 mg/dL (0.1-0.3); Bilirubin, Total 0.6 mg/dL (0.2-1.2); Calc. Creatinine Clearance 52 mL/min (70-130); Calcium 8.4 mg/dL (7.8-10.44); Carbon Dioxide 15 mmol/L (23-31); Chloride 113 mmol/L (98-107); Globulin 2.2 g/dL (2.4-3.5); Glucose 155 mg/dL (80-115); Phosphorus 3.7 mg/dL (2.3-4.7); Potassium 4.2 mmol/L (3.5-5.1); Protein, Total 4.7 g/dL (5.8-8.1); Sodium 141 mmol/L (136-145)
[2021-03-14] MEDS: Meropenem 1 GM in Sodium Chloride 0.9% 100 ML IVPB SCH ×2 (13:32→22:11)
[2021-03-14] MEDS ORDERED: Magnesium 2 GM/50 ML 2 GM in Premix Bag 1 BAG IVPB SCH (15:00)
[2021-03-14 15:19] LABS: #Basophils 0.1 thou/uL (0.0-0.2); #Eosinphils 0.2 thou/uL (0.0-0.7); #Lymphocytes 1.2 thou/uL (1.20-3.40); #Monocytes 0.6 thou/uL (0.11-0.59); #Neutrophils 3.5 thou/uL (1.40-6.50); %Basophils 0.9 % (0.0-1.0); %Lymphocytes 22.6 % (21.0-51.0); %Monocytes 10.2 % (0.0-10.0); %Neutrophils 63.4 % (42.0-75.0); Hemoglobin 9.2 g/dL (12.0-16.0); Mean Corpuscular HGB CONC 33.6 g/dL (32.0-36.0); Mean Corpuscular Hemoglobin 32.1 pg (27.0-31.0); Mean Corpuscular Volume 95.5 fL (78.0-98.0); Mean Platelet Volume 8.3 fL (7.4-10.4); Platelet Count 147 thou/uL (130-400); RBC Distribution Width 14.1 % (11.5-14.5); Red Blood Cell (RBC) Count 2.86 mill/uL (4.20-5.40); White Blood Cell (WBC) Count 5.5 thou/uL (4.8-10.8)
[2021-03-14 15:19] LABS: Actual Bicarbonate (HCO3a) 16.8 mEq/L (22-28); Base Excess (BEa) -4.8 mEq/L (-2.0 to +3.0); Calcium, Ionized (arterial) 1.13 mmol/L (1.12-1.30); Carboxyhemoglobin (COHb) 0.3 gm% (0.0-3.0); Hemoglobin (Hb) 8.9 g/dL (12.0-16.0); O2 Tension (PaO2), arterial 96.8 mmHg (> 80.0); Potassium - ABG Lab 3.73 mmol/L (3.70-5.30); pH, Arterial 7.52 (7.35-7.45)
[2021-03-14 15:23] LABS: CO2 Tension 21.1 mmHg (35.0-45.0); Puncture Site LBA
[2021-03-14] MEDS ORDERED: Pregabalin 75 MG CAP PO SCH (21:00)
[2021-03-14] MEDS: Pregabalin 75 MG CAP PO SCH (21:08)
[2021-03-14] MEDS: Metoprolol Tartrate 25 MG TAB PO SCH (21:08)
[2021-03-14] MEDS: Atorvastatin Calcium 10 MG TAB PO SCH (21:09)
[2021-03-15 05:07] LABS: Anion Gap 9 mmol/L (10-20); BUN (Urea Nitrogen) 18 mg/dL (9.8-20.1); Calc. Creatinine Clearance 69 mL/min (70-130); Calcium 7.7 mg/dL (7.8-10.44); Carbon Dioxide 20 mmol/L (23-31); Chloride 115 mmol/L (98-107); Glucose 109 mg/dL (80-115); Magnesium 2.2 mg/dL (1.6-2.6); Potassium 3.5 mmol/L (3.5-5.1); Sodium 140 mmol/L (136-145)
[2021-03-15] MEDS: Lorazepam 1 MG TAB PO SCH ×3 (05:25→18:22)
[2021-03-15] MEDS: Meropenem 1 GM in Sodium Chloride 0.9% 100 ML IVPB SCH ×3 (05:26→23:15)
[2021-03-15] MEDS: Levothyroxine Sodium 75 MCG TAB PO SCH (05:26)
[2021-03-15 06:51] LABS: Band 6 % (5-11); Eosinophils 5 % (0-10); Lymphocytes 28 % (21-51); MDiff Complete? YES; Mean Corpuscular HGB CONC 32.1 g/dL (32.0-36.0); Mean Corpuscular Hemoglobin 30.4 pg (27.0-31.0); Mean Corpuscular Volume 94.8 fL (78.0-98.0); Mean Platelet Volume 8.4 fL (7.4-10.4); Monocytes 2 % (0-10); Neutrophil 58 % (42-75); Platelet Count 128 thou/uL (130-400); RBC Distribution Width 14.3 % (11.5-14.5); Red Blood Cell (RBC) Count 2.64 mill/uL (4.20-5.40); White Blood Cell (WBC) Count 4.9 thou/uL (4.8-10.8)
[2021-03-15] MEDS ORDERED: Potassium Chloride 20 MEQ TAB PO SCH (08:00)
[2021-03-15 08:14] LABS: Iron 15 ug/dL (50-170); Iron Binding Capacity, Total 225 mcg/dL (265-497)
[2021-03-15] MEDS: Aspirin 81 mg Enteric Coated Tablet PO SCH ×2 (09:09→09:12)
[2021-03-15] MEDS: Ascorbic Acid 500 mg Chewable Tablet PO SCH (09:09)
[2021-03-15] MEDS: Metoprolol Tartrate 25 MG TAB PO SCH ×2 (09:10→21:03)
[2021-03-15] MEDS: DULoxetine 60 MG CAP PO SCH (09:10)
[2021-03-15] MEDS: Folic Acid 1 MG TAB PO SCH (09:10)
[2021-03-15] MEDS: Spironolactone 25 MG TAB PO SCH (09:10)
[2021-03-15] MEDS: Multivit, Therapeutic 1 TAB PO SCH (09:11)
[2021-03-15] MEDS: Thiamine 100 MG TAB PO SCH (09:11)
[2021-03-15] MEDS ORDERED: Lorazepam 1 MG TAB PO PRN (11:17)
[2021-03-15 17:09] LABS: Potassium 4.8 mmol/L (3.5-5.1)
[2021-03-15] MEDS ORDERED: Octreotide Acetate 50 MCG/ML AMP SLOW IVP SCH (19:15)
[2021-03-15 20:49] LABS: SARS-CoV-2 PCR by NAA DETECTED (NotDetected)
[2021-03-15] MEDS: Atorvastatin Calcium 10 MG TAB PO SCH (21:02)
[2021-03-15] MEDS: Pregabalin 75 MG CAP PO SCH (21:03)
[2021-03-15] MEDS: Octreotide Acetate 1,250 MCG in Sodium Chloride 0.9% 250 ML 250 ML IVPB SCH (21:09)
[2021-03-16] MEDS: Lorazepam 1 MG TAB PO SCH ×3 (02:09→09:11)
[2021-03-16 05:35] LABS: #Eosinphils 0.3 thou/uL (0.0-0.7); #Lymphocytes 1.5 thou/uL (1.20-3.40); #Monocytes 0.4 thou/uL (0.11-0.59); #Neutrophils 2.5 thou/uL (1.40-6.50); %Eosinophils 6.2 % (0.0-10.0); %Lymphocytes 31.2 % (21.0-51.0); %Neutrophils 52.6 % (42.0-75.0); Hemoglobin 8.3 g/dL (12.0-16.0); Mean Corpuscular HGB CONC 32.4 g/dL (32.0-36.0); Mean Corpuscular Volume 95.5 fL (78.0-98.0); Platelet Count 114 thou/uL (130-400); RBC Distribution Width 13.9 % (11.5-14.5); Red Blood Cell (RBC) Count 2.69 mill/uL (4.20-5.40); White Blood Cell (WBC) Count 4.7 thou/uL (4.8-10.8)
[2021-03-16] MEDS: Levothyroxine Sodium 75 MCG TAB PO SCH (05:40)
[2021-03-16] MEDS: Meropenem 1 GM in Sodium Chloride 0.9% 100 ML IVPB SCH ×2 (05:40→14:04)
[2021-03-16 05:44] LABS: Anion Gap 9 mmol/L (10-20); BUN (Urea Nitrogen) 12 mg/dL (9.8-20.1); Calc. Creatinine Clearance 68 mL/min (70-130); Calcium 7.7 mg/dL (7.8-10.44); Carbon Dioxide 18 mmol/L (23-31); Chloride 112 mmol/L (98-107); Glucose 110 mg/dL (80-115); Potassium 4.4 mmol/L (3.5-5.1); Sodium 135 mmol/L (136-145)
[2021-03-16] MEDS: Ascorbic Acid 500 mg Chewable Tablet PO SCH (09:08)
[2021-03-16] MEDS: DULoxetine 60 MG CAP PO SCH (09:08)
[2021-03-16] MEDS: Folic Acid 1 MG TAB PO SCH (09:08)
[2021-03-16] MEDS: Rifaximin 550 MG TAB PO SCH ×2 (09:09→20:58)
[2021-03-16] MEDS: Multivit, Therapeutic 1 TAB PO SCH (09:09)
[2021-03-16] MEDS: Spironolactone 25 MG TAB PO SCH (09:09)
[2021-03-16] MEDS: Metoprolol Tartrate 25 MG TAB PO SCH ×2 (09:09→20:57)
[2021-03-16] MEDS: Thiamine 100 MG TAB PO SCH (09:10)
[2021-03-16] MEDS ORDERED: Iopamidol 370 76% 100 ML VIAL ONE ×2 (11:06→11:08)
[2021-03-16] MEDS ORDERED: Lorazepam 1 MG TAB PO PRN (11:17)
[2021-03-16] MEDS: Lorazepam 0.5 MG TAB PO SCH ×3 (14:02→23:22)
[2021-03-16] MEDS: Sodium Chloride 0.9% 1,000 ML IV SCH (16:42)
[2021-03-16] MEDS: Pregabalin 75 MG CAP PO SCH (20:57)
[2021-03-16] MEDS: Atorvastatin Calcium 10 MG TAB PO SCH (20:59)
[2021-03-17] MEDS: Octreotide Acetate 1,250 MCG in Sodium Chloride 0.9% 250 ML 250 ML IVPB SCH (01:19)
[2021-03-17] MEDS: Benzonatate 100 MG CAP PO PRN ×3 (01:19→20:36)
[2021-03-17] MEDS: Sodium Chloride 0.9% 1,000 ML IV SCH ×3 (01:20→22:50)
[2021-03-17] MEDS: Lorazepam 0.5 MG TAB PO SCH (05:10)
[2021-03-17] MEDS: Levothyroxine Sodium 75 MCG TAB PO SCH (05:10)
[2021-03-17] MEDS: DULoxetine 60 MG CAP PO SCH (09:45)
[2021-03-17] MEDS: Ascorbic Acid 500 mg Chewable Tablet PO SCH (09:45)
[2021-03-17] MEDS: Folic Acid 1 MG TAB PO SCH (09:48)
[2021-03-17] MEDS: Multivit, Therapeutic 1 TAB PO SCH (09:49)
[2021-03-17] MEDS: Metoprolol Tartrate 25 MG TAB PO SCH ×2 (09:49→20:35)
[2021-03-17] MEDS: Rifaximin 550 MG TAB PO SCH ×2 (09:50→20:35)
[2021-03-17 09:51] LABS: #Eosinphils 0.5 thou/uL (0.0-0.7); #Lymphocytes 1.2 thou/uL (1.20-3.40); #Monocytes 0.4 thou/uL (0.11-0.59); #Neutrophils 2.5 thou/uL (1.40-6.50); %Lymphocytes 26.9 % (21.0-51.0); %Monocytes 7.7 % (0.0-10.0); %Neutrophils 54.5 % (42.0-75.0); Hemoglobin 8.5 g/dL (12.0-16.0); Mean Corpuscular Hemoglobin 30.5 pg (27.0-31.0); Mean Corpuscular Volume 95.1 fL (78.0-98.0); Mean Platelet Volume 8.5 fL (7.4-10.4); Platelet Count 135 thou/uL (130-400); RBC Distribution Width 13.5 % (11.5-14.5); Red Blood Cell (RBC) Count 2.77 mill/uL (4.20-5.40); White Blood Cell (WBC) Count 4.6 thou/uL (4.8-10.8)
[2021-03-17] MEDS: Thiamine 100 MG TAB PO SCH (09:51)
[2021-03-17] MEDS: Spironolactone 25 MG TAB PO SCH (09:51)
[2021-03-17 10:01] LABS: INR-International Normal Ratio 1.1; PTT 27.7 sec (22.9-36.1)
[2021-03-17 10:11] LABS: Anion Gap 8 mmol/L (10-20); BUN (Urea Nitrogen) 9 mg/dL (9.8-20.1); Calc. Creatinine Clearance 76 mL/min (70-130); Calcium 7.6 mg/dL (7.8-10.44); Carbon Dioxide 21 mmol/L (23-31); Chloride 116 mmol/L (98-107); Glucose 108 mg/dL (80-115); Potassium 4.6 mmol/L (3.5-5.1); Sodium 140 mmol/L (136-145)
[2021-03-17] MEDS ORDERED: Lidocaine 1% (PF) 30 ML VIAL ONE (10:43)
[2021-03-17] MEDS ORDERED: Iopamidol 370 76% 50 ML VIAL FS ONE (10:51)
[2021-03-17] MEDS ORDERED: Lorazepam 0.5 MG TAB PO PRN (11:17)
[2021-03-17] MEDS: Pregabalin 75 MG CAP PO SCH (20:35)
[2021-03-17] MEDS: Atorvastatin Calcium 10 MG TAB PO SCH (20:35)
[2021-03-17 23:29] LABS: Magnesium 1.6 mg/dL (1.6-2.6)
[2021-03-18] MEDS ORDERED: Magnesium Sulfate 4 GM in Sodium Chloride 0.9% 250 ML 250 ML IVPB SCH (00:30)
[2021-03-18] MEDS: Levothyroxine Sodium 75 MCG TAB PO SCH (05:32)
[2021-03-18 05:47] LABS: #Basophils 0.1 thou/uL (0.0-0.2); #Eosinphils 0.4 thou/uL (0.0-0.7); #Lymphocytes 1.6 thou/uL (1.20-3.40); #Monocytes 0.7 thou/uL (0.11-0.59); #Neutrophils 3.9 thou/uL (1.40-6.50); %Basophils 1.2 % (0.0-1.0); %Eosinophils 6.5 % (0.0-10.0); %Lymphocytes 23.9 % (21.0-51.0); %Neutrophils 58.5 % (42.0-75.0); Hemoglobin 8.9 g/dL (12.0-16.0); Mean Corpuscular HGB CONC 32.1 g/dL (32.0-36.0); Mean Corpuscular Hemoglobin 30.4 pg (27.0-31.0); Mean Corpuscular Volume 94.9 fL (78.0-98.0); Mean Platelet Volume 8.6 fL (7.4-10.4); Platelet Count 164 thou/uL (130-400); RBC Distribution Width 13.3 % (11.5-14.5); Red Blood Cell (RBC) Count 2.92 mill/uL (4.20-5.40); White Blood Cell (WBC) Count 6.7 thou/uL (4.8-10.8)
[2021-03-18 06:04] LABS: Anion Gap 7 mmol/L (10-20); BUN (Urea Nitrogen) 10 mg/dL (9.8-20.1); Calc. Creatinine Clearance 70 mL/min (70-130); Calcium 7.4 mg/dL (7.8-10.44); Carbon Dioxide 20 mmol/L (23-31); Chloride 115 mmol/L (98-107); Glucose 112 mg/dL (80-115); Magnesium 2.9 mg/dL (1.6-2.6); Potassium 4.3 mmol/L (3.5-5.1); Sodium 138 mmol/L (136-145)
[2021-03-18] MEDS: Ascorbic Acid 500 mg Chewable Tablet PO SCH (08:24)
[2021-03-18] MEDS: Multivit, Therapeutic 1 TAB PO SCH (08:24)
[2021-03-18] MEDS: Folic Acid 1 MG TAB PO SCH (08:24)
[2021-03-18] MEDS: Thiamine 100 MG TAB PO SCH (08:24)
[2021-03-18] MEDS: Rifaximin 550 MG TAB PO SCH (08:24)
[2021-03-18] MEDS: DULoxetine 60 MG CAP PO SCH (08:24)
[2021-03-18] MEDS: Metoprolol Tartrate 25 MG TAB PO SCH (08:25)
[2021-03-18] MEDS: Spironolactone 25 MG TAB PO SCH (08:25)
[2021-03-18] MEDS ORDERED: Albuterol 200 PUFF (6.7GM INHALER) INH SCH ×3 (08:30→11:00)
[2021-03-18 10:20] LABS: SARS-CoV-2 NAA Rapid Test Not Detected (NotDetected)
[2021-03-18 12:37] VITALS: BP 134/58; TEMP 97.7
[2021-03-18] MEDS ORDERED: Silver Sulfadiazine 50 GM TUBE TOP SCH (21:00)
== END 2021-03-18 13:25 | DRG 689 ==
LOC: ERS 12:57 → NEURO 19:48 → 2SW 03-16 01:12
PROVIDERS: ADMIT Internal Medicine; ATTEND Internal Medicine
PROC: 06H03DZ Insertion of Intraluminal Device into Inferior Vena Cava, Percutaneous Approach (ICD-10-PCS; principal; 2021-03-17)
DX: N39.0 Urinary tract infection, site not specified (principal); U07.1 COVID-19; G92.8 Other toxic encephalopathy; E87.2 Acidosis; K92.1 Melena; Z16.24 Resistance to multiple antibiotics; K76.6 Portal hypertension; I27.82 Chronic pulmonary embolism; I10 Essential (primary) hypertension; G89.29 Other chronic pain; J44.9 Chronic obstructive pulmonary disease, unspecified; E03.9 Hypothyroidism, unspecified; F41.9 Anxiety disorder, unspecified; F32.A Depression, unspecified; F43.10 Post-traumatic stress disorder, unspecified; Z96.652 Presence of left artificial knee joint; Z96.612 Presence of left artificial shoulder joint; F17.210 Nicotine dependence, cigarettes, uncomplicated; E87.5 Hyperkalemia; K72.90 Hepatic failure, unspecified without coma; K70.30 Alcoholic cirrhosis of liver without ascites; D50.9 Iron deficiency anemia, unspecified; F10.20 Alcohol dependence, uncomplicated; T50.905A Adverse effect of unspecified drugs, medicaments and biological substances, initial encounter; E78.5 Hyperlipidemia, unspecified; Z90.49 Acquired absence of other specified parts of digestive tract; Z89.612 Acquired absence of left leg above knee; Z88.0 Allergy status to penicillin; Z86.718 Personal history of other venous thrombosis and embolism; Z88.5 Allergy status to narcotic agent; Z88.8 Allergy status to other drugs, medicaments and biological substances; Z79.82 Long term (current) use of aspirin; Z79.899 Other long term (current) drug therapy
CPT/HCPCS: 36415; 36600; 37191; 51701; 70450; 71045; 71275; 72193; 74170; 76705; 80048; 80053; 80306; 80307; 81003; 81015; 82105; 82140; 82248; 82274; 82728; 82805; 83540; 83550; 83735; 83880; 84100; 84439; 84443; 84481; 84484; 85025; 85610; 85730; 87077; 87086; 87186; 93005; 93010; 93306; 93970; 96372; C1880; J1580; J2001; J2185; J2354; J2360; J3475; J3490; J7050; Q9967; U0002; U0003; U0005

== ENCOUNTER 2021-05-12 15:12 | Emergency (ER) | payer MEDICARE, OTHER ==
[2021-05-12 17:19] LABS: #Basophils 0.1 thou/uL (0.0-0.2); #Eosinphils 0.3 thou/uL (0.0-0.7); #Lymphocytes 1.5 thou/uL (1.20-3.40); #Monocytes 0.5 thou/uL (0.11-0.59); #Neutrophils 3.5 thou/uL (1.40-6.50); %Basophils 1.1 % (0.0-1.0); %Eosinophils 4.3 % (0.0-10.0); %Lymphocytes 26.2 % (21.0-51.0); %Monocytes 7.9 % (0.0-10.0); %Neutrophils 60.5 % (42.0-75.0); Hemoglobin 8.7 g/dL (12.0-16.0); Mean Corpuscular HGB CONC 28.6 g/dL (32.0-36.0); Mean Corpuscular Volume 87.5 fL (78.0-98.0); Mean Platelet Volume 9.4 fL (7.4-10.4); Platelet Count 253 thou/uL (130-400); RBC Distribution Width 16.1 % (11.5-14.5); Red Blood Cell (RBC) Count 3.46 mill/uL (4.20-5.40); White Blood Cell (WBC) Count 5.9 thou/uL (4.8-10.8)
[2021-05-12 17:33] LABS: Anisocytosis SLIGHT = 6-15 cells (100X) (0-5/hpf); Hypochromia SLIGHT = 6-15 cells (100X) (0-5/hpf); MDiff Complete? YES; Ovalocytes SLIGHT = 2-5 cells (100X) (0-1/hpf); Platelet Morphology Comment Appears Adequate; Polychromasia SLIGHT = 2-3 cells (100X) (0-2/hpf); Tear Drops SLIGHT = 2-5 cells (100X) (0-1/hpf)
[2021-05-12 17:39] LABS: ALT (SGPT) 12 U/L (8-55); AST (SGOT) 22 U/L (5-34); Albumin 2.6 g/dL (3.4-4.8); Alkaline Phosphatase 126 U/L (40-110); Anion Gap 15 mmol/L (10-20); BUN (Urea Nitrogen) 23 mg/dL (9.8-20.1); Bilirubin, Total 0.4 mg/dL (0.2-1.2); Calc. Creatinine Clearance 0 mL/min (70-130); Calcium 7.9 mg/dL (7.8-10.44); Carbon Dioxide 19 mmol/L (23-31); Chloride 114 mmol/L (98-107); Globulin 2.6 g/dL (2.4-3.5); Glucose 93 mg/dL (80-115); Potassium 4.5 mmol/L (3.5-5.1); Protein, Total 5.2 g/dL (5.8-8.1); Sodium 143 mmol/L (136-145)
[2021-05-12] MEDS ORDERED: Acetaminophen 500 MG TAB ONE (17:51)
[2021-05-12] MEDS ORDERED: Furosemide 40 MG TAB ONE (18:32)
[2021-05-12] MEDS ORDERED: HYDROcodone/Acetaminophen 5/325 mg Tablet ONE (20:04)
== END 2021-05-12 22:14 ==
LOC: ERS 15:12
DX: J90 Pleural effusion, not elsewhere classified (principal); I10 Essential (primary) hypertension; M19.90 Unspecified osteoarthritis, unspecified site; J44.9 Chronic obstructive pulmonary disease, unspecified; E03.9 Hypothyroidism, unspecified; E78.5 Hyperlipidemia, unspecified; Z87.891 Personal history of nicotine dependence
CPT/HCPCS: 36415; 71045; 80053; 84484; 85025; 93005